=== PATIENT | female | born 1935 | race Caucasian/White ===

== ENCOUNTER 2016-11-08 07:17 | Day surgery (SDC) | payer OTHER ==
[2016-11-06 17:00] VITALS: BMI 29.2
[2016-11-08 07:38] VITALS: TEMP 97.5
[2016-11-08] MEDS ORDERED: BUPIVACAINE HCL/PF 0.25% (2.5MG/ML) 10 ML VIAL ONE (09:21)
[2016-11-08] MEDS ORDERED: methylPREDNISolone ACET (DEPO) 80 MG/1 ML VIAL ONE (09:21)
[2016-11-08] MEDS ORDERED: PROPOFOL 20 ML ONE (09:47)
--- NOTE | 2016-11-08 11:14 | OP ---
DATE OF OPERATION: 11/08/2016 PREOPERATIVE DIAGNOSES: 1. L1 osteoporotic compression fracture. 2. Lower back pain with lumbar radiculopathy. POSTOPERATIVE DIAGNOSES: 1. L1 osteoporotic compression fracture. 2. Lower back pain with lumbar radiculopathy. PROCEDURE: 1. Right L1-L2 epidural steroid injection. 2. Intraoperative fluoroscopy. ANESTHESIA: Local with IV sedation. ANESTHESIOLOGIST: Mikael Martins MD INDICATIONS: The patient is an 81-year-old female with recurrent lower back pain and lumbar radiculopathy. She had a known history of L1 osteoporotic compression fracture. Because of recurrent symptoms and failure on conservative treatment, she is consented for her 1st epidural steroid injection of the year. The risks of the procedure include, but are not limited to, bleeding, infection, spinal headache, and neurological injury. The patient understands the indication for the procedure, procedure in detail, risks, benefits, and alternatives for treatment of her lumbar condition and wish to proceed. No guarantee is given for a favorable outcome. PROCEDURE IN DETAIL: After the patient was taken to the operating room, she was placed in prone position with a pillow under her hips. Lumbar area was cleaned with alcohol and painted with Betadine. Skin wheal was raised with 5 mL 1% Xylocaine. A 22-gauge spinal needle was inserted under AP fluoroscopic guidance towards the epidural space and right-sided L1-L2. [id number] technique was utilized, and there was no CSF or blood backflow. The L1 vertebral body was completely collapsed on lateral fluoroscopic imaging secondary to prior fracture. Loss of resistance technique was utilized, and there was no CSF or blood backflow. Then 80 mg of Depo-Medrol and 1 mL of 0.25% Marcaine was injected. The needle was withdrawn. Sterile bandage was applied. The patient tolerated the procedure well and was turned back to the supine position. Moving bilateral lower extremities well. She did not complain of headache. ARABELLA WOODY M.D. [id number]
[2016-11-08 11:21] VITALS: BP 141/82; PULSE 96
== END 2016-11-08 11:26 | disposition home or self-care (01) ==
LOC: JASU-SURG 07:17
PROVIDERS: ATTEND Neurological Surgery
PROC: 3E0S33Z Introduction of Anti-inflammatory into Epidural Space, Percutaneous Approach (ICD-10-PCS; 2016-11-08)
PROC: B01BYZZ Fluoroscopy of Spinal Cord using Other Contrast (ICD-10-PCS; 2016-11-08)
PROC: 3E0S3BZ Introduction of Anesthetic Agent into Epidural Space, Percutaneous Approach (ICD-10-PCS; principal; 2016-11-08 09:00)
DX: M80.88XA Other osteoporosis with current pathological fracture, vertebra(e), initial encounter for fracture (principal); M54.16 Radiculopathy, lumbar region
CPT/HCPCS: 76000-TC

== ENCOUNTER 2017-02-03 12:19 | Emergency (ER) | payer OTHER ==
[2017-02-03 12:26] VITALS: BMI 29.9
--- NOTE | 2017-02-03 12:44 | PDOC ---
History of Present Illness - General Chief Complaint: Edema Stated Complaint: PAIN Time Seen by Provider: 02/03/17 12:39 History Source: Patient - History of Present Illness Initial Comments: 02/03/17 13:50 Patient is a 81 yo female Past History - Past Medical History Allergies/Adverse Reactions: Allergies Allergy/AdvReac Type Severity Reaction Status Date / Time No Known Drug Allergies Allergy Verified 02/03/17 12:23 Home Medications: Ambulatory Orders Levothyroxine [Synthroid -] 100 mcg PO DAILY 05/07/14 Simvastatin [Zocor -] 40 mg PO HS 05/07/14 Esomeprazole Mag Trihydrate [Nexium] 20 mg PO DAILY 08/01/15 Valsartan [Diovan] 80 mg PO DAILY 11/06/16 Oxycodone HCl/Acetaminophen [Percocet 5-325 mg Tablet] 1 tab PO PRN PRN Sulfamethoxazole/Trimethoprim [Bactrim Ds -] 1 tab PO BID #20 tablet 02/03/17 Anemia: No Asthma: No Cancer: No Cardiac Disorders: No CVA: No COPD: No CHF: No Dementia: No Diabetes: No GI Disorders: Yes (GERD) Disorders: No HTN: Yes Hypercholesterolemia: Yes Liver Disease: No Suicide Attempt (Hx): No Seizures: No Thyroid Disease: Yes - Surgical History Orthopedic Surgery: Yes (ankle sx, right knee replacement, shoulder sx) - Psycho/Social/Smoking Cessation Hx Anxiety: No Suicidal Ideation: No Smoking Status: No Smoking History: Never smoked Have you smoked in the past 12 months: No Number of Cigarettes Smoked Daily: 0 Information on smoking cessation initiated: No Hx Alcohol Use: No Drug/Substance Use Hx: No Substance Use Type: None Hx Substance Use Treatment: No *Physical Exam - Vital Signs Last Vital Signs Temp Pulse Resp BP Pulse Ox 98.3 F 105 H 18 161/83 95 02/03/17 12:24 02/03/17 12:24 02/03/17 12:24 02/03/17 12:24 02/03/17 12:24 ED Treatment Course - LABORATORY CBC & Chemistry Diagram: 02/03/17 14:07 02/03/17 14:07 - RADIOLOGY Chest X-Ray Result: No Infiltrates (No acute pathology. No change from prior study.), Other (Cardiomegaly but no acute change from prior study.) Medical Decision Making - Medical Decision Making 02/03/17 14:18 Complain of dysurea: ordered UA 02/03/17 14:41 CBC significant for mild leukocytosis (10.9) with no bands and no left shift 02/03/17 14:58 ECG: normal sinus rhythm, normal axis, normal intervals, no significant change compared to 05/07/2014 02/03/17 15:10 02/03/17 15:11 02/03/17 16:13 Doppler interpreted as normal. Wells Criteria = 0 very low for PE Patient endorses most of her reason for coming to the ED is her back pain and the breathing problem was associated with this pain. Patient has appropriate pain management and followup for this. Patient will be given an Rx for the cellulitis in the right leg will follow up with her doctor *DC/Admit/Observation/Transfer Diagnosis at time of Disposition: Back pain, lumbosacral Cellulitis Qualifiers: Site of cellulitis: extremity Site of cellulitis of extremity: lower extremity Laterality: left Qualified Code(s): L03.116 - Cellulitis of left lower limb - Discharge Dispostion Disposition: HOME Condition at time of disposition: Good Admit: No - Prescriptions Prescriptions: Sulfamethoxazole/Trimethoprim [Bactrim Ds -] 1 tab PO BID #20 tablet - Patient Instructions Printed Discharge Instructions: DI for Cellulitis -- Adult Additional Instructions: Thank you for trusting us with your health care today. I hope you were satisfied with our care. As we discussed, you were diagnosed with cellulitis of the right leg and have been prescribed an antibiotic. It is important that you take this medicine as directed and follow up with your doctor next week as planned. If you have any significant worsening of symptoms, please return to the emergency department immediately. - Attestations Physician Attestion: 02/03/17 19:02 I, Dr. Denton Saavedra, attest that this document has been prepared under my direction and personally reviewed by me in its entirety. I further attest, that it accurately reflects all work, treatment, procedures and medical decision -making performed by me.
[2017-02-03] MEDS ORDERED: ceFAZolin 2 GRAM PREMIX BAG IVPB ONE (14:15)
[2017-02-03 14:27] LABS: MCH 30.3 pg (25.7-33.7); MEAN CELL VOLUME 91.7 fl (80-96); MEAN PLT VOLUME 8.1 fl (7.5-11.1); PLATELET COUNT 317 K/MM3 (134-434); RDW 14.6 % (11.6-15.6); WHITE BLOOD COUNT 10.9 K/mm3 (4.0-10.0)
[2017-02-03] MEDS ORDERED: CEFAZOLIN (PRE-DOCKED) 100 ML IVPB ONE (14:29)
[2017-02-03] MEDS ORDERED: CEFAZOLIN 2 GM/D5W 50 ML IVPB ONE (14:30)
[2017-02-03 14:45] LABS: PLATELET ESTIMATE ADEQUATE (NORMAL)
[2017-02-03 14:47] LABS: URINE APPEARANCE CLEAR; URINE BILIRUBIN NEGATIVE (NEGATIVE); URINE BLOOD NEGATIVE (NEGATIVE); URINE COLOR COLORLESS; URINE GLUCOSE (UA) NEGATIVE (NEGATIVE); URINE KETONE NEGATIVE (NEGATIVE); URINE LEUK ESTERASE NEGATIVE (NEGATIVE); URINE NITRITE NEGATIVE (NEGATIVE); URINE PROTEIN NEGATIVE (NEGATIVE); URINE UROBILINOGEN NEGATIVE E.U./dl (0.2-1.0)
[2017-02-03 14:51] LABS: ALBUMIN 3.6 g/dl (3.4-5.0); ALK PHOS 65 U/L (45-117); ANION GAP 9 (8-16); BILIRUBIN,TOTAL 0.5 mg/dL (0.2-1.0); CALCIUM 9.2 mg/dL (8.5-10.1); CO2 28 mmol/L (21-32); CREATININE 0.5 mg/dL (0.55-1.02); GLUCOSE,RANDOM 100 mg/dL (74-106); SGPT/ALT 22 U/L (12-78); TOT PROT 7.1 g/dl (6.4-8.2)
[2017-02-03 14:54] LABS: SGOT/AST 40 U/L (15-37)
--- NOTE | 2017-02-03 15:20 | PDOC ---
Attending Attestation - ED Attending Attestation I have performed the following: I have examined & evaluated the patient, The case was reviewed & discussed with the resident, I agree w/resident's findings & plan, Exceptions are as noted <Martin Orta - Last Filed: 02/03/17 15:20> - HPI HPI: The patient is an 81 yo F with a past medical history significant for HTN, HLD, hypothyroidism who presents with worsening bilateral LE edema and associated SOB for the past 3 days. As per daughter, patient has had chronic LE edema for 1 year that worsened 3 days ago. Patient is s/p Knee revision in June 2016 and since that time her edema has been fluctuating. The patient denies fevers, chills, nausea, vomiting and diarrhea. Patient endorses abdominal discomfort. Patient denies LE pain. Allergies: NKDA - Physicial Exam PE: GENERAL: Awake, alert, and fully oriented, in no acute distress HEAD: No signs of trauma EYES: PERRLA, EOMI, sclera anicteric, conjunctiva clear ENT: Auricles normal inspection, hearing grossly normal, nares patent, oropharynx clear without exudates. Moist mucosa NECK: Normal ROM, supple, no lymphadenopathy, JVD, or masses LUNGS: Breath sounds equal, clear to auscultation bilaterally. No wheezes, and no crackles HEART: Tachycardia. Regular rhythm, normal S1 and S2, Systolic murmur, rubs or gallops ABDOMEN: Soft, Tenderness on palpation on R and L LQs, normoactive bowel sounds. No guarding, no rebound. No masses EXTREMITIES: Normal range of motion, +1 pitting LE edema from ankle to hip bilaterally. R leg has scar from revision surgery. R leg is erythematous and warm to touch on anterior side. No clubbing or cyanosis. No cords. NEUROLOGICAL: Cranial nerves II through XII grossly intact. Normal speech, gait not assessed. SKIN: Warm, Dry, normal turgor, no rashes or lesions noted. - Medical Decision Making Will obtain: -CXR -past records from PCP -r/o DVT vs cellulitis -infectious work up -blood cultures -ECG -Blood gas -If other exams negative, consider CTA Will reassess. <Keiry Benavides - Last Filed: 02/03/17 15:23>
[2017-02-03 17:00] VITALS: TEMP 98
[2017-02-03 19:17] VITALS: BP 148/89; PULSE 92
--- NOTE | 2017-02-04 10:33 | EKG ---
Test Reason : Blood Pressure : / mmHG Vent. Rate : 098 BPM Atrial Rate : 098 BPM P-R Int : 176 ms QRS Dur : 064 ms QT Int : 336 ms P-R-T Axes : 017 -11 012 degrees QTc Int : 428 ms NORMAL SINUS RHYTHM SEPTAL INFARCT (CITED ON OR BEFORE 27-FEB-2007) INFERIOR INFARCT (CITED ON OR BEFORE 07-MAY-2014) ABNORMAL ECG WHEN COMPARED WITH ECG OF 07-MAY-2014 17:10, [place] INTERVAL HAS DECREASED QUESTIONABLE CHANGE IN INITIAL FORCES OF INFERIOR LEADS Confirmed by VIRIDIANA GUTIERREZ MD ([id number]) on 02/04/2017 10:33:02 AM Referred By: Confirmed By:VIRIDIANA GUTIERREZ MD
== END 2017-02-03 19:18 | disposition home or self-care (01) ==
LOC: JER 12:19
DX: M54.5 Low back pain (principal); L03.116 Cellulitis of left lower limb; I10 Essential (primary) hypertension; E78.00 Pure hypercholesterolemia, unspecified; E03.9 Hypothyroidism, unspecified
CPT/HCPCS: 36415; 71010-TC; 80053; 81003; 85027; 87040; 93005; 93010; 93971-TC; 96365; 99285-25

== ENCOUNTER 2020-03-24 09:30 | Inpatient (IN) | payer OTHER ==
[2020-03-24] MEDS ORDERED: SODIUM CHLORIDE 1,000 ML IV SCH (09:45)
--- NOTE | 2020-03-24 10:23 | PDOC ---
History of Present Illness - General Stated Complaint: POSSIBLE STROKE Time Seen by Provider: 03/24/20 09:33 - History of Present Illness Initial Comments: Pt is an 84yo F BIBA with PMH HLD, HTN, lung disease, who presents with L arm/leg weakness, facial droop, and fall. Pt was found on the ground by her aide this morning. Daughter spoke with pt on phone last night at 10pm, denies any slurred speech at the time. Daughter states that pt was in usual state of health last night. Pt c/o back pain, daughter states that she has a hx of DJD of lower back. Denies any f/c, chest pain, abdominal pain, n/v. Pt lives at home by herself, has aides from 8a-4p. PCP: Shaun PMH: see above Meds: see chart Allergies: NKDA Review of Systems CONSTITUTIONAL:denies fever, chills HEENT:denies rhinorrhea, nasal congestion, sore throat CARDIOVASCULAR:denies chest pain RESPIRATORY:reports chronic cough, shortness of breath GASTROINTESTINAL: denies abdominal pain, nausea, vomiting, diarrhea, constipation GENITOURINARY:denies dysuria, frequency, urgency, hesitancy, hematuria MUSCULOSKELETAL:reports neck pain, back pain HEMATOLOGIC/IMMUNOLOGIC:denies easy bleeding, easy bruising ENDOCRINE: denies unexplained weight gain, unexplained weight loss NEUROLOGIC:denies headache, mental status changes SKIN:denies rash, itching, pallor Physical Exam General: awake, alert, fully oriented, in moderate distress, well developed, well nourished Head: normocephalic, atraumatic Eyes: PERRL, EOMI, anicteric sclera, conjunctiva clear ENT: Auricles normal inspection, hearing grossly normal, oropharynx clear without exudates. No nasal congestion Moist mucous membranes Neck: supple, normal ROM Lung: equal breath sounds b/l, CTA b/l, wheezing b/l Heart: RRR, systolic murmur, normal S1, S2 Abdomen: soft, non tender, normoactive bowel sounds, no guarding, rebound, masses Extremities: no edema, no erythema or tenderness, DP/PT pulses 2+ and symmetric Neuro: visual osei intact, EOMI (patient frequently closes eyes), lower face paralysis, no mouth movement on L side, unable to move L arm, unable to lift left leg, weakened dorsiflexion and plantarflexion on L as compared to right. normal speech (per daughter), sensation intact b/l Skin: warm, dry, no rashes or lesions noted MDM Pt is an 84yo F BIBA with PMH HLD, HTN, lung disease, who presents with L arm/leg weakness, facial droop, and fall. Vitals: tachycardia, normotensive, afebrile DDx including but not limited to: ischemic vs hemorrhagic stroke Workup: head CT, C spine, head and neck CTA, labs, cxr, ekg EKG: normal sinus rhythm, HR 98bpm, DC 166ms, QRS 70ms, QTc 464ms, no ST changes as compard to EKG from 2017 CXR - calcified breast prosthesis, large heart, tracheal deviation to right from a prominent knob, interstitial lung changes compatible with known chronic lung disease and possible superimposed early infiltrates on the right. 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 Dia - who recommended permissive HTN (200-220/110) until 10pm, trendelenburg position, simvastatin 80mg Spoke with Dr. Dunn who was called by the patient's daughter; I provided an update on the patient's findings, and he advised that patient should be at [facility]. Disposition: Admit tPA Exclusion checklist 3-4.5h - Time Elapsed Date last known well: 03/23/20 Time last known well: 22:00 Elaspsed time: 3 Day(s) and 0 Hour(s) and 27 Minutes - Thrombolytic Therapy Candidate Is patient eligible for thrombolytic therapy: No - Ineligibility reason(s) Reasons No tPA given: Outside of window - delayed arrival NIH Stroke Scale - Last Known Well Date/Time & Onset Date Last Known Well: 03/23/20 Time Last Known Well: 22:00 - Initial Evaluation Level of consciousness: Alert Ask patient the month and their age: Answers both correctly Ask patient to open & close eyes; make fist and let go: Obeys both correctly Best gaze (horizontal eye movement): Partial gaze palsy Visual field testing: No visual field loss Facial paresis (Show teeth/raise eyebrows/close eyes tight): Partial paralysis (total or near paralysis of lower face) Motor Function: Left Arm: No movement Motor Function: Right Arm: Normal (extends arm 90 (or 45) degrees for 10 seconds without drift Motor Function: Left Leg: Drift Motor Function: Right Leg: Normal (extends leg 30 degrees for 5 seconds without drift) Limb Ataxia: No ataxia Sensory(Use pinprick test arms,legs,trunk,face/side to side): Normal Best language (Describe picture, name items, read sentences): No Aphasia Dysarthria (read several words): Mild to moderate slurring of words Extinction and Inattention: No abnormality - Total Score NIH Stroke Scale Score: 9 Past History - Medical History Allergies/Adverse Reactions: Allergies Allergy/AdvReac Type Severity Reaction Status Date / Time No Known Drug Allergies Allergy Verified 03/24/20 10:41 Home Medications: Ambulatory Orders Levothyroxine [Synthroid -] 100 mcg PO DAILY 05/07/14 Simvastatin [Zocor -] 40 mg PO HS 05/07/14 Esomeprazole Mag Trihydrate [Nexium] 40 mg PO DAILY 08/01/15 Albuterol 2.5/Ipratropium 0.5 [Duoneb -] 1 neb IH TID PRN 03/25/20 Ibandronate Sodium 150 mg PO MONTHLY 03/25/20 Mirabegron [Myrbetriq] 50 mg PO DAILY 03/25/20 Olmesartan/Hydrochlorothiazide [Olmesartan-Hctz 40-12.5 mg Tab] 1 tablet PO DAILY 03/25/20 Umeclidinium Brm/Vilanterol Tr [Anoro Ellipta 62.5-25 Mcg INH] 1 puff IH DAILY 03/25/20 Anemia: No Asthma: No Cancer: No Cardiac Disorders: No CVA: No COPD: No CHF: No Dementia: No Diabetes: No GI Disorders: Yes (GERD) Disorders: No HTN: Yes Hypercholesterolemia: Yes Liver Disease: No Seizures: No Thyroid Disease: Yes - Surgical History Orthopedic Surgery: Yes (ankle sx, right knee replacement, shoulder sx) - Psycho-Social/Smoking History Smoking Status: No Smoking History: Never smoked Have you smoked in the past 12 months: No Number of Cigarettes Smoked Daily: 0 ED Treatment Course - LABORATORY CBC & Chemistry Diagram: 03/25/20 23:45 03/26/20 06:40 - ADDITIONAL ORDERS Additional order review: Laboratory Results 03/24/20 09:40 POC Glucometer 153 03/24/20 09:40 POC Glucometer 153 - RADIOLOGY Radiology Studies Ordered: Category Date Time Status NECK CTA [CT] Stat CT Scan 03/24/20 09:43 Taken Discharge - Discharge Information Problems reviewed: Yes Clinical Impression/Diagnosis: Cerebrovascular accident (CVA) Qualifiers: CVA mechanism: unspecified Qualified Code(s): I63.9 - Cerebral infarction, unspecified Condition: Stable - Follow up/Referral - Patient Discharge Instructions - Post Discharge Activity
[2020-03-24 10:33] LABS: INR 1.04 (0.83-1.09); PROTHROMBIN TIME (PATIENT) 12.3 SEC (9.7-13.0)
[2020-03-24 10:36] LABS: ACTIVATED PTT 29.1 SECONDS (25.2-36.5)
[2020-03-24 10:50] VITALS: BMI 19.5
[2020-03-24 10:55] LABS: CHOLESTEROL 137 mg/dL (50-200)
[2020-03-24 11:03] LABS: HDL CHOLESTEROL 57 mg/dL (40-60); LDL CHOLESTEROL (ONLY SJRH) 70 mg/dL (5-100); TRIGLYCERIDES 79 mg/dL (0-150)
[2020-03-24] MEDS ORDERED: ASPIRIN 325 MG TABLET PO ONE (11:18)
[2020-03-24 11:39] LABS: URINE APPEARANCE CLEAR; URINE BILIRUBIN NEGATIVE (NEGATIVE); URINE COLOR YELLOW; URINE GLUCOSE (UA) NEGATIVE (NEGATIVE); URINE KETONE NEGATIVE (NEGATIVE); URINE LEUK ESTERASE NEGATIVE (NEGATIVE); URINE NITRITE NEGATIVE (NEGATIVE); URINE PROTEIN TRACE (NEGATIVE); URINE UROBILINOGEN 0.2 mg/dL (0.2-1.0)
[2020-03-24] MEDS ORDERED: ASPIRIN 81 MG CHEWABLE TABLETS ONE (11:44)
--- NOTE | 2020-03-24 12:34 | EKG ---
Test Reason : Blood Pressure : / mmHG Vent. Rate : 098 BPM Atrial Rate : 098 BPM P-R Int : 166 ms QRS Dur : 070 ms QT Int : 364 ms P-R-T Axes : 045 001 019 degrees QTc Int : 464 ms POOR DATA QUALITY, INTERPRETATION MAY BE ADVERSELY AFFECTED NORMAL SINUS RHYTHM CANNOT RULE OUT ANTERIOR INFARCT (CITED ON OR BEFORE 27-FEB-2007) ABNORMAL ECG WHEN COMPARED WITH ECG OF 03-FEB-2017 14:18, NO SIGNIFICANT CHANGE WAS FOUND Confirmed by TIERRA LORA MD ([id number]) on 03/24/2020 12:34:33 PM Referred By: Confirmed By:TIERRA LORA MD
[2020-03-24 12:56] LABS: BASO % 0.8 % (0-2.0); HEMATOCRIT 34.6 % (32.4-45.2); HEMOGLOBIN 10.6 GM/dL (10.7-15.3); LYMPH % 3.3 % (8-40); MCH 25.5 pg (25.7-33.7); MCHC 30.6 g/dl (32.0-36.0); MEAN CELL VOLUME 83.5 fl (80-96); MEAN PLT VOLUME 8.2 fl (7.5-11.1); MONO % 10.6 % (3.8-10.2); NEUT % 84.3 % (42.8-82.8); PLATELET COUNT 528 K/MM3 (134-434); RBC 4.14 M/mm3 (3.60-5.2); WHITE BLOOD COUNT 13.7 K/mm3 (4.0-10.0)
[2020-03-24 13:06] LABS: ALK PHOS 80 U/L (45-117); ANION GAP 6 MMOL/L (8-16); BILIRUBIN,TOTAL 0.5 mg/dL (0.2-1); BLOOD UREA NITROGEN 20.8 mg/dL (7-18); CALCIUM 8.9 mg/dL (8.5-10.1); CHLORIDE 106 mmol/L (98-107); CO2 25 mmol/L (21-32); GLUCOSE,RANDOM 112 mg/dL (74-106); POTASSIUM 4.7 mmol/L (3.5-5.1); SGOT/AST 22 U/L (15-37); SGPT/ALT 13 U/L (13-61); SODIUM 138 mmol/L (136-145)
--- NOTE | 2020-03-24 13:21 | PDOC ---
Documentation entered by Libby Barclay SCRIBE, acting as scribe for Jose Roche MD. Jose Roche MD: This documentation has been prepared by the nylaibe, Libby Barclay SCRIBE, under my direction and personally reviewed by me in its entirety. I confirm that the documentation accurately reflects all work, treatment, procedures, and medical decision making performed by me. Attending Attestation - Resident Resident Name: Gemini Pérez - ED Attending Attestation I have performed the following: I have examined & evaluated the patient, The case was reviewed & discussed with the resident, I agree w/resident's findings & plan, Exceptions are as noted - HPI HPI: 03/24/20 10:22 The patient is an 84-year-old female with a past medical history significant for HTN, HLD, and lung disease who presents to the emergency department via EMS s/p an unwitnessed fall with slurred speech, left-sided facial droop, left arm and leg weakness. Per EMS, the patient had an unwitnessed fall last night and was found on the nm oor by her home health aide this morning. EMS reports the patient was noted to have left arm and leg weakness, left-sided facial droop, and slurred speech, with additional complaint of back pain. The patients daughter reports she spoke to her last night around 10:00 pm and she recalls the patient was her usual self then. The pt denies headache, cp, sob, abd pain, nvd, visual sxs, urinary sxs. Allergies: NKDA Social history: Second-hand smoke exposure. PCP: Dr. Dunn - Physicial Exam PE: 03/24/20 12:55 Agree with resident exam. - Critical Care Time Total Critical Care Time: 35 Critical Care Statement: The care of this patient involved high complexity decision making to prevent further life threatening deterioration of the patient's condition and/or to evaluate & treat vital organ system(s) failure or risk of failure. - Medical Decision Making 03/24/20 13:05 84yo F hx HTN, HL presents to the ED with L sided weakness and slurred speech, LKN last night at 10pm [facility] with acute R basil ganglia stroke NIHSS 9, pt out of TPA window CTA obtained to r/o central large vessel occlusion - revealing of R 70% stenosis of L ICA. No indication for thrombectomy Case discussed with Dr. Dia, will dose aspirin 325mg, admit to a stroke bed Pt accepted for admission by hospitalist Case discussed in detail with admitting physician including history, physical exam and ancillary studies. Admitting physician has assumed care for the patient, will follow all pending diagnostics and will complete the evaluation and treatment. Discharge - Discharge Information Problems reviewed: Yes Clinical Impression/Diagnosis: Cerebrovascular accident (CVA) Condition: Stable - Follow up/Referral - Patient Discharge Instructions - Post Discharge Activity
[2020-03-24 13:24] LABS: ANISOCYTOSIS 0; MACROCYTOSIS 0; PLATELET ESTIMATE INCREASED
[2020-03-24] MEDS ORDERED: ACETAMINOPHEN 1000 MG/100 ML VIAL (NON FORMULARY) IVPB ONE (13:45)
[2020-03-24] MEDS ORDERED: ACETAMINOPHEN INJECTION 100 ML IVPB ONE (13:56)
[2020-03-24] MEDS ORDERED: DOCUSATE SODIUM 100 MG CAPSULE (FP) PO PRN (15:09)
--- NOTE | 2020-03-24 15:27 | PN ---
Teaching Attending Note Name of Resident: Jasmina Guerra ATTENDING PHYSICIAN STATEMENT I saw and evaluated the patient. I reviewed the resident's note and discussed the case with the resident. I agree with the resident's findings and plan as documented. SUBJECTIVE: OBJECTIVE: Last Vital Signs Temp Pulse Resp BP Pulse Ox 98.4 F 104 H 18 132/72 97 03/24/20 09:30 03/24/20 13:45 03/24/20 13:45 03/24/20 13:45 03/24/20 13:45 GENERAL: Awake, alert, and oriented, hoarse voice, frail HEAD: Normal with no signs of trauma. EYES: Pupils equal, round and reactive to light, sclera anicteric, conjunctiva clear. LUNGS: rales R>L HEART: Regular rate and rhythm, normal S1 and S2, pulmonary murmur3/6 ABDOMEN: Soft, nontender, not distended MUSCULOSKELETAL: Normal range of motion at all joints. No bony deformities or tenderness. No CVA tenderness. UPPER EXTREMITIES: 2+ pulses, warm, well-perfused. No cyanosis. No clubbing. No peripheral edema. LOWER EXTREMITIES: 2+ pulses, warm, well-perfused. No calf tenderness. No peripheral edema. NEUROLOGICAL: Cranial nerves II-XII intact. slow speech, hoarseness noted, RE 5/5, LE 1/5 (upper and lower), unable to elicit DTR. CBCD WBC 13.7 K/mm3 (4.0-10.0) H 03/24/20 10:20 RBC 4.14 M/mm3 (3.60-5.2) 03/24/20 10:20 Hgb 10.6 GM/dL (10.7-15.3) L 03/24/20 10:20 Hct 34.6 % (32.4-45.2) 03/24/20 10:20 MCV 83.5 fl (80-96) 03/24/20 10:20 MCHC 30.6 g/dl (32.0-36.0) L 03/24/20 10:20 RDW 18.0 % (11.6-15.6) H 03/24/20 10:20 Plt Count 528 K/MM3 (134-434) H D 03/24/20 10:20 MPV 8.2 fl (7.5-11.1) 03/24/20 10:20 CMP Sodium 138 mmol/L (136-145) 03/24/20 10:00 Potassium 4.7 mmol/L (3.5-5.1) 03/24/20 10:00 Chloride 106 mmol/L (98-107) 03/24/20 10:00 Carbon Dioxide 25 mmol/L (21-32) 03/24/20 10:00 Anion Gap 6 MMOL/L (8-16) L 03/24/20 10:00 BUN 20.8 mg/dL (7-18) H 03/24/20 10:00 Creatinine 1.0 mg/dL (0.55-1.3) 03/24/20 10:00 Calcium 8.9 mg/dL (8.5-10.1) 03/24/20 10:00 Total Bilirubin 0.5 mg/dL (0.2-1) 03/24/20 10:00 AST 22 U/L (15-37) 03/24/20 10:00 ALT 13 U/L (13-61) 03/24/20 10:00 Alkaline Phosphatase 80 U/L (45-117) 03/24/20 10:00 Total Protein 7.0 g/dl (6.4-8.2) 03/24/20 10:00 Albumin 3.0 g/dl (3.4-5.0) L 03/24/20 10:00 Home Medications Medication Instructions Recorded Levothyroxine [Synthroid -] 100 mcg PO DAILY 05/07/14 Simvastatin [Zocor -] 40 mg PO HS 05/07/14 Esomeprazole Mag Trihydrate 20 mg PO DAILY 08/01/15 [Nexium] Valsartan [Diovan] 80 mg PO DAILY 11/06/16 ASSESSMENT AND PLAN: 84yo F BIBA with Mhx HLD, HTN, lung disease, knee replacement, who presents with L arm/leg weakness, facial droop, and fall. Admitted for acute stroke, last seen normal was last night at 10pm. # acute stroke out of the window period for tPA, no indication for thrombectomy per ED discussion with neuro denies headaches, palpitation CT head:Rt. basal ganglia acute/subacute infarct that may be extending to the right periventricular white matter CTA: 70% stenosis of lt. common carotid, hypoplastic right vertebral artery relative to left without evidence of stenosis or dissection; no gross aneurysm, focal hemodynamically significant stenosis or major artery cutoff in central intracranial arterial circulation NIHSS 9 NPO for now ASA, high dose statin, stool softeners when permissible permissive HTN MRI in next 24h neurocheck q1-2h PT, speech and swallow eval, aspiration precautions, seizure precautinos EKG reviewed, may need ECHO cardiology consult neurology consult tele monitoring # Aspiration Pneumonia Cough, hoarseness, worsening symptoms for week Has undetermined lung disease (on bronchodilators at home, no home O2) cannot rule out aspiration afebrile but has elevated CXR noted worsening of Rt side infiltrates compared to previous imaging pulmonary consult requested Zosyn keep NPO, speech and swallow eval, keep head elevated Bronchodilators, aspiration precautions speech and swallow eval pulmonary consult HTN HLD DVT prophylaxis with SCD then chemical in 24-48h
--- NOTE | 2020-03-24 16:17 | PN.NIHSS ---
NIH Stroke Scale - Last Known Well Date/Time & Onset Date Last Known Well: 03/22/20 Time Last Known Well: 22:00 - Initial Evaluation Level of consciousness: Alert Ask patient the month and their age: Answers both correctly Ask patient to open & close eyes; make fist and let go: Obeys both correctly Best gaze (horizontal eye movement): Normal Visual field testing: No visual field loss Facial paresis (Show teeth/raise eyebrows/close eyes tight): Minor paralysis (flattened nasolabial fold, asymmetry on smiling) Motor Function: Left Arm: Some effort against gravity Motor Function: Right Arm: Normal (extends arm 90 (or 45) degrees for 10 seconds without drift Motor Function: Left Leg: No effort against gravity Motor Function: Right Leg: Some effort against gravity Limb Ataxia: Present in one limb Sensory(Use pinprick test arms,legs,trunk,face/side to side): Normal Best language (Describe picture, name items, read sentences): No Aphasia Dysarthria (read several words): Normal articulation Extinction and Inattention: No abnormality - Total Score NIH Stroke Scale Score: 9
--- NOTE | 2020-03-24 16:18 | HP ---
CHIEF COMPLAINT: PCP: Shaun HISTORY OF PRESENT ILLNESS: 84 year old female with PMH degenerative joint disease, HLD, HTN, hypothyroidism, lung disease(?), who presented with L side weakness and facial droop. Pt stated that she remembered falling off her bed at night and lying on the floor, unable to get up. Pt endorsed to landing on her back as she fell. Denied head trauma or loss of consciousness. Pt stated that she was on the floor for an unknown period of time. As per daughter, she stated that the last time she saw the pt in her usual state of health was 10PM yesterday. NIHSS 9. Pt denies sensory disturbance, visual field defect, difficulty speaking, dizziness, fevers, chills, shortness of breath, chest pain, or abdominal pain. Pt admits to some dysphagia. ER course was notable for: (1) Tylenol (2) IV normal saline (3) Aspirin Recent Travel: Denies PAST MEDICAL HISTORY: As stated above PAST SURGICAL HISTORY: R knee surgery Social History: Smoking: Denies Alcohol: Social drinker Drugs: Denies Allergies No Known Drug Allergies Allergy (Verified 03/24/20 10:41) REVIEW OF SYSTEMS As per HPI. PHYSICAL EXAMINATION GENERAL: Awake and alert, not in acute distress HEENT: NCAT, EOMI, dry mucus membranes. LUNGS: Equal breath sounds heard. Scattered rales present. No wheezes. HEART: Regular rate and rhythm, S1, S2 present. Murmur present on L upper sternal border. ABDOMEN: Soft, non-distended, non-tender to palpation. Bowel sounds present in all 4 quadrants. EXTREMITIES: warm, well-perfused. No edema. NEUROLOGICAL: sensation intact. Strength 5/5 on R upper extremities, 1/5 on L upper extremity. 5/5 on R lower extremity, 1/5 on L lower extremity. SKIN: Warm, dry Laboratory Last Values WBC 13.7 K/mm3 (4.0-10.0) H 03/24/20 10:20 RBC 4.14 M/mm3 (3.60-5.2) 03/24/20 10:20 Hgb 10.6 GM/dL (10.7-15.3) L 03/24/20 10:20 Hct 34.6 % (32.4-45.2) 03/24/20 10:20 MCV 83.5 fl (80-96) 03/24/20 10:20 MCH 25.5 pg (25.7-33.7) L D 03/24/20 10:20 MCHC 30.6 g/dl (32.0-36.0) L 03/24/20 10:20 RDW 18.0 % (11.6-15.6) H 03/24/20 10:20 Plt Count 528 K/MM3 (134-434) H D 03/24/20 10:20 MPV 8.2 fl (7.5-11.1) 03/24/20 10:20 Absolute Neuts (auto) 11.5 K/mm3 (1.5-8.0) H 03/24/20 10:20 Neutrophils % 84.3 % (42.8-82.8) H D 03/24/20 10:20 Neutrophils % (Manual) 71.7 % (42.8-82.8) 03/24/20 10:20 Band Neutrophils % 0.0 % 03/24/20 10:20 Lymphocytes % 3.3 % (8-40) L D 03/24/20 10:20 Lymphocytes % (Manual) 17.2 % (8-40) 03/24/20 10:20 Monocytes % 10.6 % (3.8-10.2) H 03/24/20 10:20 Monocytes % (Manual) 8 % (3.8-10.2) 03/24/20 10:20 Eosinophils % 1.0 % (0-4.5) 03/24/20 10:20 Eosinophils % (Manual) 0.0 % (0-4.5) 03/24/20 10:20 Basophils % 0.8 % (0-2.0) D 03/24/20 10:20 Basophils % (Manual) 0.0 % (0-2.0) 03/24/20 10:20 Myelocytes % (Man) 0 % (0-2) 03/24/20 10:20 Promyelocytes % (Man) 0 % (0-2) 03/24/20 10:20 Blast Cells % (Manual) 0 % (0-0) 03/24/20 10:20 Nucleated RBC % 0 % (0-0) 03/24/20 10:20 Metamyelocytes 0 % (0-2) 03/24/20 10:20 Hypochromia 0 03/24/20 10:20 Platelet Estimate Increased 03/24/20 10:20 Polychromasia 0 03/24/20 10:20 Poikilocytosis 0 03/24/20 10:20 Anisocytosis 0 03/24/20 10:20 Microcytosis 0 03/24/20 10:20 Macrocytosis 0 03/24/20 10:20 PT with INR 12.30 SEC (9.7-13.0) 03/24/20 10:00 INR 1.04 (0.83-1.09) 03/24/20 10:00 PTT (Actin FS) 29.1 SECONDS (25.2-36.5) 03/24/20 10:00 Sodium 138 mmol/L (136-145) 03/24/20 10:00 Potassium 4.7 mmol/L (3.5-5.1) 03/24/20 10:00 Chloride 106 mmol/L (98-107) 03/24/20 10:00 Carbon Dioxide 25 mmol/L (21-32) 03/24/20 10:00 Anion Gap 6 MMOL/L (8-16) L 03/24/20 10:00 BUN 20.8 mg/dL (7-18) H 03/24/20 10:00 Creatinine 1.0 mg/dL (0.55-1.3) 03/24/20 10:00 Est GFR (CKD-EPI)AfAm 59.91 03/24/20 10:00 Est GFR (CKD-EPI)NonAf 51.69 03/24/20 10:00 POC Glucometer 153 UNITS (80-120) 03/24/20 09:40 Random Glucose 112 mg/dL (74-106) H 03/24/20 10:00 Calcium 8.9 mg/dL (8.5-10.1) 03/24/20 10:00 Total Bilirubin 0.5 mg/dL (0.2-1) 03/24/20 10:00 AST 22 U/L (15-37) 03/24/20 10:00 ALT 13 U/L (13-61) 03/24/20 10:00 Alkaline Phosphatase 80 U/L (45-117) 03/24/20 10:00 Creatine Kinase 127 U/L (26-192) 03/24/20 10:00 Troponin I < 0.02 ng/ml (0.00-0.05) 03/24/20 10:00 Total Protein 7.0 g/dl (6.4-8.2) 03/24/20 10:00 Albumin 3.0 g/dl (3.4-5.0) L 03/24/20 10:00 Triglycerides 79 mg/dL (0-150) 03/24/20 10:00 Cholesterol 137 mg/dL (50-200) 03/24/20 10:00 Total LDL Cholesterol 70 mg/dL (5-100) 03/24/20 10:00 HDL Cholesterol 57 mg/dL (40-60) 03/24/20 10:00 Urine Color Yellow 03/24/20 11:30 Urine Appearance Clear 03/24/20 11:30 Urine pH 5.0 (5.0-8.0) 03/24/20 11:30 Ur Specific [place] 1.043 (1.010-1.035) H 03/24/20 11:30 Urine Protein Trace (NEGATIVE) 03/24/20 11:30 Urine Glucose (UA) Negative (NEGATIVE) 03/24/20 11:30 Urine Ketones Negative (NEGATIVE) 03/24/20 11:30 Urine Blood Negative (NEGATIVE) 03/24/20 11:30 Urine Nitrite Negative (NEGATIVE) 03/24/20 11:30 Urine Bilirubin Negative (NEGATIVE) 03/24/20 11:30 Urine Urobilinogen 0.2 mg/dL (0.2-1.0) 03/24/20 11:30 Ur Leukocyte Esterase Negative (NEGATIVE) 03/24/20 11:30 Blood Type A POSITIVE 03/24/20 10:00 Antibody Screen Negative 03/24/20 10:00 Active Medications Albuterol Sulfate (Ventolin Hfa Inhaler -) 2 puff IH RTID SHRUTHI Albuterol Sulfate (Ventolin Hfa Inhaler -) 1 puff IH Q4H PRN PRN Reason: SHORTNESS OF BREATH Albuterol/Ipratropium (Duoneb -) 1 amp NEB Q4H PRN PRN Reason: SHORTNESS OF BREATH Albuterol/Ipratropium (Duoneb -) 1 amp NEB RTID [facility] Aspirin (Asa -) 81 mg PO DAILY [facility] Atorvastatin Calcium (Lipitor -) 80 mg PO HS [facility]HI Docusate Sodium (Colace -) 100 mg PO DAILY PRN PRN Reason: CONSTIPATION Enoxaparin Sodium (Lovenox -) 40 mg SQ DAILY [facility] Guaifenesin (Mucinex -) 600 mg PO Q12H PRN PRN Reason: COUGH Piperacillin Sod/Tazobactam (Sod 4.5 gm/ Dextrose) 100 mls @ 200 mls/hr IVPB Q6H-IV SHRUTHI; Protocol CTA head/neck Prominent calcified plaques at the left common carotid bifurcation with hemodynamically significant stenosis of approximately 70%, NASCET criteria. Tiny plaques at the right common carotid bifurcation without evidence of hemodynamically significant stenosis. Hypoplastic right vertebral artery relative to the left without evidence of stenosis or dissection. Intracranially, there is faint enhancement of the right A1 segment likely a hypoplastic segment with normal enhancement of the right A2 segment. Otherwise, no gross aneurysm, focal hemodynamically significant stenosis or major artery cutoff is seen within the central intracranial arterial circulation. CT head w/o contrast Moderate atrophy and moderate to marked periventricular chronic microvascular ischemic disease changes Right basal ganglia acute/subacute infarct that may be extending to the right periventricular white matter. No gross intracranial hemorrhage is identified. CT neck The alignment is satisfactory. No gross fracture or subluxation is seen. Multilevel degenerative disc disease with anterior spondylosis as well as mild disc osteophyte complex and bilateral uncovertebral hypertrophy, as described above. Large dense calcified plaques at the left common carotid bifurcation. Correlation with carotid Doppler ultrasound would be helpful for further evaluation. Moderately severe COPD changes interstitial thickening, likely chronic seen in the included upper chest CXR Calcified breast prostheses. Large heart. Tracheal deviation to the right from a prominent knob. Interstitial lung changes compatible with known chronic lung disease and possible superimposed early infiltrates on the right. ASSESSMENT/PLAN: This is a 84 year old F with PMH degenerative joint disease, HLD, HTN, hypothyroidism, lung disease(?), who presented with L side weakness and facial droop. Given her history, physical exam, images and significant lab findings, pt likely has CVA. Pt will be admitted to telemetry for further management and evaluation. Acute ischemic stroke - NIHSS 9 - c/w ASA 81 qD, atorvastatin 80 qD - Neuro consulted. Recommended permissive HTN (200-220/110) until 10pm, trendelenburg position, ASA and statin. Pt is outside window for tPA and thrombectomy is not indicated at this time. - f/u echo - f/u EKG - speech and swallow eval - neuro checks - hold home antihypertension medications - CT head and CTA head/neck as above. - Aspiration and fall precautions - c/w colace for regular bowel movement to prevent increased ICP - MRI brain at some point Carotid stenosis - CTA findings as above - Cardio consulted. Pending recommendations. - troponin neg 1x. - f/u repeat EKG - f/u echo Pulmonary infiltrates, likely secondary to Aspiration PNA - CXR as above - Pulmonary consulted. Pending recommendations. - c/w duonebs, albuterol, guaifenesin - c/w supplemental O2 Leukocytosis - RLL infiltrates r/o CAP - start empiric Zosyn - Afebrile. - f/u AM labs FEN -No standing fluids - monitor and replete electrolytes - NPO Ppx -DVT: SCD, then Lovenox in 24-48 hours Dispo: Admit to telemetry. Family Medical History Family History: Unable to Obtain Visit type - Medication Review Med list reviewed for High Risk Meds patients 65 and older: Yes - Emergency Visit Emergency Visit: Yes ED Registration Date: 03/24/20 Care time: The patient presented to the Emergency Department on the above date and was hospitalized for further evaluation of their emergent condition. - New Patient This patient is new to me today: Yes Date on this admission: 03/24/20 - Critical Care Critical Care patient: No ATTENDING PHYSICIAN STATEMENT I saw and evaluated the patient. I reviewed the resident's note and discussed the case with the resident. I agree with the resident's findings and plan as documented. SUBJECTIVE: OBJECTIVE: ASSESSMENT AND PLAN:
[2020-03-24] MEDS ORDERED: ALBUTEROL SO4 2.5/IPRATROPIUM 0.5 INH SOL 3 ML VIAL.NEB. NEB STA (16:30)
[2020-03-24] MEDS ORDERED: guaiFENesin 600 MG TABLET.ER (FP) PO PRN (16:31)
[2020-03-24] MEDS ORDERED: PIPERACILLIN/TAZOB 4.5 GM 4.5 GM/100 ML BAG IVPB ONE (16:43)
[2020-03-24] MEDS ORDERED: PIPERACILLIN/TAZOB 4.5 GM 4.5 GM in DEXTROSE 5%-WATER 100 ML IVPB SCH ×2 (16:45→17:30)
[2020-03-24] MEDS: PIPERACILLIN/TAZOB 4.5 GM 4.5 GM in DEXTROSE 5%-WATER 100 ML IVPB SCH (18:02)
[2020-03-24] MEDS ORDERED: ALBUTEROL SO4 HFA INHALER IH ONE (20:20)
[2020-03-24] MEDS: ALBUTEROL SO4 HFA INHALER IH SCH (20:23)
[2020-03-24] MEDS ORDERED: ATORVASTATIN CA 80 MG TABLET (FP) PO SCH (22:00)
[2020-03-25] MEDS: PIPERACILLIN/TAZOB 4.5 GM 4.5 GM in DEXTROSE 5%-WATER 100 ML IVPB SCH ×2 (03:00→09:27)
[2020-03-25] MEDS ORDERED: DEXTROSE 5%-WATER 100 ML IVPB ONE ×2 (03:14→09:21)
[2020-03-25] MEDS ORDERED: PIPERACILLIN/TAZOBACTAM 4.5 GM VIAL IVPB ONE ×2 (03:14→09:21)
--- NOTE | 2020-03-25 06:16 | CON.CARD ---
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 Cardio/Vascular: Yes: HTN Gastrointestinal: No: Ascites, Cancer, Constipation, Crohn's Disease, Diverticulitis, Diverticulosis, Esophageal Varices, Gastritis, GERD, GI Bleed, Hemorrhoids, Hiatal Hernia, Inflamatory Bowel Disease, Irritable Bowel Disease, Pancreatitis, Peptic Ulcer Disease, Ulcerative Colitis, Other Hepatobiliary: No: Cirrhosis, Cholelithiasis, Cholecystitis, Choledocholithiasis, Hepatitis A, Hepatitis B, Hepatitis C, Other Renal/: No: Renal Failure, Renal Inusuff, BPH, Cancer, Hematuria, Hemodialysis, Neurogenic Bladder, Renal Calculi, UTI, Other Reproductive: No: Ectopic , Endometriosis, Fibroids, PID, Polycystic Ovary Syndrome, Postmenopausal, Other Endocrine: Yes: Hypothyroidism - Alcohol/Substance Use Hx Alcohol Use: No - Smoking History Smoking history: Never smoked Have you smoked in the past 12 months: No Aproximately how many cigarettes per day: 0 - Social History History of Recent Travel: No Home Medications - Allergies Allergies/Adverse Reactions: Allergies Allergy/AdvReac Type Severity Reaction Status Date / Time No Known Drug Allergies Allergy Verified 03/24/20 10:41 - Home Medications Home Medications: Ambulatory Orders Levothyroxine [Synthroid -] 100 mcg PO DAILY 05/07/14 Simvastatin [Zocor -] 40 mg PO HS 05/07/14 Esomeprazole Mag Trihydrate [Nexium] 40 mg PO DAILY 08/01/15 Albuterol 2.5/Ipratropium 0.5 [Duoneb -] 1 neb IH TID PRN 03/25/20 Ibandronate Sodium 150 mg PO MONTHLY 03/25/20 Mirabegron [Myrbetriq] 50 mg PO DAILY 03/25/20 Olmesartan/Hydrochlorothiazide [Olmesartan-Hctz 40-12.5 mg Tab] 1 tablet PO DAILY 03/25/20 Umeclidinium Brm/Vilanterol Tr [Anoro Ellipta 62.5-25 Mcg INH] 1 puff IH DAILY 03/25/20 Family Medical History Family History: Unremarkable (not pertinent to this presentation) Review of Systems - Review of Systems Constitutional: reports: No Symptoms Eyes: reports: No Symptoms HENT: reports: No Symptoms Neck: reports: No Symptoms Cardiovascular: reports: No Symptoms Respiratory: reports: Cough Gastrointestinal: reports: No Symptoms Genitourinary: reports: No Symptoms Musculoskeletal: reports: No Symptoms Endocrine: reports: Other (left sided weakness) - Risk Factors Known Risk Factors: Yes: Hypercholesterolemia, Hypertension Vital Signs: Vital Signs Temperature 98.3 F 03/25/20 05:43 Pulse Rate 97 H 03/25/20 05:43 Respiratory Rate 24 H 03/25/20 05:43 Blood Pressure 111/64 03/25/20 05:43 O2 Sat by Pulse Oximetry (%) 97 03/25/20 05:43 Constitutional: Yes: No Distress Eyes: Yes: Conjunctiva Clear Respiratory: Yes: Rhonchi Gastrointestinal: Yes: Soft (nt) Cardiovascular: Yes: Regular Rate and Rhythm Murmur: Yes: Systolic Murmur Edema: No Neurological: Yes: Alert - Other Data Labs, Other Data: CBC, BMP 03/24/20 10:20 03/24/20 10:00 INR, PTT INR 1.04 (0.83-1.09) 03/24/20 10:00 Troponin, BNP 03/24/20 10:00 Troponin I < 0.02 Troponin, BNP 03/24/20 10:00 Troponin I < 0.02 Echo: Pending Imaging - Results Cat Scan: Image Reviewed EKG: Image Reviewed Assessment/Plan IMP: R sided CVA 70% L carotid stenosis ASP PNA HTN HLD REC: 1. CVA: -Cont ASA/statin -Tele to r/o occult AF -Agree with carotid US and echocardiogram 2. 70% LCC stenosis: -Rec Carotid US -On opposite side of CVA; suggest Vascular consult -Cont ASA and statin. Caution with high intensity statin in this age group- m onitor LFTS and CPK. Consider reduction dose 40 (also considered high intensity) 3. Asp PNA: -supp O2 -Abx as per Critical Care -DVT prophylaxis 4. HTN: -Well controlled at this time. Avoid hypotension 5. HLD: -goal LDL 70mg d/l. Would use lowest dose statin to achieve this -see above.
[2020-03-25 06:49] LABS: BASO % 0.7 % (0-2.0); EOS % 6.4 % (0-4.5); HEMATOCRIT 30.4 % (32.4-45.2); HEMOGLOBIN 9.7 GM/dL (10.7-15.3); LYMPH % 31.4 % (8-40); MCH 26.3 pg (25.7-33.7); MEAN CELL VOLUME 82.2 fl (80-96); MONO % 5.6 % (3.8-10.2); NEUT % 55.9 % (42.8-82.8); PLATELET COUNT 502 K/MM3 (134-434); RDW 17.7 % (11.6-15.6); WHITE BLOOD COUNT 12.9 K/mm3 (4.0-10.0)
[2020-03-25 07:18] LABS: ALBUMIN 2.7 g/dl (3.4-5.0); BLOOD UREA NITROGEN 16.3 mg/dL (7-18); CALCIUM 8.8 mg/dL (8.5-10.1); CREATININE 0.9 mg/dL (0.55-1.3); MAGNESIUM 1.9 mg/dL (1.8-2.4); PHOSPHOROUS 4.2 mg/dL (2.5-4.9); POTASSIUM 4.4 mmol/L (3.5-5.1); TOT PROT 6.4 g/dl (6.4-8.2)
--- NOTE | 2020-03-25 08:58 | CONSULT ---
Consult - text type - Consultation Consultation Note: Neurology CHIEF COMPLAINT: STROKE PCP: Shaun HISTORY OF PRESENT ILLNESS: 84 year old female with PMH degenerative joint disease, HLD, HTN, hypothyroidism, lung disease(?), who presented with L side weakness and facial droop. Pt stated that she remembered falling off her bed at night and lying on the floor, unable to get up. Pt endorsed to landing on her back as she fell. Denied head trauma or loss of consciousness. Pt stated that she was on the floor for an unknown period of time. As per daughter, she stated that the last time she saw the pt in her usual state of health was 10PM on day before admission. NIHSS 9. Pt denied sensory disturbance, visual field defect, difficulty speaking, dizziness, fevers, chills, shortness of breath, chest pain, or abdominal pain. Pt admits to some dysphagia. CT head done and demonstrated moderate atrophy and moderate to marked periventricular chronic microvascular ischemic disease changes Right basal ganglia acute/subacute infarct that may be extending to the right periventricular white matter. CTA of head and neck completed and showed Prominent calcified plaques at the left common carotid bifurcation with hemodynamically significant stenosis of approximately 70%, NASCET criteria. Tiny plaques at the right common carotid bifurcation without evidence of hemodynamically significant stenosis. Hypoplastic right vertebral artery relative to the left without evidence of stenosis or dissection. Intracranially, there is faint enhancement of the right A1 segment likely a hypoplastic segment with normal enhancement of the right A2 segment. CT of C- spine completed and no gross fracture or subluxation is seen. Multilevel degenerative disc disease with anterior spondylosis Recent Travel: Denies PAST MEDICAL HISTORY: As stated above PAST SURGICAL HISTORY: R knee surgery Family History: HTN Social History: Smoking: Denies Alcohol: Social drinker Drugs: Denies REVIEW OF SYSTEMS As per HPI. Allergies No Known Drug Allergies Allergy (Verified 03/24/20 10:41) REVIEW OF SYSTEMS CONSTITUTIONAL: Absent: fever, chills, diaphoresis, + generalized weakness, malaise HEENT: Absent: rhinorrhea, nasal congestion, throat pain, throat swelling, difficulty swallowing, mouth swelling, ear pain, eye pain, visual changes CARDIOVASCULAR: Absent: chest pain, syncope, palpitations, irregular heart rate, lightheadedness, peripheral edema RESPIRATORY: Absent: cough, shortness of breath, dyspnea with exertion, orthopnea, wheezing, stridor, hemoptysis GASTROINTESTINAL: Absent: abdominal pain, abdominal distension, nausea GENITOURINARY: Absent: dysuria, frequency, urgency, MUSCULOSKELETAL: Absent: myalgia, SKIN: Absent: rash, itching, pallor HEMATOLOGIC/IMMUNOLOGIC: Absent: easy bleeding, easy bruising, lymphadenopathy, frequent infections ENDOCRINE: Absent: unexplained weight gain, unexplained weight loss, heat intolerance, cold intolerance NEUROLOGIC: Absent: headache, focal weakness or paresthesias, dizziness, seizure, PSYCHIATRIC: Absent: anxiety, depression, suicidal or homicidal ideation, hallucinations. Ambulatory Orders Levothyroxine [Synthroid -] 100 mcg PO DAILY 05/07/14 Simvastatin [Zocor -] 40 mg PO HS 05/07/14 Esomeprazole Mag Trihydrate [Nexium] 40 mg PO DAILY 08/01/15 Albuterol 2.5/Ipratropium 0.5 [Duoneb -] 1 neb IH TID PRN 03/25/20 Ibandronate Sodium 150 mg PO MONTHLY 03/25/20 Mirabegron [Myrbetriq] 50 mg PO DAILY 03/25/20 Olmesartan/Hydrochlorothiazide [Olmesartan-Hctz 40-12.5 mg Tab] 1 tablet PO DAILY 03/25/20 Umeclidinium Brm/Vilanterol Tr [Anoro Ellipta 62.5-25 Mcg INH] 1 puff IH DAILY 03/25/20 Active Medications Albuterol Sulfate (Ventolin Hfa Inhaler -) 2 puff IH RTID [facility] Last Admin: 03/24/20 20:23 Dose: 2 puff Documented by: Albuterol Sulfate (Ventolin Hfa Inhaler -) 1 puff IH Q4H PRN PRN Reason: SHORTNESS OF BREATH Albuterol/Ipratropium (Duoneb -) 1 amp NEB Q4H PRN PRN Reason: SHORTNESS OF BREATH Albuterol/Ipratropium (Duoneb -) 1 amp NEB RTID [facility] Aspirin (Asa -) 81 mg PO DAILY [facility] Atorvastatin Calcium (Lipitor -) 80 mg PO [facility] Last Admin: 03/24/20 23:05 Dose: 80 mg Documented by: Docusate Sodium (Colace -) 100 mg PO DAILY PRN PRN Reason: CONSTIPATION Enoxaparin Sodium (Lovenox -) 40 mg SQ DAILY [facility] Guaifenesin (Mucinex -) 600 mg PO Q12H PRN PRN Reason: COUGH Piperacillin Sod/Tazobactam (Sod 4.5 gm/ Dextrose) 100 mls @ 200 mls/hr IVPB Q8H-IV SHRUTHI; Protocol Piperacillin Sod/Tazobactam (Sod 4.5 gm/ Dextrose) 100 mls @ 200 mls/hr IVPB Q8H-IV SHRUTHI; Protocol Stop: 03/25/20 10:29 Last Admin: 03/25/20 03:00 Dose: 200 mls/hr Documented by: PHYSICAL EXAMINATION Vital Signs Period Temp Pulse Resp BP Sys/Solorio Pulse Ox Last 24 Hr 98.3 F-98.7 F 83-104 18-24 102-139/58-92 94-100 GENERAL: Awake and alert, not in acute distress HEENT: NCAT, EOMI, dry mucus membranes. LUNGS: Equal breath sounds heard. Scattered rales present. No wheezes. HEART: Regular rate and rhythm, S1, S2 present. Murmur present on L upper sternal border. ABDOMEN: Soft, non-distended, non-tender to palpation. Bowel sounds present in all 4 quadrants. EXTREMITIES: warm, well-perfused. No edema. NEUROLOGICAL: sensation intact. Strength 5/5 on R upper extremities, 1/5 on L upper extremity. 5/5 on R lower extremity, 1/5 on L lower extremity, sensory intact SKIN: Warm, dry CBCD WBC 12.9 K/mm3 (4.0-10.0) H 03/25/20 06:00 RBC 3.70 M/mm3 (3.60-5.2) 03/25/20 06:00 Hgb 9.7 GM/dL (10.7-15.3) L 03/25/20 06:00 Hct 30.4 % (32.4-45.2) L 03/25/20 06:00 MCV 82.2 fl (80-96) 03/25/20 06:00 MCHC 32.0 g/dl (32.0-36.0) 03/25/20 06:00 RDW 17.7 % (11.6-15.6) H 03/25/20 06:00 Plt Count 502 K/MM3 (134-434) H 03/25/20 06:00 MPV 8.0 fl (7.5-11.1) 03/25/20 06:00 CMP Sodium 140 mmol/L (136-145) 03/25/20 06:00 Potassium 4.4 mmol/L (3.5-5.1) 03/25/20 06:00 Chloride 109 mmol/L (98-107) H 03/25/20 06:00 Carbon Dioxide 24 mmol/L (21-32) 03/25/20 06:00 Anion Gap 7 MMOL/L (8-16) L 03/25/20 06:00 BUN 16.3 mg/dL (7-18) 03/25/20 06:00 Creatinine 0.9 mg/dL (0.55-1.3) 03/25/20 06:00 Random Glucose 82 mg/dL (74-106) 03/25/20 06:00 Calcium 8.8 mg/dL (8.5-10.1) 03/25/20 06:00 Total Bilirubin 1.0 mg/dL (0.2-1) 03/25/20 06:00 AST 25 U/L (15-37) 03/25/20 06:00 ALT 14 U/L (13-61) 03/25/20 06:00 Alkaline Phosphatase 69 U/L (45-117) 03/25/20 06:00 Total Protein 6.4 g/dl (6.4-8.2) 03/25/20 06:00 Albumin 2.7 g/dl (3.4-5.0) L 03/25/20 06:00 CARDIAC ENZYMES Creatine Kinase 127 U/L (26-192) 03/24/20 10:00 Troponin I < 0.02 ng/ml (0.00-0.05) 03/24/20 10:00 ASSESSMENT/PLAN: 84 year old female with PMH degenerative joint disease, HLD, HTN, hypothyroidism, lung disease(?), who presented with L side weakness and facial droop. Pt stated that she remembered falling off her bed at night and lying on the floor, unable to get up. Pt endorsed to landing on her back as she fell. Denied head trauma or loss of consciousness. Pt stated that she was on the floor for an unknown period of time. As per daughter, she stated that the last time she saw the pt in her usual state of health was 10PM on day before admission. NIHSS 9. Pt denied sensory disturbance, visual field defect, difficulty speaking, dizziness, fevers, chills, shortness of breath, chest pain, or abdominal pain. Pt admits to some dysphagia. CT head done and demonstrated moderate atrophy and moderate to marked periventricular chronic microvascular ischemic disease changes Right basal ganglia acute/subacute infarct that may be extending to the right periventricular white matter. CTA of head and neck completed and showed Prominent calcified plaques at the left common carotid bifurcation with hemodynamically significant stenosis of approximately 70%, NASCET criteria. Tiny plaques at the right common carotid bifurcation without evidence of hemodynamically significant stenosis. Hypoplastic right vertebral artery relative to the left without evidence of stenosis or dissection. Intracranially, there is faint enhancement of the right A1 segment likely a hypoplastic segment with normal enhancement of the right A2 segment. CT of C- spine completed and no gross fracture or subluxation is seen. Multilevel degenerative disc disease with anterior spondylosis. Consider vascular evaluation for L sided carotid stenosis, although this is contralateral to her stroke hich is in the right middle cerebral artery distribution. Monitor blood pressure, maintain less than 160/90. LDL 70, can reduce statin back down to 40mg. Unclear if patient takes ASA at home, if so then would increase to aggrenox, but if ASA naive then can continue ASA 81mg. pphysical therapy as tolerated, likely need for rehabilitation.
--- NOTE | 2020-03-25 09:09 | PN ---
Teaching Attending Note Name of Resident: Cecile Pérez ATTENDING PHYSICIAN STATEMENT I saw and evaluated the patient. I reviewed the resident's note and discussed the case with the resident. I agree with the resident's findings and plan as documented. SUBJECTIVE: Patient is in NAD, OBJECTIVE: Vital Signs Temperature 98.3 F 03/25/20 05:43 Pulse Rate 97 H 03/25/20 05:43 Respiratory Rate 24 H 03/25/20 05:43 Blood Pressure 111/64 03/25/20 05:43 O2 Sat by Pulse Oximetry (%) 97 03/25/20 05:43 PE: per resident's note Neuro: left sided weakness 1/5 ,right side 5/5, with dysarthria CBCD WBC 12.9 K/mm3 (4.0-10.0) H 03/25/20 06:00 RBC 3.70 M/mm3 (3.60-5.2) 03/25/20 06:00 Hgb 9.7 GM/dL (10.7-15.3) L 03/25/20 06:00 Hct 30.4 % (32.4-45.2) L 03/25/20 06:00 MCV 82.2 fl (80-96) 03/25/20 06:00 MCHC 32.0 g/dl (32.0-36.0) 03/25/20 06:00 RDW 17.7 % (11.6-15.6) H 03/25/20 06:00 Plt Count 502 K/MM3 (134-434) H 03/25/20 06:00 MPV 8.0 fl (7.5-11.1) 03/25/20 06:00 CMP Sodium 140 mmol/L (136-145) 03/25/20 06:00 Potassium 4.4 mmol/L (3.5-5.1) 03/25/20 06:00 Chloride 109 mmol/L (98-107) H 03/25/20 06:00 Carbon Dioxide 24 mmol/L (21-32) 03/25/20 06:00 Anion Gap 7 MMOL/L (8-16) L 03/25/20 06:00 BUN 16.3 mg/dL (7-18) 03/25/20 06:00 Creatinine 0.9 mg/dL (0.55-1.3) 03/25/20 06:00 Random Glucose 82 mg/dL (74-106) 03/25/20 06:00 Calcium 8.8 mg/dL (8.5-10.1) 03/25/20 06:00 Total Bilirubin 1.0 mg/dL (0.2-1) 03/25/20 06:00 AST 25 U/L (15-37) 03/25/20 06:00 ALT 14 U/L (13-61) 03/25/20 06:00 Alkaline Phosphatase 69 U/L (45-117) 03/25/20 06:00 Total Protein 6.4 g/dl (6.4-8.2) 03/25/20 06:00 Albumin 2.7 g/dl (3.4-5.0) L 03/25/20 06:00 CARDIAC ENZYMES Creatine Kinase 127 U/L (26-192) 03/24/20 10:00 Troponin I < 0.02 ng/ml (0.00-0.05) 03/24/20 10:00 Current Medications Generic Name Dose Route Start Last Admin Trade Name Freq PRN Reason Stop Dose Admin Albuterol Sulfate 2 puff 03/24/20 20:00 03/24/20 20:23 Ventolin Hfa Inhaler - IH 2 puff RTID [facility] Administration Albuterol Sulfate 1 puff 03/24/20 16:56 Ventolin Hfa Inhaler - IH Q4H PRN SHORTNESS OF BREATH Albuterol/Ipratropium 1 amp 03/24/20 16:30 Duoneb - NEB Q4H PRN SHORTNESS OF BREATH Albuterol/Ipratropium 1 amp 03/24/20 20:00 Duoneb - NEB RTID SHRUTHI Aspirin 81 mg 03/25/20 10:00 Asa - PO DAILY [facility] Atorvastatin Calcium 40 mg 03/24/20 22:00 03/24/20 23:05 Lipitor - PO 80 mg HS SHRUTHI Administration Docusate Sodium 100 mg 03/24/20 15:09 Colace - PO DAILY PRN CONSTIPATION Enoxaparin Sodium 40 mg 03/25/20 10:00 Lovenox - SQ DAILY [facility] Guaifenesin 600 mg 03/24/20 16:31 Mucinex - PO Q12H PRN COUGH Piperacillin Sod/Tazobactam 100 mls @ 200 mls/hr 03/24/20 17:30 Sod 4.5 gm/ Dextrose IVPB Q8H-IV SHRUTHI Protocol Piperacillin Sod/Tazobactam 100 mls @ 200 mls/hr 03/24/20 18:00 03/25/20 03:00 Sod 4.5 gm/ Dextrose IVPB 03/25/20 10:29 200 mls/hr Q8H-IV SHRUTHI Administration Protocol Home Medications Medication Instructions Recorded Levothyroxine [Synthroid -] 100 mcg PO DAILY 05/07/14 Simvastatin [Zocor -] 40 mg PO HS 05/07/14 Esomeprazole Mag Trihydrate 40 mg PO DAILY 08/01/15 [Nexium] Albuterol 2.5/Ipratropium 0.5 1 neb IH TID PRN 03/25/20 [Duoneb -] Ibandronate Sodium 150 mg PO MONTHLY 03/25/20 Mirabegron [Myrbetriq] 50 mg PO DAILY 03/25/20 Olmesartan/Hydrochlorothiazide 1 tablet PO DAILY 03/25/20 [Olmesartan-Hctz 40-12.5 mg Tab] Umeclidinium Brm/Vilanterol Tr 1 puff IH DAILY 03/25/20 [Anoro Ellipta 62.5-25 Mcg INH] CT head:Rt. basal ganglia acute/subacute infarct that may be extending to the right periventricular white matter CTA: 70% stenosis of left common carotid, hypoplastic right vertebral artery relative to left without evidence of stenosis or dissection; no gross aneurysm, focal hemodynamically significant stenosis or major artery cutoff in central intracranial arterial circulation. ASSESSMENT AND PLAN: This patient is an 84yo F with PMhx of HLD, HTN, lung disease, knee replacement, who presents with L arm/leg weakness, facial droop, and fall. Admitted for acute stroke, last seen normal was last night at 10pm. # acute stroke : acute right basal ganglia CVA: on aspirin and lipitor , neuro consulted , neuro checks evry 4 hrs, on 2liter oxygen, Ct of the head as above, patient was out of the window period for tPA, no indication for thrombectomy per neuro; Dr Gonzalez NIHSS 9, NPO till gets assessed by speech and swallow therapist. continue ASA, statin, stool softeners, MRI , neuro checks, seizure precautions, fall precaution , cardio/neuro on the case # Left common carotid stenosis 70% : will get Vascular to see the patient, on aspirin and lipitor continue # Early infiltrate on Cxr RLL ,cannot be rulled out aspiration Pneumonia on zosyn IV now; CXR noted worsening of Rt side infiltrates compared to previous imaging, pulmonary and ID consult . #Chronic lung disease on nebs #HTN : continue home bP #HLD: continue Lipitor DVT prophylaxis with SCD then chemical in 24-48h
[2020-03-25] MEDS ORDERED: ENOXAPARIN NA (PORCINE) 40 MG/0.4 ML DISP.SYRIN SQ SCH (10:00)
[2020-03-25] MEDS ORDERED: ASPIRIN 81 MG CHEWABLE TABLETS PO SCH (10:00)
--- NOTE | 2020-03-25 10:32 | CONSULT ---
Admitting History and Physical - Admission History of Present Illness: 84F admitted with acute right basal ganglia CVA, aspiration PNA and 70% LCC stenosis Selected Entries 03/25/20 03/25/20 03/25/20 02:00 05:43 08:00 Lunch Temperature 98.3 F Pulse Rate 83 97 H 85 Blood Pressure 135/92 111/64 121/59 L 03/25/20 03/25/20 09:03 10:00 Lunch NPO Temperature 99.3 F Pulse Rate 88 Blood Pressure 117/54 L Laboratory Tests 03/24/20 03/24/20 03/25/20 10:15 10:20 06:00 WBC 13.7 H 12.9 H COVID-19 ([facility]) Pending Failed Dysphagia screen, Orders for NPO except for medication. This is my first consult with this pt. History Source: Medical Record Limitations to Obtaining History: Clinical Condition - Past Medical History FRUIT OR NUT PICKER: Yes: CVA Cardiovascular: Yes: HTN Gastrointestinal: No: Ascites, Cancer, Constipation, Crohn's Disease, Diverticulitis, Diverticulosis, Esophageal Varices, Gastritis, GERD, GI Bleed, Hemorrhoids, Hiatal Hernia, Inflamatory Bowel Disease, Irritable Bowel Disease, Pancreatitis, Peptic Ulcer Disease, Ulcerative Colitis, Other Hepatobiliary: No: Cirrhosis, Cholelithiasis, Cholecystitis, Choledocholithiasis, Hepatitis A, Hepatitis B, Hepatitis C, Other Renal/: No: Renal Failure, Renal Inusuff, BPH, Cancer, Hematuria, Hemodialysis, Neurogenic Bladder, Renal Calculi, UTI, Other Endocrine: Yes: Hypothyroidism - Smoking History Smoking history: Never smoked Have you smoked in the past 12 months: No Aproximately how many cigarettes per day: 0 - Alcohol/Substance Use Hx Alcohol Use: No - Social History History of Recent Travel: No History - Admission Reason For Visit: CVA - Diagnostics X-ray: Report Reviewed CT Scan: Report Reviewed - General Mental Status: Alert and Oriented (weak), Awake and Alert, Able to Follow Commands Attention: Intact Ability to Follow Directions: Good Head/Neck Control: Fair - Hearing Hearing: Normal Hearing Aide: No Speech Evaluation - Communication Primary Language: BHUTANESE Communication: Yes: Dysarthria Oral Expression Ability: Yes: Moderate Impairment - Speech Production Able to Make Needs Known: Yes: Moderately Impaired Intelligibility: Yes: Moderately Impaired - Speech Characteristics Voice Loudness: Mildly Soft/Quiet, Moderately Soft/Quiet Voice Pitch: Yes: Mildly High Voice Phonatory-based Quality: Yes: Hoarse, Breathy, Dysphonia, Vocal Wetness Speech Pattern: Impaired Speech Clarity: < 50% Nasal Resonance: Normal Articulation: Yes: Imprecise Voice, Other Observations: Yes: Progressively Weak Voice, Inadequate Breath Support - Language/Auditory Comprehension Follows: Yes: 1 Stage Simple Commands Observation: Able to respond to yes/no queries: Yes, Yes/No Confusion: No, Comprehends Conversational Speech: Yes - Language/Verbal Expression Functional Communication Status: Yes: Mildly Impaired - Swallow Evaluation/Bedside Assessment Current Nutritional Intake: NPO, Other (po meds ordered.) Facial Symmetry at Rest: Facial Droop Left Facial Symmetry on Retraction: Facial Droop Left Jaw Position: Open at Rest Against Resistance Opening: Weak Against Resistance Closing: Weak Pucker Lips: Droops Left, Weak Smile: Droops Left, Weak Lingual Movement: Reduced Protrusion Lingual Speed of Movement: Reduced Lingual Movement Strgth Against Opposition: Reduced Lingual Movement Characteristics: Normal Laryngeal Elevation: Impaired Laryngeal Movement: Reduced Excursion, Labored,delay initiation, Reduced Velocity Oral Prep Time: Increased A-P Transit: Impaired Pocketing: Present Bilaterally Timing of Swallow: Delayed Coughing/Throat Clear: Yes (following 2 1/3 tsp applesauce) Recommendations - Speech Evaluation, Impression/Plan Impression: Dysarthria,Dysphagia, aspiration on puree suspected with weak, delayed, effortful swallow with impaired laryngeal elevation rate and excursion. Suspect significant stasis. - Disposition Discharge to: Rehabilitation Center, To be Determined - Dysphagia Impressions/Plan Swallowing Skills: Impaired Dysphagia Impressions: Severe Impairment, Ongoing Evaluation, Suspect Aspiration *Silent aspiration: cannot be R/O at bedside Dysphagia Treatment Plan: Other (mouth care, HOB elevated, suction PRN) Recommendations: Modified Barium Swallow (when stronger, hopefully Saturday), Other (Hold PO medication/alternate means/ Consider Clinimix if not medically contraindicated) - Recommendations Diet Consistency: NPO Liquids: NPO
--- NOTE | 2020-03-25 11:35 | PN ---
Physical Exam: SUBJECTIVE: Patient seen and examined. No acute events overnight. OBJECTIVE: Vital Signs Period Temp Pulse Resp BP Sys/Solorio Pulse Ox Last 24 Hr 98.3 F-99.3 F 83-104 18-24 102-139/54-92 96-100 GENERAL: Awake and alert, not in acute distress HEENT: NCAT, EOMI, dry mucus membranes. LUNGS: Equal breath sounds heard. Scattered rales present. No wheezes. HEART: Regular rate and rhythm, S1, S2 present. Murmur present on L upper sternal border. ABDOMEN: Soft, non-distended, non-tender to palpation. Bowel sounds present in all 4 quadrants. EXTREMITIES: warm, well-perfused. No edema. NEUROLOGICAL: sensation intact. Strength 5/5 on R upper extremities, 1/5 on L upper extremity. 5/5 on R lower extremity, 1/5 on L lower extremity. SKIN: Warm, dry Laboratory Last Values WBC 12.9 K/mm3 (4.0-10.0) H 03/25/20 06:00 RBC 3.70 M/mm3 (3.60-5.2) 03/25/20 06:00 Hgb 9.7 GM/dL (10.7-15.3) L 03/25/20 06:00 Hct 30.4 % (32.4-45.2) L 03/25/20 06:00 MCV 82.2 fl (80-96) 03/25/20 06:00 MCH 26.3 pg (25.7-33.7) 03/25/20 06:00 MCHC 32.0 g/dl (32.0-36.0) 03/25/20 06:00 RDW 17.7 % (11.6-15.6) H 03/25/20 06:00 Plt Count 502 K/MM3 (134-434) H 03/25/20 06:00 MPV 8.0 fl (7.5-11.1) 03/25/20 06:00 Absolute Neuts (auto) 7.2 K/mm3 (1.5-8.0) 03/25/20 06:00 Neutrophils % 55.9 % (42.8-82.8) D 03/25/20 06:00 Neutrophils % (Manual) 71.7 % (42.8-82.8) 03/24/20 10:20 Band Neutrophils % 0.0 % 03/24/20 10:20 Lymphocytes % 31.4 % (8-40) D 03/25/20 06:00 Lymphocytes % (Manual) 17.2 % (8-40) 03/24/20 10:20 Monocytes % 5.6 % (3.8-10.2) 03/25/20 06:00 Monocytes % (Manual) 8 % (3.8-10.2) 03/24/20 10:20 Eosinophils % 6.4 % (0-4.5) H D 03/25/20 06:00 Eosinophils % (Manual) 0.0 % (0-4.5) 03/24/20 10:20 Basophils % 0.7 % (0-2.0) 03/25/20 06:00 Basophils % (Manual) 0.0 % (0-2.0) 03/24/20 10:20 Myelocytes % (Man) 0 % (0-2) 03/24/20 10:20 Promyelocytes % (Man) 0 % (0-2) 03/24/20 10:20 Blast Cells % (Manual) 0 % (0-0) 03/24/20 10:20 Nucleated RBC % 0 % (0-0) 03/25/20 06:00 Metamyelocytes 0 % (0-2) 03/24/20 10:20 Hypochromia 0 03/24/20 10:20 Platelet Estimate Increased 03/24/20 10:20 Polychromasia 0 03/24/20 10:20 Poikilocytosis 0 03/24/20 10:20 Anisocytosis 0 03/24/20 10:20 Microcytosis 0 03/24/20 10:20 Macrocytosis 0 03/24/20 10:20 PT with INR 12.30 SEC (9.7-13.0) 03/24/20 10:00 INR 1.04 (0.83-1.09) 03/24/20 10:00 PTT (Actin FS) 29.1 SECONDS (25.2-36.5) 03/24/20 10:00 Sodium 140 mmol/L (136-145) 03/25/20 06:00 Potassium 4.4 mmol/L (3.5-5.1) 03/25/20 06:00 Chloride 109 mmol/L (98-107) H 03/25/20 06:00 Carbon Dioxide 24 mmol/L (21-32) 03/25/20 06:00 Anion Gap 7 MMOL/L (8-16) L 03/25/20 06:00 BUN 16.3 mg/dL (7-18) 03/25/20 06:00 Creatinine 0.9 mg/dL (0.55-1.3) 03/25/20 06:00 Est GFR (CKD-EPI)AfAm 68.05 03/25/20 06:00 Est GFR (CKD-EPI)NonAf 58.71 03/25/20 06:00 POC Glucometer 153 UNITS (80-120) 03/24/20 09:40 Random Glucose 82 mg/dL (74-106) 03/25/20 06:00 Calcium 8.8 mg/dL (8.5-10.1) 03/25/20 06:00 Phosphorus 4.2 mg/dL (2.5-4.9) 03/25/20 06:00 Magnesium 1.9 mg/dL (1.8-2.4) 03/25/20 06:00 Total Bilirubin 1.0 mg/dL (0.2-1) 03/25/20 06:00 AST 25 U/L (15-37) 03/25/20 06:00 ALT 14 U/L (13-61) 03/25/20 06:00 Alkaline Phosphatase 69 U/L (45-117) 03/25/20 06:00 Creatine Kinase 127 U/L (26-192) 03/24/20 10:00 Troponin I < 0.02 ng/ml (0.00-0.05) 03/24/20 10:00 Total Protein 6.4 g/dl (6.4-8.2) 03/25/20 06:00 Albumin 2.7 g/dl (3.4-5.0) L 03/25/20 06:00 Triglycerides 79 mg/dL (0-150) 03/24/20 10:00 Cholesterol 137 mg/dL (50-200) 03/24/20 10:00 Total LDL Cholesterol 70 mg/dL (5-100) 03/24/20 10:00 HDL Cholesterol 57 mg/dL (40-60) 03/24/20 10:00 Urine Color Yellow 03/24/20 11:30 Urine Appearance Clear 03/24/20 11:30 Urine pH 5.0 (5.0-8.0) 03/24/20 11:30 Ur Specific Harris 1.043 (1.010-1.035) H 03/24/20 11:30 Urine Protein Trace (NEGATIVE) 03/24/20 11:30 Urine Glucose (UA) Negative (NEGATIVE) 03/24/20 11:30 Urine Ketones Negative (NEGATIVE) 03/24/20 11:30 Urine Blood Negative (NEGATIVE) 03/24/20 11:30 Urine Nitrite Negative (NEGATIVE) 03/24/20 11:30 Urine Bilirubin Negative (NEGATIVE) 03/24/20 11:30 Urine Urobilinogen 0.2 mg/dL (0.2-1.0) 03/24/20 11:30 Ur Leukocyte Esterase Negative (NEGATIVE) 03/24/20 11:30 Blood Type A POSITIVE 03/24/20 10:00 Antibody Screen Negative 03/24/20 10:00 Active Medications Albuterol Sulfate (Ventolin Hfa Inhaler -) 2 puff IH RTID [facility] Last Admin: 03/24/20 20:23 Dose: 2 puff Documented by: Albuterol Sulfate (Ventolin Hfa Inhaler -) 1 puff IH Q4H PRN PRN Reason: SHORTNESS OF BREATH Albuterol/Ipratropium (Duoneb -) 1 amp NEB Q4H PRN PRN Reason: SHORTNESS OF BREATH Albuterol/Ipratropium (Duoneb -) 1 amp NEB RTID [facility] Aspirin (Asa -) 81 mg PO DAILY [facility] Last Admin: 03/25/20 09:27 Dose: 81 mg Documented by: Atorvastatin Calcium (Lipitor -) 80 mg PO HS [facility] Last Admin: 03/24/20 23:05 Dose: 80 mg Documented by: Docusate Sodium (Colace -) 100 mg PO DAILY PRN PRN Reason: CONSTIPATION Enoxaparin Sodium (Lovenox -) 40 mg SQ DAILY [facility] Last Admin: 03/25/20 09:27 Dose: 40 mg Documented by: Guaifenesin (Mucinex -) 600 mg PO Q12H PRN PRN Reason: COUGH Amino Acids (Clinimix -) 1,000 mls @ 42 mls/hr IV Q24H [facility] Last Admin: 03/25/20 14:57 Dose: 42 mls/hr Documented by: Ceftriaxone Sodium 1 gm/ (Dextrose) 50 mls @ 100 mls/hr IVPB DAILY SHRUTHI; Protocol Last Admin: 03/25/20 13:15 Dose: 100 mls/hr Documented by: CTA head/neck Prominent calcified plaques at the left common carotid bifurcation with hemodynamically significant stenosis of approximately 70%, NASCET criteria. Tiny plaques at the right common carotid bifurcation without evidence of hemodynamically significant stenosis. Hypoplastic right vertebral artery relative to the left without evidence of stenosis or dissection. Intracranially, there is faint enhancement of the right A1 segment likely a hypoplastic segment with normal enhancement of the right A2 segment. Otherwise, no gross aneurysm, focal hemodynamically significant stenosis or major artery cutoff is seen within the central intracranial arterial circulation. CT head w/o contrast Moderate atrophy and moderate to marked periventricular chronic microvascular ischemic disease changes Right basal ganglia acute/subacute infarct that may be extending to the right periventricular white matter. No gross intracranial hemorrhage is identified. CT neck The alignment is satisfactory. No gross fracture or subluxation is seen. Multilevel degenerative disc disease with anterior spondylosis as well as mild disc osteophyte complex and bilateral uncovertebral hypertrophy, as described above. Large dense calcified plaques at the left common carotid bifurcation. Correlation with carotid Doppler ultrasound would be helpful for further evaluation. Moderately severe COPD changes interstitial thickening, likely chronic seen in the included upper chest CXR Calcified breast prostheses. Large heart. Tracheal deviation to the right from a prominent knob. Interstitial lung changes compatible with known chronic lung disease and possible superimposed early infiltrates on the right. ASSESSMENT/PLAN: This is a 84 year old F with PMH degenerative joint disease, HLD, HTN, hypothyroidism, lung disease(?), who presented with L side weakness and facial droop. Given her history, physical exam, images and significant lab findings, pt likely has CVA. Pt will be admitted to telemetry for further management and evaluation. Acute ischemic stroke - NIHSS 9 - c/w ASA 81 qD, decrease atorvastatin 80 qD to 40 qD - Neuro consulted. Recommended monitor blood pressure, maintain less than 160 /90. Reduce statin back down to 40mg. Continue ASA 81mg. Physical therapy as tolerated, likely need for rehabilitation. - f/u echo - f/u EKG - neuro checks - hold home antihypertension medications, avoid hypotension - CT head and CTA head/neck as above. - Aspiration and fall precautions - c/w colace for regular bowel movement to prevent increased ICP - MRI brain at some point Carotid stenosis - CTA findings as above - Cardio consulted. Recommended Carotid US. On opposite side of CVA; suggest Vascular consult. Cont ASA and statin. Caution with high intensity statin in this age group and monitor LFTS and CPK. Consider reduction dose 40. C/w tele monitoring r/o occult AF, f/u echo - troponin neg 1x. - f/u repeat EKG - f/u echo Pulmonary infiltrates, likely secondary to Aspiration PNA - CXR as above - Pulmonary consulted. Recommended c/w inhaled bronchodilators, abx as per ID, f/u CXR - c/w duonebs, albuterol, guaifenesin - c/w supplemental O2 Leukocytosis - RLL infiltrates r/o CAP - d/c zosyn - Afebrile. - f/u AM labs - ID consulted. Recommended to send legionella urinary antigen, collect sputum culture, switch to rocephin for CAP FEN - No standing fluids - monitor and replete electrolytes - Speech and swallow evaluated. Keep NPO. Ppx -DVT: Lovenox Dispo: continue to monitor in telemetry. Visit type - Emergency Visit Emergency Visit: Yes ED Registration Date: 03/24/20 Care time: The patient presented to the Emergency Department on the above date and was hospitalized for further evaluation of their emergent condition. - New Patient This patient is new to me today: No - Critical Care Critical Care patient: No - Medication Review Med list reviewed for High Risk Meds patients 65 and older: Yes ATTENDING PHYSICIAN STATEMENT I saw and evaluated the patient. I reviewed the resident's note and discussed the case with the resident. I agree with the resident's findings and plan as documented. SUBJECTIVE: OBJECTIVE: ASSESSMENT AND PLAN:
--- NOTE | 2020-03-25 11:47 | PN ---
Progress Note (short form) - Note Progress Note: PULMONARY CONSULTATION DICTATED 03/25/20 IMP HYPOXEMIA DYSPNEA/COUGH ILD RLL INFILTRATE LIKELY ASPIRATION ACUTE R SIDED CVA HTN HLD PLAN SUPPLEMENTAL O2 INHALED BRONCHODILATORS ABX PER ID MEDROL F/U CHEST X-RAYS MONITOR LYTES ASPIRATION PRECAUTIONS DR SULLIVAN Problem List - Problems (1) Pneumonia Code(s): J18.9 - PNEUMONIA, UNSPECIFIED ORGANISM (2) Cerebrovascular accident (CVA) Code(s): I63.9 - CEREBRAL INFARCTION, UNSPECIFIED (3) Interstitial lung disease Code(s): J84.9 - INTERSTITIAL PULMONARY DISEASE, UNSPECIFIED (4) HTN (hypertension) Code(s): I10 - ESSENTIAL (PRIMARY) HYPERTENSION (5) HLD (hyperlipidemia) Code(s): E78.5 - HYPERLIPIDEMIA, UNSPECIFIED
--- NOTE | 2020-03-25 12:18 | PN ---
Progress Note (short form) - Note Progress Note: ID consult dictated imp/reccd edentulous 84 yo female admitted from the community with new CVA history of ILD abnormal cxray with hypoxia and question of RLL infiltrate has received zosyn for 24 hours now no cultures sent would send legionella urinary antigen sputum culture switch to rocephin for CAP management of CVA per neurology check covid pcr Problem List - Problems (1) Cerebrovascular accident (CVA) Code(s): I63.9 - CEREBRAL INFARCTION, UNSPECIFIED (2) Pneumonia Code(s): J18.9 - PNEUMONIA, UNSPECIFIED ORGANISM (3) Interstitial lung disease Code(s): J84.9 - INTERSTITIAL PULMONARY DISEASE, UNSPECIFIED
[2020-03-25] MEDS ORDERED: cefTRIAXone SODIUM 1 GM VIAL ONE (13:09)
[2020-03-25] MEDS ORDERED: DEXTROSE 5%-WATER - 50 ML IVPB ONE (13:09)
[2020-03-25] MEDS: CEFTRIAXONE 1 GM in DEXTROSE 5%-WATER - 50 ML IVPB SCH (13:15)
[2020-03-25] MEDS ORDERED: PT OWN MED DRAWER 7, Y5N ONE (14:54)
[2020-03-25] MEDS: AMINO ACIDS 4.25%/D5W 1,000 ML IV SCH (14:57)
--- NOTE | 2020-03-25 16:02 | CONS ---
DATE OF CONSULTATION: 03/25/2020 REFERRING PHYSICIAN: Matthew Rushing MD HISTORY OF PRESENT ILLNESS: The patient is an 84-year-old female with past medical history of interstitial lung disease, hypertension, hyperlipidemia, nonsmoker but has significant history of secondhand smoke exposure. smoked almost a carton a day for many years. Admitted to [facility] on March 24 secondary to unwitnessed fall, slurred speech, and left facial droop and left arm and leg weakness. On admission, the patient is noted to have acute right-sided CVA. She was admitted to the ICU for further management. Of note is the patient has had an increasing cough and increasing shortness of breath since hospitalization. Repeat chest x-ray performed showed possible right lower lobe infiltrate for which she was started on broad-spectrum antibiotics. As stated before, the patient has a longstanding history of interstitial lung disease. She apparently was supposed to go on home oxygen therapy prior to COVID, but was not evaluated in the hospital secondary to COVID pandemic. She normally gets very short of breath with exertion, has a chronic cough productive of white sputum, although she states the past couple of days the cough has increased in severity. She denies any history of occupational exposure to chemicals or fumes. PAST MEDICAL HISTORY: Again includes hypertension; hyperlipidemia; chronic lung disease, likely interstitial lung disease; pulmonary fibrosis. REVIEW OF SYSTEMS: Positive shortness of breath, positive cough. No chest pain, no palpitations. No fever, no chills, no hemoptysis. CURRENT MEDICATIONS: Include ceftriaxone, Lovenox, albuterol, DuoNeb, Colace, Mucinex, Lipitor, and aspirin. PHYSICAL EXAMINATION: General: The patient is an elderly female, awake, alert, mildly dyspneic on nasal O2. Vital Signs: She is afebrile. Blood pressure is 112/74. Heart rate is 89. O2 saturation is 93% on 3 L nasal cannula. HEENT: Exam is normocephalic, atraumatic. Neck: Supple. Heart: Regular, S1, S2. Chest: Bilateral wheezes and crackles throughout. Abdomen: Soft. Bowel sounds are positive. Extremities: No cyanosis or edema. LABORATORY: WBC is 12.9, hemoglobin 9.7, hematocrit 30.4, with a platelet count of 502,000. BUN 16, creatinine 0.9. COVID is pending. Chest x-ray with extensive chronic lung disease, questionable increased infiltrate in the right base. IMPRESSION: 1. Chronic hypoxemia. 2. Dyspnea and cough secondary to interstitial lung disease. 3. Advanced interstitial lung disease. 4. Right lower lobe infiltrate, pneumonia, possible aspiration. 5. Acute right-sided cerebrovascular accident. 6. Hypertension. 7. Hyperlipidemia. PLAN: Supplemental O2, inhaled bronchodilators, antibiotics as per Infectious Disease. Short course of Solu-Medrol. Follow up chest x-ray, monitor electrolytes. Aspiration precautions. ARIELLE SULLIVAN M.D. [id number] MTDD
--- NOTE | 2020-03-25 16:03 | ECHO ---
Version: 1 Name: TRACEY VALENCIA Exam: Adult Echocardiogram Study Date: 03/25/2020, 2:17 PM Age: 84 Years MMode/2D Measurements & Calculations IVSd: 1.19 cm LVIDs: 2.06 cm LVIDd: 3.8 cm LVPWd: 1.10 cm LAV (MOD-bp): 73.0 ml ACS: 1.28 cm Ao root diam: 2.46 cm LVOT diam: 1.99 cm LA dimension: 2.9 cm Doppler Measurements & Calculations MV E max bravo: 96.3 cm/sec Med E/e': 15.4 MV A max bravo: 108.6 cm/sec Med Peak E' Bravo: 6.2 cm/sec MV E/A: 0.89 Lat E/e': 14.5 Lat Peak E' Bravo: 6.6 cm/sec MR max P.2 mmHg Ao max P.2 mmHg YUDELKA(I,D): 1.61 cm Ao mean P.2 mmHg LV V1 mean: 70.8 cm/sec Ao V2 max: 202.0 cm/sec LV V1 mean P.30 mmHg TR max bravo: 283.2 cm/sec TR max P.2 mmHg Left Ventricle There is borderline concentric left ventricular hypertrophy. Left ventricular systolic function is n ormal. Ejection Fraction = 55-60%. The transmitral spectral Doppler flow pattern is suggestive of impaired LV relaxation. Right Ventricle The right ventricle is grossly normal size. The right ventricular systolic function is grossly efra l. Atria Borderline left atrial enlargement. Mitral Valve The mitral valve is grossly normal. There is no mitral valve stenosis. There is mild mitral regurgit ation. Tricuspid Valve The tricuspid valve is not well visualized, but is grossly normal. There is mild tricuspid regurgita tion. Right ventricular systolic pressure is elevated at 30-40mmHg. Aortic Valve Mild valvular aortic stenosis. No aortic regurgitation is present. Pulmonic Valve The pulmonic valve is not well seen, but is grossly normal. There is no pulmonic valvular stenosis. Trace to mild pulmonic valvular regurgitation. Great Vessels The aortic root is normal size. Pericardium/Pleura Moderate pericardial effusion (1-2 cm). There are no echocardiographic indications of cardiac tampon lionel. Tech Comments Patient scanned supine. Summary Statements There is borderline concentric left ventricular hypertrophy. Left ventricular systolic function is normal. Ejection Fraction = 55-60%. The transmitral spectral Doppler flow pattern is suggestive of impaired LV relaxation. There is mild mitral regurgitation. There is mild tricuspid regurgitation. Right ventricular systolic pressure is elevated at 30-40mmHg. Mild valvular aortic stenosis. Moderate pericardial effusion (1-2 cm) There are no echocardiographic indications of cardiac tamponade. MD Dash *Francescone 03/25/2020, 4:02 PM Ordering Physician: Herminia Pérez Referring Physician: HERMINIA PÉREZ Performed By: Skylar Sevilla
[2020-03-25] MEDS: methylPREDNISolone NA SUCC 40 MG/1 ML VIAL IVPUSH SCH (16:30)
[2020-03-25] MEDS: ACETAMINOPHEN 1000 MG/100 ML VIAL (NON FORMULARY) IVPB PRN (16:34)
--- NOTE | 2020-03-25 16:57 | CONS ---
DATE OF CONSULTATION: DATE OF DICTATION: 03/25/2020 INFECTIOUS DISEASE CONSULTATION HISTORY OF PRESENT ILLNESS: This is an 84-year-old woman who is admitted from the community with a new CVA. She fell out of bed last night, was unable to get up. Her daughter came this morning, brought her to the hospital, and she was found to have a CVA. She has also been noted to have a white count of 13,000 and an abnormal chest x-ray, and was started on Zosyn for pneumonia, which she has been on for 24 hours. I am asked to evaluate her. She is resting comfortably. She denies using oxygen at home. She denies any fevers or chills, and she lives alone. PAST MEDICAL HISTORY: Notable for DJD, hypertension, hyperlipidemia, hypothyroidism, ILD as noted on prior CAT scans. She used to see Dr. Tapia, but does not follow up with pulmonary any more. Her PMD is . She has not had any recent visits. She has not had any recent hospitalizations. SURGICAL HISTORY: Notable for right knee surgery. SOCIAL HISTORY: No alcohol or substance use history. No cigarette smoking. She lives alone. She has an aid every day from 8:30 to 4:30. She had no known drug allergies. MEDICATION: Include olmesartan, hydrochlorothiazide, ibandronate, Ellipta inhaler, Myrbetriq, DuoNeb, Nexium, simvastatin, and Synthroid. REVIEW OF SYSTEMS: She denies nausea, vomiting, diarrhea. She has no teeth. She wears dentures. She does not use oxygen at home. She has no chest or abdominal pain. PHYSICAL EXAMINATION: General: She is an alert, frail woman in no acute distress. Vital Signs: Temperature of 99.3, pulse 88, blood pressure 117/54, respiratory rate 21, she is saturating 99% on room air. HEENT: Normocephalic. Eyes are anicteric. Neck: Supple. Lungs: She has bilateral rhonchi. Heart: Regular rate and rhythm. Abdomen: Soft, nontender. Extremities: Without edema. LABORATORY: Notable for a white count of 13.7 on admission, today 12.9, hemoglobin 9.7, platelets are 502. BUN and creatinine are 16 and 0.9. Normal LFTs, and urinalysis is negative. No cultures have been sent. Chest x-ray is notable for increased interstitial markings. She has bilateral calcified breast prostheses which were also noted on exam as firm bilateral breast masses. There may be an early right basilar infiltrate. She had a CT of her head that showed evidence of right basal ganglia acute/subacute infarct. IMPRESSION: In summary, this is an elderly woman admitted from home with cerebrovascular accident, possible pneumonia right base, interstitial lung disease. I would suggest we treat her with ceftriaxone at this time as she comes from the community. Would obtain legionella and pneumococcal urinary antigens and a sputum culture. Do not see any value to blood cultures as she has been on Zosyn for 24 hours. Management of cerebrovascular accident per primary service. Follow up with pulmonary for her interstitial lung disease. TRI CASTRO M.D. [id number]
[2020-03-25 23:59] LABS: BASO % 1.1 % (0-2.0); EOS % 0.1 % (0-4.5); HEMATOCRIT 31.6 % (32.4-45.2); LYMPH % 18.4 % (8-40); MCH 26.4 pg (25.7-33.7); MCHC 31.6 g/dl (32.0-36.0); MEAN CELL VOLUME 83.5 fl (80-96); MEAN PLT VOLUME 7.9 fl (7.5-11.1); MONO % 0.6 % (3.8-10.2); NEUT % 79.8 % (42.8-82.8); PLATELET COUNT 469 K/MM3 (134-434); RBC 3.78 M/mm3 (3.60-5.2); WHITE BLOOD COUNT 7.7 K/mm3 (4.0-10.0)
[2020-03-26] MEDS: ACETAMINOPHEN 1000 MG/100 ML VIAL (NON FORMULARY) IVPB PRN (00:34)
[2020-03-26] MEDS: ATORVASTATIN CA 80 MG TABLET (FP) PO SCH ×2 (00:36→21:35)
[2020-03-26] MEDS: ALBUTEROL SO4 HFA INHALER IH SCH ×3 (00:40→21:36)
[2020-03-26] MEDS: guaiFENesin 200 MG/10 ML 10 ML UNIT-DOSE CUPS PO PRN ×2 (03:09→23:59)
[2020-03-26] MEDS: methylPREDNISolone NA SUCC 40 MG/1 ML VIAL IVPUSH SCH ×2 (03:10→18:10)
--- NOTE | 2020-03-26 06:24 | PN ---
Progress Note, Physician Chief Complaint: More alert Tele: PAF noted Echo with mild pericardial effusion She denies CP/sob/palps or dizziness History of Present Illness: 84F admitted with acute right basal ganglia CVA, aspiration PNA and 70% LCC stenosis She denies CP/SOB/palps No hx of AF - Current Medication List Current Medications: Active Medications Acetaminophen (Ofirmev Injection -) 1,000 mg IVPB Q6H PRN PRN Reason: FEVER Stop: 03/26/20 16:21 Last Admin: 03/26/20 00:34 Dose: 1,000 mg Documented by: Albuterol Sulfate (Ventolin Hfa Inhaler -) 2 puff IH RTID SHRUTHI Last Admin: 03/26/20 00:41 Dose: Not Given Documented by: Albuterol Sulfate (Ventolin Hfa Inhaler -) 1 puff IH Q4H PRN PRN Reason: SHORTNESS OF BREATH Albuterol/Ipratropium (Duoneb -) 1 amp NEB Q4H PRN PRN Reason: SHORTNESS OF BREATH Albuterol/Ipratropium (Duoneb -) 1 amp NEB RTID SHRUTHI Aspirin (Asa -) 81 mg PO DAILY SHRUTHI Last Admin: 03/25/20 09:27 Dose: 81 mg Documented by: Atorvastatin Calcium (Lipitor -) 40 mg PO HS [facility] Last Admin: 03/26/20 00:36 Dose: 40 mg Documented by: Docusate Sodium (Colace -) 100 mg PO DAILY PRN PRN Reason: CONSTIPATION Enoxaparin Sodium (Lovenox -) 40 mg SQ DAILY [facility] Last Admin: 03/25/20 09:27 Dose: 40 mg Documented by: Guaifenesin (Mucinex -) 600 mg PO Q12H PRN PRN Reason: COUGH Last Admin: 03/26/20 00:36 Dose: 600 mg Documented by: Guaifenesin (Robitussin -) 10 ml PO Q4H PRN PRN Reason: COUGH Last Admin: 03/26/20 03:09 Dose: 10 ml Documented by: Amino Acids (Clinimix -) 1,000 mls @ 42 mls/hr IV Q24H SHRUTHI Last Admin: 03/25/20 14:57 Dose: 42 mls/hr Documented by: Ceftriaxone Sodium 1 gm/ (Dextrose) 50 mls @ 100 mls/hr IVPB DAILY SHRUTHI; Protocol Last Admin: 03/25/20 13:15 Dose: 100 mls/hr Documented by: Methylprednisolone Sodium Succinate (Solu-Medrol -) 40 mg IVPUSH Q12H [facility] Last Admin: 03/26/20 03:10 Dose: 40 mg Documented by: - Objective Vital Signs: Vital Signs Temperature 98.9 F 03/25/20 19:42 Pulse Rate 88 03/25/20 22:00 Respiratory Rate 20 03/25/20 22:00 Blood Pressure 127/59 L 03/25/20 22:00 O2 Sat by Pulse Oximetry (%) 99 03/25/20 23:30 Constitutional: Yes: No Distress Eyes: Yes: Conjunctiva Clear Cardiovascular: Yes: Regular Rate and Rhythm Respiratory: Yes: CTA Bilaterally Gastrointestinal: Yes: Soft (nt) Edema: No ...Motor Strength: LUE (0/5), LLE (0/5) Labs: CBC, BMP 03/25/20 23:45 03/25/20 06:00 INR, PTT INR 1.04 (0.83-1.09) 03/24/20 10:00 Laboratory Tests 03/24/20 03/24/20 03/24/20 10:00 10:00 10:15 WBC Hgb Plt Count PT with INR 12.30 INR 1.04 Sodium Potassium Creatinine Calcium Troponin I < 0.02 COVID-19 ([facility]) Pending 03/25/20 03/25/20 03/25/20 06:00 06:00 23:45 WBC 12.9 H 7.7 Hgb 9.7 L 10.0 L Plt Count 502 H 469 H PT with INR INR Sodium Potassium Creatinine 0.9 Calcium Troponin I COVID-19 ([facility]) 03/26/20 06:40 WBC Hgb Plt Count PT with INR INR Sodium 137 Potassium 4.8 Creatinine 0.8 Calcium 9.0 Troponin I COVID-19 ([facility]) - ....Imaging EKG: Image Reviewed Assessment/Plan IMP: R sided CVA 70% L carotid stenosis ASP PNA HTN HLD REC: 1. CVA with PAF noted on tele: -[id number] score elevated, AC is indicated. -Discussed with nicholas Alba to AC from Neuro perspective; however, the pericardial effusion and risk of potential hemorrhagic conversion needs to be considered. -If there is active pericardial inflammation, risk of hemorrhagic conversion would be higher -Can start UFH gtts without bolus and cautiously anticoagulate to PTT 50-70. D/C prophylactic dose Lovenox and ASA. -Check ESR and if sig elevated, should have repeat echo within 48 hours to reassess effusion -Normal EF on echo 2. 70% LCC stenosis: -Rec Carotid US -On opposite side of CVA; suggest Vascular consult -Cont statin. Monitor LFTs and CPK 3. Asp PNA: -supp O2 -Abx as per Critical Care 4. HTN: -Well controlled at this time. Avoid hypotension 5. HLD: -goal LDL 70mg d/l. Would use lowest dose statin to achieve this -see above. 6. Pericardial effusion: mild to moderate, no evidence of tamponade on echo nor clinically -Check TSH, ESR, JOEY -As AC being started for PAF/CVA, will need f/u echo as outlined above
[2020-03-26 08:14] LABS: BLOOD UREA NITROGEN 20.7 mg/dL (7-18); CREATININE 0.8 mg/dL (0.55-1.3); POTASSIUM 4.8 mmol/L (3.5-5.1)
[2020-03-26] MEDS ORDERED: HEPARIN NA (PORCINE) 5,000 UNITS/ML 1ML VIAL IVPUSH PRN ×2 (08:50)
[2020-03-26] MEDS ORDERED: DEXTROSE 5%-WATER - 50 ML IVPB ONE (09:02)
[2020-03-26] MEDS ORDERED: cefTRIAXone SODIUM 1 GM VIAL ONE (09:02)
[2020-03-26] MEDS: CEFTRIAXONE 1 GM in DEXTROSE 5%-WATER - 50 ML IVPB SCH (09:03)
[2020-03-26] MEDS ORDERED: PT OWN MED DRAWER 7, Y5N ONE (09:40)
[2020-03-26] MEDS: HEPARIN - 25,000 UNIT in SODIUM CHLORIDE 495 ML IV SCH (10:41)
--- NOTE | 2020-03-26 10:50 | CONSULT ---
Consult Consult Specialty:: Vascular Surgery - History of Present Illness History of Present Illness: 84 yo woman admitted with left hemiparesis. No prior history of stroke or TIA. CTA showed plaque in left ICA with stenosis. No right carotid stenosis appreciated. She is right handed. - History Source History Provided By: Medical Record - Past Medical History NOTE TELLER: Yes: CVA Cardio/Vascular: Yes: HTN Endocrine: Yes: Hypothyroidism - Alcohol/Substance Use Hx Alcohol Use: No - Smoking History Smoking history: Never smoked Have you smoked in the past 12 months: No Aproximately how many cigarettes per day: 0 - Social History History of Recent Travel: No Home Medications - Allergies Allergies/Adverse Reactions: Allergies Allergy/AdvReac Type Severity Reaction Status Date / Time No Known Drug Allergies Allergy Verified 03/24/20 10:41 - Home Medications Home Medications: Ambulatory Orders Levothyroxine [Synthroid -] 100 mcg PO DAILY 05/07/14 Simvastatin [Zocor -] 40 mg PO HS 05/07/14 Esomeprazole Mag Trihydrate [Nexium] 40 mg PO DAILY 08/01/15 Albuterol 2.5/Ipratropium 0.5 [Duoneb -] 1 neb IH TID PRN 03/25/20 Ibandronate Sodium 150 mg PO MONTHLY 03/25/20 Mirabegron [Myrbetriq] 50 mg PO DAILY 03/25/20 Olmesartan/Hydrochlorothiazide [Olmesartan-Hctz 40-12.5 mg Tab] 1 tablet PO DAILY 03/25/20 Umeclidinium Brm/Vilanterol Tr [Anoro Ellipta 62.5-25 Mcg INH] 1 puff IH DAILY 03/25/20 Family Medical History Family History: Unremarkable (not pertinent to this presentation) Physical Exam Vital Signs: Vital Signs Temperature 98.1 F 03/26/20 06:00 Pulse Rate 84 03/26/20 07:38 Respiratory Rate 22 H 03/26/20 07:38 Blood Pressure 154/76 03/26/20 07:38 O2 Sat by Pulse Oximetry (%) 100 03/26/20 06:00 Constitutional: Yes: No Distress Eyes: Yes: WNL, EOM Intact HENT: Yes: WNL Neck: Yes: Supple Gastrointestinal: Yes: Soft Extremities: Yes: WNL, Other (Arthritic hands and feet) Edema: No Peripheral Pulses WNL: Yes ...Motor Strength: LUE (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 CTA shows calcified plaque with stenosis of right ICA; left side does not appear to have significant stenosis. This is not a cause of the current left CVA and would be considered an asymptomatic left ICA stenosis. There is no indication for surgical intervention at this time. Carotid Duplex is preferred in assessing the degree of stenosis and should be obtained prior to discharge. In general, asymptomatic carotid stenosis does not require intervention unless it is progressive and over 80% in good risk patient. Follow-up imaging with Carotid Duplex every year is recommended to determine of lesion is worsening. Problems reviewed: Yes Code(s): I65.22 - OCCLUSION AND STENOSIS OF LEFT CAROTID ARTERY
--- NOTE | 2020-03-26 11:02 | PN ---
Progress Note (short form) - Note Progress Note: PULMONARY States breathing slightly better. +nonproductive cough. Vital Signs Period Temp Pulse Resp BP Sys/Solorio Pulse Ox Last 24 Hr 98.1 F-100 F 76-93 - 105-154/58-113 93-100 Intake & Output 03/23/20 03/24/20 03/25/20 03/26/20 23:59 23:59 23:59 23:59 Intake Total 536 394 Balance 536 394 Weight 49.895 kg Gen: NAD at rest, weak Heart: RRR Lung: scattered rhonchi Abd: soft, nontender Ext: no edema CBC, BMP 03/25/20 23:45 03/26/20 06:40 Active Medications Acetaminophen (Ofirmev Injection -) 1,000 mg IVPB Q6H PRN PRN Reason: FEVER Stop: 03/26/20 16:21 Last Admin: 03/26/20 00:34 Dose: 1,000 mg Documented by: Albuterol Sulfate (Ventolin Hfa Inhaler -) 2 puff IH RTID SHRUTHI Last Admin: 03/26/20 00:41 Dose: Not Given Documented by: Albuterol Sulfate (Ventolin Hfa Inhaler -) 1 puff IH Q4H PRN PRN Reason: SHORTNESS OF BREATH Albuterol/Ipratropium (Duoneb -) 1 amp NEB Q4H PRN PRN Reason: SHORTNESS OF BREATH Albuterol/Ipratropium (Duoneb -) 1 amp NEB RTID SHRUTHI Atorvastatin Calcium (Lipitor -) 40 mg PO [facility] Last Admin: 03/26/20 00:36 Dose: 40 mg Documented by: Docusate Sodium (Colace -) 100 mg PO DAILY PRN PRN Reason: CONSTIPATION Guaifenesin (Mucinex -) 600 mg PO Q12H PRN PRN Reason: COUGH Last Admin: 03/26/20 00:36 Dose: 600 mg Documented by: Guaifenesin (Robitussin -) 10 ml PO Q4H PRN PRN Reason: COUGH Last Admin: 03/26/20 03:09 Dose: 10 ml Documented by: Heparin Sodium (Porcine) (Heparin -) 1,000 unit IVPUSH PRN PRN PRN Reason: Heparin Heparin Sodium (Porcine) (Heparin -) 5,000 unit IVPUSH PRN PRN PRN Reason: Heparin Amino Acids (Clinimix -) 1,000 mls @ 42 mls/hr IV Q24H SHRUTHI Last Admin: 03/25/20 14:57 Dose: 42 mls/hr Documented by: Ceftriaxone Sodium 1 gm/ (Dextrose) 50 mls @ 100 mls/hr IVPB DAILY SHRUTHI; Protocol Last Admin: 03/26/20 09:03 Dose: 100 mls/hr Documented by: Heparin Sodium (Porcine) 25, (000 unit/ Sodium Chloride) 500 mls @ 18 mls/hr IV TITR SHRUTHI; Protocol Last Admin: 03/26/20 10:41 Dose: 900 unit/hr, 18 mls/hr Documented by: Methylprednisolone Sodium Succinate (Solu-Medrol -) 40 mg IVPUSH Q12H SHRUTHI Last Admin: 03/26/20 03:10 Dose: 40 mg Documented by: A/P Pneumonia likely Aspiration Acute CVA Interstitial Lung Disease HTN Hyperlipidemia - continue antibiotics - f/u cultures - continue medrol - inhaled bronchodilators - O2 to keep SpO2 >90% - aspiration precautions - DVT prophylaxis
[2020-03-26] MEDS: AMINO ACIDS 4.25%/D5W 1,000 ML IV SCH (14:51)
--- NOTE | 2020-03-26 17:10 | PN ---
Progress Note (short form) - Note Progress Note: Patient's speech is better today , granddaughter at bed side. Vital Signs Temperature 98.6 F 03/26/20 14:00 Pulse Rate 88 03/26/20 14:00 Respiratory Rate 21 H 03/26/20 14:00 Blood Pressure 115/62 03/26/20 14:00 O2 Sat by Pulse Oximetry (%) 100 03/26/20 09:00 GENERAL: The patient is awake, alert, and fully oriented, in no acute distress. HEAD: Normal with no signs of trauma. EYES: PERRL, extraocular movements intact, sclera anicteric, conjunctiva clear. ENT: Ears normal, oropharynx clear without exudates, moist mucous membranes. + upper teeth, not lower NECK: Trachea midline, full range of motion, supple. LUNGS: Breath sounds equal, clear to auscultation bilaterally, no wheezes, no crackles, no accessory muscle use. HEART: RRR, S1, S2 +, HUSAM 2/6 no rub or gallop. ABDOMEN: Soft, nontender, nondistended, normoactive bowel sounds, no guarding, no rebound, no hepatosplenomegaly, no masses. EXTREMITIES: 2+ pulses, warm, well-perfused, no edema. NEUROLOGICAL: Cranial nerves II through XII grossly intact. mild dysarthria, gait not observed. power of LUE: 1/5, LLE 2/5 , right side 5/5 PSYCH: Normal mood, normal affect. SKIN: Warm, dry, normal turgor, no rashes or lesions noted CBCD WBC 7.7 K/mm3 (4.0-10.0) 03/25/20 23:45 RBC 3.78 M/mm3 (3.60-5.2) 03/25/20 23:45 Hgb 10.0 GM/dL (10.7-15.3) L 03/25/20 23:45 Hct 31.6 % (32.4-45.2) L 03/25/20 23:45 MCV 83.5 fl (80-96) 03/25/20 23:45 MCHC 31.6 g/dl (32.0-36.0) L 03/25/20 23:45 RDW 18.0 % (11.6-15.6) H 03/25/20 23:45 Plt Count 469 K/MM3 (134-434) H 03/25/20 23:45 MPV 7.9 fl (7.5-11.1) 03/25/20 23:45 CMP Sodium 137 mmol/L (136-145) 03/26/20 06:40 Potassium 4.8 mmol/L (3.5-5.1) 03/26/20 06:40 Chloride 106 mmol/L (98-107) 03/26/20 06:40 Carbon Dioxide 24 mmol/L (21-32) 03/26/20 06:40 Anion Gap 7 MMOL/L (8-16) L 03/26/20 06:40 BUN 20.7 mg/dL (7-18) H 03/26/20 06:40 Creatinine 0.8 mg/dL (0.55-1.3) 03/26/20 06:40 Random Glucose 159 mg/dL (74-106) H 03/26/20 06:40 Calcium 9.0 mg/dL (8.5-10.1) 03/26/20 06:40 Total Bilirubin 1.0 mg/dL (0.2-1) 03/25/20 06:00 AST 25 U/L (15-37) 03/25/20 06:00 ALT 14 U/L (13-61) 03/25/20 06:00 Alkaline Phosphatase 69 U/L (45-117) 03/25/20 06:00 Total Protein 6.4 g/dl (6.4-8.2) 03/25/20 06:00 Albumin 2.7 g/dl (3.4-5.0) L 03/25/20 06:00 CARDIAC ENZYMES Creatine Kinase 127 U/L (26-192) 03/24/20 10:00 Troponin I < 0.02 ng/ml (0.00-0.05) 03/24/20 10:00 Current Medications Generic Name Dose Route Start Last Admin Trade Name Freq PRN Reason Stop Dose Admin Albuterol Sulfate 2 puff 03/24/20 20:00 03/26/20 00:41 Ventolin Hfa Inhaler - IH Not Given RTID SHRUTHI Albuterol Sulfate 1 puff 03/24/20 16:56 Ventolin Hfa Inhaler - IH Q4H PRN SHORTNESS OF BREATH Albuterol/Ipratropium 1 amp 03/24/20 16:30 Duoneb - NEB Q4H PRN SHORTNESS OF BREATH Albuterol/Ipratropium 1 amp 03/24/20 20:00 Duoneb - NEB RTID SHRUTHI Atorvastatin Calcium 40 mg 03/25/20 17:35 03/26/20 00:36 Lipitor - PO 40 mg HS SHRUTHI Administration Docusate Sodium 100 mg 03/24/20 15:09 Colace - PO DAILY PRN CONSTIPATION Guaifenesin 600 mg 03/24/20 16:31 03/26/20 00:36 Mucinex - PO 600 mg Q12H PRN Administration COUGH Guaifenesin 10 ml 03/26/20 01:43 03/26/20 03:09 Robitussin - PO 10 ml Q4H PRN Administration COUGH Amino Acids 1,000 mls @ 42 mls/hr 03/25/20 12:00 03/26/20 14:51 Clinimix - IV 42 mls/hr Q24H SHRUTHI Administration Ceftriaxone Sodium 1 gm/ 50 mls @ 100 mls/hr 03/25/20 12:15 03/26/20 09:03 Dextrose IVPB 100 mls/hr DAILY SHRUTHI Administration Protocol Heparin Sodium (Porcine) 25, 500 mls @ 18 mls/hr 03/26/20 09:30 03/26/20 10:41 000 unit/ Sodium Chloride IV 900 unit/hr TITR SRHUTHI 18 mls/hr Administration Protocol 900 UNIT/HR Methylprednisolone Sodium Succinate 40 mg 03/25/20 16:00 03/26/20 03:10 Solu-Medrol - IVPUSH 40 mg Q12H SHRUTHI Administration Home Medications Medication Instructions Recorded Levothyroxine [Synthroid -] 100 mcg PO DAILY 05/07/14 Simvastatin [Zocor -] 40 mg PO HS 05/07/14 Esomeprazole Mag Trihydrate 40 mg PO DAILY 08/01/15 [Nexium] Albuterol 2.5/Ipratropium 0.5 1 neb IH TID PRN 03/25/20 [Duoneb -] Ibandronate Sodium 150 mg PO MONTHLY 03/25/20 Mirabegron [Myrbetriq] 50 mg PO DAILY 03/25/20 Olmesartan/Hydrochlorothiazide 1 tablet PO DAILY 03/25/20 [Olmesartan-Hctz 40-12.5 mg Tab] Umeclidinium Brm/Vilanterol Tr 1 puff IH DAILY 03/25/20 [Anoro Ellipta 62.5-25 Mcg INH] CT head:Rt. basal ganglia acute/subacute infarct that may be extending to the right periventricular white matter CTA: 70% stenosis of left common carotid, hypoplastic right vertebral artery relative to left without evidence of stenosis or dissection; no gross aneurysm, focal hemodynamically significant stenosis or major artery cutoff in central intracranial arterial circulation. ASSESSMENT AND PLAN: This patient is an 84yo F with PMhx of HLD, HTN, lung disease, knee replacement, who presents with L arm/leg weakness, facial droop, and fall. Admitted for acute stroke, last seen normal was last night at 10pm. # acute stroke : acute right basal ganglia CVA: on aspirin and lipitor , neuro consulted , neuro checks evry 4 hrs, on 2liter oxygen, Ct of the head as above, patient was out of the window period for tPA, no indication for thrombectomy per neuro; Dr Gonzalez NIHSS 9, continue npo on clinimax drip , NPO till gets re-assessed by speech and swallow therapist. continue ASA, statin, stool softeners, MRI , neuro checks, seizure precautions, fall precaution , cardio/neuro on the case appreciated #CVA with PAF noted on tele as per cardio note : [id number] score elevated, AC is indicated. patient was started on heparin drip without boluses. # Left common carotid stenosis 70% : Vascular; Dr Cruz seen the patient, no intervention at this time , ordered duplex of the carotid to r/o stenosis , continue on aspirin and lipitor # Early infiltrate on Cxr RLL ,cannot be rulled out aspiration Pneumonia on Rocephin IV now; CXR noted worsening of Rt side infiltrates compared to previous imaging, pulmonary and ID consult . #Chronic lung disease on nebs #HTN : continue home bP #HLD: continue Lipitor DVT : on heparin IV Visit type - Emergency Visit Emergency Visit: Yes ED Registration Date: 03/24/20 Care time: The patient presented to the Emergency Department on the above date and was hospitalized for further evaluation of their emergent condition. - New Patient This patient is new to me today: Yes Date on this admission: 03/26/20 - Critical Care Critical Care patient: No - Discharge Referral Referred to [facility] Med P.C[facility] No - Medication Review Med list reviewed for High Risk Meds patients 65 and older: Yes
--- NOTE | 2020-03-26 22:46 | PN ---
Progress Note, Physician History of Present Illness: AWAKE, DYSARTHRIC NO ACUTE DISTRESS AFEBRILE WBC IMRPOVED - Current Medication List Current Medications: Active Medications Albuterol Sulfate (Ventolin Hfa Inhaler -) 2 puff IH RTID SHRUTHI Last Admin: 03/26/20 21:36 Dose: 2 puff Documented by: Albuterol Sulfate (Ventolin Hfa Inhaler -) 1 puff IH Q4H PRN PRN Reason: SHORTNESS OF BREATH Albuterol/Ipratropium (Duoneb -) 1 amp NEB Q4H PRN PRN Reason: SHORTNESS OF BREATH Albuterol/Ipratropium (Duoneb -) 1 amp NEB RTID SHRUTHI Atorvastatin Calcium (Lipitor -) 40 mg PO HS [facility] Last Admin: 03/26/20 21:35 Dose: 40 mg Documented by: Docusate Sodium (Colace -) 100 mg PO DAILY PRN PRN Reason: CONSTIPATION Guaifenesin (Mucinex -) 600 mg PO Q12H PRN PRN Reason: COUGH Last Admin: 03/26/20 00:36 Dose: 600 mg Documented by: Guaifenesin (Robitussin -) 10 ml PO Q4H PRN PRN Reason: COUGH Last Admin: 03/26/20 03:09 Dose: 10 ml Documented by: Amino Acids (Clinimix -) 1,000 mls @ 42 mls/hr IV Q24H [facility] Last Admin: 03/26/20 14:51 Dose: 42 mls/hr Documented by: Ceftriaxone Sodium 1 gm/ (Dextrose) 50 mls @ 100 mls/hr IVPB DAILY SHRUTHI; Protocol Last Admin: 03/26/20 09:03 Dose: 100 mls/hr Documented by: Heparin Sodium (Porcine) 25, (000 unit/ Sodium Chloride) 500 mls @ 18 mls/hr IV TITR SHRUTHI; Protocol Last Admin: 03/26/20 10:41 Dose: 900 unit/hr, 18 mls/hr Documented by: Methylprednisolone Sodium Succinate (Solu-Medrol -) 40 mg IVPUSH Q12H [facility] Last Admin: 03/26/20 18:10 Dose: 40 mg Documented by: - Objective Vital Signs: Vital Signs Temperature 98.8 F 03/26/20 20:03 Pulse Rate 90 03/26/20 20:03 Respiratory Rate 25 H 03/26/20 20:03 Blood Pressure 131/66 03/26/20 20:03 O2 Sat by Pulse Oximetry (%) 95 03/26/20 21:00 Constitutional: Yes: No Distress Cardiovascular: Yes: Regular Rate and Rhythm, S1, S2 Respiratory: Yes: Diminished Gastrointestinal: Yes: Normal Bowel Sounds, Soft Labs: CBC, BMP 03/25/20 23:45 03/26/20 06:40 INR, PTT INR 1.04 (0.83-1.09) 03/24/20 10:00 Assessment/Plan CVA R/O RLL PNEUMONIA INTERSTITIAL LUNG DISEASE CONTINUE CEFTRIAXONE
[2020-03-27] MEDS: methylPREDNISolone NA SUCC 40 MG/1 ML VIAL IVPUSH SCH ×2 (04:34→17:37)
[2020-03-27] MEDS: ALBUTEROL SO4 HFA INHALER IH PRN (04:35)
--- NOTE | 2020-03-27 06:08 | PN ---
Progress Note, Physician Chief Complaint: ESR only milldy elevated- could be from asp PNA. TSH very low, ordered free T4 Vascular consult noted Anticoagulating carefully with UFH gtts. Titrated gradually yest awaiting AM PTT TELE: NSR, short paroxyms AF self limited Denies CP/SOB/palps History of Present Illness: Acute CVA with left sided weakness Left carotid stenosis Pericardial effusion PAF Thyroid disorder. Aspiration PNA Social: non smoker - Current Medication List Current Medications: Active Medications Albuterol Sulfate (Ventolin Hfa Inhaler -) 2 puff IH RTID SHRUTHI Last Admin: 03/26/20 21:36 Dose: 2 puff Documented by: Albuterol Sulfate (Ventolin Hfa Inhaler -) 1 puff IH Q4H PRN PRN Reason: SHORTNESS OF BREATH Last Admin: 03/27/20 04:35 Dose: 1 puff Documented by: Albuterol/Ipratropium (Duoneb -) 1 amp NEB Q4H PRN PRN Reason: SHORTNESS OF BREATH Albuterol/Ipratropium (Duoneb -) 1 amp NEB RTID SHRUTHI Atorvastatin Calcium (Lipitor -) 40 mg PO HS SHRUTHI Last Admin: 03/26/20 21:35 Dose: 40 mg Documented by: Docusate Sodium (Colace -) 100 mg PO DAILY PRN PRN Reason: CONSTIPATION Guaifenesin (Mucinex -) 600 mg PO Q12H PRN PRN Reason: COUGH Last Admin: 03/26/20 00:36 Dose: 600 mg Documented by: Guaifenesin (Robitussin -) 10 ml PO Q4H PRN PRN Reason: COUGH Last Admin: 03/26/20 23:59 Dose: 10 ml Documented by: Amino Acids (Clinimix -) 1,000 mls @ 42 mls/hr IV Q24H SHRUTHI Last Admin: 03/26/20 14:51 Dose: 42 mls/hr Documented by: Ceftriaxone Sodium 1 gm/ (Dextrose) 50 mls @ 100 mls/hr IVPB DAILY SHRUTHI; Protocol Last Admin: 03/26/20 09:03 Dose: 100 mls/hr Documented by: Heparin Sodium (Porcine) 25, (000 unit/ Sodium Chloride) 500 mls @ 18 mls/hr IV TITR SHRUTHI; Protocol Last Titration: 03/27/20 01:36 Dose: 1,100 unit/hr, 22 mls/hr Documented by: Methylprednisolone Sodium Succinate (Solu-Medrol -) 40 mg IVPUSH Q12H SHRUTHI Last Admin: 03/27/20 04:34 Dose: 40 mg Documented by: - Objective Vital Signs: Vital Signs Temperature 98.8 F 03/26/20 20:03 Pulse Rate 82 03/27/20 04:00 Respiratory Rate 22 H 03/27/20 04:00 Blood Pressure 128/66 03/27/20 04:00 O2 Sat by Pulse Oximetry (%) 99 03/27/20 04:00 Constitutional: Yes: No Distress, Calm Cardiovascular: Yes: Regular Rate and Rhythm Respiratory: Yes: CTA Bilaterally Gastrointestinal: Yes: Soft (nt) Edema: No Neurological: Yes: Alert ...Motor Strength: LUE, LLE (0/5) Labs: CBC, BMP 03/25/20 23:45 03/26/20 06:40 INR, PTT INR 1.04 (0.83-1.09) 03/24/20 10:00 - ....Imaging EKG: Image Reviewed Assessment/Plan IMP: R sided CVA PAF 70% L carotid stenosis ASP PNA Pericardial effusion HTN HLD Thyroid disorder REC: 1. CVA with PAF noted on tele: -[id number] score elevated, AC is indicated. -Discussed with nicholas Alba to AC from Neuro perspective; however, the pericardial effusion and risk of potential hemorrhagic conversion needs to be considered. -Given minimally elevated ESR, which may be from the PNA, likelihood of significant active pericardial inflammation and risk of hemorrhagic effusion probably low -Continue UFH gtts without bolusing for PTT goal 50-70 - repeat echo tomorrow to reassess effusion. If stable, would convert to Eliquis on 03/29 -Normal EF on echo 2. 70% LCC stenosis: - Carotid US ordered -On opposite side of CVA; appreciate Vascular input -Cont statin. Monitor LFTs and CPK 3. Asp PNA: -supp O2 -Abx as per Critical Care 4. Pericardial effusion: mild to moderate, no evidence of tamponade on echo nor clinically -Plan as outlined above 5. HTN: -Well controlled at this time. Avoid hypotension 6. HLD: -goal LDL 70mg d/l. Would use lowest dose statin to achieve this -see above. 7. Hyperthyroid: -TSH low -Holding Synthroid, as per primary team
[2020-03-27 07:35] LABS: BASO % 0.2 % (0-2.0); HEMATOCRIT 31.6 % (32.4-45.2); HEMOGLOBIN 9.8 GM/dL (10.7-15.3); LYMPH % 19.4 % (8-40); MCH 26.1 pg (25.7-33.7); MCHC 31.2 g/dl (32.0-36.0); MEAN CELL VOLUME 83.8 fl (80-96); MEAN PLT VOLUME 8.1 fl (7.5-11.1); MONO % 1.8 % (3.8-10.2); NEUT % 78.6 % (42.8-82.8); PLATELET COUNT 491 K/MM3 (134-434); RBC 3.77 M/mm3 (3.60-5.2); RDW 18.1 % (11.6-15.6)
[2020-03-27 07:46] LABS: INR 1.03 (0.83-1.09); PROTHROMBIN TIME (PATIENT) 12.1 SEC (9.7-13.0)
[2020-03-27 08:29] LABS: ALBUMIN 2.7 g/dl (3.4-5.0); BLOOD UREA NITROGEN 24.5 mg/dL (7-18); CALCIUM 8.8 mg/dL (8.5-10.1); CREATININE 0.7 mg/dL (0.55-1.3); MAGNESIUM 2.2 mg/dL (1.8-2.4); PHOSPHOROUS 2.8 mg/dL (2.5-4.9); POTASSIUM 4.4 mmol/L (3.5-5.1); TOT PROT 6.6 g/dl (6.4-8.2)
[2020-03-27 08:30] LABS: BILIRUBIN,TOTAL 0.4 mg/dL (0.2-1)
[2020-03-27] MEDS ORDERED: ALBUTEROL SO4 2.5/IPRATROPIUM 0.5 INH SOL 3 ML VIAL.NEB. NEB PRN (08:59)
[2020-03-27] MEDS ORDERED: DEXTROSE 5%-WATER - 50 ML IVPB ONE (09:13)
[2020-03-27] MEDS ORDERED: cefTRIAXone SODIUM 1 GM VIAL ONE (09:13)
--- NOTE | 2020-03-27 09:41 | PN ---
Teaching Attending Note Name of Resident: Starr Miller ATTENDING PHYSICIAN STATEMENT I saw and evaluated the patient. I reviewed the resident's note and discussed the case with the resident. I agree with the resident's findings and plan as documented. SUBJECTIVE: Patient is feeling better , is trying to move her fingers of the left side and able to move her left side side foot better today OBJECTIVE: Vital Signs Temperature 98.4 F 03/27/20 04:00 Pulse Rate 82 03/27/20 04:00 Respiratory Rate 22 H 03/27/20 04:00 Blood Pressure 128/66 03/27/20 04:00 O2 Sat by Pulse Oximetry (%) 99 03/27/20 04:00 PE: per resident's note Left UE: able to move her fingers 1/5 Left lower extremity: able to move slightly 2/5 CBCD WBC 11.0 K/mm3 (4.0-10.0) H 03/27/20 07:08 RBC 3.77 M/mm3 (3.60-5.2) 03/27/20 07:08 Hgb 9.8 GM/dL (10.7-15.3) L 03/27/20 07:08 Hct 31.6 % (32.4-45.2) L 03/27/20 07:08 MCV 83.8 fl (80-96) 03/27/20 07:08 MCHC 31.2 g/dl (32.0-36.0) L 03/27/20 07:08 RDW 18.1 % (11.6-15.6) H 03/27/20 07:08 Plt Count 491 K/MM3 (134-434) H 03/27/20 07:08 MPV 8.1 fl (7.5-11.1) 03/27/20 07:08 CMP Sodium 136 mmol/L (136-145) 03/27/20 07:08 Potassium 4.4 mmol/L (3.5-5.1) 03/27/20 07:08 Chloride 105 mmol/L (98-107) 03/27/20 07:08 Carbon Dioxide 23 mmol/L (21-32) 03/27/20 07:08 Anion Gap 7 MMOL/L (8-16) L 03/27/20 07:08 BUN 24.5 mg/dL (7-18) H 03/27/20 07:08 Creatinine 0.7 mg/dL (0.55-1.3) 03/27/20 07:08 Random Glucose 142 mg/dL (74-106) H 03/27/20 07:08 Calcium 8.8 mg/dL (8.5-10.1) 03/27/20 07:08 Total Bilirubin 0.4 mg/dL (0.2-1) 03/27/20 07:08 AST 20 U/L (15-37) 03/27/20 07:08 ALT 15 U/L (13-61) 03/27/20 07:08 Alkaline Phosphatase 55 U/L (45-117) 03/27/20 07:08 Total Protein 6.6 g/dl (6.4-8.2) 03/27/20 07:08 Albumin 2.7 g/dl (3.4-5.0) L 03/27/20 07:08 CARDIAC ENZYMES Creatine Kinase 127 U/L (26-192) 03/24/20 10:00 Troponin I < 0.02 ng/ml (0.00-0.05) 03/24/20 10:00 Current Medications Generic Name Dose Route Start Last Admin Trade Name Freq PRN Reason Stop Dose Admin Albuterol Sulfate 1 puff 03/24/20 16:56 03/27/20 04:35 Ventolin Hfa Inhaler - IH 1 puff Q4H PRN Administration SHORTNESS OF BREATH Albuterol/Ipratropium 1 amp 03/27/20 08:59 Duoneb - NEB Q4H PRN SHORTNESS OF BREATH Albuterol/Ipratropium 1 amp 03/27/20 14:00 Duoneb - NEB RTID SHRUTHI Atorvastatin Calcium 40 mg 03/25/20 17:35 03/26/20 21:35 Lipitor - PO 40 mg HS SHRUTHI Administration Docusate Sodium 100 mg 03/24/20 15:09 Colace - PO DAILY PRN CONSTIPATION Guaifenesin 600 mg 03/24/20 16:31 03/26/20 00:36 Mucinex - PO 600 mg Q12H PRN Administration COUGH Guaifenesin 10 ml 03/26/20 01:43 03/26/20 23:59 Robitussin - PO 10 ml Q4H PRN Administration COUGH Amino Acids 1,000 mls @ 42 mls/hr 03/25/20 12:00 03/26/20 14:51 Clinimix - IV 42 mls/hr Q24H SHRUTHI Administration Ceftriaxone Sodium 1 gm/ 50 mls @ 100 mls/hr 03/25/20 12:15 03/26/20 09:03 Dextrose IVPB 100 mls/hr DAILY SHRUTHI Administration Protocol Heparin Sodium (Porcine) 25, 500 mls @ 18 mls/hr 03/26/20 09:30 03/27/20 01:36 000 unit/ Sodium Chloride IV 1,100 unit/hr TITR SHRUTHI 22 mls/hr Titration Protocol 900 UNIT/HR Methylprednisolone Sodium Succinate 40 mg 03/25/20 16:00 03/27/20 04:34 Solu-Medrol - IVPUSH 40 mg Q12H SHRUTHI Administration Home Medications Medication Instructions Recorded Levothyroxine [Synthroid -] 100 mcg PO DAILY 05/07/14 Simvastatin [Zocor -] 40 mg PO HS 05/07/14 Esomeprazole Mag Trihydrate 40 mg PO DAILY 08/01/15 [Nexium] Albuterol 2.5/Ipratropium 0.5 1 neb IH TID PRN 03/25/20 [Duoneb -] Ibandronate Sodium 150 mg PO MONTHLY 03/25/20 Mirabegron [Myrbetriq] 50 mg PO DAILY 03/25/20 Olmesartan/Hydrochlorothiazide 1 tablet PO DAILY 03/25/20 [Olmesartan-Hctz 40-12.5 mg Tab] Umeclidinium Brm/Vilanterol Tr 1 puff IH DAILY 03/25/20 [Anoro Ellipta 62.5-25 Mcg INH] Us of Carotid:Significant calcified plaque in the left carotid arterial system is noted, MRA recommended. No definite evidence of high grade stenosis sonographically. CT head:Rt. basal ganglia acute/subacute infarct that may be extending to the right periventricular white matter CTA: 70% stenosis of left common carotid, hypoplastic right vertebral artery relative to left without evidence of stenosis or dissection; no gross aneurysm, focal hemodynamically significant stenosis or major artery cutoff in central intracranial arterial circulation. ASSESSMENT AND PLAN: This patient is an 84yo F with PMhx of HLD, HTN, lung disease, knee replacement, who presents with L arm/leg weakness, facial droop, and fall. Admitted for acute stroke, last seen normal was last night at 10pm. # acute stroke : acute right basal ganglia CVA: on aspirin and lipitor , neuro consult appreciated , continue heparin drip without boluses #CVA with PAF noted on tele as per cardio note : [id number] score elevated, AC is indicated. patient was started on heparin drip without boluses. # Left common carotid stenosis 70% : Vascular; Dr Craig seen the patient, no intervention at this time , ordered duplex of the carotid to r/o stenosis ,continue on aspirin and lipitor. # Early infiltrate on Cxr RLL ,cannot be rulled out aspiration Pneumonia on Rocephin IV now: CXR noted worsening of Rt side infiltrates compared to previous imaging, pulmonary and ID consult . #Chronic lung disease on nebs #HTN : continue home bP #HLD: continue Lipitor IV Heparin with no boluses as per cardio and neuro will check with neuro and cardio , rehab. to [facility] if possible
[2020-03-27] MEDS: HEPARIN - 25,000 UNIT in SODIUM CHLORIDE 495 ML IV SCH (10:26)
--- NOTE | 2020-03-27 10:26 | PN ---
Progress Note, Physician History of Present Illness: AWAKE, ALERT C/O BACK PAIN NO ACUTE DISTRESS AFEBRILE WBC SL INCREASED - Current Medication List Current Medications: Active Medications Albuterol Sulfate (Ventolin Hfa Inhaler -) 1 puff IH Q4H PRN PRN Reason: SHORTNESS OF BREATH Last Admin: 03/27/20 04:35 Dose: 1 puff Documented by: Albuterol/Ipratropium (Duoneb -) 1 amp NEB Q4H PRN PRN Reason: SHORTNESS OF BREATH Albuterol/Ipratropium (Duoneb -) 1 amp NEB RTID SHRUTHI Atorvastatin Calcium (Lipitor -) 40 mg PO HS SHRUTHI Last Admin: 03/26/20 21:35 Dose: 40 mg Documented by: Docusate Sodium (Colace -) 100 mg PO DAILY PRN PRN Reason: CONSTIPATION Guaifenesin (Mucinex -) 600 mg PO Q12H PRN PRN Reason: COUGH Last Admin: 03/26/20 00:36 Dose: 600 mg Documented by: Guaifenesin (Robitussin -) 10 ml PO Q4H PRN PRN Reason: COUGH Last Admin: 03/26/20 23:59 Dose: 10 ml Documented by: Amino Acids (Clinimix -) 1,000 mls @ 42 mls/hr IV Q24H SHRUTHI Last Admin: 03/26/20 14:51 Dose: 42 mls/hr Documented by: Ceftriaxone Sodium 1 gm/ (Dextrose) 50 mls @ 100 mls/hr IVPB DAILY SHRUTHI; P rotocol Last Admin: 03/26/20 09:03 Dose: 100 mls/hr Documented by: Heparin Sodium (Porcine) 25, (000 unit/ Sodium Chloride) 500 mls @ 18 mls/hr IV TITR SHRUTHI; Protocol Last Titration: 03/27/20 01:36 Dose: 1,100 unit/hr, 22 mls/hr Documented by: Methylprednisolone Sodium Succinate (Solu-Medrol -) 40 mg IVPUSH Q12H SHRUTHI Last Admin: 03/27/20 04:34 Dose: 40 mg Documented by: - Objective Vital Signs: Vital Signs Temperature 98.4 F 03/27/20 04:00 Pulse Rate 82 03/27/20 04:00 Respiratory Rate 22 H 03/27/20 04:00 Blood Pressure 128/66 03/27/20 04:00 O2 Sat by Pulse Oximetry (%) 99 03/27/20 04:00 Constitutional: Yes: No Distress Eyes: Yes: Conjunctiva Clear Cardiovascular: Yes: Regular Rate and Rhythm, S1, S2 Respiratory: Yes: Diminished Gastrointestinal: Yes: Normal Bowel Sounds, Soft. No: Tenderness Edema: No Labs: CBC, BMP 03/27/20 07:08 03/27/20 07:08 INR, PTT INR 1.03 (0.83-1.09) 03/27/20 07:08 Assessment/Plan CVA R/O RLL PNEUMONIA INTERSTITIAL LUNG DISEASE CONTINUE CEFTRIAXONE
[2020-03-27] MEDS: CEFTRIAXONE 1 GM in DEXTROSE 5%-WATER - 50 ML IVPB SCH (10:27)
--- NOTE | 2020-03-27 10:38 | PN ---
Progress Note (short form) - Note Progress Note: PULMONARY Denies shortness of breath. +nonproductive cough. No fevers recorded. Vital Signs Period Temp Pulse Resp BP Sys/Solorio Pulse Ox Last 24 Hr 98.4 F-98.8 F 82-90 21-26 105-131/58-66 95-99 Gen: NAD at rest, weak Heart: RRR Lung: scattered rhonchi Abd: soft, nontender Ext: no edema CBC, BMP 03/27/20 07:08 03/27/20 07:08 Active Medications Albuterol Sulfate (Ventolin Hfa Inhaler -) 1 puff IH Q4H PRN PRN Reason: SHORTNESS OF BREATH Last Admin: 03/27/20 04:35 Dose: 1 puff Documented by: Albuterol/Ipratropium (Duoneb -) 1 amp NEB Q4H PRN PRN Reason: SHORTNESS OF BREATH Albuterol/Ipratropium (Duoneb -) 1 amp NEB RTID SHRUTHI Atorvastatin Calcium (Lipitor -) 40 mg PO HS [facility] Last Admin: 03/26/20 21:35 Dose: 40 mg Documented by: Docusate Sodium (Colace -) 100 mg PO DAILY PRN PRN Reason: CONSTIPATION Guaifenesin (Mucinex -) 600 mg PO Q12H PRN PRN Reason: COUGH Last Admin: 03/26/20 00:36 Dose: 600 mg Documented by: Guaifenesin (Robitussin -) 10 ml PO Q4H PRN PRN Reason: COUGH Last Admin: 03/26/20 23:59 Dose: 10 ml Documented by: Amino Acids (Clinimix -) 1,000 mls @ 42 mls/hr IV Q24H SHRUTHI Last Admin: 03/26/20 14:51 Dose: 42 mls/hr Documented by: Ceftriaxone Sodium 1 gm/ (Dextrose) 50 mls @ 100 mls/hr IVPB DAILY SHRUTHI; Protocol Last Admin: 03/27/20 10:27 Dose: 100 mls/hr Documented by: Heparin Sodium (Porcine) 25, (000 unit/ Sodium Chloride) 500 mls @ 18 mls/hr IV TITR SHRUTHI; Protocol Last Admin: 03/27/20 10:26 Dose: 1,100 unit/hr, 22 mls/hr Documented by: Methylprednisolone Sodium Succinate (Solu-Medrol -) 40 mg IVPUSH Q12H SHRUTHI Last Admin: 03/27/20 04:34 Dose: 40 mg Documented by: A/P Pneumonia likely Aspiration Acute CVA Interstitial Lung Disease HTN Hyperlipidemia - continue antibiotics - continue medrol - inhaled bronchodilators - O2 to keep SpO2 >90% - aspiration precautions - DVT prophylaxis
--- NOTE | 2020-03-27 10:45 | PN ---
Physical Exam: SUBJECTIVE: Patient seen and examined. She reports low back pain and shortness of breath, both of which are not new and have not worsened in the last day. She denies any other problems. OBJECTIVE: Vital Signs Period Temp Pulse Resp BP Sys/Solorio Pulse Ox Last 24 Hr 98.4 F-98.8 F 82-90 21-26 105-131/58-66 95-99 GENERAL: A&Ox3, in no acute distress. On NC. HEAD: Normal with no signs of trauma. EYES: PERRL, EOMI. ENT: Ears normal, nares patent, moist mucous membranes. NECK: Trachea midline, full range of motion. LUNGS: CTAB, no wheezes or crackles. HEART: RRR, no murmur. ABDOMEN: Soft, nontender, nondistended, normoactive bowel sounds. EXTREMITIES: Warm, well-perfused, no edema. Left take away worker strength 3/5, shoulder abduction 1/5, b/l lower extremity hip flexors 2/5, all other 5/5; sensation is intact. NEUROLOGICAL: Cranial nerves II through XII grossly intact. Normal speech. PSYCH: Normal mood, normal turgor. Laboratory Results - last 24 hr 03/24/20 03/26/20 03/26/20 10:15 06:40 17:20 WBC RBC Hgb Hct MCV MCH MCHC RDW Plt Count MPV Absolute Neuts (auto) Neutrophils % Lymphocytes % Monocytes % Eosinophils % Basophils % Nucleated RBC % PT with INR INR PTT (Actin FS) 43.9 H Sodium Potassium Chloride Carbon Dioxide Anion Gap BUN Creatinine Est GFR (CKD-EPI)AfAm Est GFR (CKD-EPI)NonAf Random Glucose Calcium Phosphorus Magnesium Total Bilirubin AST ALT Alkaline Phosphatase Total Protein Albumin TSH 0.05 L Free T4 COVID-19 (ILENE) Not detected 03/27/20 03/27/20 03/27/20 00:01 07:08 07:08 WBC 11.0 H RBC 3.77 Hgb 9.8 L Hct 31.6 L MCV 83.8 MCH 26.1 MCHC 31.2 L RDW 18.1 H Plt Count 491 H MPV 8.1 Absolute Neuts (auto) 8.6 H Neutrophils % 78.6 Lymphocytes % 19.4 Monocytes % 1.8 L D Eosinophils % 0.0 D Basophils % 0.2 Nucleated RBC % 0 PT with INR 12.10 INR 1.03 PTT (Actin FS) 48.2 H Sodium Potassium Chloride Carbon Dioxide Anion Gap BUN Creatinine Est GFR (CKD-EPI)AfAm Est GFR (CKD-EPI)NonAf Random Glucose Calcium Phosphorus Magnesium Total Bilirubin AST ALT Alkaline Phosphatase Total Protein Albumin TSH Free T4 COVID-19 (ILENE) 03/27/20 03/27/20 07:08 07:08 WBC RBC Hgb Hct MCV MCH MCHC RDW Plt Count MPV Absolute Neuts (auto) Neutrophils % Lymphocytes % Monocytes % Eosinophils % Basophils % Nucleated RBC % PT with INR INR PTT (Actin FS) 65.4 H Sodium 136 Potassium 4.4 Chloride 105 Carbon Dioxide 23 Anion Gap 7 L BUN 24.5 H Creatinine 0.7 Est GFR (CKD-EPI)AfAm 92.21 Est GFR (CKD-EPI)NonAf 79.56 Random Glucose 142 H Calcium 8.8 Phosphorus 2.8 Magnesium 2.2 Total Bilirubin 0.4 AST 20 ALT 15 Alkaline Phosphatase 55 Total Protein 6.6 Albumin 2.7 L TSH Free T4 1.19 COVID-19 (ILENE) Active Medications Generic Name Dose Route Start Last Admin Trade Name Freq PRN Reason Stop Dose Admin Albuterol Sulfate 1 puff 03/24/20 16:56 03/27/20 04:35 Ventolin Hfa Inhaler - IH 1 puff Q4H PRN Administration SHORTNESS OF BREATH Albuterol/Ipratropium 1 amp 03/27/20 08:59 Duoneb - NEB Q4H PRN SHORTNESS OF BREATH Albuterol/Ipratropium 1 amp 03/27/20 14:00 Duoneb - NEB RTID SHRUTHI Atorvastatin Calcium 40 mg 03/25/20 17:35 03/26/20 21:35 Lipitor - PO 40 mg HS SHRUTHI Administration Docusate Sodium 100 mg 03/24/20 15:09 Colace - PO DAILY PRN CONSTIPATION Guaifenesin 600 mg 03/24/20 16:31 03/26/20 00:36 Mucinex - PO 600 mg Q12H PRN Administration COUGH Guaifenesin 10 ml 03/26/20 01:43 03/26/20 23:59 Robitussin - PO 10 ml Q4H PRN Administration COUGH Amino Acids 1,000 mls @ 42 mls/hr 03/25/20 12:00 03/26/20 14:51 Clinimix - IV 42 mls/hr Q24H SHRUTHI Administration Ceftriaxone Sodium 1 gm/ 50 mls @ 100 mls/hr 03/25/20 12:15 03/27/20 10:27 Dextrose IVPB 100 mls/hr DAILY SHRUTHI Administration Protocol Heparin Sodium (Porcine) 25, 500 mls @ 18 mls/hr 03/26/20 09:30 03/27/20 10:26 000 unit/ Sodium Chloride IV 1,100 unit/hr TITR SHRUTHI 22 mls/hr Administration Protocol 900 UNIT/HR Methylprednisolone Sodium Succinate 40 mg 03/25/20 16:00 03/27/20 04:34 Solu-Medrol - IVPUSH 40 mg Q12H SHRUTHI Administration ASSESSMENT/PLAN: Pt is an 84 y/o female with degenerative joint disease, HLD, HTN, hypothyroidism, lung disease(?), who presented with L side weakness and facial droop. She is admitted for ischemic stroke. #acute ischemic stroke of right basal ganglia -acute infarct of right basal ganglia -significant left carotid calcification, recommend MRA -hold anti-hypertensives -atorvastatin 40mg, decreased from 80mg -ASA 81mg -PT -speech and swallow eval bedside cannot r/o aspiration, consider MBS, NPO except meds -Clinimix since NPO -aspiration/fall precautions -neuro following #paroxysmal a-fib -heparin gtt -echo -cardiology following, in agreement with neuro on drip #increased interstitial lung markings, COPD vs aspiration PNA -right side infiltrate noted on radiology report -guaifenesin -inhalers -O2 as needed -solu-medrol 40mg BID -ceftriaxone empiric tx -Legionella, sputum cx ordered -ID following -pulm following DVT Ppx heparin gtt FEN no standing fluids monitor labs NPO/on Clinimix Dispo: tele Visit type - Emergency Visit Emergency Visit: Yes ED Registration Date: 03/24/20 Care time: The patient presented to the Emergency Department on the above date and was hospitalized for further evaluation of their emergent condition. - New Patient This patient is new to me today: Yes Date on this admission: 03/27/20 - Critical Care Critical Care patient: No - Medication Review Med list reviewed for High Risk Meds patients 65 and older: Yes ATTENDING PHYSICIAN STATEMENT I saw and evaluated the patient. I reviewed the resident's note and discussed the case with the resident. I agree with the resident's findings and plan as documented. SUBJECTIVE: OBJECTIVE: ASSESSMENT AND PLAN:
[2020-03-27] MEDS: AMINO ACIDS 4.25%/D5W 1,000 ML IV SCH (11:07)
--- NOTE | 2020-03-27 11:10 | PN ---
Progress Note (short form) - Note Progress Note: Neurology CHIEF COMPLAINT: STROKE PCP: Shaun HISTORY OF PRESENT ILLNESS: 84 year old female with PMH degenerative joint disease, HLD, HTN, hypothyroidism, lung disease(?), who presented with L side weakness and facial droop. Pt stated that she remembered falling off her bed at night and lying on the floor, unable to get up. Pt endorsed to landing on her back as she fell. Denied head trauma or loss of consciousness. Pt stated that she was on the floor for an unknown period of time. As per daughter, she stated that the last time she saw the pt in her usual state of health was 10PM on day before admission. NIHSS 9. Pt denied sensory disturbance, visual field defect, difficulty speaking, dizziness, fevers, chills, shortness of breath, chest pain, or abdominal pain. Pt admits to some dysphagia. CT head done and demonstrated moderate atrophy and moderate to marked periventricular chronic microvascular ischemic disease changes Right basal ganglia acute/subacute infarct that may be extending to the right periventricular white matter. CTA of head and neck completed and showed Prominent calcified plaques at the left common carotid bifurcation with hemodynamically significant stenosis of approximately 70%, NASCET criteria. Tiny plaques at the right common carotid bifurcation without ev idence of hemodynamically significant stenosis. Hypoplastic right vertebral artery relative to the left without evidence of stenosis or dissection. Intracranially, there is faint enhancement of the right A1 segment likely a hypoplastic segment with normal enhancement of the right A2 segment. CT of C- spine completed and no gross fracture or subluxation is seen. Multilevel degenerative disc disease with anterior spondylosis. Carotid doppler completed, indicates significant calcified plaque in the left carotid arterial system; patient seen by Dr. Schmidt with recommendations for yearly carotid doppler and no surgery at this time. I spoke with Dr. Rivas on 03/26 and in agreement to start heparin due to afib; heparin drip started as ESR was not highly elevated (he discussed concern for pericardial effusion leading to hemoraghic conversion). Patient previously not taking ASA, started on 81mg, monitor for any bleeding. Active Medications Albuterol Sulfate (Ventolin Hfa Inhaler -) 1 puff IH Q4H PRN PRN Reason: SHORTNESS OF BREATH Last Admin: 03/27/20 04:35 Dose: 1 puff Documented by: Albuterol/Ipratropium (Duoneb -) 1 amp NEB Q4H PRN PRN Reason: SHORTNESS OF BREATH Albuterol/Ipratropium (Duoneb -) 1 amp NEB RTID SHRUTHI Atorvastatin Calcium (Lipitor -) 40 mg PO HS SHRUTHI Last Admin: 03/26/20 21:35 Dose: 40 mg Documented by: Docusate Sodium (Colace -) 100 mg PO DAILY PRN PRN Reason: CONSTIPATION Guaifenesin (Mucinex -) 600 mg PO Q12H PRN PRN Reason: COUGH Last Admin: 03/26/20 00:36 Dose: 600 mg Documented by: Guaifenesin (Robitussin -) 10 ml PO Q4H PRN PRN Reason: COUGH Last Admin: 03/26/20 23:59 Dose: 10 ml Documented by: Amino Acids (Clinimix -) 1,000 mls @ 42 mls/hr IV Q24H SHRUTHI Last Admin: 03/26/20 14:51 Dose: 42 mls/hr Documented by: Ceftriaxone Sodium 1 gm/ (Dextrose) 50 mls @ 100 mls/hr IVPB DAILY SHRUTHI; Protocol Last Admin: 03/27/20 10:27 Dose: 100 mls/hr Documented by: Heparin Sodium (Porcine) 25, (000 unit/ Sodium Chloride) 500 mls @ 18 mls/hr IV TITR SHRUTHI; Protocol Last Admin: 03/27/20 10:26 Dose: 1,100 unit/hr, 22 mls/hr Documented by: Methylprednisolone Sodium Succinate (Solu-Medrol -) 40 mg IVPUSH Q12H [facility] Last Admin: 03/27/20 04:34 Dose: 40 mg Documented by: PHYSICAL EXAMINATION Vital Signs Period Temp Pulse Resp BP Sys/Solorio Pulse Ox Last 24 Hr 98.4 F-98.8 F 82-90 21-25 115-131/58-66 95-99 GENERAL: Awake and alert, not in acute distress HEENT: NCAT, EOMI, dry mucus membranes. LUNGS: Equal breath sounds heard. Scattered rales present. No wheezes. HEART: Regular rate and rhythm, S1, S2 present. Murmur present on L upper sternal border. ABDOMEN: Soft, non-distended, non-tender to palpation. Bowel sounds present in all 4 quadrants. EXTREMITIES: warm, well-perfused. No edema. NEUROLOGICAL: sensation intact. Strength 5/5 on R upper extremities, 1/5 on L upper extremity. 5/5 on R lower extremity, 1/5 on L lower extremity, sensory intact SKIN: Warm, dry CBCD WBC 11.0 K/mm3 (4.0-10.0) H 03/27/20 07:08 RBC 3.77 M/mm3 (3.60-5.2) 03/27/20 07:08 Hgb 9.8 GM/dL (10.7-15.3) L 03/27/20 07:08 Hct 31.6 % (32.4-45.2) L 03/27/20 07:08 MCV 83.8 fl (80-96) 03/27/20 07:08 MCHC 31.2 g/dl (32.0-36.0) L 03/27/20 07:08 RDW 18.1 % (11.6-15.6) H 03/27/20 07:08 Plt Count 491 K/MM3 (134-434) H 03/27/20 07:08 MPV 8.1 fl (7.5-11.1) 03/27/20 07:08 CMP Sodium 136 mmol/L (136-145) 03/27/20 07:08 Potassium 4.4 mmol/L (3.5-5.1) 03/27/20 07:08 Chloride 105 mmol/L (98-107) 03/27/20 07:08 Carbon Dioxide 23 mmol/L (21-32) 03/27/20 07:08 Anion Gap 7 MMOL/L (8-16) L 03/27/20 07:08 BUN 24.5 mg/dL (7-18) H 03/27/20 07:08 Creatinine 0.7 mg/dL (0.55-1.3) 03/27/20 07:08 Random Glucose 142 mg/dL (74-106) H 03/27/20 07:08 Calcium 8.8 mg/dL (8.5-10.1) 03/27/20 07:08 Total Bilirubin 0.4 mg/dL (0.2-1) 03/27/20 07:08 AST 20 U/L (15-37) 03/27/20 07:08 ALT 15 U/L (13-61) 03/27/20 07:08 Alkaline Phosphatase 55 U/L (45-117) 03/27/20 07:08 Total Protein 6.6 g/dl (6.4-8.2) 03/27/20 07:08 Albumin 2.7 g/dl (3.4-5.0) L 03/27/20 07:08 CARDIAC ENZYMES Creatine Kinase 127 U/L (26-192) 03/24/20 10:00 Troponin I < 0.02 ng/ml (0.00-0.05) 03/24/20 10:00 ASSESSMENT/PLAN: 84 year old female with PMH degenerative joint disease, HLD, HTN, hypothyroidism, lung disease(?), who presented with L side weakness and facial droop. Pt stated that she remembered falling off her bed at night and lying on the floor, unable to get up. Pt endorsed to landing on her back as she fell. Denied head trauma or loss of consciousness. Pt stated that she was on the floor for an unknown period of time. As per daughter, she stated that the last time she saw the pt in her usual state of health was 10PM on day before admission. NIHSS 9. Pt denied sensory disturbance, visual field defect, difficulty speaking, dizziness, fevers, chills, shortness of breath, chest pain, or abdominal pain. Pt admits to some dysphagia. CT head done and demonstrated moderate atrophy and moderate to marked periventricular chronic microvascular ischemic disease changes Right basal ganglia acute/subacute infarct that may be extending to the right periventricular white matter. CTA of head and neck completed and showed Prominent calcified plaques at the left common carotid bifurcation with hemodynamically significant stenosis of approximately 70%, NASCET criteria. Tiny plaques at the right common carotid bifurcation without evidence of hemodynamically significant stenosis. Hypoplastic right vertebral artery relative to the left without evidence of stenosis or dissection. Intracranially, there is faint enhancement of the right A1 segment likely a hypoplastic segment with normal enhancement of the right A2 segment. CT of C- spine completed and no gross fracture or subluxation is seen. Multilevel degenerative disc disease with anterior spondylosis. Carotid doppler completed, indicates significant calcified plaque in the left carotid arterial system; patient seen by Dr. Schmidt, with recommendations for yearly carotid doppler and no surgery at this time. I spoke with Dr. Rivas yesterday and in agreement to start heparin drip due to afib; heparin drip started at this time. Monitor blood pressure, maintain less than 160/90. LDL 70, can reduce statin back down to 40mg. I spoke with Dr. Rivas on 03/26 and in agreement to start heparin due to afib; heparin drip started as ESR was not highly elevated (he discussed concern for pericardial effusion leading to hemoraghic conversion). Patient previously not taking ASA, started on 81mg, monitor for any bleeding. Physical therapy as tolerated, likely need for rehabilitation.
[2020-03-27] MEDS: ALBUTEROL SO4 2.5/IPRATROPIUM 0.5 INH SOL 3 ML VIAL.NEB. NEB SCH ×2 (13:45→20:13)
[2020-03-27] MEDS: ATORVASTATIN CA 80 MG TABLET (FP) PO SCH (20:59)
[2020-03-28 06:54] LABS: BASO % 0.2 % (0-2.0); HEMATOCRIT 29.4 % (32.4-45.2); HEMOGLOBIN 9.2 GM/dL (10.7-15.3); LYMPH % 17.1 % (8-40); MCH 25.9 pg (25.7-33.7); MCHC 31.3 g/dl (32.0-36.0); MEAN CELL VOLUME 82.8 fl (80-96); MEAN PLT VOLUME 8.4 fl (7.5-11.1); MONO % 1.8 % (3.8-10.2); NEUT % 80.9 % (42.8-82.8); PLATELET COUNT 441 K/MM3 (134-434); RBC 3.55 M/mm3 (3.60-5.2); RDW 17.9 % (11.6-15.6); WHITE BLOOD COUNT 8.7 K/mm3 (4.0-10.0)
[2020-03-28 07:23] LABS: ALBUMIN 2.5 g/dl (3.4-5.0); BILIRUBIN,TOTAL 0.3 mg/dL (0.2-1); BLOOD UREA NITROGEN 29.2 mg/dL (7-18); CALCIUM 8.5 mg/dL (8.5-10.1); CREATININE 0.7 mg/dL (0.55-1.3); MAGNESIUM 2.1 mg/dL (1.8-2.4); PHOSPHOROUS 2.6 mg/dL (2.5-4.9); POTASSIUM 4.3 mmol/L (3.5-5.1); TOT PROT 6.1 g/dl (6.4-8.2)
--- NOTE | 2020-03-28 08:47 | PN ---
Progress Note (short form) - Note Progress Note: Neurology CHIEF COMPLAINT: STROKE PCP: Shaun HISTORY OF PRESENT ILLNESS: 84 year old female with PMH degenerative joint disease, HLD, HTN, hypothyroidism, lung disease(?), who presented with L side weakness and facial droop. Pt stated that she remembered falling off her bed at night and lying on the floor, unable to get up. Pt endorsed to landing on her back as she fell. Denied head trauma or loss of consciousness. Pt stated that she was on the floor for an unknown period of time. As per daughter, she stated that the last time she saw the pt in her usual state of health was 10PM on day before admission. NIHSS 9. Pt denied sensory disturbance, visual field defect, difficulty speaking, dizziness, fevers, chills, shortness of breath, chest pain, or abdominal pain. Pt admits to some dysphagia. CT head done and demonstrated moderate atrophy and moderate to marked periventricular chronic microvascular ischemic disease changes Right basal ganglia acute/subacute infarct that may be extending to the right periventricular white matter. CTA of head and neck completed and showed Prominent calcified plaques at the left common carotid bifurcation with hemodynamically significant stenosis of approximately 70%, NASCET criteria. Tiny plaques at the right common carotid bifurcation without ev idence of hemodynamically significant stenosis. Hypoplastic right vertebral artery relative to the left without evidence of stenosis or dissection. Intracranially, there is faint enhancement of the right A1 segment likely a hypoplastic segment with normal enhancement of the right A2 segment. CT of C- spine completed and no gross fracture or subluxation is seen. Multilevel degenerative disc disease with anterior spondylosis. Carotid doppler completed, indicates significant calcified plaque in the left carotid arterial system; patient seen by Dr. Schmidt with recommendations for yearly carotid doppler and no surgery at this time. I spoke with Dr. Rivas on 03/26 and in agreement to start heparin due to afib; heparin drip started as ESR was not highly elevated (he discussed concern for pericardial effusion leading to hemoraghic conversion). Patient previously not taking ASA, started on 81mg, monitor for any bleeding. Seen with resident at bedside, no new neurologic events overnight. Active Medications Albuterol Sulfate (Ventolin Hfa Inhaler -) 1 puff IH Q4H PRN PRN Reason: SHORTNESS OF BREATH Last Admin: 03/27/20 04:35 Dose: 1 puff Documented by: Albuterol/Ipratropium (Duoneb -) 1 amp NEB Q4H PRN PRN Reason: SHORTNESS OF BREATH Albuterol/Ipratropium (Duoneb -) 1 amp NEB RTID [facility] Last Admin: 03/27/20 20:13 Dose: 1 amp Documented by: Atorvastatin Calcium (Lipitor -) 40 mg PO HS [facility] Last Admin: 03/27/20 20:59 Dose: 40 mg Documented by: Docusate Sodium (Colace -) 100 mg PO DAILY PRN PRN Reason: CONSTIPATION Guaifenesin (Mucinex -) 600 mg PO Q12H PRN PRN Reason: COUGH Last Admin: 03/26/20 00:36 Dose: 600 mg Documented by: Guaifenesin (Robitussin -) 10 ml PO Q4H PRN PRN Reason: COUGH Last Admin: 03/26/20 23:59 Dose: 10 ml Documented by: Amino Acids (Clinimix -) 1,000 mls @ 42 mls/hr IV Q24H SHRUTHI Last Admin: 03/27/20 11:07 Dose: 42 mls/hr Documented by: Ceftriaxone Sodium 1 gm/ (Dextrose) 50 mls @ 100 mls/hr IVPB DAILY SHRUTHI; Protocol Last Admin: 03/27/20 10:27 Dose: 100 mls/hr Documented by: Heparin Sodium (Porcine) 25, (000 unit/ Sodium Chloride) 500 mls @ 18 mls/hr IV TITR SHRUTHI; Protocol Last Titration: 03/28/20 07:45 Dose: 1,000 unit/hr, 20 mls/hr Documented by: Methylprednisolone Sodium Succinate (Solu-Medrol -) 40 mg IVPUSH Q12H [facility] Last Admin: 03/27/20 17:37 Dose: 40 mg Documented by: PHYSICAL EXAMINATION Vital Signs Period Temp Pulse Resp BP Sys/Solorio Pulse Ox Last 24 Hr 98.2 F-98.6 F 54-67 15-20 126-151/66-99 99-100 GENERAL: Awake and alert, not in acute distress HEENT: NCAT, EOMI, dry mucus membranes. LUNGS: Equal breath sounds heard. Scattered rales present. No wheezes. HEART: Regular rate and rhythm, S1, S2 present. Murmur present on L upper sternal border. ABDOMEN: Soft, non-distended, non-tender to palpation. Bowel sounds present in all 4 quadrants. EXTREMITIES: warm, well-perfused. No edema. NEUROLOGICAL: sensation intact. Strength 5/5 on R upper extremities, 1/5 on L upper extremity. 5/5 on R lower extremity, 1/5 on L lower extremity, sensory intact SKIN: Warm, dry CBCD WBC 8.7 K/mm3 (4.0-10.0) 03/28/20 05:40 RBC 3.55 M/mm3 (3.60-5.2) L 03/28/20 05:40 Hgb 9.2 GM/dL (10.7-15.3) L 03/28/20 05:40 Hct 29.4 % (32.4-45.2) L 03/28/20 05:40 MCV 82.8 fl (80-96) 03/28/20 05:40 MCHC 31.3 g/dl (32.0-36.0) L 03/28/20 05:40 RDW 17.9 % (11.6-15.6) H 03/28/20 05:40 Plt Count 441 K/MM3 (134-434) H 03/28/20 05:40 MPV 8.4 fl (7.5-11.1) 03/28/20 05:40 CMP Sodium 138 mmol/L (136-145) 03/28/20 05:40 Potassium 4.3 mmol/L (3.5-5.1) 03/28/20 05:40 Chloride 108 mmol/L (98-107) H 03/28/20 05:40 Carbon Dioxide 24 mmol/L (21-32) 03/28/20 05:40 Anion Gap 6 MMOL/L (8-16) L 03/28/20 05:40 BUN 29.2 mg/dL (7-18) H 03/28/20 05:40 Creatinine 0.7 mg/dL (0.55-1.3) 03/28/20 05:40 Random Glucose 152 mg/dL (74-106) H 03/28/20 05:40 Calcium 8.5 mg/dL (8.5-10.1) 03/28/20 05:40 Total Bilirubin 0.3 mg/dL (0.2-1) 03/28/20 05:40 AST 17 U/L (15-37) 03/28/20 05:40 ALT 14 U/L (13-61) 03/28/20 05:40 Alkaline Phosphatase 46 U/L (45-117) 03/28/20 05:40 Total Protein 6.1 g/dl (6.4-8.2) L 03/28/20 05:40 Albumin 2.5 g/dl (3.4-5.0) L 03/28/20 05:40 CARDIAC ENZYMES Creatine Kinase 127 U/L (26-192) 03/24/20 10:00 Troponin I < 0.02 ng/ml (0.00-0.05) 03/24/20 10:00 ASSESSMENT/PLAN: 84 year old female with PMH degenerative joint disease, HLD, HTN, hypothyroidism, lung disease(?), who presented with L side weakness and facial droop. Pt stated that she remembered falling off her bed at night and lying on the floor, unable to get up. Pt endorsed to landing on her back as she fell. Denied head trauma or loss of consciousness. Pt stated that she was on the floor for an unknown period of time. As per daughter, she stated that the last time she saw the pt in her usual state of health was 10PM on day before admission. NIHSS 9. Pt denied sensory disturbance, visual field defect, difficulty speaking, dizziness, fevers, chills, shortness of breath, chest pain, or abd ominal pain. Pt admits to some dysphagia. CT head done and demonstrated moderate atrophy and moderate to marked periventricular chronic microvascular ischemic disease changes Right basal ganglia acute/subacute infarct that may be extending to the right periventricular white matter. CTA of head and neck completed and showed Prominent calcified plaques at the left common carotid bifurcation with hemodynamically significant stenosis of approximately 70%, NASCET criteria. Tiny plaques at the right common carotid bifurcation without evidence of hemodynamically significant stenosis. Hypoplastic right vertebral artery relative to the left without evidence of stenosis or dissection. Intracranially, there is faint enhancement of the right A1 segment likely a hypoplastic segment with normal enhancement of the right A2 segment. CT of C-spine completed and no gross fracture or subluxation is seen. Multilevel degenerative disc disease with anterior spondylosis. Carotid doppler completed, indicates significant calcified plaque in the left carotid arterial system; patient seen by Dr. Schmidt, with recommendations for yearly carotid doppler and no surgery at this time. I spoke with Dr. Rivas yesterday and in agreement to start heparin drip due to afib; heparin drip started at this time. Monitor blood pressure, maintain less than 160/90. LDL 70, can reduce statin back down to 40mg. I spoke with Dr. Rivas on 03/26 and in agreement to start heparin due to afib; heparin drip started as ESR was not highly elevated (he discussed concern for pericardial effusion leading to hemoraghic conversion). Patient previously not taking ASA, started on 81mg, monitor for any bleeding. Physical therapy as tolerated, likely need for rehabilitation. Continue medical mgmt and optimization.
[2020-03-28] MEDS: ALBUTEROL SO4 2.5/IPRATROPIUM 0.5 INH SOL 3 ML VIAL.NEB. NEB SCH ×3 (09:00→20:40)
[2020-03-28] MEDS ORDERED: cefTRIAXone SODIUM 1 GM VIAL ONE (09:52)
[2020-03-28] MEDS ORDERED: DEXTROSE 5%-WATER - 50 ML IVPB ONE (09:52)
[2020-03-28] MEDS: HEPARIN - 25,000 UNIT in SODIUM CHLORIDE 495 ML IV SCH (10:04)
[2020-03-28] MEDS: CEFTRIAXONE 1 GM in DEXTROSE 5%-WATER - 50 ML IVPB SCH (10:06)
--- NOTE | 2020-03-28 11:13 | PN ---
Progress Note, CHEMISTRY SPECIALIST - Note Progress Note: Selected Entries 03/27/20 03/28/20 03/28/20 08:59 00:00 02:00 Lunch NPO Temperature 98.2 F Pulse Rate 65 61 Blood Pressure 133/99 127/75 03/28/20 03/28/20 03/28/20 06:00 10:00 10:11 Lunch Temperature 98.6 F 97.9 F Pulse Rate 54 L 60 Blood Pressure 126/66 118/50 L Laboratory Tests 03/24/20 03/25/20 03/27/20 10:15 06:00 07:08 WBC 12.9 H 11.0 H COVID-19 (ILENE) Not detected 03/28/20 05:40 WBC 8.7 COVID-19 (ILENE) npo much more alert, verbal,Oriented,appropriate still dysphonic Left side weak, suspect left vocal cord weakness/paresis Overtly, swallow is stronger and more timely MBS to r/o silent aspiratiion, especially on liquids STR vs acute rehab
[2020-03-28] MEDS: AMINO ACIDS 4.25%/D5W 1,000 ML IV SCH (11:29)
--- NOTE | 2020-03-28 13:01 | PN ---
Progress Note (short form) - Note Progress Note: Chief Complaint: Denies CP/SOB/palps/dizzy History of Present Illness: Acute CVA with left sided weakness Left carotid stenosis Pericardial effusion PAF Thyroid disorder. Aspiration PNA Social: non smoker Current Medications Generic Name Dose Route Start Last Admin Trade Name Freq PRN Reason Stop Dose Admin Albuterol Sulfate 1 puff 03/24/20 16:56 03/27/20 04:35 Ventolin Hfa Inhaler - IH 1 puff Q4H PRN Administration SHORTNESS OF BREATH Albuterol/Ipratropium 1 amp 03/27/20 08:59 Duoneb - NEB Q4H PRN SHORTNESS OF BREATH Albuterol/Ipratropium 1 amp 03/27/20 14:00 03/28/20 09:00 Duoneb - NEB 1 amp RTID SHRUTHI Administration Atorvastatin Calcium 40 mg 03/25/20 17:35 03/27/20 20:59 Lipitor - PO 40 mg HS SHRUTHI Administration Docusate Sodium 100 mg 03/24/20 15:09 Colace - PO DAILY PRN CONSTIPATION Guaifenesin 600 mg 03/24/20 16:31 03/26/20 00:36 Mucinex - PO 600 mg Q12H PRN Administration COUGH Guaifenesin 10 ml 03/26/20 01:43 03/26/20 23:59 Robitussin - PO 10 ml Q4H PRN Administration COUGH Amino Acids 1,000 mls @ 42 mls/hr 03/25/20 12:00 03/28/20 11:29 Clinimix - IV 42 mls/hr Q24H SHRUTHI Administration Ceftriaxone Sodium 1 gm/ 50 mls @ 100 mls/hr 03/25/20 12:15 03/28/20 10:06 Dextrose IVPB 100 mls/hr DAILY SHRUTHI Administration Protocol Heparin Sodium (Porcine) 25, 500 mls @ 18 mls/hr 03/26/20 09:30 03/28/20 10:04 000 unit/ Sodium Chloride IV 1,000 unit/hr TITR SHRUTHI 20 mls/hr Administration Protocol 900 UNIT/HR Methylprednisolone Sodium Succinate 40 mg 03/25/20 16:00 03/27/20 17:37 Solu-Medrol - IVPUSH 40 mg Q12H SHRUTHI Administration Vital Signs Period Temp Pulse Resp BP Sys/Solorio Pulse Ox Last 24 Hr 97.9 F-98.6 F 54-67 15-20 118-151/50-99 99-100 Constitutional: Yes: No Distress, Calm Cardiovascular: Yes: Regular Rate and Rhythm Respiratory: Yes: CTA Bilaterally Gastrointestinal: Yes: Soft (nt) Edema: No Neurological: Yes: Alert no jaundice diaphoresis Labs: CBC, BMP 03/28/20 05:40 03/28/20 05:40 - ....Imaging EKG: Image Reviewed tele: sr Assessment/Plan IMP: R sided CVA PAF 70% L carotid stenosis ASP PNA Pericardial effusion HTN HLD Thyroid disorder REC: 1. CVA with PAF noted on tele: -[id number] score elevated, AC is indicated. -Discussed with nicholas Alba to AC from Neuro perspective; however, the pericardial effusion and risk of potential hemorrhagic conversion needs to be considered. -Given minimally elevated ESR, which may be from the PNA, likelihood of significant active pericardial inflammation and risk of hemorrhagic effusion probably low -Continue UFH gtt - repeat echo today to reassess effusion. If stable, would convert to Eliquis on 03/29 -Normal EF on echo 2. 70% LCC stenosis: - Carotid US ordered -On opposite side of CVA; appreciate Vascular input -Cont statin. Monitor LFTs and CPK 3. Asp PNA: -supp O2 -Abx as per Critical Care 4. Pericardial effusion: mild to moderate, no evidence of tamponade on echo nor clinically -Plan as outlined above 5. HTN: -Well controlled at this time. Avoid hypotension 6. HLD: -goal LDL 70mg d/l. Would use lowest dose statin to achieve this -see above. 7. Hyperthyroid: -TSH low -Holding Synthroid, as per primary team
--- NOTE | 2020-03-28 13:33 | PN ---
Progress Note (short form) - Note Progress Note: PULMONARY Feeling better. Denies shortness of breath. +nonproductive cough. No fevers recorded. Vital Signs Period Temp Pulse Resp BP Sys/Solorio Pulse Ox Last 24 Hr 97.9 F-98.6 F 54-67 15-20 118-151/50-99 99-100 Gen: NAD at rest, weak Heart: RRR Lung: scattered rhonchi Abd: soft, nontender Ext: no edema CBC, BMP 03/28/20 05:40 03/28/20 05:40 Active Medications Albuterol Sulfate (Ventolin Hfa Inhaler -) 1 puff IH Q4H PRN PRN Reason: SHORTNESS OF BREATH Last Admin: 03/27/20 04:35 Dose: 1 puff Documented by: Albuterol/Ipratropium (Duoneb -) 1 amp NEB Q4H PRN PRN Reason: SHORTNESS OF BREATH Albuterol/Ipratropium (Duoneb -) 1 amp NEB RTID SHRUTHI Last Admin: 03/28/20 09:00 Dose: 1 amp Documented by: Atorvastatin Calcium (Lipitor -) 40 mg PO HS SHRUTHI Last Admin: 03/27/20 20:59 Dose: 40 mg Documented by: Docusate Sodium (Colace -) 100 mg PO DAILY PRN PRN Reason: CONSTIPATION Guaifenesin (Mucinex -) 600 mg PO Q12H PRN PRN Reason: COUGH Last Admin: 03/26/20 00:36 Dose: 600 mg Documented by: Guaifenesin (Robitussin -) 10 ml PO Q4H PRN PRN Reason: COUGH Last Admin: 03/26/20 23:59 Dose: 10 ml Documented by: Amino Acids (Clinimix -) 1,000 mls @ 42 mls/hr IV Q24H SHRUTHI Last Admin: 03/28/20 11:29 Dose: 42 mls/hr Documented by: Ceftriaxone Sodium 1 gm/ (Dextrose) 50 mls @ 100 mls/hr IVPB DAILY SHRUTHI; Protocol Last Admin: 03/28/20 10:06 Dose: 100 mls/hr Documented by: Heparin Sodium (Porcine) 25, (000 unit/ Sodium Chloride) 500 mls @ 18 mls/hr IV TITR SHRUTHI; Protocol Last Titration: 03/28/20 13:13 Dose: 950 unit/hr, 19 mls/hr Documented by: Methylprednisolone Sodium Succinate (Solu-Medrol -) 40 mg IVPUSH Q12H SHRUTHI Last Admin: 03/27/20 17:37 Dose: 40 mg Documented by: A/P Pneumonia likely Aspiration Acute CVA Interstitial Lung Disease HTN Hyperlipidemia - continue antibiotics - continue medrol - inhaled bronchodilators - O2 to keep SpO2 >90% - aspiration precautions - DVT prophylaxis
[2020-03-28] MEDS ORDERED: ACETAMINOPHEN 1000 MG/100 ML VIAL (NON FORMULARY) IVPB PRN ×2 (14:40→14:48)
--- NOTE | 2020-03-28 14:41 | PN ---
Physical Exam: SUBJECTIVE: Patient seen and examined. No acute events overnight. Pt denies chest pain, shortness of breath, abdominal pain. Pt endorses to some back pain that has worsened since her fall off the bed. OBJECTIVE: Vital Signs Period Temp Pulse Resp BP Sys/Solorio Pulse Ox Last 24 Hr 97.9 F-98.6 F 54-67 15-20 118-151/50-99 99-100 GENERAL: Awake and alert, not in acute distress. HEENT: NCAT, EOMI, moist mucus membranes LUNGS: Scattered rhonchi. No wheezes. HEART: Regular rate and rhythm, S1, S2 present. Systolic murmur present on L upper sternal border. ABDOMEN: Soft, non-distended, non-tender to palpation. Bowel sounds present in all 4 quadrants. EXTREMITIES: warm, well-perfused. No edema. NEUROLOGICAL: Sensation intact. Strength 5/5 on R upper extremities, 1/5 on L upper extremity. 5/5 on R lower extremity, 1/5 on L lower extremity. SKIN: Warm, dry Laboratory Last Values WBC 8.7 K/mm3 (4.0-10.0) 03/28/20 05:40 RBC 3.55 M/mm3 (3.60-5.2) L 03/28/20 05:40 Hgb 9.2 GM/dL (10.7-15.3) L 03/28/20 05:40 Hct 29.4 % (32.4-45.2) L 03/28/20 05:40 MCV 82.8 fl (80-96) 03/28/20 05:40 MCH 25.9 pg (25.7-33.7) 03/28/20 05:40 MCHC 31.3 g/dl (32.0-36.0) L 03/28/20 05:40 RDW 17.9 % (11.6-15.6) H 03/28/20 05:40 Plt Count 441 K/MM3 (134-434) H 03/28/20 05:40 MPV 8.4 fl (7.5-11.1) 03/28/20 05:40 Absolute Neuts (auto) 7.1 K/mm3 (1.5-8.0) 03/28/20 05:40 Neutrophils % 80.9 % (42.8-82.8) 03/28/20 05:40 Neutrophils % (Manual) 71.7 % (42.8-82.8) 03/24/20 10:20 Band Neutrophils % 0.0 % 03/24/20 10:20 Lymphocytes % 17.1 % (8-40) 03/28/20 05:40 Lymphocytes % (Manual) 17.2 % (8-40) 03/24/20 10:20 Monocytes % 1.8 % (3.8-10.2) L 03/28/20 05:40 Monocytes % (Manual) 8 % (3.8-10.2) 03/24/20 10:20 Eosinophils % 0.0 % (0-4.5) 03/28/20 05:40 Eosinophils % (Manual) 0.0 % (0-4.5) 03/24/20 10:20 Basophils % 0.2 % (0-2.0) 03/28/20 05:40 Basophils % (Manual) 0.0 % (0-2.0) 03/24/20 10:20 Myelocytes % (Man) 0 % (0-2) 03/24/20 10:20 Promyelocytes % (Man) 0 % (0-2) 03/24/20 10:20 Blast Cells % (Manual) 0 % (0-0) 03/24/20 10:20 Nucleated RBC % 0 % (0-0) 03/28/20 05:40 Metamyelocytes 0 % (0-2) 03/24/20 10:20 Hypochromia 0 03/24/20 10:20 Platelet Estimate Increased 03/24/20 10:20 Polychromasia 0 03/24/20 10:20 Poikilocytosis 0 03/24/20 10:20 Anisocytosis 0 03/24/20 10:20 Microcytosis 0 03/24/20 10:20 Macrocytosis 0 03/24/20 10:20 ESR 37 mm/hr (0-30) H 03/26/20 06:40 PT with INR 12.10 SEC (9.7-13.0) 03/27/20 07:08 INR 1.03 (0.83-1.09) 03/27/20 07:08 PTT (Actin FS) 80.9 SECONDS (25.2-36.5) H 03/28/20 12:25 Sodium 138 mmol/L (136-145) 03/28/20 05:40 Potassium 4.3 mmol/L (3.5-5.1) 03/28/20 05:40 Chloride 108 mmol/L (98-107) H 03/28/20 05:40 Carbon Dioxide 24 mmol/L (21-32) 03/28/20 05:40 Anion Gap 6 MMOL/L (8-16) L 03/28/20 05:40 BUN 29.2 mg/dL (7-18) H 03/28/20 05:40 Creatinine 0.7 mg/dL (0.55-1.3) 03/28/20 05:40 Est GFR (CKD-EPI)AfAm 92.21 03/28/20 05:40 Est GFR (CKD-EPI)NonAf 79.56 03/28/20 05:40 POC Glucometer 153 UNITS (80-120) 03/24/20 09:40 Random Glucose 152 mg/dL (74-106) H 03/28/20 05:40 Calcium 8.5 mg/dL (8.5-10.1) 03/28/20 05:40 Phosphorus 2.6 mg/dL (2.5-4.9) 03/28/20 05:40 Magnesium 2.1 mg/dL (1.8-2.4) 03/28/20 05:40 Total Bilirubin 0.3 mg/dL (0.2-1) 03/28/20 05:40 AST 17 U/L (15-37) 03/28/20 05:40 ALT 14 U/L (13-61) 03/28/20 05:40 Alkaline Phosphatase 46 U/L (45-117) 03/28/20 05:40 Creatine Kinase 127 U/L (26-192) 03/24/20 10:00 Troponin I < 0.02 ng/ml (0.00-0.05) 03/24/20 10:00 Total Protein 6.1 g/dl (6.4-8.2) L 03/28/20 05:40 Albumin 2.5 g/dl (3.4-5.0) L 03/28/20 05:40 Triglycerides 79 mg/dL (0-150) 03/24/20 10:00 Cholesterol 137 mg/dL (50-200) 03/24/20 10:00 Total LDL Cholesterol 70 mg/dL (5-100) 03/24/20 10:00 HDL Cholesterol 57 mg/dL (40-60) 03/24/20 10:00 TSH 0.05 uIU/ml (0.358-3.74) L 03/26/20 06:40 Free T4 1.19 ng/dl (0.76-1.46) 03/27/20 07:08 Urine Color Yellow 03/24/20 11:30 Urine Appearance Clear 03/24/20 11:30 Urine pH 5.0 (5.0-8.0) 03/24/20 11:30 Ur Specific [place] 1.043 (1.010-1.035) H 03/24/20 11:30 Urine Protein Trace (NEGATIVE) 03/24/20 11:30 Urine Glucose (UA) Negative (NEGATIVE) 03/24/20 11:30 Urine Ketones Negative (NEGATIVE) 03/24/20 11:30 Urine Blood Negative (NEGATIVE) 03/24/20 11:30 Urine Nitrite Negative (NEGATIVE) 03/24/20 11:30 Urine Bilirubin Negative (NEGATIVE) 03/24/20 11:30 Urine Urobilinogen 0.2 mg/dL (0.2-1.0) 03/24/20 11:30 Ur Leukocyte Esterase Negative (NEGATIVE) 03/24/20 11:30 COVID-19 (ILENE) Not detected (Not Detected) 03/24/20 10:15 Blood Type A POSITIVE 03/25/20 23:45 Antibody Screen Negative 03/25/20 23:45 Active Medications Acetaminophen (Ofirmev Injection -) 750 mg IVPB Q6H PRN PRN Reason: PAIN LEVEL 1-5 Albuterol Sulfate (Ventolin Hfa Inhaler -) 1 puff IH Q4H PRN PRN Reason: SHORTNESS OF BREATH Last Admin: 03/27/20 04:35 Dose: 1 puff Documented by: Albuterol/Ipratropium (Duoneb -) 1 amp NEB Q4H PRN PRN Reason: SHORTNESS OF BREATH Albuterol/Ipratropium (Duoneb -) 1 amp NEB RTID SHRUTHI Last Admin: 03/28/20 09:00 Dose: 1 amp Documented by: Atorvastatin Calcium (Lipitor -) 40 mg PO HS SHRUTHI Last Admin: 03/27/20 20:59 Dose: 40 mg Documented by: Docusate Sodium (Colace -) 100 mg PO DAILY PRN PRN Reason: CONSTIPATION Guaifenesin (Mucinex -) 600 mg PO Q12H PRN PRN Reason: COUGH Last Admin: 03/26/20 00:36 Dose: 600 mg Documented by: Guaifenesin (Robitussin -) 10 ml PO Q4H PRN PRN Reason: COUGH Last Admin: 03/26/20 23:59 Dose: 10 ml Documented by: Amino Acids (Clinimix -) 1,000 mls @ 42 mls/hr IV Q24H SHRUTHI Last Admin: 03/28/20 11:29 Dose: 42 mls/hr Documented by: Ceftriaxone Sodium 1 gm/ (Dextrose) 50 mls @ 100 mls/hr IVPB DAILY SHRUTHI; Protocol Last Admin: 03/28/20 10:06 Dose: 100 mls/hr Documented by: Heparin Sodium (Porcine) 25, (000 unit/ Sodium Chloride) 500 mls @ 18 mls/hr IV TITR SHRUTHI; Protocol Last Titration: 03/28/20 13:13 Dose: 950 unit/hr, 19 mls/hr Documented by: Methylprednisolone Sodium Succinate (Solu-Medrol -) 40 mg IVPUSH Q12H SHRUTHI Last Admin: 03/27/20 17:37 Dose: 40 mg Documented by: CTA head/neck; 03/24/2020 Prominent calcified plaques at the left common carotid bifurcation with hemodynamically significant stenosis of approximately 70%, NASCET criteria. Tiny plaques at the right common carotid bifurcation without evidence of hemodynamically significant stenosis. Hypoplastic right vertebral artery relative to the left without evidence of stenosis or dissection. Intracranially, there is faint enhancement of the right A1 segment likely a hypoplastic segment with normal enhancement of the right A2 segment. Otherwise, no gross aneurysm, focal hemodynamically significant stenosis or major artery cutoff is seen within the central intracranial arterial circulation. CT head w/o contrast; 03/24/2020 Moderate atrophy and moderate to marked periventricular chronic microvascular ischemic disease changes. Right basal ganglia acute/subacute infarct that may be extending to the right periventricular white matter. No gross intracranial hemorrhage is identified. CT neck; 03/24/2020 The alignment is satisfactory. No gross fracture or subluxation is seen. Multilevel degenerative disc disease with anterior spondylosis as well as mild disc osteophyte complex and bilateral uncovertebral hypertrophy, as described above. Large dense calcified plaques at the left common carotid bifurcation. Correlation with carotid Doppler ultrasound would be helpful for further evaluation. Moderately severe COPD changes interstitial thickening, likely chronic seen in the included upper chest CXR; 03/25/2020 Calcified breast prostheses. Large heart. Tracheal deviation to the right from a prominent knob. Interstitial lung changes compatible with known chronic lung disease and possible superimposed early infiltrates on the right. Echocardiogram; 03/25/2020 LV EF 55-60%; Mild MR, Mild TR. Moderate pericardial effusion (1-2 cm). No indication of cardiac tamponade. Carotid doppler; 03/26/2020 Significant calcified plaque in the left carotid arterial system is noted. Recommend MRA. Sonographically no definitive evidence of high-grade stenosis but MRA should be performed for confirmation. Modified Barium swallow; 03/28/2020 Reduced mastication efficiency. Risk of aspiration on thin liquids, with penetration but no aspiration. RECOMMENDATIONS: Trial of dysphagia ground diet and nectar thick liquid. 2 Ken HN, Magic cup, Ensure pudding. Monitor po tolerance. Aspiration precautions. Obtain dentures from home Echocardiogram; 03/28/2020 Pericardial effusion appears less. ASSESSMENT/PLAN: This is a 84 year old F with PMH degenerative joint disease, HLD, HTN, hyp othyroidism, lung disease(?), who presented with L side weakness and facial droop. Given her history, physical exam, images and significant lab findings, pt likely has CVA. Pt will be admitted to telemetry for further management and evaluation. Acute ischemic stroke - NIHSS 9 on admission. - c/w ASA 81 qD, atorvastatin 40 qD - Neuro consulted. Recommended monitor blood pressure, maintain less than 160/90. Continue ASA 81mg. Physical therapy as tolerated, likely need for rehabilitation. C/w Heparin for Afib. Monitor for bleeding - neuro checks - hold home antihypertension medications, avoid hypotension - CT head and CTA head/neck as above. - Aspiration and fall precautions - c/w colace for regular bowel movement to prevent increased ICP - MRI brain at some point - Cardio consulted. Given minimal elevated ESR (may be due to PNA), likelihood of significant active pericardial inflammation & risk of hemorrhagic effusion is probably low. F/u repeat echo, if stable, can convert to Eliquis on 03/29/2020 Pericardial effusion -mild to moderate, no evidence of tamponade on echo nor clinically - f/u repeat echo HTN - Normotensive. - Monitor hemodynamics HLD -C/w atorvastatin 40 qD. Goal LDL 70mg d/l. 70% L Common Carotid stenosis - CTA findings as above - Cardio consulted. Cont ASA and statin. Monitor LFTS and CPK. C/w tele monitoring r/o occult AF, f/u echo. - Vascular surgery consulted. No indication for surgical intervention at this time as pt is asymptomatic and unless stenosis is progressive and >80% in a good-risk pt. Recommended f/u carotid duplex yearly to determine if lesion is worsening. Pulmonary infiltrates, likely secondary to Aspiration PNA - CXR as above - Pulmonary consulted. Recommended continue antibiotics, medrol, inhaled bronchodilators - supplemental O2 to keep SpO2 >90% - aspiration precautions - c/w duonebs, albuterol, guaifenesin Leukocytosis - RLL infiltrates r/o CAP - Afebrile. - f/u AM labs - ID consulted. C/w rocephin (started 03/25) for CAP. Today is day 4. Back pain - s/p fall on back - start IV tylenol 750 q6 PRN FEN - No standing fluids - monitor and replete electrolytes - Speech and swallow evaluated. Recommended modified barium swallow. Findings as above. Short term rehab vs acute rehab. - Currently on Clinimix Ppx -DVT: Heparin gtt Family discussion: Spoke to daughter at bedside. Updated her on pt's condition. Dispo: continue to monitor in telemetry. Visit type - Emergency Visit Emergency Visit: Yes ED Registration Date: 03/24/20 Care time: The patient presented to the Emergency Department on the above date and was hospitalized for further evaluation of their emergent condition. - New Patient This patient is new to me today: No - Critical Care Critical Care patient: No - Medication Review Med list reviewed for High Risk Meds patients 65 and older: Yes ATTENDING PHYSICIAN STATEMENT I saw and evaluated the patient. I reviewed the resident's note and discussed the case with the resident. I agree with the resident's findings and plan as documented. SUBJECTIVE: OBJECTIVE: ASSESSMENT AND PLAN:
--- NOTE | 2020-03-28 15:29 | ECHO ---
Name: TRACEY VALENCIA Exam:Adult Echocardiogram Study Date: 03/28/2020 09:53 AM Age: 84 yrs Reason For Study: F/U PE ONLY Height: 63 in Weight: 110 lb BSA: 1.5 m2 Pericardium/Pleura Small pericardial effusion (<1cm). Interpretation Summary Small percardial effusion Compared to study dated 03/25/20, amount of pericardial effusion appears less. Clinical correlation is recommended Ramos Parker MD 03/28/2020 03:28 PM
--- NOTE | 2020-03-28 15:37 | PN ---
Teaching Attending Note Name of Resident: Cecile Pérez ATTENDING PHYSICIAN STATEMENT I saw and evaluated the patient. I reviewed the resident's note and discussed the case with the resident. I agree with the resident's findings and plan as documented. SUBJECTIVE: OBJECTIVE: Vital Signs Temperature 97.9 F 03/28/20 10:11 Pulse Rate 60 03/28/20 10:00 Respiratory Rate 17 03/28/20 10:00 Blood Pressure 118/50 L 03/28/20 10:00 O2 Sat by Pulse Oximetry (%) 99 03/28/20 10:00 PE: per resident's note CBCD WBC 8.7 K/mm3 (4.0-10.0) 03/28/20 05:40 RBC 3.55 M/mm3 (3.60-5.2) L 03/28/20 05:40 Hgb 9.2 GM/dL (10.7-15.3) L 03/28/20 05:40 Hct 29.4 % (32.4-45.2) L 03/28/20 05:40 MCV 82.8 fl (80-96) 03/28/20 05:40 MCHC 31.3 g/dl (32.0-36.0) L 03/28/20 05:40 RDW 17.9 % (11.6-15.6) H 03/28/20 05:40 Plt Count 441 K/MM3 (134-434) H 03/28/20 05:40 MPV 8.4 fl (7.5-11.1) 03/28/20 05:40 CMP Sodium 138 mmol/L (136-145) 03/28/20 05:40 Potassium 4.3 mmol/L (3.5-5.1) 03/28/20 05:40 Chloride 108 mmol/L (98-107) H 03/28/20 05:40 Carbon Dioxide 24 mmol/L (21-32) 03/28/20 05:40 Anion Gap 6 MMOL/L (8-16) L 03/28/20 05:40 BUN 29.2 mg/dL (7-18) H 03/28/20 05:40 Creatinine 0.7 mg/dL (0.55-1.3) 03/28/20 05:40 Random Glucose 152 mg/dL (74-106) H 03/28/20 05:40 Calcium 8.5 mg/dL (8.5-10.1) 03/28/20 05:40 Total Bilirubin 0.3 mg/dL (0.2-1) 03/28/20 05:40 AST 17 U/L (15-37) 03/28/20 05:40 ALT 14 U/L (13-61) 03/28/20 05:40 Alkaline Phosphatase 46 U/L (45-117) 03/28/20 05:40 Total Protein 6.1 g/dl (6.4-8.2) L 03/28/20 05:40 Albumin 2.5 g/dl (3.4-5.0) L 03/28/20 05:40 CARDIAC ENZYMES Creatine Kinase 127 U/L (26-192) 03/24/20 10:00 Troponin I < 0.02 ng/ml (0.00-0.05) 03/24/20 10:00 Current Medications Generic Name Dose Route Start Last Admin Trade Name Freq PRN Reason Stop Dose Admin Acetaminophen 750 mg 03/28/20 15:00 Ofirmev Injection - IVPB Q6H PRN PAIN LEVEL 1-5 Albuterol Sulfate 1 puff 03/24/20 16:56 03/27/20 04:35 Ventolin Hfa Inhaler - IH 1 puff Q4H PRN Administration SHORTNESS OF BREATH Albuterol/Ipratropium 1 amp 03/27/20 08:59 Duoneb - NEB Q4H PRN SHORTNESS OF BREATH Albuterol/Ipratropium 1 amp 03/27/20 14:00 03/28/20 09:00 Duoneb - NEB 1 amp RTID SHRUTHI Administration Atorvastatin Calcium 40 mg 03/25/20 17:35 03/27/20 20:59 Lipitor - PO 40 mg HS SHRUTHI Administration Docusate Sodium 100 mg 03/24/20 15:09 Colace - PO DAILY PRN CONSTIPATION Guaifenesin 600 mg 03/24/20 16:31 03/26/20 00:36 Mucinex - PO 600 mg Q12H PRN Administration COUGH Guaifenesin 10 ml 03/26/20 01:43 03/26/20 23:59 Robitussin - PO 10 ml Q4H PRN Administration COUGH Amino Acids 1,000 mls @ 42 mls/hr 03/25/20 12:00 03/28/20 11:29 Clinimix - IV 42 mls/hr Q24H SHRUTHI Administration Ceftriaxone Sodium 1 gm/ 50 mls @ 100 mls/hr 03/25/20 12:15 03/28/20 10:06 Dextrose IVPB 100 mls/hr DAILY SHRUTHI Administration Protocol Heparin Sodium (Porcine) 25, 500 mls @ 18 mls/hr 03/26/20 09:30 03/28/20 13:13 000 unit/ Sodium Chloride IV 950 unit/hr TITR SHRUTHI 19 mls/hr Titration Protocol 900 UNIT/HR Methylprednisolone Sodium Succinate 40 mg 03/25/20 16:00 03/27/20 17:37 Solu-Medrol - IVPUSH 40 mg Q12H SHRUTHI Administration Home Medications Medication Instructions Recorded Levothyroxine [Synthroid -] 100 mcg PO DAILY 05/07/14 Simvastatin [Zocor -] 40 mg PO HS 05/07/14 Esomeprazole Mag Trihydrate 40 mg PO DAILY 08/01/15 [Nexium] Albuterol 2.5/Ipratropium 0.5 1 neb IH TID PRN 03/25/20 [Duoneb -] Ibandronate Sodium 150 mg PO MONTHLY 03/25/20 Mirabegron [Myrbetriq] 50 mg PO DAILY 03/25/20 Olmesartan/Hydrochlorothiazide 1 tablet PO DAILY 03/25/20 [Olmesartan-Hctz 40-12.5 mg Tab] Umeclidinium Brm/Vilanterol Tr 1 puff IH DAILY 03/25/20 [Anoro Ellipta 62.5-25 Mcg INH] Repeat ECHO: small pericardial effusion (less now than before). Us of Carotid:Significant calcified plaque in the left carotid arterial system is noted, MRA recommended. No definite evidence of high grade stenosis sonographically. CT head:Rt. basal ganglia acute/subacute infarct that may be extending to the right periventricular white matter CTA: 70% stenosis of left common carotid, hypoplastic right vertebral artery relative to left without evidence of stenosis or dissection; no gross aneurysm, focal hemodynamically significant stenosis or major artery cutoff in central intracranial arterial circulation. ASSESSMENT AND PLAN: This patient is an 84yo F with PMhx of HLD, HTN, lung disease, knee replacement, who presents with L arm/leg weakness, facial droop, and fall. Admitted for acute stroke, last seen normal was last night at 10pm. # acute stroke : acute right basal ganglia CVA: on aspirin and lipitor , neuro consult appreciated , ON heparin drip without boluses in am cardio wants patient on eliquis 5mg po bid, since Echo result has small pericardial effusion. ESr is low. s/p MBS: recommendations: trial of dysphagia ground diet and nectar thick liquid, 2 shukri HN, magic cup, ensure pudding. #CVA with PAF noted on tele as per cardio note : CBA3PP2-EOSD score elevated, AC is indicated. patient was started on heparin drip without boluses. Eliquis in am if patient is able to tolerate oral medications # Left common carotid stenosis 70% : Vascular; Dr Craig seen the patient, no intervention at this time , ordered duplex of the carotid to r/o stenosis ,continue on aspirin and lipitor. # Early infiltrate on Cxr RLL ,cannot be rulled out aspiration Pneumonia on Rocephin IV now: CXR noted worsening of Rt side infiltrates compared to previous imaging, pulmonary and ID consult . #Chronic lung disease on nebs #HTN : continue home bP #HLD: continue Lipitor IV Heparin with no boluses as per cardio and neuro, eliquis in am if patient is able to tolerate dysphagia diet will check with neuro and cardio , rehab. to [facility] if possible
[2020-03-28] MEDS: ACETAMINOPHEN 1000 MG/100 ML VIAL (NON FORMULARY) IVPB PRN (16:26)
[2020-03-28] MEDS: methylPREDNISolone NA SUCC 40 MG/1 ML VIAL IVPUSH SCH (17:00)
--- NOTE | 2020-03-28 17:52 | PN ---
Progress Note (short form) - Note Progress Note: daughter at bedside- 2 episodes of "pneumonia" in the spring responded to antibiotics and nebs- mom was told she may need oxygen at home currently alert no complaints Vital Signs Period Temp Pulse Resp BP Sys/Solorio Pulse Ox Last 24 Hr 97.9 F-98.6 F 54-67 15-20 118-151/50-99 99-100 cor-rrr lungs decreased bs at base abd soft,nt ext no edema CBC, BMP 03/28/20 05:40 03/28/20 05:40 imp/reccd new CVA history of ILD RLL infiltrate continue rocephin day #4 antibiotics management of CVA per neurology Problem List - Problems (1) Cerebrovascular accident (CVA) Code(s): I63.9 - CEREBRAL INFARCTION, UNSPECIFIED Qualifiers: CVA mechanism: unspecified Qualified Code(s): I63.9 - Cerebral infarction, unspecified (2) Pneumonia Code(s): J18.9 - PNEUMONIA, UNSPECIFIED ORGANISM (3) Interstitial lung disease Code(s): J84.9 - INTERSTITIAL PULMONARY DISEASE, UNSPECIFIED
[2020-03-28] MEDS: ALBUTEROL SO4 HFA INHALER IH PRN (22:16)
[2020-03-28] MEDS: ATORVASTATIN CA 80 MG TABLET (FP) PO SCH (22:16)
[2020-03-29 06:53] LABS: HEMATOCRIT 29.7 % (32.4-45.2); HEMOGLOBIN 9.4 GM/dL (10.7-15.3); MCH 26.2 pg (25.7-33.7); MCHC 31.8 g/dl (32.0-36.0); MEAN CELL VOLUME 82.6 fl (80-96); MEAN PLT VOLUME 8.2 fl (7.5-11.1); PLATELET COUNT 445 K/MM3 (134-434); RBC 3.59 M/mm3 (3.60-5.2); RDW 17.9 % (11.6-15.6); WHITE BLOOD COUNT 9.8 K/mm3 (4.0-10.0)
[2020-03-29 07:25] LABS: ALBUMIN 2.6 g/dl (3.4-5.0); BILIRUBIN,TOTAL 0.3 mg/dL (0.2-1); BLOOD UREA NITROGEN 35.3 mg/dL (7-18); CALCIUM 8.7 mg/dL (8.5-10.1); CREATININE 0.8 mg/dL (0.55-1.3); POTASSIUM 4.2 mmol/L (3.5-5.1); TOT PROT 6.1 g/dl (6.4-8.2)
--- NOTE | 2020-03-29 07:44 | PN ---
Progress Note, Physician History of Present Illness: pulmonary alert,comfortable,-sob,less cough - Current Medication List Current Medications: Active Medications Acetaminophen (Ofirmev Injection -) 750 mg IVPB Q6H PRN PRN Reason: PAIN LEVEL 1-5 Last Admin: 03/28/20 16:26 Dose: 750 mg Documented by: Albuterol Sulfate (Ventolin Hfa Inhaler -) 1 puff IH Q4H PRN PRN Reason: SHORTNESS OF BREATH Last Admin: 03/28/20 22:16 Dose: 1 puff Documented by: Albuterol/Ipratropium (Duoneb -) 1 amp NEB Q4H PRN PRN Reason: SHORTNESS OF BREATH Albuterol/Ipratropium (Duoneb -) 1 amp NEB RTID SHRUTHI Last Admin: 03/28/20 20:40 Dose: 1 amp Documented by: Atorvastatin Calcium (Lipitor -) 40 mg PO HS [facility] Last Admin: 03/28/20 22:16 Dose: 40 mg Documented by: Docusate Sodium (Colace -) 100 mg PO DAILY PRN PRN Reason: CONSTIPATION Guaifenesin (Mucinex -) 600 mg PO Q12H PRN PRN Reason: COUGH Last Admin: 03/26/20 00:36 Dose: 600 mg Documented by: Guaifenesin (Robitussin -) 10 ml PO Q4H PRN PRN Reason: COUGH Last Admin: 03/26/20 23:59 Dose: 10 ml Documented by: Amino Acids (Clinimix -) 1,000 mls @ 42 mls/hr IV Q24H SHRUTHI Last Admin: 03/28/20 11:29 Dose: 42 mls/hr Documented by: Ceftriaxone Sodium 1 gm/ (Dextrose) 50 mls @ 100 mls/hr IVPB DAILY SHRUTHI; Protocol Last Admin: 03/28/20 10:06 Dose: 100 mls/hr Documented by: Heparin Sodium (Porcine) 25, (000 unit/ Sodium Chloride) 500 mls @ 18 mls/hr IV TITR SHRUTHI; Protocol Last Titration: 03/28/20 13:13 Dose: 950 unit/hr, 19 mls/hr Documented by: Methylprednisolone Sodium Succinate (Solu-Medrol -) 40 mg IVPUSH Q12H SHRUTHI Last Admin: 03/28/20 17:00 Dose: 40 mg Documented by: - Objective Vital Signs: Vital Signs Temperature 98 F 03/29/20 02:00 Pulse Rate 87 03/29/20 06:00 Respiratory Rate 16 03/29/20 06:00 Blood Pressure 155/79 03/29/20 06:00 O2 Sat by Pulse Oximetry (%) 97 03/29/20 06:00 Constitutional: Yes: Calm, Thin Eyes: Yes: WNL HENT: Yes: WNL Neck: Yes: WNL Cardiovascular: Yes: Regular Rate and Rhythm, S1, S2 Respiratory: Yes: Rhonchi (few rhonchi) Gastrointestinal: Yes: Normal Bowel Sounds, Soft Extremities: Yes: WNL Edema: No Labs: CBC, BMP 03/29/20 06:10 03/29/20 06:10 INR, PTT INR 1.03 (0.83-1.09) 03/27/20 07:08 Problem List - Problems (1) Pneumonia Code(s): J18.9 - PNEUMONIA, UNSPECIFIED ORGANISM (2) Cerebrovascular accident (CVA) Code(s): I63.9 - CEREBRAL INFARCTION, UNSPECIFIED Qualifiers: CVA mechanism: unspecified Qualified Code(s): I63.9 - Cerebral infarction, unspecified (3) Interstitial lung disease Code(s): J84.9 - INTERSTITIAL PULMONARY DISEASE, UNSPECIFIED (4) HTN (hypertension) Code(s): I10 - ESSENTIAL (PRIMARY) HYPERTENSION (5) HLD (hyperlipidemia) Code(s): E78.5 - HYPERLIPIDEMIA, UNSPECIFIED Assessment/Plan A/P Pneumonia likely Aspiration improving Acute CVA Interstitial Lung Disease HTN Hyperlipidemia - continue antibiotics - taper medrol - inhaled bronchodilators - O2 to keep SpO2 >90% - aspiration precautions - DVT prophylaxis - chest x-ray today DR SULLIVAN
[2020-03-29] MEDS: ALBUTEROL SO4 2.5/IPRATROPIUM 0.5 INH SOL 3 ML VIAL.NEB. NEB SCH ×3 (08:44→20:47)
[2020-03-29] MEDS ORDERED: cefTRIAXone SODIUM 1 GM VIAL ONE (10:32)
[2020-03-29] MEDS ORDERED: DEXTROSE 5%-WATER - 50 ML IVPB ONE (10:32)
[2020-03-29] MEDS: CEFTRIAXONE 1 GM in DEXTROSE 5%-WATER - 50 ML IVPB SCH (10:35)
--- NOTE | 2020-03-29 11:10 | PN ---
Progress Note, [employer] - Note Progress Note: MBS completed Dysphagia puree/nectar ordered. Selected Entries 03/29/20 03/29/20 03/29/20 02:00 06:00 09:00 Temperature 98 F Respiratory 20 16 18 Rate Respiratory Non-Labored Effort Blood Pressure 133/67 155/79 03/29/20 10:00 Temperature 97.8 F Respiratory 18 Rate Respiratory Effort Blood Pressure 123/71 Laboratory Tests 03/29/20 06:10 WBC 9.8 Medically accepted potentially for acute rehab Did well with breakfast. Consider upgrade to Dysphagia chopped/nectar.
[2020-03-29] MEDS: AMINO ACIDS 4.25%/D5W 1,000 ML IV SCH (12:02)
[2020-03-29] MEDS: methylPREDNISolone NA SUCC 40 MG/1 ML VIAL IVPUSH SCH ×2 (12:02→22:38)
--- NOTE | 2020-03-29 13:05 | PN ---
Progress Note (short form) - Note Progress Note: cc: stroke s: no chest pain, palps, dizziness, dyspnea Current Medications Generic Name Dose Route Start Last Admin Trade Name Freq PRN Reason Stop Dose Admin Acetaminophen 750 mg 03/28/20 15:00 03/28/20 16:26 Ofirmev Injection - IVPB 750 mg Q6H PRN Administration PAIN LEVEL 1-5 Albuterol Sulfate 1 puff 03/24/20 16:56 03/28/20 22:16 Ventolin Hfa Inhaler - IH 1 puff Q4H PRN Administration SHORTNESS OF BREATH Albuterol/Ipratropium 1 amp 03/27/20 08:59 Duoneb - NEB Q4H PRN SHORTNESS OF BREATH Albuterol/Ipratropium 1 amp 03/27/20 14:00 03/29/20 08:44 Duoneb - NEB 1 amp RTID SHRUTHI Administration Atorvastatin Calcium 40 mg 03/25/20 17:35 03/28/20 22:16 Lipitor - PO 40 mg HS SHRUTHI Administration Docusate Sodium 100 mg 03/24/20 15:09 Colace - PO DAILY PRN CONSTIPATION Guaifenesin 600 mg 03/24/20 16:31 03/26/20 00:36 Mucinex - PO 600 mg Q12H PRN Administration COUGH Guaifenesin 10 ml 03/26/20 01:43 03/26/20 23:59 Robitussin - PO 10 ml Q4H PRN Administration COUGH Amino Acids 1,000 mls @ 42 mls/hr 03/25/20 12:00 03/29/20 12:02 Clinimix - IV 42 mls/hr Q24H SHRUTHI Administration Ceftriaxone Sodium 1 gm/ 50 mls @ 100 mls/hr 03/25/20 12:15 03/29/20 10:35 Dextrose IVPB 100 mls/hr DAILY SHRUTHI Administration Protocol Heparin Sodium (Porcine) 25, 500 mls @ 18 mls/hr 03/26/20 09:30 03/28/20 13:13 000 unit/ Sodium Chloride IV 950 unit/hr TITR SHRUTHI 19 mls/hr Titration Protocol 900 UNIT/HR Methylprednisolone Sodium Succinate 20 mg 03/29/20 12:00 03/29/20 12:02 Solu-Medrol - IVPUSH 20 mg BID SHRUTHI Administration Vital Signs Period Temp Pulse Resp BP Sys/Solorio Pulse Ox Last 24 Hr 97.8 F-98 F 76-93 16-20 123-155/61-79 94-99 Constitutional: Yes: No Distress, Calm Cardiovascular: Yes: Regular Rate and Rhythm Respiratory: Yes: CTA Bilaterally Gastrointestinal: Yes: Soft (nt) Edema: No Neurological: Yes: Alert no jaundice diaphoresis tele: sr, episodes of afib with RVR Assessment/Plan IMP: R sided CVA PAF 70% L carotid stenosis ASP PNA Pericardial effusion HTN HLD Thyroid disorder REC: 1. CVA with PAF noted on tele: -[id number] score elevated, AC is indicated - on heparin gtt - nl LV function on echo here - ok to start AC from Neuro perspective - repeat echo shows pericardial effusion smaller in size, can start eliquis 2.5 mg BID (low dose for age>80, weight <60 kg) 2. 70% LCC stenosis: -evaluated by vascular - surgical intervention not recommended -Cont statin. Monitor LFTs and CPK 3. Asp PNA: -supp O2 -Abx as per Critical Care 4. Pericardial effusion: mild to moderate, no evidence of tamponade on echo nor clinically -reduced in size on repeat echo 5. HTN: -stable, not on meds 6. HLD: -goal LDL 70mg d/l. cont statin 7. Hyperthyroid: -TSH low -Holding Synthroid, as per primary team
--- NOTE | 2020-03-29 14:48 | PN ---
Teaching Attending Note Name of Resident: Jasmina Guerra ATTENDING PHYSICIAN STATEMENT I saw and evaluated the patient. I reviewed the resident's note and discussed the case with the resident. I agree with the resident's findings and plan as documented. SUBJECTIVE: Pt resting comfortably, needs to be sternal rubbed to be woken up OBJECTIVE: Vital Signs Period Temp Pulse Resp BP Sys/Solorio Pulse Ox Last 24 Hr 97.8 F-98 F 76-93 16-20 123-155/63-79 94-99 As per resident note, Patient refused physical exam ASSESSMENT AND PLAN: 4yo F with PMhx of HLD, HTN, lung disease, knee replacement, who presents with L arm/leg weakness, facial droop, and fall. Admitted for acute CVA CVA: Zay in setting of A. Fib Cont AC--transition to eliquis today, Pericardial effusion improved Cont Statin goal LDL <70 Plan to discharge to rehab BP goal at discharge <140/90 Aspiration PNA in setting of interstitial lung disease Continue Abx at this time patient cleared for puree diet, will need to assess calorie count to see if patient is meeting her nutritional requirements Consider PEG tube if patient continues to aspirate/not meeting nutritional needs Taper Steroids
--- NOTE | 2020-03-29 18:00 | PN ---
Physical Exam: SUBJECTIVE: Patient seen and examined. No acute events overnight. OBJECTIVE: Vital Signs Period Temp Pulse Resp BP Sys/Solorio Pulse Ox Last 24 Hr 97.8 F-98 F 74-93 16-20 119-155/54-79 94-99 GENERAL: lethargic, but arousable. Not in acute distress. HEENT: NCAT, EOMI, moist mucus membranes LUNGS: Scattered rhonchi. HEART: Regular rate and rhythm, S1, S2 present. Systolic murmur present on L upper sternal border. ABDOMEN: Soft, non-distended, non-tender to palpation. Bowel sounds present in all 4 quadrants. EXTREMITIES: warm, well-perfused. No edema. NEUROLOGICAL: Sensation intact. Strength 5/5 on R upper extremities, 1/5 on L upper extremity. 5/5 on R lower extremity, 1/5 on L lower extremity. SKIN: Warm, dry Laboratory Last Values WBC 9.8 K/mm3 (4.0-10.0) 03/29/20 06:10 RBC 3.59 M/mm3 (3.60-5.2) L 03/29/20 06:10 Hgb 9.4 GM/dL (10.7-15.3) L 03/29/20 06:10 Hct 29.7 % (32.4-45.2) L 03/29/20 06:10 MCV 82.6 fl (80-96) 03/29/20 06:10 MCH 26.2 pg (25.7-33.7) 03/29/20 06:10 MCHC 31.8 g/dl (32.0-36.0) L 03/29/20 06:10 RDW 17.9 % (11.6-15.6) H 03/29/20 06:10 Plt Count 445 K/MM3 (134-434) H 03/29/20 06:10 MPV 8.2 fl (7.5-11.1) 03/29/20 06:10 Absolute Neuts (auto) 7.1 K/mm3 (1.5-8.0) 03/28/20 05:40 Neutrophils % 80.9 % (42.8-82.8) 03/28/20 05:40 Neutrophils % (Manual) 71.7 % (42.8-82.8) 03/24/20 10:20 Band Neutrophils % 0.0 % 03/24/20 10:20 Lymphocytes % 17.1 % (8-40) 03/28/20 05:40 Lymphocytes % (Manual) 17.2 % (8-40) 03/24/20 10:20 Monocytes % 1.8 % (3.8-10.2) L 03/28/20 05:40 Monocytes % (Manual) 8 % (3.8-10.2) 03/24/20 10:20 Eosinophils % 0.0 % (0-4.5) 03/28/20 05:40 Eosinophils % (Manual) 0.0 % (0-4.5) 03/24/20 10:20 Basophils % 0.2 % (0-2.0) 03/28/20 05:40 Basophils % (Manual) 0.0 % (0-2.0) 03/24/20 10:20 Myelocytes % (Man) 0 % (0-2) 03/24/20 10:20 Promyelocytes % (Man) 0 % (0-2) 03/24/20 10:20 Blast Cells % (Manual) 0 % (0-0) 03/24/20 10:20 Nucleated RBC % 0 % (0-0) 03/28/20 05:40 Metamyelocytes 0 % (0-2) 03/24/20 10:20 Hypochromia 0 03/24/20 10:20 Platelet Estimate Increased 03/24/20 10:20 Polychromasia 0 03/24/20 10:20 Poikilocytosis 0 03/24/20 10:20 Anisocytosis 0 03/24/20 10:20 Microcytosis 0 03/24/20 10:20 Macrocytosis 0 03/24/20 10:20 ESR 37 mm/hr (0-30) H 03/26/20 06:40 PT with INR 12.10 SEC (9.7-13.0) 03/27/20 07:08 INR 1.03 (0.83-1.09) 03/27/20 07:08 PTT (Actin FS) 74.7 SECONDS (25.2-36.5) H 03/29/20 06:10 Sodium 139 mmol/L (136-145) 03/29/20 06:10 Potassium 4.2 mmol/L (3.5-5.1) 03/29/20 06:10 Chloride 109 mmol/L (98-107) H 03/29/20 06:10 Carbon Dioxide 25 mmol/L (21-32) 03/29/20 06:10 Anion Gap 5 MMOL/L (8-16) L 03/29/20 06:10 BUN 35.3 mg/dL (7-18) H 03/29/20 06:10 Creatinine 0.8 mg/dL (0.55-1.3) 03/29/20 06:10 Est GFR (CKD-EPI)AfAm 78.47 03/29/20 06:10 Est GFR (CKD-EPI)NonAf 67.70 03/29/20 06:10 POC Glucometer 153 UNITS (80-120) 03/24/20 09:40 Random Glucose 139 mg/dL (74-106) H 03/29/20 06:10 Calcium 8.7 mg/dL (8.5-10.1) 03/29/20 06:10 Phosphorus 2.6 mg/dL (2.5-4.9) 03/28/20 05:40 Magnesium 2.1 mg/dL (1.8-2.4) 03/28/20 05:40 Total Bilirubin 0.3 mg/dL (0.2-1) 03/29/20 06:10 AST 19 U/L (15-37) 03/29/20 06:10 ALT 16 U/L (13-61) 03/29/20 06:10 Alkaline Phosphatase 41 U/L (45-117) L 03/29/20 06:10 Creatine Kinase 127 U/L (26-192) 03/24/20 10:00 Troponin I < 0.02 ng/ml (0.00-0.05) 03/24/20 10:00 Total Protein 6.1 g/dl (6.4-8.2) L 03/29/20 06:10 Albumin 2.6 g/dl (3.4-5.0) L 03/29/20 06:10 Triglycerides 79 mg/dL (0-150) 03/24/20 10:00 Cholesterol 137 mg/dL (50-200) 03/24/20 10:00 Total LDL Cholesterol 70 mg/dL (5-100) 03/24/20 10:00 HDL Cholesterol 57 mg/dL (40-60) 03/24/20 10:00 TSH 0.05 uIU/ml (0.358-3.74) L 03/26/20 06:40 Free T4 1.19 ng/dl (0.76-1.46) 03/27/20 07:08 Urine Color Yellow 03/24/20 11:30 Urine Appearance Clear 03/24/20 11:30 Urine pH 5.0 (5.0-8.0) 03/24/20 11:30 Ur Specific [place] 1.043 (1.010-1.035) H 03/24/20 11:30 Urine Protein Trace (NEGATIVE) 03/24/20 11:30 Urine Glucose (UA) Negative (NEGATIVE) 03/24/20 11:30 Urine Ketones Negative (NEGATIVE) 03/24/20 11:30 Urine Blood Negative (NEGATIVE) 03/24/20 11:30 Urine Nitrite Negative (NEGATIVE) 03/24/20 11:30 Urine Bilirubin Negative (NEGATIVE) 03/24/20 11:30 Urine Urobilinogen 0.2 mg/dL (0.2-1.0) 03/24/20 11:30 Ur Leukocyte Esterase Negative (NEGATIVE) 03/24/20 11:30 JOEY Screen Positive (.) H 03/27/20 07:08 JOEY Homogeneous Pattern 1:1280 (.) H 03/27/20 07:08 JOEY Nucleolar Pattern TNP 03/27/20 07:08 JOEY Spindle Yoana Pattern TNP 03/27/20 07:08 JOEY Midbody Pattern TNP 03/27/20 07:08 JOEY Centriole Pattern TNP 03/27/20 07:08 JOEY Nuclear Dot Pattern TNP 03/27/20 07:08 JOEY PCNA Pattern TNP 03/27/20 07:08 JOEY Nuclear Membr Pat TNP 03/27/20 07:08 JOEY Speckled Pattern TNP 03/27/20 07:08 JOEY Centromere Pattern TNP 03/27/20 07:08 COVID-19 (ILENE) Not detected (Not Detected) 03/24/20 10:15 Ref Lab Notation (.) 03/27/20 07:08 Blood Type A POSITIVE 03/25/20 23:45 Antibody Screen Negative 03/25/20 23:45 Active Medications Acetaminophen (Ofirmev Injection -) 750 mg IVPB Q6H PRN PRN Reason: PAIN LEVEL 1-5 Last Admin: 03/28/20 16:26 Dose: 750 mg Documented by: Albuterol Sulfate (Ventolin Hfa Inhaler -) 1 puff IH Q4H PRN PRN Reason: SHORTNESS OF BREATH Last Admin: 03/28/20 22:16 Dose: 1 puff Documented by: Albuterol/Ipratropium (Duoneb -) 1 amp NEB Q4H PRN PRN Reason: SHORTNESS OF BREATH Albuterol/Ipratropium (Duoneb -) 1 amp NEB RTID [facility] Last Admin: 03/29/20 16:34 Dose: 1 amp Documented by: Apixaban (Eliquis -) 2.5 mg PO BID [facility] Atorvastatin Calcium (Lipitor -) 40 mg PO HS [facility] Last Admin: 03/28/20 22:16 Dose: 40 mg Documented by: Docusate Sodium (Colace -) 100 mg PO DAILY PRN PRN Reason: CONSTIPATION Guaifenesin (Mucinex -) 600 mg PO Q12H PRN PRN Reason: COUGH Last Admin: 03/26/20 00:36 Dose: 600 mg Documented by: Guaifenesin (Robitussin -) 10 ml PO Q4H PRN PRN Reason: COUGH Last Admin: 03/26/20 23:59 Dose: 10 ml Documented by: Ceftriaxone Sodium 1 gm/ (Dextrose) 50 mls @ 100 mls/hr IVPB DAILY [facility]; Vidal col Last Admin: 03/29/20 10:35 Dose: 100 mls/hr Documented by: Methylprednisolone Sodium Succinate (Solu-Medrol -) 20 mg IVPUSH BID [facility] Last Admin: 03/29/20 12:02 Dose: 20 mg Documented by: CTA head/neck; 03/24/2020 Prominent calcified plaques at the left common carotid bifurcation with hemodynamically significant stenosis of approximately 70%, NASCET criteria. Tiny plaques at the right common carotid bifurcation without evidence of hemodynamically significant stenosis. Hypoplastic right vertebral artery relative to the left without evidence of stenosis or dissection. Intracranially, there is faint enhancement of the right A1 segment likely a hypoplastic segment with normal enhancement of the right A2 segment. Otherwise, no gross aneurysm, focal hemodynamically significant stenosis or major artery cutoff is seen within the central intracranial arterial circulation. CT head w/o contrast; 03/24/2020 Moderate atrophy and moderate to marked periventricular chronic microvascular ischemic disease changes. Right basal ganglia acute/subacute infarct that may be extending to the right periventricular white matter. No gross intracranial hemorrhage is identified. CT neck; 03/24/2020 The alignment is satisfactory. No gross fracture or subluxation is seen. M ultilevel degenerative disc disease with anterior spondylosis as well as mild disc osteophyte complex and bilateral uncovertebral hypertrophy, as described above. Large dense calcified plaques at the left common carotid bifurcation. Correlation with carotid Doppler ultrasound would be helpful for further evaluation. Moderately severe COPD changes interstitial thickening, likely chronic seen in the included upper chest CXR; 03/25/2020 Calcified breast prostheses. Large heart. Tracheal deviation to the right from a prominent knob. Interstitial lung changes compatible with known chronic lung disease and possible superimposed early infiltrates on the right. Echocardiogram; 03/25/2020 LV EF 55-60%; Mild MR, Mild TR. Moderate pericardial effusion (1-2 cm). No indication of cardiac tamponade. Carotid doppler; 03/26/2020 Significant calcified plaque in the left carotid arterial system is noted. Recommend MRA. Sonographically no definitive evidence of high-grade stenosis but MRA should be performed for confirmation. Modified Barium swallow; 03/28/2020 Reduced mastication efficiency. Risk of aspiration on thin liquids, with penetration but no aspiration. RECOMMENDATIONS: Trial of dysphagia ground diet and nectar thick liquid. 2 Ken HN, Magic cup, Ensure pudding. Monitor po t olerance. Aspiration precautions. Obtain dentures from home Echocardiogram; 03/28/2020 Pericardial effusion appears less. ASSESSMENT/PLAN: This is a 84 year old F with PMH degenerative joint disease, HLD, HTN, hypothyroidism, lung disease(?), who presented with L side weakness and facial droop. Given her history, physical exam, images and significant lab findings, pt likely has CVA. Pt will be admitted to telemetry for further management and evaluation. Acute ischemic stroke likely due to Afib - NIHSS 9 on admission. - c/w ASA 81 qD, atorvastatin 40 qD - Neuro consulted. Recommended monitor blood pressure, maintain less than 160/90. Continue ASA 81mg. Physical therapy as tolerated, likely need for rehabilitation. - neuro checks - hold home antihypertension medications, avoid hypotension - CT head and CTA head/neck as above. - Aspiration and fall precautions - c/w colace for regular bowel movement to prevent increased ICP - MRI brain at some point - Cardio consulted. D/c Heparin gtt. Start Eliquis 2.5 BID. C/w ASA and statins, monitor LFT and CPK. Urinary retention - bladder scan showed 800 cc urine retained. - straight catheter placed. - F/u repeat bladder scan -Consider john placement if pt continues to retain. Pericardial effusion -mild to moderate, no evidence of tamponade on echo nor clinically -echo as above HTN - Normotensive - Monitor hemodynamics HLD -C/w atorvastatin 40 qD. Goal LDL 70mg d/l. 70% L Common Carotid stenosis - CTA findings as above - Cardio consulted. Cont ASA and statin. Monitor LFTS and CPK. C/w tele monitoring r/o occult AF, f/u echo. - Vascular surgery consulted. No indication for surgical intervention at this time as pt is asymptomatic and unless stenosis is progressive and >80% in a good-risk pt. Recommended f/u carotid duplex yearly to determine if lesion is worsening. Pulmonary infiltrates, likely secondary to Aspiration PNA - CXR as above - Pulmonary consulted. Recommended continue antibiotics,inhaled bronchodilators,taper medrol - supplemental O2 to keep SpO2 >90% - aspiration precautions - c/w duonebs, albuterol, guaifenesin - f/u CXR Leukocytosis - RLL infiltrates r/o CAP - Afebrile. - f/u AM labs - ID consulted. C/w rocephin (started 03/25) for CAP. Today is day 5. Back pain - s/p fall on back - start IV tylenol 750 q6 PRN FEN - No standing fluids - monitor and replete electrolytes - Speech and swallow evaluated. Barium swallow as above. Upgraded to dysphagia chopped/nectar. Ppx -DVT: Eliquis Dispo: Pending acute rehab placement. Visit type - Emergency Visit Emergency Visit: Yes ED Registration Date: 03/24/20 Care time: The patient presented to the Emergency Department on the above date and was hospitalized for further evaluation of their emergent condition. - New Patient This patient is new to me today: No - Critical Care Critical Care patient: No - Medication Review Med list reviewed for High Risk Meds patients 65 and older: Yes ATTENDING PHYSICIAN STATEMENT I saw and evaluated the patient. I reviewed the resident's note and discussed the case with the resident. I agree with the resident's findings and plan as documented. SUBJECTIVE: OBJECTIVE: ASSESSMENT AND PLAN:
[2020-03-29] MEDS: ATORVASTATIN CA 80 MG TABLET (FP) PO SCH (22:38)
[2020-03-29] MEDS: APIXABAN 2.5 MG TABLET PO SCH (22:39)
[2020-03-30 06:59] LABS: HEMATOCRIT 28.9 % (32.4-45.2); HEMOGLOBIN 9.3 GM/dL (10.7-15.3); MCH 26.5 pg (25.7-33.7); MEAN CELL VOLUME 82.8 fl (80-96); MEAN PLT VOLUME 8.4 fl (7.5-11.1); PLATELET COUNT 451 K/MM3 (134-434); RDW 18.1 % (11.6-15.6)
--- NOTE | 2020-03-30 07:11 | PN ---
Progress Note, Physician History of Present Illness: PULMONARY ALERT,COMFORTABLE,-RESP DISTRESS - Current Medication List Current Medications: Active Medications Acetaminophen (Ofirmev Injection -) 750 mg IVPB Q6H PRN PRN Reason: PAIN LEVEL 1-5 Last Admin: 03/28/20 16:26 Dose: 750 mg Documented by: Albuterol Sulfate (Ventolin Hfa Inhaler -) 1 puff IH Q4H PRN PRN Reason: SHORTNESS OF BREATH Last Admin: 03/28/20 22:16 Dose: 1 puff Documented by: Albuterol/Ipratropium (Duoneb -) 1 amp NEB Q4H PRN PRN Reason: SHORTNESS OF BREATH Albuterol/Ipratropium (Duoneb -) 1 amp NEB RTID [facility] Last Admin: 03/29/20 20:47 Dose: 1 amp Documented by: Apixaban (Eliquis -) 2.5 mg PO BID [facility] Last Admin: 03/29/20 22:39 Dose: 2.5 mg Documented by: Atorvastatin Calcium (Lipitor -) 40 mg PO HS [facility] Last Admin: 03/29/20 22:38 Dose: 40 mg Documented by: Docusate Sodium (Colace -) 100 mg PO DAILY PRN PRN Reason: CONSTIPATION Guaifenesin (Mucinex -) 600 mg PO Q12H PRN PRN Reason: COUGH Last Admin: 03/26/20 00:36 Dose: 600 mg Documented by: Guaifenesin (Robitussin -) 10 ml PO Q4H PRN PRN Reason: COUGH Last Admin: 03/26/20 23:59 Dose: 10 ml Documented by: Ceftriaxone Sodium 1 gm/ (Dextrose) 50 mls @ 100 mls/hr IVPB DAILY [facility]; Protocol Last Admin: 03/29/20 10:35 Dose: 100 mls/hr Documented by: Methylprednisolone Sodium Succinate (Solu-Medrol -) 20 mg IVPUSH BID [facility] Last Admin: 03/29/20 22:38 Dose: 20 mg Documented by: - Objective Vital Signs: Vital Signs Temperature 98.3 F 03/29/20 22:00 Pulse Rate 101 H 03/30/20 02:00 Respiratory Rate 18 03/30/20 02:00 Blood Pressure 135/66 03/30/20 02:00 O2 Sat by Pulse Oximetry (%) 94 L 03/30/20 02:00 Constitutional: Yes: Calm, Thin Eyes: Yes: WNL HENT: Yes: WNL Neck: Yes: WNL Cardiovascular: Yes: Regular Rate and Rhythm, S1, S2 Respiratory: Yes: Rhonchi (FEW SCATTERED RHONCHI) Gastrointestinal: Yes: Normal Bowel Sounds, Soft Extremities: Yes: WNL Edema: No Labs: CBC, BMP 03/30/20 06:25 INR, PTT INR 1.03 (0.83-1.09) 03/27/20 07:08 - ....Imaging Chest X-ray: Report Reviewed, Image Reviewed (INCREASED RLL INFITRATE) Problem List - Problems (1) Pneumonia Code(s): J18.9 - PNEUMONIA, UNSPECIFIED ORGANISM (2) Cerebrovascular accident (CVA) Code(s): I63.9 - CEREBRAL INFARCTION, UNSPECIFIED Qualifiers: CVA mechanism: unspecified Qualified Code(s): I63.9 - Cerebral infarction, unspecified (3) Interstitial lung disease Code(s): J84.9 - INTERSTITIAL PULMONARY DISEASE, UNSPECIFIED (4) HTN (hypertension) Code(s): I10 - ESSENTIAL (PRIMARY) HYPERTENSION (5) HLD (hyperlipidemia) Code(s): E78.5 - HYPERLIPIDEMIA, UNSPECIFIED Assessment/Plan A/P Pneumonia likely Aspiration improving Acute CVA Interstitial Lung Disease HTN Hyperlipidemia - continue antibiotics - taper medrol - inhaled bronchodilators - O2 to keep SpO2 >90% - aspiration precautions - DVT prophylaxis DR SULLIVAN
[2020-03-30 07:17] LABS: ALBUMIN 2.6 g/dl (3.4-5.0); BILIRUBIN,TOTAL 0.4 mg/dL (0.2-1); BLOOD UREA NITROGEN 46.2 mg/dL (7-18); CALCIUM 8.8 mg/dL (8.5-10.1); CREATININE 0.8 mg/dL (0.55-1.3); POTASSIUM 4.8 mmol/L (3.5-5.1)
[2020-03-30] MEDS: ALBUTEROL SO4 2.5/IPRATROPIUM 0.5 INH SOL 3 ML VIAL.NEB. NEB SCH ×3 (08:08→20:14)
--- NOTE | 2020-03-30 08:30 | PN ---
Progress Note (short form) - Note Progress Note: Neurology CHIEF COMPLAINT: STROKE PCP: Shaun HISTORY OF PRESENT ILLNESS: 84 year old female with PMH degenerative joint disease, HLD, HTN, hypothyroidism, lung disease(?), who presented with L side weakness and facial droop. Pt stated that she remembered falling off her bed at night and lying on the floor, unable to get up. Pt endorsed to landing on her back as she fell. Denied head trauma or loss of consciousness. Pt stated that she was on the floor for an unknown period of time. As per daughter, she stated that the last time she saw the pt in her usual state of health was 10PM on day before admission. NIHSS 9. Pt denied sensory disturbance, visual field defect, difficulty speaking, dizziness, fevers, chills, shortness of breath, chest pain, or abdominal pain. Pt admits to some dysphagia. CT head done and demonstrated moderate atrophy and moderate to marked periventricular chronic microvascular ischemic disease changes Right basal ganglia acute/subacute infarct that may be extending to the right periventricular white matter. CTA of head and neck completed and showed Prominent calcified plaques at the left common carotid bifurcation with hemodynamically significant stenosis of approximately 70%, NASCET criteria. Tiny plaques at the right common carotid bifurcation without ev idence of hemodynamically significant stenosis. Hypoplastic right vertebral artery relative to the left without evidence of stenosis or dissection. Intracranially, there is faint enhancement of the right A1 segment likely a hypoplastic segment with normal enhancement of the right A2 segment. CT of C- spine completed and no gross fracture or subluxation is seen. Multilevel degenerative disc disease with anterior spondylosis. Carotid doppler completed, indicates significant calcified plaque in the left carotid arterial system; patient seen by Dr. Schmidt with recommendations for yearly carotid doppler and no surgery at this time. I spoke with Dr. Rivas on 03/26 and in agreement to start heparin due to afib; heparin drip started as ESR was not highly elevated (he discussed concern for pericardial effusion leading to hemoraghic conversion). Patient previously not taking ASA, started on 81mg, neurologically stable, being planned for dispo. Active Medications Acetaminophen (Ofirmev Injection -) 750 mg IVPB Q6H PRN PRN Reason: PAIN LEVEL 1-5 Last Admin: 03/28/20 16:26 Dose: 750 mg Documented by: Albuterol Sulfate (Ventolin Hfa Inhaler -) 1 puff IH Q4H PRN PRN Reason: SHORTNESS OF BREATH Last Admin: 03/28/20 22:16 Dose: 1 puff Documented by: Albuterol/Ipratropium (Duoneb -) 1 amp NEB Q4H PRN PRN Reason: SHORTNESS OF BREATH Albuterol/Ipratropium (Duoneb -) 1 amp NEB RTID [facility] Last Admin: 03/30/20 08:08 Dose: 1 amp Documented by: Apixaban (Eliquis -) 2.5 mg PO BID [facility] Last Admin: 03/29/20 22:39 Dose: 2.5 mg Documented by: Atorvastatin Calcium (Lipitor -) 40 mg PO HS [facility] Last Admin: 03/29/20 22:38 Dose: 40 mg Documented by: Docusate Sodium (Colace -) 100 mg PO DAILY PRN PRN Reason: CONSTIPATION Guaifenesin (Mucinex -) 600 mg PO Q12H PRN PRN Reason: COUGH Last Admin: 03/26/20 00:36 Dose: 600 mg Documented by: Guaifenesin (Robitussin -) 10 ml PO Q4H PRN PRN Reason: COUGH Last Admin: 03/26/20 23:59 Dose: 10 ml Documented by: Ceftriaxone Sodium 1 gm/ (Dextrose) 50 mls @ 100 mls/hr IVPB DAILY [facility]; Protocol Last Admin: 03/29/20 10:35 Dose: 100 mls/hr Documented by: Methylprednisolone Sodium Succinate (Solu-Medrol -) 20 mg IVPUSH BID [facility] Last Admin: 03/29/20 22:38 Dose: 20 mg Documented by: PHYSICAL EXAMINATION Vital Signs Period Temp Pulse Resp BP Sys/Solorio Pulse Ox Last 24 Hr 97.8 F-98.3 F 74-101 18-18 119-141/54-78 94-98 GENERAL: Awake and alert, not in acute distress HEENT: NCAT, EOMI, dry mucus membranes. LUNGS: Equal breath sounds heard. Scattered rales present. No wheezes. HEART: Regular rate and rhythm, S1, S2 present. Murmur present on L upper sternal border. ABDOMEN: Soft, non-distended, non-tender to palpation. Bowel sounds present in all 4 quadrants. EXTREMITIES: warm, well-perfused. No edema. NEUROLOGICAL: sensation intact. Strength 5/5 on R upper extremities, 1/5 on L upper extremity. 5/5 on R lower extremity, 1/5 on L lower extremity, sensory intact SKIN: Warm, dry CBCD WBC 12.0 K/mm3 (4.0-10.0) H 03/30/20 06:25 RBC 3.50 M/mm3 (3.60-5.2) L 03/30/20 06:25 Hgb 9.3 GM/dL (10.7-15.3) L 03/30/20 06:25 Hct 28.9 % (32.4-45.2) L 03/30/20 06:25 MCV 82.8 fl (80-96) 03/30/20 06:25 MCHC 32.0 g/dl (32.0-36.0) 03/30/20 06:25 RDW 18.1 % (11.6-15.6) H 03/30/20 06:25 Plt Count 451 K/MM3 (134-434) H 03/30/20 06:25 MPV 8.4 fl (7.5-11.1) 03/30/20 06:25 CMP Sodium 140 mmol/L (136-145) 03/30/20 06:25 Potassium 4.8 mmol/L (3.5-5.1) 03/30/20 06:25 Chloride 109 mmol/L (98-107) H 03/30/20 06:25 Carbon Dioxide 26 mmol/L (21-32) 03/30/20 06:25 Anion Gap 5 MMOL/L (8-16) L 03/30/20 06:25 BUN 46.2 mg/dL (7-18) H 03/30/20 06:25 Creatinine 0.8 mg/dL (0.55-1.3) 03/30/20 06:25 Random Glucose 130 mg/dL (74-106) H 03/30/20 06:25 Calcium 8.8 mg/dL (8.5-10.1) 03/30/20 06:25 Total Bilirubin 0.4 mg/dL (0.2-1) 03/30/20 06:25 AST 22 U/L (15-37) 03/30/20 06:25 ALT 25 U/L (13-61) 03/30/20 06:25 Alkaline Phosphatase 42 U/L (45-117) L 03/30/20 06:25 Total Protein 6.0 g/dl (6.4-8.2) L 03/30/20 06:25 Albumin 2.6 g/dl (3.4-5.0) L 03/30/20 06:25 CARDIAC ENZYMES Creatine Kinase 30 U/L (26-192) 03/30/20 06:25 Troponin I < 0.02 ng/ml (0.00-0.05) 03/24/20 10:00 ASSESSMENT/PLAN: 84 year old female with PMH degenerative joint disease, HLD, HTN, hypothyroidism, lung disease(?), who presented with L side weakness and facial droop. Pt stated that she remembered falling off her bed at night and lying on the floor, unable to get up. Pt endorsed to landing on her back as she fell. Denied head trauma or loss of consciousness. Pt stated that she was on the floor for an unknown period of time. As per daughter, she stated that the last time she saw the pt in her usual state of health was 10PM on day before admission. NIHSS 9. Pt denied sensory disturbance, visual field defect, difficulty speaking, dizziness, fevers, chills, shortness of breath, chest pain, or abdominal pain. Pt admits to some dysphagia. CT head done and demonstrated moderate atrophy and moderate to marked periventricular chronic microvascular ischemic disease changes Right basal ganglia acute/subacute infarct that may be extending to the right periventricular white matter. CTA of head and neck completed and showed Prominent calcified plaques at the left common carotid bifurcation with hemodynamically significant stenosis of approximately 70%, NASCET criteria. Tiny plaques at the right common carotid bifurcation without evidence of hemodynamically significant stenosis. Hypoplastic right vertebral artery relative to the left without evidence of stenosis or dissection. Intracranially, there is faint enhancement of the right A1 segment likely a hypoplastic segment with normal enhancement of the right A2 segment. CT of C- spine completed and no gross fracture or subluxation is seen. Multilevel degenerative disc disease with anterior spondylosis. Carotid doppler completed, indicates significant calcified plaque in the left carotid arterial system; patient seen by Dr. Schmidt, with recommendations for yearly carotid doppler and no surgery at this time. I spoke with Dr. Rivas yesterday and in agreement to start heparin drip due to afib; heparin drip started at this time. Monitor blood pressure, maintain less than 160/90. LDL 70, can reduce statin back down to 40mg. I spoke with Dr. Rivas on 03/26 and in agreement to start heparin due to afib; heparin drip started as ESR was not highly elevated (he discussed concern for pericardial effusion leading to hemoraghic conversion). Patient previously not taking ASA, started on 81mg, neurologically stable at this time. Physical therapy as tolerated, likely need for rehabilitation. Continue medical mgmt and optimization.
[2020-03-30] MEDS ORDERED: cefTRIAXone SODIUM 1 GM VIAL ONE (09:39)
[2020-03-30] MEDS: methylPREDNISolone NA SUCC 40 MG/1 ML VIAL IVPUSH SCH ×2 (09:54→23:13)
[2020-03-30] MEDS: APIXABAN 2.5 MG TABLET PO SCH ×2 (09:54→22:15)
[2020-03-30] MEDS: CEFTRIAXONE 1 GM in DEXTROSE 5%-WATER - 50 ML IVPB SCH (09:54)
[2020-03-30] MEDS: guaiFENesin 200 MG/10 ML 10 ML UNIT-DOSE CUPS PO PRN (09:54)
--- NOTE | 2020-03-30 10:57 | PN ---
Progress Note, CHIEF ARCHITECT - Note Progress Note: Selected Entries 03/29/20 03/29/20 03/29/20 02:00 04:27 06:00 Breakfast Lunch Supper Temperature Pulse Rate Blood Pressure O2 Sat by Pulse 94 L 99 97 Oximetry (%) Oxygen Delivery Method 03/29/20 03/29/20 03/29/20 09:00 11:07 15:47 Breakfast 100% Lunch 75% Supper Temperature Pulse Rate Blood Pressure O2 Sat by Pulse 98 Oximetry (%) Oxygen Delivery Method 03/29/20 03/29/20 03/29/20 21:00 22:00 23:53 Breakfast Lunch Supper 50% Temperature Pulse Rate Blood Pressure O2 Sat by Pulse 98 98 Oximetry (%) Oxygen Delivery Nasal Cannula Method 03/30/20 03/30/20 02:00 06:00 Breakfast Lunch Supper Temperature 98.1 F Pulse Rate 101 H 88 Blood Pressure 135/66 141/78 O2 Sat by Pulse Oximetry (%) Oxygen Delivery Method Laboratory Tests 03/29/20 03/30/20 06:10 06:25 WBC 9.8 12.0 H Urinary retention-Witt catheter placed and 500 ml of urine drained CXR-slight increase right infiltrate Tolerated Puree/nectar. Was to be upgraded to Dys ground/nectar, but accidentally received soft diet/thin liquids-noted to be coughing on eggs and thin liquid this am.by nursing who removed tray. Diet modified/corrected. Seen before lunch, lethargic, briefly arousable, oriented but sleepy. Selected Entries 03/30/20 03/30/20 03/30/20 02:00 06:00 10:00 Temperature 98.1 F 98.2 F Pulse Rate 101 H 88 110 H 03/30/20 11:00 Temperature 101 F H Pulse Rate Laboratory Tests 03/29/20 03/30/20 06:10 06:25 WBC 9.8 12.0 H Fever spike,WBC elevated Reviewed with medical team- Suspected aspiration Suggest-NPO due to lethargy at this time When strongewr and medically stable, trial puree/honey thick liquid to start.
--- NOTE | 2020-03-30 12:37 | PN ---
Progress Note (short form) - Note Progress Note: cc: stroke s: no chest pain, palps, dizziness, dyspnea Current Medications Generic Name Dose Route Start Last Admin Trade Name Freq PRN Reason Stop Dose Admin Acetaminophen 750 mg 03/28/20 15:00 03/28/20 16:26 Ofirmev Injection - IVPB 750 mg Q6H PRN Administration PAIN LEVEL 1-5 Albuterol Sulfate 1 puff 03/24/20 16:56 03/28/20 22:16 Ventolin Hfa Inhaler - IH 1 puff Q4H PRN Administration SHORTNESS OF BREATH Albuterol/Ipratropium 1 amp 03/27/20 08:59 Duoneb - NEB Q4H PRN SHORTNESS OF BREATH Albuterol/Ipratropium 1 amp 03/27/20 14:00 03/30/20 08:08 Duoneb - NEB 1 amp RTID [facility] Administration Apixaban 2.5 mg 03/29/20 22:00 03/30/20 09:54 Eliquis - PO 2.5 mg BID [facility] Administration Atorvastatin Calcium 40 mg 03/25/20 17:35 03/29/20 22:38 Lipitor - PO 40 mg HS [facility] Administration Docusate Sodium 100 mg 03/24/20 15:09 Colace - PO DAILY PRN CONSTIPATION Guaifenesin 600 mg 03/24/20 16:31 03/26/20 00:36 Mucinex - PO 600 mg Q12H PRN Administration COUGH Guaifenesin 10 ml 03/26/20 01:43 03/30/20 09:54 Robitussin - PO 10 ml Q4H PRN Administration COUGH Ampicillin Sodium/Sulbactam 100 mls @ 200 mls/hr 03/30/20 12:40 Sodium 1.5 gm/ Sodium Chloride IVPB 03/30/20 13:09 ONCE ONE Methylprednisolone Sodium Succinate 20 mg 03/29/20 12:00 03/30/20 09:54 Solu-Medrol - IVPUSH 20 mg BID [facility] Administration Vital Signs Period Temp Pulse Resp BP Sys/Solorio Pulse Ox Last 24 Hr 98 F-101 F 74-110 18-18 119-141/54-79 94-98 Constitutional: Yes: No Distress, Calm Cardiovascular: Yes: Regular Rate and Rhythm Respiratory: Yes: CTA Bilaterally Gastrointestinal: Yes: Soft (nt) Edema: No Neurological: Yes: Alert no jaundice diaphoresis tele: sr, episodes of afib with RVR Assessment/Plan IMP: R sided CVA PAF 70% L carotid stenosis ASP PNA Pericardial effusion HTN HLD Thyroid disorder REC: 1. CVA with PAF noted on tele: -[id number] score elevated, AC is indicated - on eliquis - nl LV function on echo here - cont eliquis 2.5 mg BID (low dose for age>80, weight <60 kg) 2. 70% LCC stenosis: -evaluated by vascular - surgical intervention not recommended -Cont statin. Monitor LFTs and CPK 3. Asp PNA: -supp O2 -Abx as per Critical Care 4. Pericardial effusion: mild to moderate, no evidence of tamponade on echo nor clinically -reduced in size on repeat echo 5. HTN: -stable, not on meds 6. HLD: -goal LDL 70mg d/l. cont statin 7. Hyperthyroid: -TSH low -Holding Synthroid, as per primary team
[2020-03-30] MEDS ORDERED: AMPICILLIN NA/SULBACTAM NA 1.5 GM in SODIUM CHLORIDE 100 ML IVPB ONE (12:40)
[2020-03-30] MEDS ORDERED: SODIUM CHLORIDE 100 ML IVPB ONE (13:50)
[2020-03-30] MEDS ORDERED: AMPICILLIN NA/SULBACTAM NA 1.5 GM VIAL ONE (13:50)
--- NOTE | 2020-03-30 13:50 | PN ---
Physical Exam: SUBJECTIVE: Patient seen and examined. Overnight, repeat bladder scan showed >500 cc. Decision made to put john. OBJECTIVE: Vital Signs Period Temp Pulse Resp BP Sys/Solorio Pulse Ox Last 24 Hr 98 F-101 F 74-110 18-18 119-141/54-79 94-98 GENERAL: lethargic, but arousable. Not in acute distress. HEENT: NCAT, EOMI, moist mucus membranes LUNGS: Scattered rhonchi. HEART: Regular rate and rhythm, S1, S2 present. Systolic murmur present on L upper sternal border. ABDOMEN: Soft, non-distended, non-tender to palpation. Bowel sounds present in all 4 quadrants. EXTREMITIES: warm, well-perfused. No edema. NEUROLOGICAL: Sensation intact. Strength 5/5 on R upper extremities, 1/5 on L upper extremity. 5/5 on R lower extremity, 1/5 on L lower extremity. SKIN: Warm, dry Laboratory Last Values WBC 12.0 K/mm3 (4.0-10.0) H 03/30/20 06:25 RBC 3.50 M/mm3 (3.60-5.2) L 03/30/20 06:25 Hgb 9.3 GM/dL (10.7-15.3) L 03/30/20 06:25 Hct 28.9 % (32.4-45.2) L 03/30/20 06:25 MCV 82.8 fl (80-96) 03/30/20 06:25 MCH 26.5 pg (25.7-33.7) 03/30/20 06:25 MCHC 32.0 g/dl (32.0-36.0) 03/30/20 06:25 RDW 18.1 % (11.6-15.6) H 03/30/20 06:25 Plt Count 451 K/MM3 (134-434) H 03/30/20 06:25 MPV 8.4 fl (7.5-11.1) 03/30/20 06:25 Absolute Neuts (auto) 7.1 K/mm3 (1.5-8.0) 03/28/20 05:40 Neutrophils % 80.9 % (42.8-82.8) 03/28/20 05:40 Neutrophils % (Manual) 71.7 % (42.8-82.8) 03/24/20 10:20 Band Neutrophils % 0.0 % 03/24/20 10:20 Lymphocytes % 17.1 % (8-40) 03/28/20 05:40 Lymphocytes % (Manual) 17.2 % (8-40) 03/24/20 10:20 Monocytes % 1.8 % (3.8-10.2) L 03/28/20 05:40 Monocytes % (Manual) 8 % (3.8-10.2) 03/24/20 10:20 Eosinophils % 0.0 % (0-4.5) 03/28/20 05:40 Eosinophils % (Manual) 0.0 % (0-4.5) 03/24/20 10:20 Basophils % 0.2 % (0-2.0) 03/28/20 05:40 Basophils % (Manual) 0.0 % (0-2.0) 03/24/20 10:20 Myelocytes % (Man) 0 % (0-2) 03/24/20 10:20 Promyelocytes % (Man) 0 % (0-2) 03/24/20 10:20 Blast Cells % (Manual) 0 % (0-0) 03/24/20 10:20 Nucleated RBC % 0 % (0-0) 03/28/20 05:40 Metamyelocytes 0 % (0-2) 03/24/20 10:20 Hypochromia 0 03/24/20 10:20 Platelet Estimate Increased 03/24/20 10:20 Polychromasia 0 03/24/20 10:20 Poikilocytosis 0 03/24/20 10:20 Anisocytosis 0 03/24/20 10:20 Microcytosis 0 03/24/20 10:20 Macrocytosis 0 03/24/20 10:20 ESR 37 mm/hr (0-30) H 03/26/20 06:40 PT with INR 12.10 SEC (9.7-13.0) 03/27/20 07:08 INR 1.03 (0.83-1.09) 03/27/20 07:08 PTT (Actin FS) 26.6 SECONDS (25.2-36.5) 03/30/20 06:25 Sodium 140 mmol/L (136-145) 03/30/20 06:25 Potassium 4.8 mmol/L (3.5-5.1) 03/30/20 06:25 Chloride 109 mmol/L (98-107) H 03/30/20 06:25 Carbon Dioxide 26 mmol/L (21-32) 03/30/20 06:25 Anion Gap 5 MMOL/L (8-16) L 03/30/20 06:25 BUN 46.2 mg/dL (7-18) H 03/30/20 06:25 Creatinine 0.8 mg/dL (0.55-1.3) 03/30/20 06:25 Est GFR (CKD-EPI)AfAm 78.47 03/30/20 06:25 Est GFR (CKD-EPI)NonAf 67.70 03/30/20 06:25 POC Glucometer 153 UNITS (80-120) 03/24/20 09:40 Random Glucose 130 mg/dL (74-106) H 03/30/20 06:25 Calcium 8.8 mg/dL (8.5-10.1) 03/30/20 06:25 Phosphorus 2.6 mg/dL (2.5-4.9) 03/28/20 05:40 Magnesium 2.1 mg/dL (1.8-2.4) 03/28/20 05:40 Total Bilirubin 0.4 mg/dL (0.2-1) 03/30/20 06:25 AST 22 U/L (15-37) 03/30/20 06:25 ALT 25 U/L (13-61) 03/30/20 06:25 Alkaline Phosphatase 42 U/L (45-117) L 03/30/20 06:25 Creatine Kinase 30 U/L (26-192) 03/30/20 06:25 Troponin I < 0.02 ng/ml (0.00-0.05) 03/24/20 10:00 Total Protein 6.0 g/dl (6.4-8.2) L 03/30/20 06:25 Albumin 2.6 g/dl (3.4-5.0) L 03/30/20 06:25 Triglycerides 79 mg/dL (0-150) 03/24/20 10:00 Cholesterol 137 mg/dL (50-200) 03/24/20 10:00 Total LDL Cholesterol 70 mg/dL (5-100) 03/24/20 10:00 HDL Cholesterol 57 mg/dL (40-60) 03/24/20 10:00 TSH 0.05 uIU/ml (0.358-3.74) L 03/26/20 06:40 Free T4 1.19 ng/dl (0.76-1.46) 03/27/20 07:08 Urine Color Yellow 03/24/20 11:30 Urine Appearance Clear 03/24/20 11:30 Urine pH 5.0 (5.0-8.0) 03/24/20 11:30 Ur Specific [place] 1.043 (1.010-1.035) H 03/24/20 11:30 Urine Protein Trace (NEGATIVE) 03/24/20 11:30 Urine Glucose (UA) Negative (NEGATIVE) 03/24/20 11:30 Urine Ketones Negative (NEGATIVE) 03/24/20 11:30 Urine Blood Negative (NEGATIVE) 03/24/20 11:30 Urine Nitrite Negative (NEGATIVE) 03/24/20 11:30 Urine Bilirubin Negative (NEGATIVE) 03/24/20 11:30 Urine Urobilinogen 0.2 mg/dL (0.2-1.0) 03/24/20 11:30 Ur Leukocyte Esterase Negative (NEGATIVE) 03/24/20 11:30 JOEY Screen Positive (.) H 03/27/20 07:08 JOEY Homogeneous Pattern 1:1280 (.) H 03/27/20 07:08 JOEY Nucleolar Pattern TNP 03/27/20 07:08 JOEY Spindle Yoana Pattern TNP 03/27/20 07:08 JOEY Midbody Pattern TNP 03/27/20 07:08 JOEY Centriole Pattern TNP 03/27/20 07:08 JOEY Nuclear Dot Pattern TNP 03/27/20 07:08 JOEY PCNA Pattern TNP 03/27/20 07:08 JOEY Nuclear Membr Pat TNP 03/27/20 07:08 JOEY Speckled Pattern TNP 03/27/20 07:08 JOEY Centromere Pattern TNP 03/27/20 07:08 COVID-19 (ILENE) Not detected (Not Detected) 03/24/20 10:15 Ref Lab Notation (.) 03/27/20 07:08 Blood Type A POSITIVE 03/25/20 23:45 Antibody Screen Negative 03/25/20 23:45 Active Medications Acetaminophen (Ofirmev Injection -) 750 mg IVPB Q6H PRN PRN Reason: PAIN LEVEL 1-5 Last Admin: 03/28/20 16:26 Dose: 750 mg Documented by: Albuterol Sulfate (Ventolin Hfa Inhaler -) 1 puff IH Q4H PRN PRN Reason: SHORTNESS OF BREATH Last Admin: 03/28/20 22:16 Dose: 1 puff Documented by: Albuterol/Ipratropium (Duoneb -) 1 amp NEB Q4H PRN PRN Reason: SHORTNESS OF BREATH Albuterol/Ipratropium (Duoneb -) 1 amp NEB RTID [facility] Last Admin: 03/30/20 08:08 Dose: 1 amp Documented by: Apixaban (Eliquis -) 2.5 mg PO BID [facility] Last Admin: 03/30/20 09:54 Dose: 2.5 mg Documented by: Atorvastatin Calcium (Lipitor -) 40 mg PO HS [facility] Last Admin: 03/29/20 22:38 Dose: 40 mg Documented by: Docusate Sodium (Colace -) 100 mg PO DAILY PRN PRN Reason: CONSTIPATION Guaifenesin (Mucinex -) 600 mg PO Q12H PRN PRN Reason: COUGH Last Admin: 03/26/20 00:36 Dose: 600 mg Documented by: Guaifenesin (Robitussin -) 10 ml PO Q4H PRN PRN Reason: COUGH Last Admin: 03/30/20 09:54 Dose: 10 ml Documented by: Piperacillin Sod/Tazobactam (Sod 3.375 gm/ Dextrose) 50 mls @ 100 mls/hr IVPB Q8H-IV [facility]; Protocol Methylprednisolone Sodium Succinate (Solu-Medrol -) 20 mg IVPUSH BID [facility] Last Admin: 03/30/20 09:54 Dose: 20 mg Documented by: ASSESSMENT/PLAN: This is a 84 year old F with PMH degenerative joint disease, HLD, HTN, hypothyroidism, lung disease(?), who presented with L side weakness and facial droop. Given her history, physical exam, images and significant lab findings, pt likely has CVA. Pt will be admitted to telemetry for further management and e valuation. Acute ischemic stroke likely due to Afib - NIHSS 9 on admission. - c/w ASA 81 qD, atorvastatin 40 qD - Neuro consulted. Recommended monitor blood pressure, maintain less than 160/90. Continue ASA 81mg. Physical therapy as tolerated, likely need for rehabilitation. - neuro checks - hold home antihypertension medications, avoid hypotension - CT head and CTA head/neck as above. - Aspiration and fall precautions - c/w colace for regular bowel movement to prevent increased ICP - MRI brain at some point - Cardio consulted. C/w Eliquis 2.5 BID. C/w ASA and statins, monitor LFT and CPK. Leukocytosis - RLL infiltrates likely due to aspiration PNA vs. CAP - Febrile 101 rectal temp - ID consulted. Start Zosyn day 1. Total day 6 of abx. Received rocephin. - Consider PEG if continue to aspirate Urinary retention - bladder scan showed 800 cc urine retained. Repeat bladder scan >500 cc. John placed. - Maintain john. Pericardial effusion -mild to moderate, no evidence of tamponade on echo nor clinically -echo as above HTN - Normotensive - Monitor hemodynamics HLD -C/w atorvastatin 40 qD. Goal LDL 70mg d/l. 70% L Common Carotid stenosis - CTA findings as above - Cardio consulted. Cont ASA and statin. Monitor LFTS and CPK. C/w tele monitoring r/o occult AF, f/u echo. - Vascular surgery consulted. No indication for surgical intervention at this time as pt is asymptomatic and unless stenosis is progressive and >80% in a good-risk pt. Recommended f/u carotid duplex yearly to determine if lesion is worsening. Pulmonary infiltrates, likely secondary to Aspiration PNA - CXR as above - Pulmonary consulted. Recommended continue antibiotics, inhaled bronchodilators, continue to taper medrol - supplemental O2 to keep SpO2 >90% - aspiration precautions - c/w duonebs, albuterol, guaifenesin - f/u CXR Back pain - s/p fall on back - start IV tylenol 750 q6 PRN FEN - No standing fluids - monitor and replete electrolytes - Speech and swallow evaluated. Barium swallow as above. NPO at this time due to lethargy. Ppx -DVT: Eliquis Dispo: Pending acute rehab placement if medically improved. Visit type - Emergency Visit Emergency Visit: Yes ED Registration Date: 03/24/20 Care time: The patient presented to the Emergency Department on the above date and was hospitalized for further evaluation of their emergent condition. - New Patient This patient is new to me today: No - Critical Care Critical Care patient: No - Medication Review Med list reviewed for High Risk Meds patients 65 and older: Yes ATTENDING PHYSICIAN STATEMENT I saw and evaluated the patient. I reviewed the resident's note and discussed the case with the resident. I agree with the resident's findings and plan as documented. SUBJECTIVE: OBJECTIVE: ASSESSMENT AND PLAN:
--- NOTE | 2020-03-30 13:57 | PN ---
Progress Note (short form) - Note Progress Note: fever this am Vital Signs Period Temp Pulse Resp BP Sys/Solorio Pulse Ox Last 24 Hr 98 F-101 F 74-110 18-18 119-141/54-79 94-98 cor-rrr lungs decreased bs at bases abd soft,nt ext no edema CBC, BMP 03/30/20 06:25 03/30/20 06:25 cxray increase in RLL infiltrate imp/reccd fever- ?aspiration, now on diet- blood cultures, switch to zosyn new CVA history of ILD management of CVA per neurology d/w resident Problem List - Problems (1) Cerebrovascular accident (CVA) Code(s): I63.9 - CEREBRAL INFARCTION, UNSPECIFIED Qualifiers: CVA mechanism: unspecified Qualified Code(s): I63.9 - Cerebral infarction, unspecified (2) Pneumonia Code(s): J18.9 - PNEUMONIA, UNSPECIFIED ORGANISM (3) Interstitial lung disease Code(s): J84.9 - INTERSTITIAL PULMONARY DISEASE, UNSPECIFIED
--- NOTE | 2020-03-30 15:01 | PN ---
Teaching Attending Note Name of Resident: Cecile Pérez ATTENDING PHYSICIAN STATEMENT I saw and evaluated the patient. I reviewed the resident's note and discussed the case with the resident. I agree with the resident's findings and plan as documented. SUBJECTIVE: patient more altered this morning Noted to be febrile this morning OBJECTIVE: Vital Signs Period Temp Pulse Resp BP Sys/Solorio Pulse Ox Last 24 Hr 98.1 F-101 F 83-110 16-18 122-141/62-81 94-98 As per resident note ASSESSMENT AND PLAN: 84yo F with PMhx of HLD, HTN, lung disease, knee replacement, who presents with L arm/leg weakness, facial droop, and fall. Admitted for acute CVA CVA: Zay in setting of A. Fib Continue Eliquis Cont Statin goal LDL <70 Plan to discharge to rehab BP goal at discharge <160/90 Aspiration PNA in setting of interstitial lung disease Transition Abx to Unasyn Downgrade diet, keep NPO if patient continues to be altered Taper Steroids Dispo: Acute rehab when medically improved.
[2020-03-30] MEDS ORDERED: DEXTROSE 5%-WATER - 50 ML IVPB ONE ×2 (15:35→17:28)
[2020-03-30] MEDS ORDERED: PIPERACILLIN/TAZOBACTAM 3.375 GM VIAL IVPB ONE ×2 (15:35→17:27)
[2020-03-30] MEDS: PIPERACILLIN/TAZOB 3.375 GM 3.375 GM in DEXTROSE 5%-WATER - 50 ML IVPB SCH ×2 (15:36→17:30)
[2020-03-30] MEDS ORDERED: AMPICILLIN NA/SULBACTAM NA 1.5 GM in SODIUM CHLORIDE 100 ML IVPB SCH (19:00)
[2020-03-30] MEDS: ACETAMINOPHEN 1000 MG/100 ML VIAL (NON FORMULARY) IVPB PRN (21:58)
[2020-03-30] MEDS: ATORVASTATIN CA 80 MG TABLET (FP) PO SCH (22:15)
[2020-03-31] MEDS ORDERED: PIPERACILLIN/TAZOBACTAM 3.375 GM VIAL IVPB ONE ×3 (02:21→17:21)
[2020-03-31] MEDS ORDERED: DEXTROSE 5%-WATER - 50 ML IVPB ONE ×3 (02:21→17:21)
[2020-03-31] MEDS: PIPERACILLIN/TAZOB 3.375 GM 3.375 GM in DEXTROSE 5%-WATER - 50 ML IVPB SCH ×3 (02:24→18:15)
[2020-03-31 06:51] LABS: HEMATOCRIT 27.8 % (32.4-45.2); HEMOGLOBIN 8.6 GM/dL (10.7-15.3); MCH 25.8 pg (25.7-33.7); MEAN CELL VOLUME 83.2 fl (80-96); MEAN PLT VOLUME 8.3 fl (7.5-11.1); PLATELET COUNT 401 K/MM3 (134-434); RBC 3.34 M/mm3 (3.60-5.2); RDW 18.2 % (11.6-15.6); WHITE BLOOD COUNT 15.2 K/mm3 (4.0-10.0)
[2020-03-31] MEDS: ALBUTEROL SO4 2.5/IPRATROPIUM 0.5 INH SOL 3 ML VIAL.NEB. NEB SCH ×3 (07:21→20:32)
--- NOTE | 2020-03-31 07:48 | PN ---
Progress Note, Physician History of Present Illness: pulmonary alert,c/o sob ,+ cough - Current Medication List Current Medications: Active Medications Acetaminophen (Ofirmev Injection -) 750 mg IVPB Q6H PRN PRN Reason: PAIN LEVEL 1-5 Last Admin: 03/30/20 21:58 Dose: 750 mg Documented by: Albuterol Sulfate (Ventolin Hfa Inhaler -) 1 puff IH Q4H PRN PRN Reason: SHORTNESS OF BREATH Last Admin: 03/28/20 22:16 Dose: 1 puff Documented by: Albuterol/Ipratropium (Duoneb -) 1 amp NEB Q4H PRN PRN Reason: SHORTNESS OF BREATH Albuterol/Ipratropium (Duoneb -) 1 amp NEB RTID [facility] Last Admin: 03/30/20 20:14 Dose: 1 amp Documented by: Apixaban (Eliquis -) 2.5 mg PO BID [facility] Last Admin: 03/30/20 22:15 Dose: 2.5 mg Documented by: Atorvastatin Calcium (Lipitor -) 40 mg PO HS [facility] Last Admin: 03/30/20 22:15 Dose: 40 mg Documented by: Docusate Sodium (Colace -) 100 mg PO DAILY PRN PRN Reason: CONSTIPATION Guaifenesin (Mucinex -) 600 mg PO Q12H PRN PRN Reason: COUGH Last Admin: 03/26/20 00:36 Dose: 600 mg Documented by: Guaifenesin (Robitussin -) 10 ml PO Q4H PRN PRN Reason: COUGH Last Admin: 03/30/20 09:54 Dose: 10 ml Documented by: Piperacillin Sod/Tazobactam (Sod 3.375 gm/ Dextrose) 50 mls @ 100 mls/hr IVPB Q8H-IV SHRUTHI; Protocol Last Admin: 03/31/20 02:24 Dose: 100 mls/hr Documented by: Methylprednisolone Sodium Succinate (Solu-Medrol -) 20 mg IVPUSH BID [facility] Last Admin: 03/30/20 23:13 Dose: 20 mg Documented by: - Objective Vital Signs: Vital Signs Temperature 98.3 F 03/31/20 06:00 Pulse Rate 80 03/31/20 06:00 Respiratory Rate 20 03/31/20 06:00 Blood Pressure 103/56 L 03/31/20 06:00 O2 Sat by Pulse Oximetry (%) 92 L 03/31/20 06:00 Constitutional: Yes: Calm, Thin Eyes: Yes: WNL HENT: Yes: WNL Neck: Yes: WNL Cardiovascular: Yes: Regular Rate and Rhythm, S1, S2 Respiratory: Yes: Rales, Rhonchi (bilateral rales and rhonchi) Gastrointestinal: Yes: Normal Bowel Sounds, Soft Extremities: Yes: WNL Edema: No Labs: CBC, BMP 03/30/20 06:25 INR, PTT INR 1.03 (0.83-1.09) 03/27/20 07:08 Laboratory Tests 03/31/20 03/31/20 05:25 05:35 WBC 15.2 H Hgb 8.6 L Hct 27.8 L Plt Count 401 BUN 44.5 H Creatinine 0.8 Problem List - Problems (1) Pneumonia Code(s): J18.9 - PNEUMONIA, UNSPECIFIED ORGANISM (2) Cerebrovascular accident (CVA) Code(s): I63.9 - CEREBRAL INFARCTION, UNSPECIFIED Qualifiers: CVA mechanism: unspecified Qualified Code(s): I63.9 - Cerebral infarction, unspecified (3) Interstitial lung disease Code(s): J84.9 - INTERSTITIAL PULMONARY DISEASE, UNSPECIFIED (4) HTN (hypertension) Code(s): I10 - ESSENTIAL (PRIMARY) HYPERTENSION (5) HLD (hyperlipidemia) Code(s): E78.5 - HYPERLIPIDEMIA, UNSPECIFIED Assessment/Plan A/P Pneumonia likely Aspiration Acute CVA Interstitial Lung Disease HTN Hyperlipidemia - antibiotics - medrol - inhaled bronchodilators - O2 to keep SpO2 >90% - aspiration precautions - DVT prophylaxis DR SULLIVAN
[2020-03-31 08:58] LABS: ALBUMIN 2.4 g/dl (3.4-5.0); BILIRUBIN,TOTAL 0.4 mg/dL (0.2-1); BLOOD UREA NITROGEN 44.5 mg/dL (7-18); CALCIUM 8.7 mg/dL (8.5-10.1); CREATININE 0.8 mg/dL (0.55-1.3); POTASSIUM 4.2 mmol/L (3.5-5.1); TOT PROT 5.5 g/dl (6.4-8.2)
[2020-03-31] MEDS: methylPREDNISolone NA SUCC 40 MG/1 ML VIAL IVPUSH SCH ×2 (09:53→21:45)
[2020-03-31] MEDS: APIXABAN 2.5 MG TABLET PO SCH ×2 (09:54→21:43)
--- NOTE | 2020-03-31 10:02 | PN ---
Progress Note, [employer] - Note Progress Note: Selected Entries 03/30/20 03/31/20 03/31/20 18:00 02:00 06:00 Supper NPO Temperature 98.1 F 98.3 F Pulse Rate 83 80 Blood Pressure 105/64 103/56 L Laboratory Tests 03/29/20 03/30/20 03/31/20 06:10 06:25 05:35 WBC 9.8 12.0 H 15.2 H NPO Alert, verbal, looks much better Suggest trial of puree/nectar thick liquids. Reviewed with medical team
--- NOTE | 2020-03-31 12:08 | PN ---
Progress Note (short form) - Note Progress Note: Chief Complaint: Denies CP/SOB/palps/dizzy History of Present Illness: Acute CVA with left sided weakness Left carotid stenosis Pericardial effusion PAF Thyroid disorder. Aspiration PNA Social: non smoker Current Medications Generic Name Dose Route Start Last Admin Trade Name Freq PRN Reason Stop Dose Admin Acetaminophen 750 mg 03/28/20 15:00 03/30/20 21:58 Ofirmev Injection - IVPB 750 mg Q6H PRN Administration PAIN LEVEL 1-5 Albuterol Sulfate 1 puff 03/24/20 16:56 03/28/20 22:16 Ventolin Hfa Inhaler - IH 1 puff Q4H PRN Administration SHORTNESS OF BREATH Albuterol/Ipratropium 1 amp 03/27/20 08:59 Duoneb - NEB Q4H PRN SHORTNESS OF BREATH Albuterol/Ipratropium 1 amp 03/27/20 14:00 03/31/20 07:21 Duoneb - NEB 1 amp RTID SHRUTHI Administration Apixaban 2.5 mg 03/29/20 22:00 03/31/20 09:54 Eliquis - PO 2.5 mg BID SHRUTHI Administration Atorvastatin Calcium 40 mg 03/25/20 17:35 03/30/20 22:15 Lipitor - PO 40 mg HS SHRUTHI Administration Docusate Sodium 100 mg 03/24/20 15:09 Colace - PO DAILY PRN CONSTIPATION Guaifenesin 600 mg 03/24/20 16:31 03/26/20 00:36 Mucinex - PO 600 mg Q12H PRN Administration COUGH Guaifenesin 10 ml 03/26/20 01:43 03/30/20 09:54 Robitussin - PO 10 ml Q4H PRN Administration COUGH Piperacillin Sod/Tazobactam 50 mls @ 100 mls/hr 03/30/20 14:00 03/31/20 09:53 Sod 3.375 gm/ Dextrose IVPB 100 mls/hr Q8H-IV SHRUTHI Administration Protocol Methylprednisolone Sodium Succinate 20 mg 03/29/20 12:00 03/31/20 09:53 Solu-Medrol - IVPUSH 20 mg BID SHRUTHI Administration Metoprolol Tartrate 12.5 mg 03/31/20 11:30 Lopressor - PO DAILY SHRUTHI Vital Signs Period Temp Pulse Resp BP Sys/Solorio Pulse Ox Last 24 Hr 97.7 F-98.3 F 80-95 16-20 103-151/54-81 92-98 Constitutional: Yes: No Distress, Calm Cardiovascular: Yes: Regular Rate and Rhythm Respiratory: Yes: CTA Bilaterally Gastrointestinal: Yes: Soft (nt) Edema: No Neurological: Yes: Alert no jaundice diaphoresis Labs: CBC, BMP 03/31/20 05:35 03/31/20 05:25 - ....Imaging EKG: Image Reviewed tele: sr Assessment/Plan IMP: R sided CVA PAF 70% L carotid stenosis ASP PNA Pericardial effusion HTN HLD Thyroid disorder REC: 1. CVA with PAF noted on tele: -[id number] score elevated, AC is indicated - on eliquis - nl LV function on echo here - cont eliquis 2.5 mg BID (low dose for age>80, weight <60 kg) 2. 70% LCC stenosis: -evaluated by vascular - surgical intervention not recommended -Cont statin. Monitor LFTs and CPK 3. Asp PNA: -supp O2 -Abx as per Critical Care 4. Pericardial effusion: mild to moderate, no evidence of tamponade on echo nor clinically -reduced in size on repeat echo 5. HTN: -stable 6. HLD: -goal LDL 70mg d/l. cont statin 7. Hyperthyroid: -TSH low -Holding Synthroid, as per primary team
[2020-03-31] MEDS: METOPROLOL TARTRATE 25 MG TABLET (FP) PO SCH (12:09)
--- NOTE | 2020-03-31 13:07 | PN ---
Teaching Attending Note Name of Resident: Jasmina Guerra ATTENDING PHYSICIAN STATEMENT I saw and evaluated the patient. I reviewed the resident's note and discussed the case with the resident. I agree with the resident's findings and plan as documented. SUBJECTIVE: Patient feeling well, has no complaints OBJECTIVE: Vital Signs Period Temp Pulse Resp BP Sys/Solorio Pulse Ox Last 24 Hr 97.7 F-98.7 F 80-95 16-20 103-151/54-81 92-98 GENERAL: Awake, alert, in no acute distress. HEAD: Normal with no signs of trauma. EYES: Pupils equal, round and reactive to light, extraocular movements intact, sclera anicteric, conjunctiva clear. EARS, NOSE, THROAT: Ears normal, nares patent, Moist mucous membranes. NECK: Normal range of motion, No JVD, LUNGS: Breath sounds equal, clear to auscultation bilaterally. No wheezes, and no crackles. No accessory muscle use. HEART: irregular rate/rhythm, HSM at RUSB ABDOMEN: Soft, nontender, not distended, normoactive bowel sounds, no guarding, no rebound, MUSCULOSKELETAL: Normal range of motion at all joints. No bony deformities or tenderness. No CVA tenderness. EXTREMITIES: 2+ pulses, warm, well-perfused. No calf tenderness. No peripheral edema. NEUROLOGICAL: L Sided weakness ntoed, 0/5 Upper and Lower Extremity on L side. Patient able to wiggle her toes on her L side, not able to squeeze on the R side PSYCHIATRIC: Cooperative. Good eye contact. SKIN: Warm, dry, normal turgor, no rashes or lesions noted. ASSESSMENT AND PLAN: 84yo F with PMhx of HLD, HTN, lung disease, knee replacement, who presents with L arm/leg weakness, facial droop, and fall. Admitted for acute CVA CVA: Likely in setting of A. Fib Continue Eliquis Cont Statin goal LDL <70 Plan to discharge to rehab BP goal at discharge <160/90 Aspiration PNA in setting of interstitial lung disease Transition to PO steroids Continue BS abx at this time mental status improved today, restart Honey Thickened liquids/Puree diet A. Fib with RVR Initiate Metoprolol for rate control continue AC Dispo: Acute rehab when medically improved.
--- NOTE | 2020-03-31 16:49 | PN ---
Physical Exam: SUBJECTIVE: Patient seen and examined at bed side. No acute events reported overnight. OBJECTIVE: Vital Signs Period Temp Pulse Resp BP Sys/Solorio Pulse Ox Last 24 Hr 97.7 F-99 F 80-95 16-20 103-151/54-68 92-98 GENERAL: arousable. Not in acute distress. HEENT: NCAT, EOMI, moist mucus membranes LUNGS: Scattered rhonchi on lower lung osei HEART: Regular rate and rhythm, S1, S2 present. + Systolic murmur present on L upper sternal border. ABDOMEN: Soft, non-distended, non-tender to palpation. Bowel sounds present in all 4 quadrants. EXTREMITIES: warm, well-perfused. No edema. NEUROLOGICAL: Sensation intact. Strength 5/5 on R upper extremities, 1/5 on L upper extremity. 5/5 on R lower extremity, 1/5 on L lower extremity. SKIN: Warm, dry Laboratory Results - last 24 hr CBC, BMP 03/31/20 05:35 03/31/20 05:25 03/31/20 03/31/20 03/31/20 05:25 05:35 05:35 WBC 15.2 H RBC 3.34 L Hgb 8.6 L Hct 27.8 L MCV 83.2 MCH 25.8 MCHC 31.0 L RDW 18.2 H Plt Count 401 MPV 8.3 PTT (Actin FS) 27.1 Sodium 140 Potassium 4.2 Chloride 109 H Carbon Dioxide 25 Anion Gap 6 L BUN 44.5 H Creatinine 0.8 Est GFR (CKD-EPI)AfAm 78.47 Est GFR (CKD-EPI)NonAf 67.70 Random Glucose 100 Calcium 8.7 Total Bilirubin 0.4 AST 13 L ALT 19 Alkaline Phosphatase 27 L Total Protein 5.5 L Albumin 2.4 L Active Medications Generic Name Dose Route Start Last Admin Trade Name Freq PRN Reason Stop Dose Admin Acetaminophen 750 mg 03/28/20 15:00 03/30/20 21:58 Ofirmev Injection - IVPB 750 mg Q6H PRN Administration PAIN LEVEL 1-5 Albuterol Sulfate 1 puff 03/24/20 16:56 03/28/20 22:16 Ventolin Hfa Inhaler - IH 1 puff Q4H PRN Administration SHORTNESS OF BREATH Albuterol/Ipratropium 1 amp 08/30/20 08:59 Duoneb - NEB Q4H PRN SHORTNESS OF BREATH Albuterol/Ipratropium 1 amp 03/27/20 14:00 03/31/20 13:29 Duoneb - NEB 1 amp RTID SHRUTHI Administration Apixaban 2.5 mg 03/29/20 22:00 03/31/20 09:54 Eliquis - PO 2.5 mg BID SHRUTHI Administration Atorvastatin Calcium 40 mg 03/25/20 17:35 03/30/20 22:15 Lipitor - PO 40 mg HS SHRUTHI Administration Docusate Sodium 100 mg 03/24/20 15:09 Colace - PO DAILY PRN CONSTIPATION Guaifenesin 600 mg 03/24/20 16:31 03/26/20 00:36 Mucinex - PO 600 mg Q12H PRN Administration COUGH Guaifenesin 10 ml 03/26/20 01:43 03/30/20 09:54 Robitussin - PO 10 ml Q4H PRN Administration COUGH Piperacillin Sod/Tazobactam 50 mls @ 100 mls/hr 03/30/20 14:00 03/31/20 09:53 Sod 3.375 gm/ Dextrose IVPB 100 mls/hr Q8H-IV SHRUTHI Administration Protocol Methylprednisolone Sodium Succinate 20 mg 03/29/20 12:00 03/31/20 09:53 Solu-Medrol - IVPUSH 20 mg BID SHRUTHI Administration Metoprolol Tartrate 12.5 mg 03/31/20 11:30 03/31/20 12:09 Lopressor - PO 12.5 mg DAILY SHRUTHI Administration ASSESSMENT/PLAN: 84 year old F with PMH degenerative joint disease, HLD, HTN, hypothyroidism, lung disease(?), who presented with L side weakness and facial droop. Given her history, physical exam, images and significant lab findings, pt likely has CVA. Admitted to telemetry for further management and evaluation. #Acute ischemic stroke likely due to Afib - NIHSS 9 on admission. - c/w ASA 81 qD, atorvastatin 40 qD - Neuro consult: Recommended monitor blood pressure, maintain less than 160/90, continue ASA 81mg. PT as tolerated, likely needs rehabilitation. - perform neuro checks - hold home antihypertension medications, avoid hypotension - Aspiration and fall precautions in place -Trial of puree/nectar thick liquids as per DRYWALLER - c/w colace for regular bowel movement to prevent increased ICP - Cardio consult: C/w Eliquis 2.5 BID. C/w ASA and statins, monitor LFT and CPK. #Leukocytosis - RLL infiltrates likely due to aspiration PNA vs. CAP - Febrile 101 rectal temp - ID consult: Start Zosyn day 1. Total day 6 of abx. Received rocephin. - Consider PEG if continue to aspirate #Urinary retention - Maintain john. #Pericardial effusion -mild to moderate, no evidence of tamponade on echo nor clinically #HTN - Monitor hemodynamics -Metoprolol 12.5 mg PO started #HLD -C/w atorvastatin 40 qD. Goal LDL 70mg d/l. #70% L Common Carotid stenosis - Cardio consult: Cont ASA and statin. Monitor LFTS and CPK. C/w tele monitoring r/o occult AF, f/u echo. - Vascular surgery consult: No indication for surgical intervention at this time as pt is asymptomatic and unless stenosis is progressive and >80% in a good-risk pt. Recommended f/u carotid duplex yearly to determine if lesion is worsening. #Pulmonary infiltrates, likely secondary to Aspiration PNA - Pulm consult: Recommended continue antibiotics, inhaled bronchodilators, con tinue to taper medrol - supplemental O2 to keep SpO2 >90% - aspiration precautions - c/w duonebs, albuterol, guaifenesin - f/u CXR #Back pain - s/p fall on back - start IV tylenol 750 q6 PRN #FEN - No standing fluids - monitor and replete electrolytes - Trial of puree/nectar thick liquids as per DRYWALLER #Prophylaxis -DVT: Eliquis Dispo: Pending acute rehab placement if medically improved. Visit type - Emergency Visit Emergency Visit: No - New Patient This patient is new to me today: Yes Date on this admission: 03/31/20 - Critical Care Critical Care patient: No - Discharge Referral Referred to [facility] Med P.C.: No - Medication Review Med list reviewed for High Risk Meds patients 65 and older: Yes ATTENDING PHYSICIAN STATEMENT I saw and evaluated the patient. I reviewed the resident's note and discussed the case with the resident. I agree with the resident's findings and plan as documented. SUBJECTIVE: OBJECTIVE: ASSESSMENT AND PLAN:
[2020-03-31] MEDS: ATORVASTATIN CA 80 MG TABLET (FP) PO SCH (21:45)
[2020-04-01] MEDS ORDERED: PIPERACILLIN/TAZOBACTAM 3.375 GM VIAL IVPB ONE ×3 (01:10→17:14)
[2020-04-01] MEDS ORDERED: DEXTROSE 5%-WATER - 50 ML IVPB ONE ×3 (01:10→17:14)
[2020-04-01] MEDS: PIPERACILLIN/TAZOB 3.375 GM 3.375 GM in DEXTROSE 5%-WATER - 50 ML IVPB SCH ×3 (01:16→17:32)
--- NOTE | 2020-04-01 06:09 | PN ---
Progress Note, Physician Chief Complaint: alert denies cp, sob + Cough Guaiac + - Current Medication List Current Medications: Active Medications Acetaminophen (Ofirmev Injection -) 750 mg IVPB Q6H PRN PRN Reason: PAIN LEVEL 1-5 Last Admin: 03/30/20 21:58 Dose: 750 mg Documented by: Albuterol Sulfate (Ventolin Hfa Inhaler -) 1 puff IH Q4H PRN PRN Reason: SHORTNESS OF BREATH Last Admin: 03/28/20 22:16 Dose: 1 puff Documented by: Albuterol/Ipratropium (Duoneb -) 1 amp NEB Q4H PRN PRN Reason: SHORTNESS OF BREATH Albuterol/Ipratropium (Duoneb -) 1 amp NEB RTID [facility] Last Admin: 03/31/20 20:32 Dose: 1 amp Documented by: Apixaban (Eliquis -) 2.5 mg PO BID [facility] Last Admin: 03/31/20 21:43 Dose: 2.5 mg Documented by: Atorvastatin Calcium (Lipitor -) 40 mg PO HS [facility] Last Admin: 03/31/20 21:45 Dose: 40 mg Documented by: Docusate Sodium (Colace -) 100 mg PO DAILY PRN PRN Reason: CONSTIPATION Guaifenesin (Mucinex -) 600 mg PO Q12H PRN PRN Reason: COUGH Last Admin: 03/26/20 00:36 Dose: 600 mg Documented by: Guaifenesin (Robitussin -) 10 ml PO Q4H PRN PRN Reason: COUGH Last Admin: 03/30/20 09:54 Dose: 10 ml Documented by: Piperacillin Sod/Tazobactam (Sod 3.375 gm/ Dextrose) 50 mls @ 100 mls/hr IVPB Q8H-IV SHRUTHI; Protocol Last Admin: 04/01/20 01:16 Dose: 100 mls/hr Documented by: Methylprednisolone Sodium Succinate (Solu-Medrol -) 20 mg IVPUSH BID [facility] Last Admin: 03/31/20 21:45 Dose: 20 mg Documented by: Metoprolol Tartrate (Lopressor -) 12.5 mg PO DAILY [facility] Last Admin: 03/31/20 12:09 Dose: 12.5 mg Documented by: - Objective Vital Signs: Vital Signs Temperature 97.9 F 04/01/20 05:36 Pulse Rate 98 H 04/01/20 05:36 Respiratory Rate 04/01/20 05:36 Blood Pressure 132/70 04/01/20 05:36 O2 Sat by Pulse Oximetry (%) 94 L 03/31/20 21:01 Constitutional: Yes: No Distress Cardiovascular: Yes: Regular Rate and Rhythm Respiratory: Yes: Rhonchi (b/l rhonchi) Gastrointestinal: Yes: Soft (nt) Edema: No Neurological: Yes: Alert ...Motor Strength: LUE, LLE (0/5 strength left upper and lower ext, able to barely wiggle one toe) Labs: CBC, BMP 03/31/20 05:35 03/31/20 05:25 INR, PTT INR 1.03 (0.83-1.09) 03/27/20 07:08 - ....Imaging EKG: Image Reviewed (NSR, VPCs, couplet) Assessment/Plan IMP: R sided CVA PAF 70% L carotid stenosis ASP PNA Pericardial effusion HTN HLD Thyroid disorder anemia, guaiac + REC: 1. CVA with PAF noted on tele: -[id number] score elevated, AC is indicated - on eliquis - nl LV function on echo here - cont eliquis 2.5 mg BID (low dose for age>80, weight <60 kg) for now although drifting H/H and guaiac +, would consult GI 2. 70% LCC stenosis: -evaluated by vascular - surgical intervention not recommended -Cont statin. Monitor LFTs and CPK 3. Asp PNA: repeat CXR, she reports worsened cough -supp O2 -Abx as per Critical Care 4. Pericardial effusion: mild to moderate, no evidence of tamponade on echo nor clinically -reduced in size on repeat echo 5. HTN: -stable 6. HLD: -goal LDL 70mg d/l. cont statin 7. Hyperthyroid: -TSH low -Holding Synthroid, as per primary team
[2020-04-01] MEDS: ALBUTEROL SO4 2.5/IPRATROPIUM 0.5 INH SOL 3 ML VIAL.NEB. NEB SCH ×3 (07:20→20:39)
[2020-04-01 07:38] LABS: BASO % 0.1 % (0-2.0); HEMATOCRIT 27.3 % (32.4-45.2); HEMOGLOBIN 8.5 GM/dL (10.7-15.3); LYMPH % 22.4 % (8-40); MCH 25.6 pg (25.7-33.7); MCHC 31.2 g/dl (32.0-36.0); MEAN PLT VOLUME 8.3 fl (7.5-11.1); MONO % 3.4 % (3.8-10.2); NEUT % 74.1 % (42.8-82.8); PLATELET COUNT 456 K/MM3 (134-434); RBC 3.32 M/mm3 (3.60-5.2); WHITE BLOOD COUNT 15.4 K/mm3 (4.0-10.0)
[2020-04-01 07:47] LABS: BLOOD UREA NITROGEN 35.5 mg/dL (7-18); CALCIUM 8.2 mg/dL (8.5-10.1); CREATININE 0.9 mg/dL (0.55-1.3); POTASSIUM 4.3 mmol/L (3.5-5.1)
--- NOTE | 2020-04-01 07:59 | PN ---
Progress Note, Physician History of Present Illness: pulmonary alert,comfortable,-sob - Current Medication List Current Medications: Active Medications Acetaminophen (Ofirmev Injection -) 750 mg IVPB Q6H PRN PRN Reason: PAIN LEVEL 1-5 Last Admin: 03/30/20 21:58 Dose: 750 mg Documented by: Albuterol Sulfate (Ventolin Hfa Inhaler -) 1 puff IH Q4H PRN PRN Reason: SHORTNESS OF BREATH Last Admin: 03/28/20 22:16 Dose: 1 puff Documented by: Albuterol/Ipratropium (Duoneb -) 1 amp NEB Q4H PRN PRN Reason: SHORTNESS OF BREATH Albuterol/Ipratropium (Duoneb -) 1 amp NEB RTID [facility] Last Admin: 03/31/20 20:32 Dose: 1 amp Documented by: Apixaban (Eliquis -) 2.5 mg PO BID [facility] Last Admin: 03/31/20 21:43 Dose: 2.5 mg Documented by: Atorvastatin Calcium (Lipitor -) 40 mg PO HS [facility] Last Admin: 03/31/20 21:45 Dose: 40 mg Documented by: Docusate Sodium (Colace -) 100 mg PO DAILY PRN PRN Reason: CONSTIPATION Guaifenesin (Mucinex -) 600 mg PO Q12H PRN PRN Reason: COUGH Last Admin: 03/26/20 00:36 Dose: 600 mg Documented by: Guaifenesin (Robitussin -) 10 ml PO Q4H PRN PRN Reason: COUGH Last Admin: 03/30/20 09:54 Dose: 10 ml Documented by: Piperacillin Sod/Tazobactam (Sod 3.375 gm/ Dextrose) 50 mls @ 100 mls/hr IVPB Q8H-IV SHRUTHI; Protocol Last Admin: 04/01/20 01:16 Dose: 100 mls/hr Documented by: Methylprednisolone Sodium Succinate (Solu-Medrol -) 20 mg IVPUSH BID [facility] Last Admin: 03/31/20 21:45 Dose: 20 mg Documented by: Metoprolol Tartrate (Lopressor -) 12.5 mg PO DAILY [facility] Last Admin: 03/31/20 12:09 Dose: 12.5 mg Documented by: - Objective Vital Signs: Vital Signs Temperature 97.9 F 04/01/20 05:36 Pulse Rate 98 H 04/01/20 05:36 Respiratory Rate 20 04/01/20 05:36 Blood Pressure 132/70 04/01/20 05:36 O2 Sat by Pulse Oximetry (%) 94 L 03/31/20 21:01 Constitutional: Yes: Calm, Thin Eyes: Yes: WNL HENT: Yes: WNL Neck: Yes: WNL Cardiovascular: Yes: Regular Rate and Rhythm, S1, S2 Respiratory: Yes: Rales (bibasilar crackles) Gastrointestinal: Yes: Normal Bowel Sounds, Soft Extremities: Yes: WNL Edema: No Labs: CBC, BMP 04/01/20 06:56 INR, PTT INR 1.03 (0.83-1.09) 03/27/20 07:08 Problem List - Problems (1) Pneumonia Code(s): J18.9 - PNEUMONIA, UNSPECIFIED ORGANISM (2) Cerebrovascular accident (CVA) Code(s): I63.9 - CEREBRAL INFARCTION, UNSPECIFIED Qualifiers: CVA mechanism: unspecified Qualified Code(s): I63.9 - Cerebral infarction, unspecified (3) Interstitial lung disease Code(s): J84.9 - INTERSTITIAL PULMONARY DISEASE, UNSPECIFIED (4) HTN (hypertension) Code(s): I10 - ESSENTIAL (PRIMARY) HYPERTENSION (5) HLD (hyperlipidemia) Code(s): E78.5 - HYPERLIPIDEMIA, UNSPECIFIED Assessment/Plan A/P Pneumonia likely Aspiration clinically improving Acute CVA Interstitial Lung Disease HTN Hyperlipidemia - antibiotics - prednisone - inhaled bronchodilators - O2 to keep SpO2 >90% - aspiration precautions - DVT prophylaxis DR SULLIVAN
--- NOTE | 2020-04-01 08:29 | PN ---
Teaching Attending Note Name of Resident: Cecile Pérez ATTENDING PHYSICIAN STATEMENT I saw and evaluated the patient. I reviewed the resident's note and discussed the case with the resident. I agree with the resident's findings and plan as documented. SUBJECTIVE: Patient awake/alert this morning without any complaints Increased Cough with secretions noted OBJECTIVE: Vital Signs Period Temp Pulse Resp BP Sys/Solorio Pulse Ox Last 24 Hr 97.9 F-99 F 86-98 20-20 105-132/56-71 94-94 GENERAL: Awake, alert, in no acute distress. HEAD: Normal with no signs of trauma. EYES: Pupils equal, round and reactive to light, extraocular movements intact, sclera anicteric, conjunctiva clear. EARS, NOSE, THROAT: Ears normal, nares patent, Moist mucous membranes. NECK: Normal range of motion, No JVD, LUNGS: Breath sounds equal, clear to auscultation bilaterally. No wheezes, and no crackles. No accessory muscle use. HEART: irregular rate/rhythm, HSM at RUSB ABDOMEN: Soft, nontender, not distended, normoactive bowel sounds, no guarding, no rebound, MUSCULOSKELETAL: Normal range of motion at all joints. No bony deformities or tenderness. No CVA tenderness. EXTREMITIES: 2+ pulses, warm, well-perfused. No calf tenderness. No peripheral edema. NEUROLOGICAL: L Sided weakness noted, 0/5 Upper and Lower Extremity on L side. Patient able to wiggle her toes on her L side, not able to squeeze on the R side PSYCHIATRIC: Cooperative. Good eye contact. SKIN: Warm, dry, normal turgor, no rashes or lesions noted. ASSESSMENT AND PLAN: 84yo F with PMhx of HLD, HTN, lung disease, knee replacement, who presents with L arm/leg weakness, facial droop, and fall. Admitted for acute CVA CVA: Likely in setting of A. Fib Continue Eliquis Cont Statin goal LDL <70 Plan to discharge to rehab BP goal at discharge <160/90 Aspiration PNA in setting of interstitial lung disease: leukocytosis seems to have plateaued today Taper Steroids Plan to transition to Augmentin, complete a total of 7 days of Abx. Continue Honey Thickened liquids/Puree diet Incentive spectrometry A. Fib with RVR Initiate Metoprolol for rate control continue AC Dispo: Plan to discharge to Acute Rehab today pending SW
[2020-04-01] MEDS: methylPREDNISolone NA SUCC 40 MG/1 ML VIAL IVPUSH SCH (10:43)
[2020-04-01] MEDS: METOPROLOL TARTRATE 25 MG TABLET (FP) PO SCH (10:43)
[2020-04-01] MEDS: APIXABAN 2.5 MG TABLET PO SCH (10:44)
--- NOTE | 2020-04-01 10:52 | PN ---
Progress Note, C[employer] P[employer]CH[employer] - Note Progress Note: Selected Entries 03/31/20 03/31/20 04/01/20 15:41 23:59 01:23 Breakfast Lunch 50% Supper 25% Temperature 98.2 F Pulse Rate 91 H Blood Pressure 117/66 04/01/20 04/01/20 04/01/20 05:36 08:41 10:00 Breakfast 25% Lunch Supper Temperature 97.9 F 98.4 F Pulse Rate 98 H 92 H Blood Pressure 132/70 119/71 Laboratory Tests 03/29/20 03/30/20 03/31/20 06:10 06:25 05:35 WBC 9.8 12.0 H 15.2 H 04/01/20 06:56 WBC 15.4 H On puree/nectar/2 shukri/magic cup Forgetful, asking for eggs which she had difficulty on a couple of days ago, likely aspirated. CXR-slight improvement Aspiration precautions Mouth care TID
[2020-04-01] MEDS ORDERED: PANTOPRAZOLE 40 MG TABLET PO SCH (15:00)
--- NOTE | 2020-04-01 15:26 | PN ---
Physical Exam: SUBJECTIVE: Patient seen and examined. Pt complained of worsening cough. OBJECTIVE: Vital Signs Period Temp Pulse Resp BP Sys/Solorio Pulse Ox Last 24 Hr 97.9 F-98.4 F 90-98 20-20 105-132/59-71 94-94 GENERAL: Awake and alert. Not in acute distress. HEENT: NCAT, EOMI, moist mucus membranes LUNGS: Scattered rhonchi present. HEART: Regular rate and rhythm, S1, S2 present. + Systolic murmur present on L upper sternal border. ABDOMEN: Soft, non-distended, non-tender to palpation. Bowel sounds present in all 4 quadrants. EXTREMITIES: warm, well-perfused. No edema. NEUROLOGICAL: Sensation intact. Strength 5/5 on R upper extremities, 1/5 on L upper extremity. 5/5 on R lower extremity, 1/5 on L lower extremity. SKIN: Warm, dry Laboratory Last Values WBC 16.9 K/mm3 (4.0-10.0) H 04/01/20 17:10 RBC 3.39 M/mm3 (3.60-5.2) L 04/01/20 17:10 Hgb 8.8 GM/dL (10.7-15.3) L 04/01/20 17:10 Hct 28.3 % (32.4-45.2) L 04/01/20 17:10 MCV 83.4 fl (80-96) 04/01/20 17:10 MCH 26.0 pg (25.7-33.7) 04/01/20 17:10 MCHC 31.2 g/dl (32.0-36.0) L 04/01/20 17:10 RDW 18.6 % (11.6-15.6) H 04/01/20 17:10 Plt Count 461 K/MM3 (134-434) H 04/01/20 17:10 MPV 8.9 fl (7.5-11.1) 04/01/20 17:10 Absolute Neuts (auto) 11.4 K/mm3 (1.5-8.0) H 04/01/20 06:56 Neutrophils % 74.1 % (42.8-82.8) 04/01/20 06:56 Neutrophils % (Manual) 71.7 % (42.8-82.8) 03/24/20 10:20 Band Neutrophils % 0.0 % 03/24/20 10:20 Lymphocytes % 22.4 % (8-40) D 04/01/20 06:56 Lymphocytes % (Manual) 17.2 % (8-40) 03/24/20 10:20 Monocytes % 3.4 % (3.8-10.2) L D 04/01/20 06:56 Monocytes % (Manual) 8 % (3.8-10.2) 03/24/20 10:20 Eosinophils % 0.0 % (0-4.5) 04/01/20 06:56 Eosinophils % (Manual) 0.0 % (0-4.5) 03/24/20 10:20 Basophils % 0.1 % (0-2.0) 04/01/20 06:56 Basophils % (Manual) 0.0 % (0-2.0) 03/24/20 10:20 Myelocytes % (Man) 0 % (0-2) 03/24/20 10:20 Promyelocytes % (Man) 0 % (0-2) 03/24/20 10:20 Blast Cells % (Manual) 0 % (0-0) 03/24/20 10:20 Nucleated RBC % 0 % (0-0) 04/01/20 06: Metamyelocytes 0 % (0-2) 03/24/20 10:20 Hypochromia 0 03/24/20 10:20 Platelet Estimate Increased 03/24/20 10:20 Polychromasia 0 03/24/20 10:20 Poikilocytosis 0 03/24/20 10:20 Anisocytosis 0 03/24/20 10:20 Microcytosis 0 03/24/20 10:20 Macrocytosis 0 03/24/20 10:20 ESR 37 mm/hr (0-30) H 03/26/20 06:40 PT with INR 12.10 SEC (9.7-13.0) 03/27/20 07:08 INR 1.03 (0.83-1.09) 03/27/20 07:08 PTT (Actin FS) 26.4 SECONDS (25.2-36.5) 04/01/20 06:56 Sodium 140 mmol/L (136-145) 04/01/20 06:56 Potassium 4.3 mmol/L (3.5-5.1) 04/01/20 06:56 Chloride 108 mmol/L (98-107) H 04/01/20 06:56 Carbon Dioxide 27 mmol/L (21-32) 04/01/20 06:56 Anion Gap 5 MMOL/L (8-16) L 04/01/20 06:56 BUN 35.5 mg/dL (7-18) H 04/01/20 06:56 Creatinine 0.9 mg/dL (0.55-1.3) 04/01/20 06:56 Est GFR (CKD-EPI)AfAm 68.05 04/01/20 06:56 Est GFR (CKD-EPI)NonAf 58.71 04/01/20 06:56 POC Glucometer 153 UNITS (80-120) 03/24/20 09:40 Random Glucose 130 mg/dL (74-106) H 04/01/20 06:56 Calcium 8.2 mg/dL (8.5-10.1) L 04/01/20 06:56 Phosphorus 2.6 mg/dL (2.5-4.9) 03/28/20 05:40 Magnesium 2.1 mg/dL (1.8-2.4) 03/28/20 05:40 Total Bilirubin 0.4 mg/dL (0.2-1) 03/31/20 05:25 AST 13 U/L (15-37) L 03/31/20 05:25 ALT 19 U/L (13-61) 03/31/20 05:25 Alkaline Phosphatase 27 U/L (45-117) L 03/31/20 05:25 Creatine Kinase 30 U/L (26-192) 03/30/20 06:25 Troponin I < 0.02 ng/ml (0.00-0.05) 03/24/20 10:00 Total Protein 5.5 g/dl (6.4-8.2) L 03/31/20 05:25 Albumin 2.4 g/dl (3.4-5.0) L 03/31/20 05:25 Triglycerides 79 mg/dL (0-150) 03/24/20 10:00 Cholesterol 137 mg/dL (50-200) 03/24/20 10:00 Total LDL Cholesterol 70 mg/dL (5-100) 03/24/20 10:00 HDL Cholesterol 57 mg/dL (40-60) 03/24/20 10:00 TSH 0.05 uIU/ml (0.358-3.74) L 03/26/20 06:40 Free T4 1.19 ng/dl (0.76-1.46) 03/27/20 07:08 Urine Color Yellow 03/24/20 11:30 Urine Appearance Clear 03/24/20 11:30 Urine pH 5.0 (5.0-8.0) 03/24/20 11:30 Ur Specific Soldier 1.043 (1.010-1.035) H 03/24/20 11:30 Urine Protein Trace (NEGATIVE) 03/24/20 11:30 Urine Glucose (UA) Negative (NEGATIVE) 03/24/20 11:30 Urine Ketones Negative (NEGATIVE) 03/24/20 11:30 Urine Blood Negative (NEGATIVE) 03/24/20 11:30 Urine Nitrite Negative (NEGATIVE) 03/24/20 11:30 Urine Bilirubin Negative (NEGATIVE) 03/24/20 11:30 Urine Urobilinogen 0.2 mg/dL (0.2-1.0) 03/24/20 11:30 Ur Leukocyte Esterase Negative (NEGATIVE) 03/24/20 11:30 Stool Occult Blood Positive (NEGATIVE) 04/01/20 05:40 JOEY Screen Positive (.) H 03/27/20 07:08 JOEY Homogeneous Pattern 1:1280 (.) H 03/27/20 07:08 JOEY Nucleolar Pattern TNP 03/27/20 07:08 JOEY Spindle Yoana Pattern TNP 03/27/20 07:08 OJEY Midbody Pattern TNP 03/27/20 07:08 JOEY Centriole Pattern TNP 03/27/20 07:08 JOEY Nuclear Dot Pattern TNP 03/27/20 07:08 JOEY PCNA Pattern TNP 03/27/20 07:08 JOEY Nuclear Membr Pat TNP 03/27/20 07:08 JOEY Speckled Pattern TNP 03/27/20 07:08 JOEY Centromere Pattern TNP 03/27/20 07:08 COVID-19 (ILENE) Not detected (Not Detected) 03/24/20 10:15 Ref Lab Notation (.) 03/27/20 07:08 Blood Type A POSITIVE 03/25/20 23:45 Antibody Screen Negative 03/25/20 23:45 Active Medications Acetaminophen (Ofirmev Injection -) 750 mg IVPB Q6H PRN PRN Reason: PAIN LEVEL 1-5 Last Admin: 03/30/20 21:58 Dose: 750 mg Documented by: Albuterol Sulfate (Ventolin Hfa Inhaler -) 1 puff IH Q4H PRN PRN Reason: SHORTNESS OF BREATH Last Admin: 03/28/20 22:16 Dose: 1 puff Documented by: Albuterol/Ipratropium (Duoneb -) 1 amp NEB Q4H PRN PRN Reason: SHORTNESS OF BREATH Albuterol/Ipratropium (Duoneb -) 1 amp NEB RTID [facility] Last Admin: 04/01/20 14:45 Dose: 1 amp Documented by: Atorvastatin Calcium (Lipitor -) 40 mg PO HS [facility] Last Admin: 03/31/20 21:45 Dose: 40 mg Documented by: Docusate Sodium (Colace -) 100 mg PO DAILY PRN PRN Reason: CONSTIPATION Guaifenesin (Mucinex -) 600 mg PO Q12H PRN PRN Reason: COUGH Last Admin: 03/26/20 00:36 Dose: 600 mg Documented by: Guaifenesin (Robitussin -) 10 ml PO Q4H PRN PRN Reason: COUGH Last Admin: 03/30/20 09:54 Dose: 10 ml Documented by: Piperacillin Sod/Tazobactam (Sod 3.375 gm/ Dextrose) 50 mls @ 100 mls/hr IVPB Q8H-IV [facility]; Protocol Last Admin: 04/01/20 17:32 Dose: 100 mls/hr Documented by: Pantoprazole Sodium 80 mg/ (Sodium Chloride) 100 mls @ 10 mls/hr IVPB Q10H [facility] Stop: 04/04/20 16:59 Methylprednisolone Sodium Succinate (Solu-Medrol -) 20 mg IVPUSH BID [facility] Last Admin: 04/01/20 10:43 Dose: 20 mg Documented by: Metoprolol Tartrate (Lopressor -) 12.5 mg PO DAILY [facility] Last Admin: 04/01/20 10:43 Dose: 12.5 mg Documented by: ASSESSMENT/PLAN: 84 year old F with PMH degenerative joint disease, HLD, HTN, hypothyroidism, lung disease(?), who presented with L side weakness and facial droop. Given her history, physical exam, images and significant lab findings, pt likely has CVA. Admitted to telemetry for further management and evaluation. Acute ischemic stroke likely due to Afib - NIHSS 9 on admission. - c/w ASA 81 qD, atorvastatin 40 qD - Neuro consult: Recommended monitor blood pressure, maintain less than 160/90, continue ASA 81mg. PT as tolerated, likely needs rehabilitation. - perform neuro checks - hold home antihypertension medications, avoid hypotension - Aspiration and fall precautions in place -Trial of puree/nectar thick liquids as per [employer] - c/w colace for regular bowel movement to prevent increased ICP - Cardio consult. C/w Eliquis 2.5 BID. C/w ASA and statins. Monitor H/H. GI consulted regarding melena. Recommendations appreciated. Leukocytosis - RLL infiltrates likely due to aspiration PNA vs. CAP - Afebrile - ID consult: c/w Zosyn day 2. Total day 7 of abx. Received rocephin. - Consider PEG if continue to aspirate Melena - GI consulted. Recommended protonix 80mg bolus followed by 8mg/hr infusion. If continued melena, would make NPO except meds - Monitor H/H. Urinary retention - Maintain john Pericardial effusion -mild to moderate, no evidence of tamponade on echo nor clinically HTN - Monitor hemodynamics -Metoprolol 12.5 mg PO started HLD -C/w atorvastatin 40 qD. Goal LDL 70mg d/l. 70% L Common Carotid stenosis - Cardio consult: Cont ASA and statin. Monitor LFTS and CPK. C/w tele monitoring r/o occult AF, f/u echo. - Vascular surgery consult: No indication for surgical intervention at this time as pt is asymptomatic and unless stenosis is progressive and >80% in a good-risk pt. Recommended f/u carotid duplex yearly to determine if lesion is worsening. Pulmonary infiltrates, likely secondary to Aspiration PNA - Pulm consult: Recommended continue antibiotics, inhaled bronchodilators. Start prednisone (50mg equivalent to 40 mg solu-medrol) - supplemental O2 to keep SpO2 >90% - aspiration precautions - c/w duonebs, albuterol, guaifenesin - f/u CXR Back pain - s/p fall on back - start IV tylenol 750 q6 PRN Hypothyroidism - c/w home dose synthroid FEN - No standing fluids - monitor and replete electrolytes - c/w puree/nectar thick liquids Prophylaxis -DVT: Eliquis Dispo: Pending acute rehab placement if medically improved. Visit type - Emergency Visit Emergency Visit: Yes ED Registration Date: 03/24/20 Care time: The patient presented to the Emergency Department on the above date and was hospitalized for further evaluation of their emergent condition. - New Patient This patient is new to me today: No - Critical Care Critical Care patient: No - Medication Review Med list reviewed for High Risk Meds patients 65 and older: Yes ATTENDING PHYSICIAN STATEMENT I saw and evaluated the patient. I reviewed the resident's note and discussed the case with the resident. I agree with the resident's findings and plan as documented. SUBJECTIVE: OBJECTIVE: ASSESSMENT AND PLAN:
--- NOTE | 2020-04-01 16:13 | CON.GI ---
Consult Consult Specialty:: GI Referred by:: Hospitalist Service Reason for Consultation:: Anemia, guaiac positive stool - History of Present Illness Chief Complaint: Anemia History of Present Illness: 84F admitted initially 03/24 for evaluation of facial droop. She is being treated for CVA. Was started on eliquis. Also being treated for PNA. Has been on Abx and is on IV corticosteroids. Hgb on admission was 10.6. hgb has dwindled and is currently 9.2 from AM labs. No abdominal pain. Patient uncertain the color of her stool but explains that that she has periodic hemorrhoidal bleeding. She has never had EGD/Colonoscopy. A specimen for FOBT sent earlier this admission was noted positive today. 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 Cardio/Vascular: Yes: AFIB (PAF), HTN, Murmur (mitral regurgitation, tricuspid regurgitation), Other (Pericardial effusion) Pulmonary: Yes: Asthma Endocrine: Yes: Hypothyroidism - Past Surgical History Past Surgical History: Yes: Joint Replacement (Bilateral knee replacements) - Alcohol/Substance Use Hx Alcohol Use: No History of Substance Use: reports: None - Smoking History Smoking history: Never smoked Have you smoked in the past 12 months: No Aproximately how many cigarettes per day: 0 - Social History Usual Living Arrangement: Alone ADL: Independent 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 Place of : [facility] History of Recent Travel: No Home Medications - Allergies Allergies/Adverse Reactions: Allergies Allergy/AdvReac Type Severity Reaction Status Date / Time No Known Drug Allergies Allergy Verified 03/24/20 10:41 - Home Medications Home Medications: Ambulatory Orders Levothyroxine [Synthroid -] 100 mcg PO DAILY 05/07/14 Simvastatin [Zocor -] 40 mg PO HS 05/07/14 Esomeprazole Mag Trihydrate [Nexium] 40 mg PO DAILY 08/01/15 Albuterol 2.5/Ipratropium 0.5 [Duoneb -] 1 neb IH TID PRN 03/25/20 Ibandronate Sodium 150 mg PO MONTHLY 03/25/20 Mirabegron [Myrbetriq] 50 mg PO DAILY 03/25/20 Olmesartan/Hydrochlorothiazide [Olmesartan-Hctz 40-12.5 mg Tab] 1 tablet PO DAILY 03/25/20 Umeclidinium Brm/Vilanterol Tr [Anoro Ellipta 62.5-25 Mcg INH] 1 puff IH DAILY 03/25/20 Aspirin [Ecotrin] 81 mg PO DAILY #30 tablet. 03/30/20 Atorvastatin Ca [Lipitor] 40 mg PO HS #30 tablet 03/30/20 Amoxicillin/Potassium Clav [Augmentin 875-125 Tablet] 1 each PO BID #10 tablet 04/01/20 Prednisone See Taper PO DAILY #54 tablet 04/01/20 Family Medical History Family History: Unremarkable (not pertinent to this presentation) Family Hx Cancer: Mother (Leukemia), Brother (unclear cancer, not colon cancer) Family Hx Respiratory Disorders: Father (lung problems: was a mail distribution scheme examiner) Review of Systems - Review of Systems Constitutional: denies: Chills Cardiovascular: denies: Chest Pain Respiratory: reports: SOB, Wheezing Gastrointestinal: reports: Rectal Bleeding (intermittent). denies: Abdominal Pain, Vomiting Physical Exam-GI Vital Signs: Vital Signs Temperature 98.6 F 04/01/20 14:10 Pulse Rate 73 04/01/20 14:10 Respiratory Rate 22 H 04/01/20 14:10 Blood Pressure 108/58 L 04/01/20 14:10 O2 Sat by Pulse Oximetry (%) 94 L 04/01/20 10:00 Constitutional: Yes: Calm Eyes: No: Sclera Icterus Cardiovascular: Yes: Regular Rate and Rhythm, Murmur (2/6 holosystolic murmur at the RSB>LSB) Respiratory: Yes: Wheezes (exp. wheezes bilaterally) Gastrointestinal Inspection: No: Distention ...Auscultate: Yes: Normoactive Bowel Sounds ...Palpate: Yes: Soft. No: Hepatomegaly, Splenomegaly, Tenderness ...Percussion: No: Tympanitic ...Rectal Exam: Yes: Other (No external lesions, no masses, + melena (guaiac positive)) Edema: No (No LE edema) Neurological: Yes: Alert Labs: CBC, BMP 04/01/20 06:56 04/01/20 06:56 INR, PTT INR 1.03 (0.83-1.09) 03/27/20 07:08 Problem List - Problems (1) Anemia Assessment/Plan: With dwindling H/H, melena on exam in the setting of anticoagulation and corticosteroid therapy, Upper GI source of blood loss is suspected. Discussed with patient and her daughter in law. Patient remains hemodynamically stable When medically optimized and when cleared from cardiopulmonary standpoint and with anticoagulation held, discussed possible EGD to evaluate for bleeding sour ce +/- colonoscopy if unrevealing. Explained that it would be important to evaluate for source of continued blood loss given that she will need to be maintained on anticoagulation in setting of CVA / PAF. Discussed potential risks of the procedures like but not limited to bleeding, perforation requiring surgery to repair, infection, sedation medication effects all of which could be potentially life threatening. Her daughter in law explained that things will be discussed with Ms. Gonsales and the remainder of her family. D/W Dr. Rivas. Will hold eliquis at this time and start heparin infusion tomorrow without bolus in case A/C will need to be stopped altogether. For now: Monitor H/H. Ordered repeat for this evening Keep Hgb > 8 Protonix 80mg bolus followed by 8mg/hr infusion If continued melena, would make NPO except meds Problems reviewed: Yes Code(s): D64.9 - ANEMIA, UNSPECIFIED
--- NOTE | 2020-04-01 16:57 | PN ---
Progress Note (short form) - Note Progress Note: Spoke with Ms. Gonsales's daughter Gemini Kaba [phone]. She is concerned about invasive testing being performed on her mother stating her age and patients wishes to be home. She is concerned about a more prolonged hospitalization. Explained that there is always an option of not performing procedures (however, not identifying source of bleeding and potential rebleeding), attempted treatment with medical therapy (as she is getting now with PPI), stopping anticoagulation altogether (increased risk of recurrent CVA). I asked that she discuss things with her family and her mother's medical team regarding goals of care moving forward. Problem List - Problems (1) Anemia Code(s): D64.9 - ANEMIA, UNSPECIFIED
[2020-04-01] MEDS ORDERED: PANTOPRAZOLE SODIUM 40 MG VIAL IVPUSH ONE (17:00)
--- NOTE | 2020-04-01 17:00 | PN ---
Progress Note (short form) - Note Progress Note: afebrile, appears fatigues now on modified diet for aspiration Vital Signs Period Temp Pulse Resp BP Sys/Solorio Pulse Ox Last 24 Hr 97.9 F-98.6 F 73-98 20-22 105-132/58-71 94-94 cor-rrr lungs crackles right base abd soft,nt ext trace edema CBC, BMP 04/01/20 06:56 04/01/20 06:56 Microbiology 03/30/20 16:00 Blood - Peripheral Venous Blood Culture - Preliminary NO GROWTH OBTAINED AFTER 48 HOURS, INCUBATION TO CONTINUE FOR 3 DAYS. 03/30/20 16:00 Blood - Peripheral Venous Blood Culture - Preliminary NO GROWTH OBTAINED AFTER 48 HOURS, INCUBATION TO C ONTINUE FOR 3 DAYS. 03/30/20 10:00 Sputum - Expectorated Gram Stain - Final 03/30/20 10:00 Sputum - Expectorated Sputum Culture - Final Yeast Like Organism 03/30/20 12:20 Urine - Urine - Catheterized Urine Culture - Final NO GROWTH OBTAINED 03/30/20 12:20 Urine For Antigen Detection Legionella Antigen - Final 03/30/20 12:20 Urine For Antigen Detection Streptococcus pneumoniae Antigen (M - Final Active Medications Acetaminophen (Ofirmev Injection -) 750 mg IVPB Q6H PRN PRN Reason: PAIN LEVEL 1-5 Last Admin: 03/30/20 21:58 Dose: 750 mg Documented by: Albuterol Sulfate (Ventolin Hfa Inhaler -) 1 puff IH Q4H PRN PRN Reason: SHORTNESS OF BREATH Last Admin: 03/28/20 22:16 Dose: 1 puff Documented by: Albuterol/Ipratropium (Duoneb -) 1 amp NEB Q4H PRN PRN Reason: SHORTNESS OF BREATH Albuterol/Ipratropium (Duoneb -) 1 amp NEB RTID [facility] Last Admin: 04/01/20 14:45 Dose: 1 amp Documented by: Atorvastatin Calcium (Lipitor -) 40 mg PO HS [facility] Last Admin: 03/31/20 21:45 Dose: 40 mg Documented by: Docusate Sodium (Colace -) 100 mg PO DAILY PRN PRN Reason: CONSTIPATION Guaifenesin (Mucinex -) 600 mg PO Q12H PRN PRN Reason: COUGH Last Admin: 03/26/20 00:36 Dose: 600 mg Documented by: Guaifenesin (Robitussin -) 10 ml PO Q4H PRN PRN Reason: COUGH Last Admin: 03/30/20 09:54 Dose: 10 ml Documented by: Piperacillin Sod/Tazobactam (Sod 3.375 gm/ Dextrose) 50 mls @ 100 mls/hr IVPB Q8H-IV [facility]; Protocol Last Admin: 04/01/20 10:43 Dose: 100 mls/hr Documented by: Pantoprazole Sodium 80 mg/ (Sodium Chloride) 100 mls @ 10 mls/hr IVPB Q10H [facility] Stop: 04/04/20 16:59 Methylprednisolone Sodium Succinate (Solu-Medrol -) 20 mg IVPUSH BID [facility] Last Admin: 04/01/20 10:43 Dose: 20 mg Documented by: Metoprolol Tartrate (Lopressor -) 12.5 mg PO DAILY [facility] Last Admin: 04/01/20 10:43 Dose: 12.5 mg Documented by: Pantoprazole Sodium (Protonix Iv) 80 mg IVPUSH ONCE ONE Stop: 04/01/20 17:01 imp/reccd fever- ?sspected aspiration pneumonia, continue zosyn new CVA history of ILD anemia- gi to evaluate management of CVA per neurology Problem List - Problems (1) Cerebrovascular accident (CVA) Code(s): I63.9 - CEREBRAL INFARCTION, UNSPECIFIED Qualifiers: Qualified Code(s): I63.9 - Cerebral infarction, unspecified (2) Pneumonia Code(s): J18.9 - PNEUMONIA, UNSPECIFIED ORGANISM (3) Interstitial lung disease Code(s): J84.9 - INTERSTITIAL PULMONARY DISEASE, UNSPECIFIED
[2020-04-01] MEDS ORDERED: PT OWN MED DRAWER 7, Y5N ONE (17:51)
[2020-04-01 17:59] LABS: HEMATOCRIT 28.3 % (32.4-45.2); HEMOGLOBIN 8.8 GM/dL (10.7-15.3); MCHC 31.2 g/dl (32.0-36.0); MEAN CELL VOLUME 83.4 fl (80-96); MEAN PLT VOLUME 8.9 fl (7.5-11.1); PLATELET COUNT 461 K/MM3 (134-434); RBC 3.39 M/mm3 (3.60-5.2); RDW 18.6 % (11.6-15.6); WHITE BLOOD COUNT 16.9 K/mm3 (4.0-10.0)
[2020-04-01] MEDS ORDERED: LEVOTHYROXINE NA 100 MCG TABLET (FP) PO SCH (18:45)
[2020-04-01] MEDS: PANTOPRAZOLE SODIUM 80 MG in SODIUM CHLORIDE 100 ML IVPB SCH (19:45)
[2020-04-01] MEDS ORDERED: predniSONE 20 MG TABLET (UD) ONE (21:26)
[2020-04-01] MEDS: ATORVASTATIN CA 80 MG TABLET (FP) PO SCH (21:46)
[2020-04-01] MEDS: predniSONE 5 MG, predniSONE 20 MG PO SCH (21:46)
[2020-04-01] MEDS ORDERED: predniSONE 20 MG TABLET (UD) PO SCH (22:00)
[2020-04-01] MEDS ORDERED: APIXABAN 2.5 MG TABLET PO SCH (22:00)
[2020-04-02] MEDS ORDERED: PIPERACILLIN/TAZOBACTAM 3.375 GM VIAL IVPB ONE ×3 (01:15→18:19)
[2020-04-02] MEDS ORDERED: DEXTROSE 5%-WATER - 50 ML IVPB ONE ×3 (01:15→18:19)
[2020-04-02] MEDS: PIPERACILLIN/TAZOB 3.375 GM 3.375 GM in DEXTROSE 5%-WATER - 50 ML IVPB SCH ×3 (01:36→18:28)
[2020-04-02] MEDS: PANTOPRAZOLE SODIUM 80 MG in SODIUM CHLORIDE 100 ML IVPB SCH ×2 (05:09→17:00)
[2020-04-02] MEDS: LEVOTHYROXINE NA 100 MCG TABLET (FP) PO SCH ×2 (05:14→07:00)
--- NOTE | 2020-04-02 06:37 | PN ---
Progress Note, Physician History of Present Illness: PULMONARY DROWSY,-RESP DISTRESS,,+ GUAIAC STOOLS - Current Medication List Current Medications: Active Medications Acetaminophen (Ofirmev Injection -) 750 mg IVPB Q6H PRN PRN Reason: PAIN LEVEL 1-5 Last Admin: 03/30/20 21:58 Dose: 750 mg Documented by: Albuterol Sulfate (Ventolin Hfa Inhaler -) 1 puff IH Q4H PRN PRN Reason: SHORTNESS OF BREATH Last Admin: 03/28/20 22:16 Dose: 1 puff Documented by: Albuterol/Ipratropium (Duoneb -) 1 amp NEB Q4H PRN PRN Reason: SHORTNESS OF BREATH Albuterol/Ipratropium (Duoneb -) 1 amp NEB RTID [facility] Last Admin: 04/01/20 20:39 Dose: 1 amp Documented by: Apixaban (Eliquis -) 2.5 mg PO BID [facility] Last Admin: 04/01/20 21:46 Dose: 2.5 mg Documented by: Atorvastatin Calcium (Lipitor -) 40 mg PO HS [facility] Last Admin: 04/01/20 21:46 Dose: 40 mg Documented by: Docusate Sodium (Colace -) 100 mg PO DAILY PRN PRN Reason: CONSTIPATION Guaifenesin (Mucinex -) 600 mg PO Q12H PRN PRN Reason: COUGH Last Admin: 03/26/20 00:36 Dose: 600 mg Documented by: Guaifenesin (Robitussin -) 10 ml PO Q4H PRN PRN Reason: COUGH Last Admin: 03/30/20 09:54 Dose: 10 ml Documented by: Piperacillin Sod/Tazobactam (Sod 3.375 gm/ Dextrose) 50 mls @ 100 mls/hr IVPB Q8H-IV [facility]; Protocol Last Admin: 04/02/20 01:36 Dose: 100 mls/hr Documented by: Pantoprazole Sodium 80 mg/ (Sodium Chloride) 100 mls @ 10 mls/hr IVPB Q10H [facility] Stop: 04/04/20 16:59 Last Admin: 04/02/20 05:09 Dose: 10 mls/hr Documented by: Levothyroxine Sodium (Synthroid -) 100 mcg PO ACBK [facility] Last Admin: 04/02/20 05:14 Dose: 100 mcg Documented by: Metoprolol Tartrate (Lopressor -) 12.5 mg PO DAILY [facility] Last Admin: 04/01/20 10:43 Dose: 12.5 mg Documented by: Prednisone 5 mg/ Prednisone 20 (mg) 25 mg PO BID [facility] Last Admin: 04/01/20 21:46 Dose: 25 mg Documented by: - Objective Vital Signs: Vital Signs Temperature 98.1 F 04/02/20 05:00 Pulse Rate 74 04/02/20 05:00 Respiratory Rate 20 04/02/20 05:00 Blood Pressure 105/48 L 04/02/20 05:00 O2 Sat by Pulse Oximetry (%) 98 04/02/20 05:00 Constitutional: Yes: Thin, Other (DROWSY) Eyes: Yes: WNL HENT: Yes: WNL Neck: Yes: WNL Cardiovascular: Yes: Pulse Irregular, S1, S2 Respiratory: Yes: Rales (DIANA CRACKLES,FEW RHONCHI) Gastrointestinal: Yes: Normal Bowel Sounds, Soft Extremities: Yes: WNL Edema: No Labs: CBC, BMP Problem List - Problems (1) Pneumonia Code(s): J18.9 - PNEUMONIA, UNSPECIFIED ORGANISM (2) Cerebrovascular accident (CVA) Code(s): I63.9 - CEREBRAL INFARCTION, UNSPECIFIED Qualifiers: CVA mechanism: unspecified Qualified Code(s): I63.9 - Cerebral infarction, unspecified (3) Interstitial lung disease Code(s): J84.9 - INTERSTITIAL PULMONARY DISEASE, UNSPECIFIED (4) HTN (hypertension) Code(s): I10 - ESSENTIAL (PRIMARY) HYPERTENSION (5) HLD (hyperlipidemia) Code(s): E78.5 - HYPERLIPIDEMIA, UNSPECIFIED Assessment/Plan A/P Pneumonia likely Aspiration clinically improving Acute CVA Interstitial Lung Disease HTN Hyperlipidemia + Guaiac stools - antibiotics - prednisone - inhaled bronchodilators - O2 to keep SpO2 >90% - aspiration precautions - DVT prophylaxis - w/u as per gi DR SULLIVAN
[2020-04-02] MEDS: ALBUTEROL SO4 2.5/IPRATROPIUM 0.5 INH SOL 3 ML VIAL.NEB. NEB SCH ×3 (07:30→20:35)
[2020-04-02 07:52] LABS: BASO % 0.1 % (0-2.0); HEMATOCRIT 25.1 % (32.4-45.2); HEMOGLOBIN 7.9 GM/dL (10.7-15.3); LYMPH % 17.3 % (8-40); MCH 26.2 pg (25.7-33.7); MCHC 31.4 g/dl (32.0-36.0); MEAN CELL VOLUME 83.4 fl (80-96); MEAN PLT VOLUME 8.9 fl (7.5-11.1); MONO % 3.8 % (3.8-10.2); NEUT % 78.8 % (42.8-82.8); PLATELET COUNT 410 K/MM3 (134-434); RBC 3.01 M/mm3 (3.60-5.2); RDW 18.2 % (11.6-15.6); WHITE BLOOD COUNT 14.8 K/mm3 (4.0-10.0)
[2020-04-02 08:04] LABS: BLOOD UREA NITROGEN 34.8 mg/dL (7-18); CALCIUM 8.2 mg/dL (8.5-10.1); CREATININE 0.8 mg/dL (0.55-1.3); POTASSIUM 4.6 mmol/L (3.5-5.1)
[2020-04-02] MEDS ORDERED: predniSONE 20 MG TABLET (UD) ONE ×3 (09:14→22:31)
[2020-04-02] MEDS ORDERED: HEPARIN - 25,000 UNIT in SODIUM CHLORIDE 495 ML IV SCH (10:00)
[2020-04-02] MEDS: predniSONE 5 MG, predniSONE 20 MG PO SCH ×2 (10:32→22:29)
[2020-04-02] MEDS: METOPROLOL TARTRATE 25 MG TABLET (FP) PO SCH (10:32)
--- NOTE | 2020-04-02 10:56 | PN ---
Progress Note (short form) - Note Progress Note: No gross bleeding noted. Hgb down to 7.[address] Cobos and Dr Borja, both feel she does not need transfusion. Will hold off and repeat CBC at noon.
--- NOTE | 2020-04-02 11:04 | PN ---
Progress Note (short form) - Note Progress Note: Chief Complaint: Denies CP/SOB/palps/dizzy History of Present Illness: Acute CVA with left sided weakness Left carotid stenosis Pericardial effusion PAF Thyroid disorder. Aspiration PNA Social: non smoker Current Medications Generic Name Dose Route Start Last Admin Trade Name Freq PRN Reason Stop Dose Admin Acetaminophen 750 mg 03/28/20 15:00 03/30/20 21:58 Ofirmev Injection - IVPB 750 mg Q6H PRN Administration PAIN LEVEL 1-5 Albuterol Sulfate 1 puff 03/24/20 16:56 03/28/20 22:16 Ventolin Hfa Inhaler - IH 1 puff Q4H PRN Administration SHORTNESS OF BREATH Albuterol/Ipratropium 1 amp 03/27/20 08:59 Duoneb - NEB Q4H PRN SHORTNESS OF BREATH Albuterol/Ipratropium 1 amp 03/27/20 14:00 04/02/20 07:30 Duoneb - NEB 1 amp RTID SHRUTHI Administration Atorvastatin Calcium 40 mg 03/25/20 17:35 04/01/20 21:46 Lipitor - PO 40 mg HS SHRUTHI Administration Docusate Sodium 100 mg 03/24/20 15:09 Colace - PO DAILY PRN CONSTIPATION Guaifenesin 600 mg 03/24/20 16:31 03/26/20 00:36 Mucinex - PO 600 mg Q12H PRN Administration COUGH Guaifenesin 10 ml 03/26/20 01:43 03/30/20 09:54 Robitussin - PO 10 ml Q4H PRN Administration COUGH Piperacillin Sod/Tazobactam 50 mls @ 100 mls/hr 03/30/20 14:00 04/02/20 10:34 Sod 3.375 gm/ Dextrose IVPB 100 mls/hr Q8H-IV SHRUTHI Administration Protocol Pantoprazole Sodium 80 mg/ 100 mls @ 10 mls/hr 04/01/20 17:00 04/02/20 05:09 Sodium Chloride IVPB 04/04/20 16:59 10 mls/hr Q10H SHRUTHI Administration 8 MG/HR Levothyroxine Sodium 100 mcg 04/01/20 18:45 04/02/20 05:14 Synthroid - PO 100 mcg ACBK SHRUTHI Administration Metoprolol Tartrate 12.5 mg 03/31/20 11:30 09/05/20 10:32 Lopressor - PO 12.5 mg DAILY SHRUTHI Administration Prednisone 5 mg/ Prednisone 20 25 mg 04/01/20 22:00 04/02/20 10:32 mg PO 25 mg BID SHRUTHI Administration Vital Signs Period Temp Pulse Resp BP Sys/Solorio Pulse Ox Last 24 Hr 98.1 F-98.8 F 73-86 20-22 105-115/48-76 93-98 Constitutional: Yes: No Distress, Calm Cardiovascular: Yes: Regular Rate and Rhythm Respiratory: Yes: CTA Bilaterally Gastrointestinal: Yes: Soft (nt) Edema: No Neurological: Yes: Alert no jaundice diaphoresis Labs: CBC, BMP 04/02/20 06:32 04/02/20 06:32 - ....Imaging EKG: Image Reviewed tele: sr Assessment/Plan IMP: R sided CVA PAF 70% L carotid stenosis ASP PNA Pericardial effusion HTN HLD Thyroid disorder REC: 1. CVA with PAF noted on tele: -[id number] score elevated, AC is indicated - on eliquis - nl LV function on echo here -ac held due to GIB, hgb drifting down -GI following, family deciding on scopes. No cardiac contraindications to egd/foc. 2. 70% LCC stenosis: -evaluated by vascular - surgical intervention not recommended -Cont statin. Monitor LFTs and CPK 3. Asp PNA: -supp O2 -Abx as per Critical Care 4. Pericardial effusion: mild to moderate, no evidence of tamponade on echo nor clinically -reduced in size on repeat echo 5. HTN: -stable 6. HLD: -goal LDL 70mg d/l. cont statin 7. Hyperthyroid: -TSH low -Holding Synthroid, as per primary team
--- NOTE | 2020-04-02 13:28 | DS ---
Physical Exam: SUBJECTIVE: Patient seen and examined OBJECTIVE: Vital Signs Period Temp Pulse Resp BP Sys/Solorio Pulse Ox Last 24 Hr 98.1 F-98.8 F 73-86 20-22 105-115/48-76 93-98 PHYSICAL EXAM GENERAL: The patient is awake, alert, and fully oriented, in no acute distress. HEAD: Normal with no signs of trauma. EYES: PERRL, extraocular movements intact, sclera anicteric, conjunctiva clear. ENT: Ears normal, nares patent, oropharynx clear without exudates, moist mucous membranes. NECK: Trachea midline, full range of motion, supple. LUNGS: Breath sounds equal, clear to auscultation bilaterally, no wheezes, no crackles, no accessory muscle use. HEART: Regular rate and rhythm, S1, S2 without murmur, rub or gallop. ABDOMEN: Soft, nontender, nondistended, normoactive bowel sounds, no guarding, no rebound, no hepatosplenomegaly, no masses. EXTREMITIES: 2+ pulses, warm, well-perfused, no edema. NEUROLOGICAL: Cranial nerves II through XII grossly intact. Normal speech, gait not observed. PSYCH: Normal mood, normal affect. SKIN: Warm, dry, normal turgor, no rashes or lesions noted. LABS Laboratory Results - last 24 hr 04/01/20 04/02/20 04/02/20 17:10 06:32 06:32 WBC 16.9 H 14.8 H RBC 3.39 L 3.01 L Hgb 8.8 L 7.9 L Hct 28.3 L 25.1 L MCV 83.4 83.4 MCH 26.0 26.2 MCHC 31.2 L 31.4 L RDW 18.6 H 18.2 H Plt Count 461 H 410 MPV 8.9 8.9 Absolute Neuts (auto) 11.7 H Neutrophils % 78.8 Lymphocytes % 17.3 D Monocytes % 3.8 Eosinophils % 0.0 Basophils % 0.1 Nucleated RBC % 0 Sodium 142 Potassium 4.6 Chloride 109 H Carbon Dioxide 28 Anion Gap 5 L BUN 34.8 H Creatinine 0.8 Est GFR (CKD-EPI)AfAm 78.47 Est GFR (CKD-EPI)NonAf 67.70 Random Glucose 138 H Calcium 8.2 L HOSPITAL COURSE: Date of Admission:03/24/20 Date of Discharge: 04/02/20 Minutes to complete discharge: 36 <Ad Silva - Last Filed: 04/02/20 13:27> Physical Exam: SUBJECTIVE: Patient seen and examined OBJECTIVE: Vital Signs Period Temp Pulse Resp BP Sys/Solorio Pulse Ox Last 24 Hr 98.1 F-98.8 F 74-86 20-20 105-115/48-76 93-98 PHYSICAL EXAM GENERAL: The patient is awake, alert, and fully oriented, in no acute distress. HEAD: Normal with no signs of trauma. EYES: PERRL, extraocular movements intact, sclera anicteric, conjunctiva clear. ENT: Ears normal, nares patent, oropharynx clear without exudates, moist mucous membranes. NECK: Trachea midline, full range of motion, supple. LUNGS: Breath sounds equal, clear to auscultation bilaterally, no wheezes, no crackles, no accessory muscle use. HEART: Regular rate and rhythm, S1, S2 without murmur, rub or gallop. ABDOMEN: Soft, nontender, nondistended, normoactive bowel sounds, no guarding, no rebound, no hepatosplenomegaly, no masses. EXTREMITIES: 2+ pulses, warm, well-perfused, no edema. NEUROLOGICAL: Cranial nerves II through XII grossly intact. Normal speech, gait not observed. PSYCH: Normal mood, normal affect. SKIN: Warm, dry, normal turgor, no rashes or lesions noted. LABS Laboratory Results - last 24 hr 04/01/20 04/02/20 04/02/20 17:10 06:32 06:32 WBC 16.9 H 14.8 H RBC 3.39 L 3.01 L Hgb 8.8 L 7.9 L Hct 28.3 L 25.1 L MCV 83.4 83.4 MCH 26.0 26.2 MCHC 31.2 L 31.4 L RDW 18.6 H 18.2 H Plt Count 461 H 410 MPV 8.9 8.9 Absolute Neuts (auto) 11.7 H Neutrophils % 78.8 Lymphocytes % 17.3 D Monocytes % 3.8 Eosinophils % 0.0 Basophils % 0.1 Nucleated RBC % 0 Sodium 142 Potassium 4.6 Chloride 109 H Carbon Dioxide 28 Anion Gap 5 L BUN 34.8 H Creatinine 0.8 Est GFR (CKD-EPI)AfAm 78.47 Est GFR (CKD-EPI)NonAf 67.70 Random Glucose 138 H Calcium 8.2 L HOSPITAL COURSE: Date of Admission:03/24/20 Date of Discharge: 04/02/20 <Estefany Almazan - Last Filed: 04/02/20 14:55> Discharge Summary Problems reviewed: Yes Current Active Problems Anemia (Acute) Cerebrovascular accident (CVA) (Acute) HLD (hyperlipidemia) (Acute) HTN (hypertension) (Acute) Interstitial lung disease (Acute) Left carotid artery stenosis (Acute) Pneumonia (Acute) - Home Medications Comprehensive Discharge Medication List: Ambulatory Orders Levothyroxine [Synthroid -] 100 mcg PO DAILY 05/07/14 Simvastatin [Zocor -] 40 mg PO HS 05/07/14 Esomeprazole Mag Trihydrate [Nexium] 40 mg PO DAILY 08/01/15 Albuterol 2.5/Ipratropium 0.5 [Duoneb -] 1 neb IH TID PRN 03/25/20 Ibandronate Sodium 150 mg PO MONTHLY 03/25/20 Mirabegron [Myrbetriq] 50 mg PO DAILY 03/25/20 Olmesartan/Hydrochlorothiazide [Olmesartan-Hctz 40-12.5 mg Tab] 1 tablet PO DAILY 03/25/20 Umeclidinium Brm/Vilanterol Tr [Anoro Ellipta 62.5-25 Mcg INH] 1 puff IH DAILY 03/25/20 Aspirin [Ecotrin] 81 mg PO DAILY #30 tablet. 03/30/20 Atorvastatin Ca [Lipitor] 40 mg PO HS #30 tablet 03/30/20 Amoxicillin/Potassium Clav [Augmentin 875-125 Tablet] 1 each PO BID #10 tablet 04/01/20 Prednisone See Taper PO DAILY #54 tablet 04/01/20 <Ad Silva - Last Filed: 04/02/20 13:27> Current Active Problems Anemia (Acute) Cerebrovascular accident (CVA) (Acute) HLD (hyperlipidemia) (Acute) HTN (hypertension) (Acute) Interstitial lung disease (Acute) Left carotid artery stenosis (Acute) Pneumonia (Acute) - Home Medications Comprehensive Discharge Medication List: Ambulatory Orders Levothyroxine [Synthroid -] 100 mcg PO DAILY 05/07/14 Simvastatin [Zocor -] 40 mg PO HS 05/07/14 Esomeprazole Mag Trihydrate [Nexium] 40 mg PO DAILY 08/01/15 Albuterol 2.5/Ipratropium 0.5 [Duoneb -] 1 neb IH TID PRN 03/25/20 Ibandronate Sodium 150 mg PO MONTHLY 03/25/20 Mirabegron [Myrbetriq] 50 mg PO DAILY 03/25/20 Olmesartan/Hydrochlorothiazide [Olmesartan-Hctz 40-12.5 mg Tab] 1 tablet PO DAILY 03/25/20 Umeclidinium Brm/Vilanterol Tr [Anoro Ellipta 62.5-25 Mcg INH] 1 puff IH DAILY 03/25/20 Aspirin [Ecotrin] 81 mg PO DAILY #30 tablet. 03/30/20 Atorvastatin Ca [Lipitor] 40 mg PO HS #30 tablet 03/30/20 Amoxicillin/Potassium Clav [Augmentin 875-125 Tablet] 1 each PO BID #10 tablet 04/01/20 Prednisone See Taper PO DAILY #54 tablet 04/01/20 <Estefany Almazan - Last Filed: 04/02/20 14:55> Reason For Visit: CVA Condition: Stable - Instructions Diet, Activity, Other Instructions: Your visit: You were admitted to the hospital for a stroke. You had imaging done in your brain and neck, which confirmed your stroke. We also did imaging of your heart, and found some fluid surrounding it. It improved during your hospital course. We also evaluated your impaired swallowing, which had since improved. Due to your impaired swallowing, you developed a pneumonia, which we treated with antibiotics. We treated you with inhalers to improve your cough. You were also treated with medication to thin your blood and you were given physical therapy with improvement of your symptoms. You were also retaining urine in your bladder and we inserted a catheter to alleviate this. Your catheter will be monitored at the rehabilitation center. Medications changes: -You were started on steroids while you were her and need to continue taking these for 12 more days. The dosing is as follows: Day #1 04/02 you will take 8 pills of 5 mg tablets. Total dose is 40 mg. Day #2 04/03 you will take 7 pills of 5 mg tablets. Total dose is 35 mg. Day #3 04/04 you will take 6 pills of 5 mg tablets. Total dose is 30 mg. Day #4 04/05 you will take 6 pills of 5mg tablets. Total dose is 30 mg. Day #5 / you will take 5 pills of 5 mg tablets. Total dose is 25 mg. Day #6 / you will take 5 pills of 5 mg tablets. Total dose is 25 mg. Day #7 04/06 you will take 4 pills of 5 mg tablets. Total dose is 20 mg. Day #8 04/07 you will take 4 pills of 5 mg tablets. Total dose is 20 mg. Day #9 04/08 you will take 3 pills of 5 mg tablets. Total dose is 15 mg. Day #10 04/09 you will take 3 pills of 5 mg tablets. Total dose is 15 mg. Day #11 04/10 you will take 2 pills of 5 mg tablets. Total dose is 10 mg. Day #12 04/11 you will take 1 pills of 5 mg tablets. Total dose is 5 mg. -Continue to take the antibiotic Augmentin 875/125mg 2 times per day by mouth for the next 5 days. -Continue to take your eliquis 2.5mg two times per day. -Continue to take Lipitor (Atorvastatin) 40mg once daily at bedtime. -Continue to take daily aspirin 81mg. -Continue to take all other home medications as prescribed. Follow up: - Please follow-up with your neurologist, Dr. Dia, in 1 week. - Please follow up with your business controller Dr. Borja in 1 week. - Please follow up with your proj mgr Dr. Rivas in 2 weeks. He will continue to follow the fluid that was found surrounding your heart. - Visit with your Primary Care Provider Dr. Dunn, in 2 weeks. Follow up with your primary care doctor to evaluate the narrowing in your carotid artery due to plaques. You will need to get yearly ultrasounds to monitor it. Additional Instructions: -You are being discharged to [facility] to regain your strength. -While you are regaining your strength, please be cautious while eating as your swallowing has been impaired. You have done well with swallowing soft foods. Make sure to thoroughly chew your food well so as to avoid choking. -Please return to the Emergency Department if you experience worsening pain, fevers, chills, shortness of breath, or chest pain, or if you experience any worsening, new or concerning symptoms. Referrals: Chris Borja MD [Staff Physician] - 1 Week Teto Dunn MD [Primary Care Provider] - 2 Weeks Hardy Rivas MD [Staff Physician] - 2 Weeks Lavelle Dia MD [Staff Physician] - 1 Week Disposition: ALF FACILITY - Discharge Referral Referred to [facility] Med P.C.: No <Ad Silva - Last Filed: 04/02/20 13:27> This patient is new to me today: Yes Date on this admission: 04/02/20 Emergency Visit: Yes ED Registration Date: 03/24/20 Care time: The patient presented to the Emergency Department on the above date and was hospitalized for further evaluation of their emergent condition. Critical Care patient: No - Discharge Referral Referred to [facility] Med P.C.: No <Estefany Almazan - Last Filed: 04/02/20 14:55> ATTENDING PHYSICIAN STATEMENT I saw and evaluated the patient. I reviewed the resident's note and discussed the case with the resident. I agree with the resident's findings and plan as documented. SUBJECTIVE: OBJECTIVE: ASSESSMENT AND PLAN: <Ad Silva - Last Filed: 04/02/20 13:27> ATTENDING PHYSICIAN STATEMENT I saw and evaluated the patient. I reviewed the resident's note and discussed the case with the resident. I agree with the resident's findings and plan as documented. SUBJECTIVE: OBJECTIVE: ASSESSMENT AND PLAN: <Estefany Almazan - Last Filed: 04/02/20 14:55>
--- NOTE | 2020-04-02 15:37 | DS ---
Physical Exam: SUBJECTIVE: Patient seen and examined at bedside. No acute events overnight. OBJECTIVE: Vital Signs Period Temp Pulse Resp BP Sys/Solorio Pulse Ox Last 24 Hr 98.1 F-98.8 F 74-86 20-20 105-115/48-76 93-98 PHYSICAL EXAM GENERAL: arousable. Not in acute distress. HEENT: NCAT, EOMI, moist mucus membranes LUNGS: Scattered rhonchi on lower lung osei HEART: Regular rate and rhythm, S1, S2 present. + Systolic murmur present on L upper sternal border. ABDOMEN: Soft, non-distended, non-tender to palpation. Bowel sounds present in all 4 quadrants. EXTREMITIES: warm, well-perfused. No edema. NEUROLOGICAL: Sensation intact. Strength 5/5 on R upper extremities, 1/5 on L upper extremity. 5/5 on R lower extremity, 1/5 on L lower extremity. SKIN: Warm, dry LABS Laboratory Results - last 24 hr CBC, BMP 04/02/20 06:32 04/02/20 06:32 04/01/20 04/02/20 04/02/20 17:10 06:32 06:32 WBC 16.9 H 14.8 H RBC 3.39 L 3.01 L Hgb 8.8 L 7.9 L Hct 28.3 L 25.1 L MCV 83.4 83.4 MCH 26.0 26.2 MCHC 31.2 L 31.4 L RDW 18.6 H 18.2 H Plt Count 461 H 410 MPV 8.9 8.9 Absolute Neuts (auto) 11.7 H Neutrophils % 78.8 Lymphocytes % 17.3 D Monocytes % 3.8 Eosinophils % 0.0 Basophils % 0.1 Nucleated RBC % 0 Sodium 142 Potassium 4.6 Chloride 109 H Carbon Dioxide 28 Anion Gap 5 L BUN 34.8 H Creatinine 0.8 Est GFR (CKD-EPI)AfAm 78.47 Est GFR (CKD-EPI)NonAf 67.70 Random Glucose 138 H Calcium 8.2 L HOSPITAL COURSE: 84 year old F with PMH degenerative joint disease, HLD, HTN, hypothyroidism, lung disease(?), who presented with L side weakness and facial droop. Given her history, physical exam, images and significant lab findings, pt likely has CVA. Admitted to telemetry for further management and evaluation. Patient had an Acute ischemic stroke likely due to Afib with a NIHSS 9 on admission. Patient received ASA 81 qD, atorvastatin 40 qD during her stay. Neuro was consulted and they Recommended monitor blood pressure, maintain less than 160/90, continue ASA 81mg. PT as tolerated, likely needs rehabilitation. Aspiration and fall precautions were in place. Patient was initially NPO but then was started on a t rial of puree/nectar thick liquids as per [employer] Cardio was consulted. They recommended C/w Eliquis 2.5 BID. C/w ASA and statins. Patient had Leukocytosis during her stay most likely due to aspiration pneumonia. ID was consulted and they recommonded zosyn and rocephin. Pulm was consulted: Recommended continue antibiotics, inhaled bronchodilators. Start prednisone (50mg equivalent to 40 mg solu-medrol) and supplemental O2 to keep SpO2 >90% Patient also had melena during her stay GI was consulted. Recommended protonix 80mg bolus followed by 8mg/hr infusion. If continued melena, would make NPO except meds Patient had a small Pericardial effusion during her stay which was categorized as mild to mod erate, no evidence of tamponade on echo nor clinically. Patient was started on Metoprolol 12.5 mg PO during her stay for her HTN. Patient was also found to have 70% of her L common carotid stenosed and cardiology and vascular were both consulted. Cardio recommended: Cont ASA and statin. Monitor LFTS and CPK. Vascular surgery recommended No indication for surgical intervention at this time as pt is asymptomatic and unless stenosis is progressive and >80% in a good-risk pt. Recommended f/u carotid duplex yearly to determine if lesion is worsening. Date of Admission:03/24/20 03/24/2020- normal sinus rhythm, cannot rule out anterior infarct 03/24/2020- Head CT- Moderate atrophy and moderate to marked periventricular chronic microvascular ischemic disease changes. Right basal ganglia acute/sub acute infarct that may be extending to the right periventricular white matter. No gross intracranial hemorrhage is identified. 03/24/2020- Head CTA-. Prominent calcified plaques at the left common carotid bifurcation with hemodynamically significant stenosis of approximately 70%, NASCET criteria Tiny plaques at the right common carotid bifurcation without evidence of hemodynamically significant stenosis. Hypoplastic right vertebral artery relative to the left without evidence of stenosis or dissection. Intracranially, there is faint enhancement of the right A1 segment likely a hypoplastic segment with normal enhancement of the right A2 segment. Otherwise, no gross aneurysm, focal hemodynamically significant stenosis or major artery cutoff is seen within the central intracranial arterial circulation. 03/24/2020-Neck CTA-See discussion above. Prominent calcified plaques at the left common carotid bifurcation with hemodynamically significant stenosis of approximately 70%, NASCET criteria Tiny plaques at the right common carotid bifurcation without evidence of hemodynamically significant stenosis. Hypoplastic right vertebral artery relative to the left without evidence of stenosis or dissection. Intracranially, there is faint enhancement of the right A1 segment likely a hypoplastic segment with normal enhancement of the right A2 segment. Otherwise, no gross aneurysm, focal hemodynamically significant stenosis or major artery cutoff is seen within the central intracranial arterial circulation. 03/24/20200130-ICU-[id number]: Calcified breast prostheses. Large heart. Tracheal deviation to the right from a prominent knob. Interstitial lung changes compatible with known chronic lung disease and possible superimposed early infiltrates on the right. Correlation recommended 03/24/2020-C Spine CT-The alignment is satisfactory. No gross fracture or subluxation is seen. Multilevel degenerative disc disease with anterior spondylosis as well as mild disc osteophyte complex and bilateral uncovertebral hypertrophy, as described above. Large dense calcified plaques at the left common carotid bifurcation. Correlation with carotid Doppler ultrasound would be helpful for further evaluation. Moderately severe COPD changes interstitial thickening, likely chronic seen in the included upper chest 03/25/2020-CXR-A single view of the chest has been submitted. Since the prior study of 03/24/2020 at 1015 hours, again noted are the bilateral calcified breast prostheses, large heart, unfolded aorta and prominent superior mediastinum. Again are the increased interstitial markings compatible with the patient's known chronic lung disease. In addition there may be an early infiltrate or some atelectasis at the right base. Follow-up recommended. 03/26/2020-Carotid Doppler-Significant calcified plaque in the left carotid arterial system is noted. Recommend MRA. Sonographically no definitive evidence of high-grade stenosis but MRA should be performed for confirmation. 03/28/2020-echocardiogram- small pericardial effusion <1 cm 03/28/2020- CR Swallow Eval-IMPRESSION: Reduced mastication efficiency. Risk of aspiration on thin liquids, with with penetration but no aspiration. 03/28/2020- Barium Swallow-Fluoroscopy was provided by the radiology department , Dr Tomas for a modified barium swallow. Results of the examination would be dictated separately by the speech pathologist Fluoroscopy time is 1.4 minutes 03/30/2020-Impression: Slight increase in right base infiltrative findings with chronic lung changes as well. 04/01/2020- CXR-Impression : Slight improvement since prior study. Better aeration right base. See discussion above. Date of Discharge: 04/02/20 Minutes to complete discharge: 36 Discharge Summary Problems reviewed: Yes Reason For Visit: CVA Current Active Problems Anemia (Acute) Cerebrovascular accident (CVA) (Acute) HLD (hyperlipidemia) (Acute) HTN (hypertension) (Acute) Interstitial lung disease (Acute) Left carotid artery stenosis (Acute) Pneumonia (Acute) Condition: Stable - Instructions Diet, Activity, Other Instructions: Your visit: You were admitted to the hospital for a stroke. You had imaging done in your brain and neck, which confirmed your stroke. We also did imaging of your heart, and found some fluid surrounding it. It improved during your hospital course. We also evaluated your impaired swallowing, which had since improved. Due to your impaired swallowing, you developed a pneumonia, which we treated with antibiotics. We treated you with inhalers to improve your cough. You were also treated with medication to thin your blood and you were given physical therapy with improvement of your symptoms. You were also retaining urine in your bladder and we inserted a catheter to alleviate this. Your catheter will be monitored at the rehabilitation center. Medications changes: -You were started on steroids while you were her and need to continue taking these for 12 more days. The dosing is as follows: Day #1 04/02 you will take 8 pills of 5 mg tablets. Total dose is 40 mg. Day #2 04/03 you will take 7 pills of 5 mg tablets. Total dose is 35 mg. Day #3 04/04 you will take 6 pills of 5 mg tablets. Total dose is 30 mg. Day #4 04/05 you will take 6 pills of 5mg tablets. Total dose is 30 mg. Day #5 04/04 you will take 5 pills of 5 mg tablets. Total dose is 25 mg. Day #6 04/05 you will take 5 pills of 5 mg tablets. Total dose is 25 mg. Day #7 04/06 you will take 4 pills of 5 mg tablets. Total dose is 20 mg. Day #8 04/07 you will take 4 pills of 5 mg tablets. Total dose is 20 mg. Day #9 04/08 you will take 3 pills of 5 mg tablets. Total dose is 15 mg. Day #10 04/09 you will take 3 pills of 5 mg tablets. Total dose is 15 mg. Day #11 04/10 you will take 2 pills of 5 mg tablets. Total dose is 10 mg. Day #12 04/11 you will take 1 pills of 5 mg tablets. Total dose is 5 mg. -Continue to take the antibiotic Augmentin 875/125mg 2 times per day by mouth for the next 5 days. -Continue to take your eliquis 2.5mg two times per day. -Continue to take Lipitor (Atorvastatin) 40mg once daily at bedtime. -Continue to take daily aspirin 81mg. -Continue to take all other home medications as prescribed. Follow up: - Please follow-up with your neurologist, Dr. Dia, in 1 week. - Please follow up with your van owner operator Dr. Borja in 1 week. - Please follow up with your clam shucking machine tender Dr. Rivas in 2 weeks. He will continue to follow the fluid that was found surrounding your heart. - Visit with your Primary Care Provider Dr. Dunn, in 2 weeks. Follow up with your primary care doctor to evaluate the narrowing in your carotid artery due to plaques. You will need to get yearly ultrasounds to monitor it. Additional Instructions: -You are being discharged to [facility] to regain your strength. -While you are regaining your strength, please be cautious while eating as your swallowing has been impaired. You have done well with swallowing soft foods. Make sure to thoroughly chew your food well so as to avoid choking. -Please return to the Emergency Department if you experience worsening pain, fevers, chills, shortness of breath, or chest pain, or if you experience any worsening, new or concerning symptoms. Referrals: Chris Borja MD [Staff Physician] - 1 Week Teto Dunn MD [Primary Care Provider] - 2 Weeks Hardy Rivas MD [Staff Physician] - 2 Weeks Lavelle Dia MD [Staff Physician] - 1 Week Disposition: NURSING HOME FACILITY - Home Medications Comprehensive Discharge Medication List: Ambulatory Orders Levothyroxine [Synthroid -] 100 mcg PO DAILY 05/07/14 Simvastatin [Zocor -] 40 mg PO HS 05/07/14 Esomeprazole Mag Trihydrate [Nexium] 40 mg PO DAILY 08/01/15 Albuterol 2.5/Ipratropium 0.5 [Duoneb -] 1 neb IH TID PRN 03/25/20 Ibandronate Sodium 150 mg PO MONTHLY 03/25/20 Mirabegron [Myrbetriq] 50 mg PO DAILY 03/25/20 Olmesartan/Hydrochlorothiazide [Olmesartan-Hctz 40-12.5 mg Tab] 1 tablet PO DAILY 03/25/20 Umeclidinium Brm/Vilanterol Tr [Anoro Ellipta 62.5-25 Mcg INH] 1 puff IH DAILY 03/25/20 Aspirin [Ecotrin] 81 mg PO DAILY #30 tablet. 03/30/20 Atorvastatin Ca [Lipitor] 40 mg PO HS #30 tablet 03/30/20 Amoxicillin/Potassium Clav [Augmentin 875-125 Tablet] 1 each PO BID #10 tablet 04/01/20 Prednisone See Taper PO DAILY #54 tablet 04/01/20 This patient is new to me today: Yes Date on this admission: 04/02/20 Emergency Visit: No Critical Care patient: No - Discharge Referral Referred to [facility] Med [facility].C[facility] No ATTENDING PHYSICIAN STATEMENT I saw and evaluated the patient. I reviewed the resident's note and discussed the case with the resident. I agree with the resident's findings and plan as documented. SUBJECTIVE: OBJECTIVE: ASSESSMENT AND PLAN:
[2020-04-02 15:51] LABS: HEMOGLOBIN 8.7 GM/dL (10.7-15.3); MCH 25.8 pg (25.7-33.7); MCHC 31.1 g/dl (32.0-36.0); MEAN CELL VOLUME 82.8 fl (80-96); MEAN PLT VOLUME 8.6 fl (7.5-11.1); PLATELET COUNT 465 K/MM3 (134-434); RBC 3.38 M/mm3 (3.60-5.2); RDW 18.5 % (11.6-15.6)
[2020-04-02] MEDS ORDERED: ACETAMINOPHEN 500 MG TABLET (FP) PO PRN (20:56)
[2020-04-02] MEDS: ATORVASTATIN CA 80 MG TABLET (FP) PO SCH (22:30)
[2020-04-03] MEDS ORDERED: DEXTROSE 5%-WATER - 50 ML IVPB ONE ×3 (00:55→18:45)
[2020-04-03] MEDS ORDERED: PIPERACILLIN/TAZOBACTAM 3.375 GM VIAL IVPB ONE ×3 (00:55→18:44)
[2020-04-03] MEDS: PIPERACILLIN/TAZOB 3.375 GM 3.375 GM in DEXTROSE 5%-WATER - 50 ML IVPB SCH ×3 (02:55→18:52)
[2020-04-03] MEDS: PANTOPRAZOLE SODIUM 80 MG in SODIUM CHLORIDE 100 ML IVPB SCH ×3 (05:44→18:52)
[2020-04-03] MEDS: LEVOTHYROXINE NA 100 MCG TABLET (FP) PO SCH ×2 (05:44→06:58)
[2020-04-03] MEDS: ALBUTEROL SO4 2.5/IPRATROPIUM 0.5 INH SOL 3 ML VIAL.NEB. NEB SCH ×3 (07:30→20:00)
[2020-04-03] MEDS ORDERED: predniSONE 20 MG TABLET (UD) ONE ×2 (08:56→21:22)
[2020-04-03] MEDS: predniSONE 5 MG, predniSONE 20 MG PO SCH ×2 (09:39→21:51)
[2020-04-03] MEDS: METOPROLOL TARTRATE 25 MG TABLET (FP) PO SCH (09:39)
--- NOTE | 2020-04-03 10:46 | PN ---
Progress Note (short form) - Note Progress Note: Chief Complaint: Denies CP/SOB/palps/dizzy History of Present Illness: Acute CVA with left sided weakness Left carotid stenosis Pericardial effusion PAF Thyroid disorder. Aspiration PNA Social: non smoker Current Medications Generic Name Dose Route Start Last Admin Trade Name Freq PRN Reason Stop Dose Admin Acetaminophen 750 mg 04/02/20 20:56 04/02/20 22:33 Tylenol - PO 750 mg Q6H PRN Administration PAIN LEVEL 1-5 Albuterol Sulfate 1 puff 03/24/20 16:56 03/28/20 22:16 Ventolin Hfa Inhaler - IH 1 puff Q4H PRN Administration SHORTNESS OF BREATH Albuterol/Ipratropium 1 amp 03/27/20 08:59 Duoneb - NEB Q4H PRN SHORTNESS OF BREATH Albuterol/Ipratropium 1 amp 03/27/20 14:00 04/03/20 07:30 Duoneb - NEB 1 amp RTID SHRUTHI Administration Atorvastatin Calcium 40 mg 03/25/20 17:35 04/02/20 22:30 Lipitor - PO 40 mg HS SHRUTHI Administration Docusate Sodium 100 mg 03/24/20 15:09 Colace - PO DAILY PRN CONSTIPATION Guaifenesin 600 mg 03/24/20 16:31 03/26/20 00:36 Mucinex - PO 600 mg Q12H PRN Administration COUGH Guaifenesin 10 ml 03/26/20 01:43 03/30/20 09:54 Robitussin - PO 10 ml Q4H PRN Administration COUGH Piperacillin Sod/Tazobactam 50 mls @ 100 mls/hr 03/30/20 14:00 04/03/20 09:39 Sod 3.375 gm/ Dextrose IVPB 100 mls/hr Q8H-IV SHRUTHI Administration Protocol Pantoprazole Sodium 80 mg/ 100 mls @ 10 mls/hr 04/01/20 17:00 04/03/20 09:40 Sodium Chloride IVPB 04/04/20 16:59 10 mls/hr Q10H SHRUTHI Administration 8 MG/HR Levothyroxine Sodium 100 mcg 04/01/20 18:45 04/03/20 06:58 Synthroid - PO Not Given ACBK SHRUTHI Metoprolol Tartrate 12.5 mg 03/31/20 11:30 04/03/20 09:39 Lopressor - PO 12.5 mg DAILY SHRUTHI Administration Prednisone 5 mg/ Prednisone 20 25 mg 04/01/20 22:00 04/03/20 09:39 mg PO 25 mg BID SHRUTHI Administration Vital Signs Period Temp Pulse Resp BP Sys/Solorio Pulse Ox Last 24 Hr 97.8 F-98.3 F 61-93 20-20 112-128/51-69 94-98 Constitutional: Yes: No Distress, Calm Cardiovascular: Yes: Regular Rate and Rhythm Respiratory: Yes: CTA Bilaterally Gastrointestinal: Yes: Soft (nt) Edema: No Neurological: Yes: Alert no jaundice diaphoresis Labs: CBC, BMP 04/02/20 15:32 04/02/20 06:32 - ....Imaging EKG: Image Reviewed tele: sr Assessment/Plan IMP: R sided CVA PAF 70% L carotid stenosis ASP PNA Pericardial effusion HTN HLD Thyroid disorder REC: 1. CVA with PAF noted on tele: -[id number] score elevated, AC is indicated - on eliquis - nl LV function on echo here -ac held due to GIB, hgb drifting down -GI following, on ppi gtt, family deciding on scopes. No cardiac contraindications to egd/foc. 2. 70% LCC stenosis: -evaluated by vascular - surgical intervention not recommended -Cont statin. Monitor LFTs and CPK 3. Asp PNA: -supp O2 -Abx as per Critical Care 4. Pericardial effusion: mild to moderate, no evidence of tamponade on echo nor clinically -reduced in size on repeat echo 5. HTN: -stable 6. HLD: -goal LDL 70mg d/l. cont statin 7. Hyperthyroid: -TSH low -Holding Synthroid, as per primary team
--- NOTE | 2020-04-03 13:07 | PN ---
Physical Exam: SUBJECTIVE: Patient seen and examined No change from yesterday comfortable alert awake afebrile. OBJECTIVE: Vital Signs Period Temp Pulse Resp BP Sys/Solorio Pulse Ox Last 24 Hr 97.8 F-98.3 F 61-93 20-22 112-140/51-69 94-98 GENERAL: arousable. Not in acute distress. HEENT: NCAT, EOMI, moist mucus membranes LUNGS: Scattered rhonchi on lower lung osei HEART: Regular rate and rhythm, S1, S2 present. + Systolic murmur present on L upper sternal border. ABDOMEN: Soft, non-distended, non-tender to palpation. Bowel sounds present in all 4 quadrants. EXTREMITIES: warm, well-perfused. No edema. NEUROLOGICAL: Sensation intact. Strength 5/5 on R upper extremities, 1/5 on L upper extremity. 5/5 on R lower extremity, 1/5 on L lower extremity. SKIN: Warm, dry Laboratory Results - last 24 hr 04/02/20 15:32 WBC 18.0 H RBC 3.38 L Hgb 8.7 L Hct 28.0 L MCV 82.8 MCH 25.8 MCHC 31.1 L RDW 18.5 H Plt Count 465 H MPV 8.6 Active Medications Generic Name Dose Route Start Last Admin Trade Name Freq PRN Reason Stop Dose Admin Acetaminophen 750 mg 04/02/20 20:56 04/02/20 22:33 Tylenol - PO 750 mg Q6H PRN Administration PAIN LEVEL 1-5 Albuterol Sulfate 1 puff 03/24/20 16:56 03/28/20 22:16 Ventolin Hfa Inhaler - IH 1 puff Q4H PRN Administration SHORTNESS OF BREATH Albuterol/Ipratropium 1 amp 03/27/20 08:59 Duoneb - NEB Q4H PRN SHORTNESS OF BREATH Albuterol/Ipratropium 1 amp 03/27/20 14:00 04/03/20 07:30 Duoneb - NEB 1 amp RTID SHRUTHI Administration Atorvastatin Calcium 40 mg 03/25/20 17:35 04/02/20 22:30 Lipitor - PO 40 mg HS SHRUTHI Administration Docusate Sodium 100 mg 03/24/20 15:09 Colace - PO DAILY PRN CONSTIPATION Guaifenesin 600 mg 03/24/20 16:31 03/26/20 00:36 Mucinex - PO 600 mg Q12H PRN Administration COUGH Guaifenesin 10 ml 03/26/20 01:43 03/30/20 09:54 Robitussin - PO 10 ml Q4H PRN Administration COUGH Piperacillin Sod/Tazobactam 50 mls @ 100 mls/hr 03/30/20 14:00 04/03/20 09:39 Sod 3.375 gm/ Dextrose IVPB 100 mls/hr Q8H-IV SHRUTHI Administration Protocol Pantoprazole Sodium 80 mg/ 100 mls @ 10 mls/hr 04/01/20 17:00 04/03/20 09:40 Sodium Chloride IVPB 04/04/20 16:59 10 mls/hr Q10H SHRUTHI Administration 8 MG/HR Levothyroxine Sodium 100 mcg 04/01/20 18:45 04/03/20 06:58 Synthroid - PO Not Given ACBK SHRUTHI Metoprolol Tartrate 12.5 mg 03/31/20 11:30 04/03/20 09:39 Lopressor - PO 12.5 mg DAILY SHRUTHI Administration Prednisone 5 mg/ Prednisone 20 25 mg 04/01/20 22:00 04/03/20 09:39 mg PO 25 mg BID SHRUTHI Administration ASSESSMENT/PLAN: 84 year old F with PMH degenerative joint disease, HLD, HTN, hypothyroidism, lung disease(?), who presented with L side weakness and facial droop. She also had aspiration pneumonia. She is improved now she is need to go for rehabilitation which she living today discharge summary has been ordered and done yesterday medication reconciliation has been done. Will discontinue Witt catheter today before she discharged Visit type - Emergency Visit Emergency Visit: Yes ED Registration Date: 03/24/20 Care time: The patient presented to the Emergency Department on the above date and was hospitalized for further evaluation of their emergent condition. - New Patient This patient is new to me today: No - Critical Care Critical Care patient: No - Discharge Referral Referred to [facility] No - Medication Review Med list reviewed for High Risk Meds patients 65 and older: Yes
[2020-04-03] MEDS ORDERED: PT OWN MED DRAWER 7, Y5N ONE (18:57)
[2020-04-03] MEDS: ATORVASTATIN CA 80 MG TABLET (FP) PO SCH (21:51)
[2020-04-03] MEDS: guaiFENesin 200 MG/10 ML 10 ML UNIT-DOSE CUPS PO PRN (21:52)
[2020-04-04] MEDS ORDERED: PIPERACILLIN/TAZOBACTAM 3.375 GM VIAL IVPB ONE ×2 (02:59→08:36)
[2020-04-04] MEDS ORDERED: DEXTROSE 5%-WATER - 50 ML IVPB ONE ×2 (02:59→08:36)
[2020-04-04] MEDS: PIPERACILLIN/TAZOB 3.375 GM 3.375 GM in DEXTROSE 5%-WATER - 50 ML IVPB SCH ×2 (03:15→09:46)
[2020-04-04] MEDS: PANTOPRAZOLE SODIUM 80 MG in SODIUM CHLORIDE 100 ML IVPB SCH ×2 (06:26→17:50)
[2020-04-04] MEDS: LEVOTHYROXINE NA 100 MCG TABLET (FP) PO SCH (06:26)
[2020-04-04] MEDS: ALBUTEROL SO4 2.5/IPRATROPIUM 0.5 INH SOL 3 ML VIAL.NEB. NEB SCH ×3 (07:30→20:00)
[2020-04-04] MEDS ORDERED: predniSONE 20 MG TABLET (UD) ONE ×2 (08:36→21:46)
[2020-04-04] MEDS: predniSONE 5 MG, predniSONE 20 MG PO SCH ×2 (09:45→21:52)
[2020-04-04] MEDS: METOPROLOL TARTRATE 25 MG TABLET (FP) PO SCH (09:46)
--- NOTE | 2020-04-04 10:25 | PN ---
Physical Exam: SUBJECTIVE: Patient seen and examined. No acute events overnight. Pt stated that cough is considerably less compared to when she first arrived. Pt was supposed to be discharged yesterday, however [facility] received call from daughter, who declined to have pt transferred to [facility]. Stated that she wanted to bring pt home. OBJECTIVE: Vital Signs Period Temp Pulse Resp BP Sys/Solorio Pulse Ox Last 24 Hr 97.8 F-98.4 F 80-99 20-20 113-138/52-72 94-95 GENERAL: Awake and alert. Not in acute distress. HEENT: NCAT, EOMI, moist mucus membranes LUNGS: Scattered rhonchi present. HEART: Regular rate and rhythm, S1, S2 present. + Systolic murmur present on L upper sternal border. ABDOMEN: Soft, non-distended, non-tender to palpation. Bowel sounds present in all 4 quadrants. EXTREMITIES: warm, well-perfused. No edema. NEUROLOGICAL: Sensation intact. Strength 5/5 on R upper extremities, 1/5 on L upper extremity. 5/5 on R lower extremity, 1/5 on L lower extremity. SKIN: Warm, dry CBC, BMP 04/02/20 15:32 04/02/20 06:32 Active Medications Acetaminophen (Tylenol -) 750 mg PO Q6H PRN PRN Reason: PAIN LEVEL 1-5 Last Admin: 04/02/20 22:33 Dose: 750 mg Documented by: Albuterol Sulfate (Ventolin Hfa Inhaler -) 1 puff IH Q4H PRN PRN Reason: SHORTNESS OF BREATH Last Admin: 03/28/20 22:16 Dose: 1 puff Documented by: Albuterol/Ipratropium (Duoneb -) 1 amp NEB Q4H PRN PRN Reason: SHORTNESS OF BREATH Albuterol/Ipratropium (Duoneb -) 1 amp NEB RTID [facility] Last Admin: 04/04/20 13:39 Dose: 1 amp Documented by: Amoxicillin/Clavulanate Potassium (Augmentin - 875mg Tablet) 1 tab PO BID@0800,1730 [facility] Last Admin: 04/04/20 17:36 Dose: 1 tab Documented by: Atorvastatin Calcium (Lipitor -) 40 mg PO HS [facility] Last Admin: 04/03/20 21:51 Dose: 40 mg Documented by: Docusate Sodium (Colace -) 100 mg PO DAILY PRN PRN Reason: CONSTIPATION Guaifenesin (Mucinex -) 600 mg PO Q12H PRN PRN Reason: COUGH Last Admin: 03/26/20 00:36 Dose: 600 mg Documented by: Guaifenesin (Robitussin -) 10 ml PO Q4H PRN PRN Reason: COUGH Last Admin: 04/03/20 21:52 Dose: 10 ml Documented by: Levothyroxine Sodium (Synthroid -) 100 mcg PO ACBK [facility] Last Admin: 04/04/20 06:26 Dose: 100 mcg Documented by: Metoprolol Tartrate (Lopressor -) 12.5 mg PO DAILY [facility] Last Admin: 04/04/20 09:46 Dose: 12.5 mg Documented by: Pantoprazole Sodium (Protonix -) 40 mg PO BID [facility] Prednisone 5 mg/ Prednisone 20 (mg) 25 mg PO BID [facility] Last Admin: 04/04/20 09:45 Dose: 25 mg Documented by: ASSESSMENT/PLAN: 84 year old F with PMH degenerative joint disease, HLD, HTN, hypothyroidism, probable interstitial lung disease, who presented with L side weakness and facial droop. Given her history, physical exam, images and significant lab findings, pt admitted for CVA. Pending home oxygen delivery and discharge home. Acute ischemic stroke likely due to Afib - NIHSS 9 on admission. - Aspiration and fall precautions in place - c/w bowel regimen for regular bowel movement to prevent increased ICP - Cardio consult. C/w ASA and statins. Monitor H/H. AC held due to GIB. Leukocytosis - RLL infiltrates likely due to aspiration PNA vs. CAP - Afebrile - D/c Zosyn, start Augmentin BID. - ID consulted. - Consider PEG if continue to aspirate Melena - GI consulted. H/H stable. No gross bleeding noted. - Monitor H/H. D/c protonix drip. Start PO protonix 40mg BID. Urinary retention - Will need d/c john upon discharge. Pericardial effusion -mild to moderate, no evidence of tamponade on echo nor clinically HTN - Monitor hemodynamics - c/w metoprolol 12.5 mg PO HLD -C/w atorvastatin 40 qD. 70% L Common Carotid stenosis - Vascular surgery consult: No indication for surgical intervention at this time as pt is asymptomatic and unless stenosis is progressive and >80% in a good-risk pt. Recommended f/u carotid duplex yearly to determine if lesion is worsening. Pulmonary infiltrates, likely secondary to Aspiration PNA - Pulm consult: Recommended continue antibiotics, inhaled bronchodilators, prednisone. - supplemental O2 to keep SpO2 >90% - aspiration precautions - c/w duonebs, albuterol, duonebs guaifenesin - f/u CXR - Pre and post evaluation for Home O2. Pt qualified for home O2. Will be delivered tomorrow and anticipate discharge tomorrow. Back pain - s/p fall on back - start IV tylenol 750 q6 PRN Hypothyroidism - c/w home dose synthroid FEN - No standing fluids - monitor and replete electrolytes - c/w puree/nectar thick liquids Prophylaxis -DVT: Held due to GIB Dispo: Discharge to home tomorrow. Visit type - Emergency Visit Emergency Visit: Yes ED Registration Date: 03/24/20 Care time: The patient presented to the Emergency Department on the above date and was hospitalized for further evaluation of their emergent condition. - New Patient This patient is new to me today: No - Critical Care Critical Care patient: No - Medication Review Med list reviewed for High Risk Meds patients 65 and older: Yes ATTENDING PHYSICIAN STATEMENT I saw and evaluated the patient. I reviewed the resident's note and discussed the case with the resident. I agree with the resident's findings and plan as documented. SUBJECTIVE: OBJECTIVE: ASSESSMENT AND PLAN:
--- NOTE | 2020-04-04 10:41 | PN ---
Progress Note (short form) - Note Progress Note: Chief Complaint: Denies CP/SOB/palps/dizzy History of Present Illness: Acute CVA with left sided weakness Left carotid stenosis Pericardial effusion PAF Thyroid disorder. Aspiration PNA Social: non smoker Current Medications Generic Name Dose Route Start Last Admin Trade Name Freq PRN Reason Stop Dose Admin Acetaminophen 750 mg 04/02/20 20:56 04/02/20 22:33 Tylenol - PO 750 mg Q6H PRN Administration PAIN LEVEL 1-5 Albuterol Sulfate 1 puff 03/24/20 16:56 03/28/20 22:16 Ventolin Hfa Inhaler - IH 1 puff Q4H PRN Administration SHORTNESS OF BREATH Albuterol/Ipratropium 1 amp 03/27/20 08:59 Duoneb - NEB Q4H PRN SHORTNESS OF BREATH Albuterol/Ipratropium 1 amp 03/27/20 14:00 04/04/20 07:30 Duoneb - NEB 1 amp RTID SHRUTHI Administration Atorvastatin Calcium 40 mg 03/25/20 17:35 04/03/20 21:51 Lipitor - PO 40 mg HS SHRUTHI Administration Docusate Sodium 100 mg 03/24/20 15:09 Colace - PO DAILY PRN CONSTIPATION Guaifenesin 600 mg 03/24/20 16:31 03/26/20 00:36 Mucinex - PO 600 mg Q12H PRN Administration COUGH Guaifenesin 10 ml 03/26/20 01:43 04/03/20 21:52 Robitussin - PO 10 ml Q4H PRN Administration COUGH Piperacillin Sod/Tazobactam 50 mls @ 100 mls/hr 03/30/20 14:00 04/04/20 09:46 Sod 3.375 gm/ Dextrose IVPB 100 mls/hr Q8H-IV SHRUTHI Administration Protocol Pantoprazole Sodium 80 mg/ 100 mls @ 10 mls/hr 04/01/20 17:00 04/04/20 06:26 Sodium Chloride IVPB 04/04/20 16:59 10 mls/hr Q10H SHRUTHI Administration 8 MG/HR Levothyroxine Sodium 100 mcg 04/01/20 18:45 04/04/20 06:26 Synthroid - PO 100 mcg ACBK SHRUTHI Administration Metoprolol Tartrate 12.5 mg 03/31/20 11:30 04/04/20 09:46 Lopressor - PO 12.5 mg DAILY SHRUTHI Administration Prednisone 5 mg/ Prednisone 20 25 mg 04/01/20 22:00 04/04/20 09:45 mg PO 25 mg BID SHRUTHI Administration Vital Signs Period Temp Pulse Resp BP Sys/Solorio Pulse Ox Last 24 Hr 97.8 F-98.4 F 80-99 20-20 113-138/52-72 94-95 Constitutional: Yes: No Distress, Calm Cardiovascular: Yes: Regular Rate and Rhythm Respiratory: Yes: CTA Bilaterally Gastrointestinal: Yes: Soft (nt) Edema: No Neurological: Yes: Alert no jaundice diaphoresis Labs: CBC, BMP 04/02/20 15:32 04/02/20 06:32 - ....Imaging EKG: Image Reviewed tele: sr Assessment/Plan IMP: R sided CVA PAF 70% L carotid stenosis ASP PNA Pericardial effusion HTN HLD Thyroid disorder REC: 1. CVA with PAF noted on tele: -[id number] score elevated, AC is indicated - on eliquis -nl LV function on echo here -ac held due to GIB, hgb drifting down -GI following, on ppi gtt, family deciding on scopes. No cardiac contraindications to egd/foc. 2. 70% LCC stenosis: -evaluated by vascular - surgical intervention not recommended -Cont statin. Monitor LFTs and CPK 3. Asp PNA: -on abx 4. Pericardial effusion: mild to moderate, no evidence of tamponade on echo nor clinically -reduced in size on repeat echo 5. HTN: -stable 6. HLD: -goal LDL 70mg d/l. cont statin 7. Hyperthyroid: -TSH low -Holding Synthroid, as per primary team
--- NOTE | 2020-04-04 12:03 | PN ---
Teaching Attending Note Name of Resident: Fatemeh Jones ATTENDING PHYSICIAN STATEMENT I saw and evaluated the patient. I reviewed the resident's note and discussed the case with the resident. I agree with the resident's findings and plan as documented. SUBJECTIVE: OBJECTIVE: ASSESSMENT AND PLAN: 84yo Female with a PMhx notable for HLD, HTN, lung disease, knee replacement, who presents with Left arm/leg weakness, facial droop, and fall. Admitted for acute CVA # CVA: Likely in setting of Atrial Fibrillation Continue Eliquis/statin Aspiration PNA in setting of interstitial lung disease: Plan to transition to Augmentin, complete a total of 7 days of Abx. Continue Honey Thickened liquids/Puree diet Incentive spectrometry A. Fib with RVR continue AC /beta-gutierrez for rate control Dispo: Plan to discharge home
[2020-04-04] MEDS: AMOX TR/POT CLAV 875MG/125MG TABLETS (FP) PO SCH (17:36)
[2020-04-04] MEDS: ATORVASTATIN CA 80 MG TABLET (FP) PO SCH (21:52)
[2020-04-04] MEDS: PANTOPRAZOLE 40 MG TABLET PO SCH (21:52)
[2020-04-05] MEDS: LEVOTHYROXINE NA 100 MCG TABLET (FP) PO SCH (06:22)
--- NOTE | 2020-04-05 07:43 | PN ---
Progress Note, Physician History of Present Illness: PULMONARY ALERT,COMFORTABLE, SOB IMPROVED - Current Medication List Current Medications: Active Medications Acetaminophen (Tylenol -) 750 mg PO Q6H PRN PRN Reason: PAIN LEVEL 1-5 Last Admin: 04/02/20 22:33 Dose: 750 mg Documented by: Albuterol Sulfate (Ventolin Hfa Inhaler -) 1 puff IH Q4H PRN PRN Reason: SHORTNESS OF BREATH Last Admin: 03/28/20 22:16 Dose: 1 puff Documented by: Albuterol/Ipratropium (Duoneb -) 1 amp NEB Q4H PRN PRN Reason: SHORTNESS OF BREATH Albuterol/Ipratropium (Duoneb -) 1 amp NEB RTID [facility] Last Admin: 04/04/20 20:00 Dose: 1 amp Documented by: Amoxicillin/Clavulanate Potassium (Augmentin - 875mg Tablet) 1 tab PO BID@0800,1730 [facility] Last Admin: 04/04/20 17:36 Dose: 1 tab Documented by: Atorvastatin Calcium (Lipitor -) 40 mg PO HS [facility] Last Admin: 04/04/20 21:52 Dose: 40 mg Documented by: Docusate Sodium (Colace -) 100 mg PO DAILY PRN PRN Reason: CONSTIPATION Guaifenesin (Mucinex -) 600 mg PO Q12H PRN PRN Reason: COUGH Last Admin: 03/26/20 00:36 Dose: 600 mg Documented by: Guaifenesin (Robitussin -) 10 ml PO Q4H PRN PRN Reason: COUGH Last Admin: 04/03/20 21:52 Dose: 10 ml Documented by: Levothyroxine Sodium (Synthroid -) 100 mcg PO ACBK [facility] Last Admin: 04/05/20 06:22 Dose: 100 mcg Documented by: Metoprolol Tartrate (Lopressor -) 12.5 mg PO DAILY [facility] Last Admin: 04/04/20 09:46 Dose: 12.5 mg Documented by: Pantoprazole Sodium (Protonix -) 40 mg PO BID [facility] Last Admin: 04/04/20 21:52 Dose: 40 mg Documented by: Prednisone 5 mg/ Prednisone 20 (mg) 25 mg PO BID [facility] Last Admin: 04/04/20 21:52 Dose: 25 mg Documented by: - Objective Vital Signs: Vital Signs Temperature 98.8 F 04/05/20 05:35 Pulse Rate 86 04/05/20 05:35 Respiratory Rate 20 04/05/20 05:35 Blood Pressure 109/61 04/05/20 05:35 O2 Sat by Pulse Oximetry (%) 96 04/05/20 05:35 Constitutional: Yes: Calm, Thin Eyes: Yes: WNL HENT: Yes: WNL Neck: Yes: WNL Cardiovascular: Yes: Regular Rate and Rhythm, S1, S2 Respiratory: Yes: Rales (BILATERAL CRACKLES) Gastrointestinal: Yes: Normal Bowel Sounds, Soft Extremities: Yes: WNL Edema: No Labs: CBC, BMP Problem List - Problems (1) Pneumonia Code(s): J18.9 - PNEUMONIA, UNSPECIFIED ORGANISM (2) Cerebrovascular accident (CVA) Code(s): I63.9 - CEREBRAL INFARCTION, UNSPECIFIED Qualifiers: CVA mechanism: unspecified Qualified Code(s): I63.9 - Cerebral infarction, unspecified (3) Interstitial lung disease Code(s): J84.9 - INTERSTITIAL PULMONARY DISEASE, UNSPECIFIED (4) HTN (hypertension) Code(s): I10 - ESSENTIAL (PRIMARY) HYPERTENSION (5) HLD (hyperlipidemia) Code(s): E78.5 - HYPERLIPIDEMIA, UNSPECIFIED Assessment/Plan A/P Pneumonia likely Aspiration clinically improved Acute CVA Interstitial Lung Disease HTN Hyperlipidemia + Guaiac stools - antibiotics - prednisone - inhaled bronchodilators - O2 to keep SpO2 >90% - aspiration precautions - DVT prophylaxis DR SULLIVAN
[2020-04-05] MEDS: AMOX TR/POT CLAV 875MG/125MG TABLETS (FP) PO SCH (08:36)
--- NOTE | 2020-04-05 08:47 | DS ---
Physical Exam: SUBJECTIVE: Patient seen and examined. Stated that she feels well today. No acute events overnight. OBJECTIVE: Vital Signs Period Temp Pulse Resp BP Sys/Solorio Pulse Ox Last 24 Hr 97.8 F-98.8 F 66-98 18-20 109-144/60-76 92-96 PHYSICAL EXAM GENERAL: Awake and alert. Not in acute distress. HEENT: NCAT, EOMI, moist mucus membranes LUNGS: Scattered rhonchi present. HEART: Regular rate and rhythm, S1, S2 present. + Systolic murmur present on L upper sternal border. ABDOMEN: Soft, non-distended, non-tender to palpation. Bowel sounds present in all 4 quadrants. EXTREMITIES: warm, well-perfused. No edema. NEUROLOGICAL: Sensation intact. Strength 5/5 on R upper extremities, 1/5 on L upper extremity. 5/5 on R lower extremity, 1/5 on L lower extremity. SKIN: Warm, dry LABS CBC, BMP 04/02/20 15:32 04/02/20 06:32 HOSPITAL COURSE: 84 year old F with PMH DJD, HLD, HTN, hypothyroidism, probable ILD, presented to ED with L side weakness and facial droop. Given her history, physical exam, images and significant lab findings, pt likely has CVA. Admitted to telemetry for further management and evaluation. Patient had an Acute ischemic stroke likely due to Afib with a NIHSS 9 on admission. Patient received ASA 81 qD, atorvastatin 40 qD during her stay. Neuro was consulted and they recommended monitor blood pressure, maintain less than 160/90, continue ASA 81mg. PT as tolerated, likely needs rehabilitation. Aspiration and fall precautions were in place. Patient was initially NPO but then was started on a trial of puree/nectar thick liquids as per [employer] Cardio was consulted. They recommended continue Eliquis 2.5 BID, ASA and statins. Patient had leukocytosis during her stay most likely due to aspiration pneumonia. ID was consulted. Pt given rocephin and trans itioned to zosyn given worsening leukocytosis. WBC improved, and pt was transitioned to augmentin. Pulm was consulted recommended continue antibiotics, inhaled bronchodilators. Started prednisone (50mg equivalent to 40 mg solu- medrol) and supplemental O2 to keep SpO2 >90% Patient also had melena during her stay GI was consulted. Discontinued Eliquis. Pt declined to have any EGD/colonoscopy done to evaluate bleed. Explained benefits and risk of procedure, but pt declined to have it done. Pt is to discontinue AC for now. Patient had a small pericardial effusion during her stay. No evidence of ta mponade on echo nor clinically. Patient was started on Metoprolol 12.5 mg PO during her stay for her HTN. Patient was also found to have 70% of her L common carotid stenosed. Vascular surgery recommended no indication for surgical intervention at this time as pt is asymptomatic and unless stenosis is progressive and >80% in a good-risk pt. Recommended f/u carotid duplex yearly to determine if lesion is worsening. Pt remained in the hospital for 1 additional day due to daughter declining pt to be transferred to SNF due to unfavorable visiting hours. Requested pt to be sent home. Respiratory therapist did pre and post and pt qualified for home oxygen. Pt is currently hemodynamically stable and medically optimized to be discharged home. Date of Admission:03/24/20 Date of Discharge: 04/05/20 Minutes to complete discharge: 36 Discharge Summary Problems reviewed: Yes Reason For Visit: CVA Current Active Problems Anemia (Acute) Cerebrovascular accident (CVA) (Acute) HLD (hyperlipidemia) (Acute) HTN (hypertension) (Acute) Interstitial lung disease (Acute) Left carotid artery stenosis (Acute) Pneumonia (Acute) Condition: Stable - Instructions Diet, Activity, Other Instructions: Your visit: You were admitted to the hospital for a stroke. You had imaging done in your brain and neck, which confirmed your stroke. We also did imaging of your heart, and found some fluid surrounding it. It improved during your hospital course. We also evaluated your impaired swallowing, which had since improved. Due to your impaired swallowing, you developed a pneumonia, which we treated with antibiotics. We treated you with inhalers to improve your cough. You were also treated with medication to thin your blood and you were given physical therapy with improvement of your symptoms. A test was done to show that you require oxygen at home. Please follow up with your rfid manager for further management. You also had trouble with swallowing due to your stroke. Because of this, it is recommended you follow up with your primary care doctor before advancing your diet. Medications changes: -You were started on steroids while you were her and need to continue taking these for 12 more days. The dosing is as follows: Day #1 04/05 you will take 8 pills of 5 mg tablets. Total dose is 40 mg. Day #2 04/06 you will take 7 pills of 5 mg tablets. Total dose is 35 mg. Day #3 04/07 you will take 6 pills of 5 mg tablets. Total dose is 30 mg. Day #4 04/08 you will take 6 pills of 5mg tablets. Total dose is 30 mg. Day #5 04/09 you will take 5 pills of 5 mg tablets. Total dose is 25 mg. Day #6 04/10 you will take 5 pills of 5 mg tablets. Total dose is 25 mg. Day #7 04/11 you will take 4 pills of 5 mg tablets. Total dose is 20 mg. Day #8 04/12 you will take 4 pills of 5 mg tablets. Total dose is 20 mg. Day #9 04/13 you will take 3 pills of 5 mg tablets. Total dose is 15 mg. Day #10 04/14 you will take 3 pills of 5 mg tablets. Total dose is 15 mg. Day #11 04/15 you will take 2 pills of 5 mg tablets. Total dose is 10 mg. Day #12 04/16 you will take 1 pills of 5 mg tablets. Total dose is 5 mg. -Continue to take the antibiotic Augmentin 875/125mg 2 times per day by mouth for the next 5 days. -DISCONTINUE your eliquis 2.5mg two times per day. You were having bleeding and it is dangerous to resume taking this medication while you are bleeding. -Continue to take Lipitor (Atorvastatin) 40mg once daily at bedtime. -Continue to take daily aspirin 81mg. -Continue to take Protonix 40 mg twice a day. -Continue to take all other home medications as prescribed. Follow up: - Please follow-up with your neurologist, Dr. Dia, in 1 week. - Please follow up with your rfid manager Dr. Borja in 1 week. - Please follow up with your field clerk Dr. Rivas in 2 weeks. He will continue to follow the fluid that was found surrounding your heart. He will also monitor your arrhythmias. Please continue to discuss benefits and risks of resuming your blood thinner. -Please follow up with Gastroenterology, Dr. Woods. You will need to discuss further management of your rectal bleeding. - Visit with your Primary Care Provider Dr. Dunn, in 2 weeks. Follow up with your primary care doctor to evaluate the narrowing in your carotid artery due to plaques. You will need to get yearly ultrasounds to monitor it. You will need a repeated modified barium swallow before you advancing your diet. Additional Instructions: -You are being discharged to your home. -We have stopped your blood thinner as you were found to have rectal bleeding, and blood thinners can worsen this bleeding. You were evaluated by a auditing coder who recommended further workup including a colonoscopy to assess where this bleeding was coming from. You have opted out of further workup for your bleeding at this time. We have explained the risks of stopping your blood thinner. Risks include developing clots as well as new strokes, and potentially . -While you are regaining your strength, please be cautious while eating as your swallowing has been impaired. You have done well with swallowing soft foods. Make sure to thoroughly chew your food well so as to avoid choking. -Please return to the Emergency Department if you experience worsening pain, fevers, chills, shortness of breath, or chest pain, or if you experience any worsening, new or concerning symptoms. Referrals: Chris Borja MD [Staff Physician] - 1 Week Teto Dunn MD [Primary Care Provider] - 2 Weeks Hardy Rivas MD [Staff Physician] - 2 Weeks Lavelle Dia MD [Staff Physician] - 1 Week Disposition: VNS/HOME HEALTH CARE - Home Medications Comprehensive Discharge Medication List: Ambulatory Orders Levothyroxine [Synthroid -] 100 mcg PO DAILY 05/07/14 Simvastatin [Zocor -] 40 mg PO HS 05/07/14 Esomeprazole Mag Trihydrate [Nexium] 40 mg PO DAILY 08/01/15 Albuterol 2.5/Ipratropium 0.5 [Duoneb -] 1 neb IH TID PRN 03/25/20 Ibandronate Sodium 150 mg PO MONTHLY 03/25/20 Mirabegron [Myrbetriq] 50 mg PO DAILY 03/25/20 Olmesartan/Hydrochlorothiazide [Olmesartan-Hctz 40-12.5 mg Tab] 1 tablet PO DAILY 03/25/20 Umeclidinium Brm/Vilanterol Tr [Anoro Ellipta 62.5-25 Mcg INH] 1 puff IH DAILY 03/25/20 Aspirin [Ecotrin] 81 mg PO DAILY #30 tablet. 03/30/20 Atorvastatin Ca [Lipitor] 40 mg PO HS #30 tablet 03/30/20 Amoxicillin/Potassium Clav [Augmentin 875-125 Tablet] 1 each PO BID #10 tablet 04/01/20 Prednisone See Taper PO DAILY #54 tablet 04/01/20 This patient is new to me today: No Emergency Visit: Yes ED Registration Date: 03/24/20 Care time: The patient presented to the Emergency Department on the above date and was hospitalized for further evaluation of their emergent condition. Critical Care patient: No - Discharge Referral Referred to [facility] Med P.C.: No ATTENDING PHYSICIAN STATEMENT I saw and evaluated the patient. I reviewed the resident's note and discussed the case with the resident. I agree with the resident's findings and plan as documented. SUBJECTIVE: OBJECTIVE: ASSESSMENT AND PLAN:
[2020-04-05] MEDS: ALBUTEROL SO4 2.5/IPRATROPIUM 0.5 INH SOL 3 ML VIAL.NEB. NEB SCH (09:00)
[2020-04-05] MEDS ORDERED: predniSONE 20 MG TABLET (UD) ONE (09:02)
[2020-04-05] MEDS: METOPROLOL TARTRATE 25 MG TABLET (FP) PO SCH (09:04)
[2020-04-05] MEDS: predniSONE 5 MG, predniSONE 20 MG PO SCH (09:04)
[2020-04-05] MEDS: PANTOPRAZOLE 40 MG TABLET PO SCH (09:04)
--- NOTE | 2020-04-05 11:13 | PN ---
Progress Note, OPERATIONAL INTELLIGENCE OFFICER - Note Progress Note: Selected Entries 03/31/20 03/31/20 04/01/20 15:41 23:59 01:23 Breakfast Lunch 50% Supper 25% Temperature 98.2 F Pulse Rate 91 H Blood Pressure 117/66 04/01/20 04/01/20 04/01/20 05:36 08:41 10:00 Breakfast 25% Lunch Supper Temperature 97.9 F 98.4 F Pulse Rate 98 H 92 H Blood Pressure 132/70 119/71 Laboratory Tests 03/29/20 03/30/20 03/31/20 06:10 06:25 05:35 WBC 9.8 12.0 H 15.2 H 04/01/20 06:56 WBC 15.4 H On puree/nectar/2 shukri/magic cup Aspiration precautions Mouth care TID Up for d/c home Family education regarding diet -RD aware Suggest repeat MBS before diet upgrade as out pt.
--- NOTE | 2020-04-05 12:06 | PN ---
Progress Note (short form) - Note Progress Note: s: no chest pain, palps, dizziness, dyspnea Current Medications Generic Name Dose Route Start Last Admin Trade Name Freq PRN Reason Stop Dose Admin Acetaminophen 750 mg 04/02/20 20:56 04/02/20 22:33 Tylenol - PO 750 mg Q6H PRN Administration PAIN LEVEL 1-5 Albuterol Sulfate 1 puff 03/24/20 16:56 03/28/20 22:16 Ventolin Hfa Inhaler - IH 1 puff Q4H PRN Administration SHORTNESS OF BREATH Albuterol/Ipratropium 1 amp 03/27/20 08:59 Duoneb - NEB Q4H PRN SHORTNESS OF BREATH Albuterol/Ipratropium 1 amp 03/27/20 14:00 04/05/20 09:00 Duoneb - NEB 1 amp RTID SHRUTHI Administration Amoxicillin/Clavulanate Potassium 1 tab 04/04/20 17:30 04/05/20 08:36 Augmentin - 875mg Tablet PO 1 tab BID@0800,1730 SHRUTHI Administration Atorvastatin Calcium 40 mg 03/25/20 17:35 04/04/20 21:52 Lipitor - PO 40 mg HS SHRUTHI Administration Docusate Sodium 100 mg 03/24/20 15:09 Colace - PO DAILY PRN CONSTIPATION Guaifenesin 600 mg 03/24/20 16:31 03/26/20 00:36 Mucinex - PO 600 mg Q12H PRN Administration COUGH Guaifenesin 10 ml 03/26/20 01:43 04/03/20 21:52 Robitussin - PO 10 ml Q4H PRN Administration COUGH Levothyroxine Sodium 100 mcg 04/01/20 18:45 04/05/20 06:22 Synthroid - PO 100 mcg ACBK SHRUTHI Administration Metoprolol Tartrate 12.5 mg 03/31/20 11:30 04/05/20 09:04 Lopressor - PO 12.5 mg DAILY SHRUTHI Administration Pantoprazole Sodium 40 mg 04/04/20 22:00 04/05/20 09:04 Protonix - PO 40 mg BID SHRUTHI Administration Prednisone 5 mg/ Prednisone 20 25 mg 04/01/20 22:00 04/05/20 09:04 mg PO 25 mg BID SHRUTHI Administration Vital Signs Period Temp Pulse Resp BP Sys/Solorio Pulse Ox Last 24 Hr 98.0 F-98.8 F 66-98 20-20 109-121/60-71 92-96 Constitutional: Yes: No Distress, Calm Cardiovascular: Yes: Regular Rate and Rhythm Respiratory: Yes: CTA Bilaterally Gastrointestinal: Yes: Soft (nt) Edema: No Neurological: Yes: Alert no jaundice diaphoresis not agitated tele: sr, brief episodes PAF 140s Assessment/Plan IMP: R sided CVA PAF 70% L carotid stenosis ASP PNA Pericardial effusion HTN HLD Thyroid disorder REC: 1. CVA with PAF noted on tele: -[id number] score elevated, anticoagulation indicated - was on eliquis which was held for anemia -nl LV function on echo here -GI following, on ppi. No cardiac contraindications to egd/foc if needed 2. 70% LCC stenosis: -evaluated by vascular - surgical intervention not recommended -Cont statin. Monitor LFTs and CPK 3. Asp PNA: -on abx 4. Pericardial effusion: mild to moderate, no evidence of tamponade on echo nor clinically -reduced in size on repeat echo 5. HTN: -stable 6. HLD: -goal LDL 70mg d/l. cont statin 7. Hyperthyroid: -TSH low -Holding Synthroid, as per primary team
[2020-04-05 14:59] VITALS: BP 135/65; PULSE 91; TEMP 98.1
--- NOTE | 2020-04-05 17:55 | PN ---
Teaching Attending Note Name of Resident: Cecile Pérez ATTENDING PHYSICIAN STATEMENT I saw and evaluated the patient. I reviewed the resident's note and discussed the case with the resident. I agree with the resident's findings and plan as documented. SUBJECTIVE: Patient is comfortable continues to have weakness of her left side. OBJECTIVE: Vital Signs Temperature 98.1 F 04/05/20 14:00 Pulse Rate 91 H 04/05/20 14:00 Respiratory Rate 20 04/05/20 14:00 Blood Pressure 135/65 04/05/20 14:00 O2 Sat by Pulse Oximetry (%) 98 04/05/20 14:00 PE: per resident's note CBCD WBC 18.0 K/mm3 (4.0-10.0) H 04/02/20 15:32 RBC 3.38 M/mm3 (3.60-5.2) L 04/02/20 15:32 Hgb 8.7 GM/dL (10.7-15.3) L 04/02/20 15:32 Hct 28.0 % (32.4-45.2) L 04/02/20 15:32 MCV 82.8 fl (80-96) 04/02/20 15:32 MCHC 31.1 g/dl (32.0-36.0) L 04/02/20 15:32 RDW 18.5 % (11.6-15.6) H 04/02/20 15:32 Plt Count 465 K/MM3 (134-434) H 04/02/20 15:32 MPV 8.6 fl (7.5-11.1) 04/02/20 15:32 CMP Sodium 142 mmol/L (136-145) 04/02/20 06:32 Potassium 4.6 mmol/L (3.5-5.1) 04/02/20 06:32 Chloride 109 mmol/L (98-107) H 04/02/20 06:32 Carbon Dioxide 28 mmol/L (21-32) 04/02/20 06:32 Anion Gap 5 MMOL/L (8-16) L 04/02/20 06:32 BUN 34.8 mg/dL (7-18) H 04/02/20 06:32 Creatinine 0.8 mg/dL (0.55-1.3) 04/02/20 06:32 Random Glucose 138 mg/dL (74-106) H 04/02/20 06:32 Calcium 8.2 mg/dL (8.5-10.1) L 04/02/20 06:32 Total Bilirubin 0.4 mg/dL (0.2-1) 03/31/20 05:25 AST 13 U/L (15-37) L 03/31/20 05:25 ALT 19 U/L (13-61) 03/31/20 05:25 Alkaline Phosphatase 27 U/L (45-117) L 03/31/20 05:25 Total Protein 5.5 g/dl (6.4-8.2) L 03/31/20 05:25 Albumin 2.4 g/dl (3.4-5.0) L 03/31/20 05:25 CARDIAC ENZYMES Creatine Kinase 30 U/L (26-192) 03/30/20 06:25 Troponin I < 0.02 ng/ml (0.00-0.05) 03/24/20 10:00 Home Medications Medication Instructions Recorded Levothyroxine [Synthroid -] 100 mcg PO DAILY 05/07/14 Albuterol 2.5/Ipratropium 0.5 1 neb IH TID PRN 03/25/20 [Duoneb -] Ibandronate Sodium 150 mg PO MONTHLY 03/25/20 Mirabegron [Myrbetriq] 50 mg PO DAILY 03/25/20 Umeclidinium Brm/Vilanterol Tr 1 puff IH DAILY 03/25/20 [Anoro Ellipta 62.5-25 Mcg INH] Aspirin [Ecotrin] 81 mg PO DAILY #30 tablet. 03/30/20 Atorvastatin Ca [Lipitor] 40 mg PO HS #30 tablet 03/30/20 Amoxicillin/Potassium Clav 1 each PO BID #10 tablet 04/01/20 [Augmentin 875-125 Tablet] Prednisone See Taper PO DAILY #54 tablet 04/01/20 Amox-Tr/K Cl [Augmentin 875-125mg 1 tab PO BID@0800,1730 tablet 04/05/20 Tablet -] Pantoprazole Sodium [Protonix -] 40 mg PO BID tablet.ec 04/05/20 Pantoprazole Sodium [Protonix] 40 mg PO BID #30 tablet. 04/05/20 Microbiology 03/30/20 16:00 Blood - Peripheral Venous Blood Culture - Final NO GROWTH AFTER 5 DAYS INCUBATION 03/30/20 16:00 Blood - Peripheral Venous Blood Culture - Final NO GROWTH AFTER 5 DAYS INCUBATION 03/30/20 10:00 Sputum - Expectorated Gram Stain - Final 03/30/20 10:00 Sputum - Expectorated Sputum Culture - Final Yeast Like Organism 03/30/20 12:20 Urine - Urine - Catheterized Urine Culture - Final NO GROWTH OBTAINED 03/30/20 12:20 Urine For Antigen Detection Legionella Antigen - Final 03/30/20 12:20 Urine For Antigen Detection Streptococcus pneumoniae Antigen (M - Final ASSESSMENT AND PLAN: This patient is an 84yof with Pmhx of DDD, HLD, HTN, hypothyroidism, probable interstitial lung disease, who presented with L side weakness and facial droop. And was found to have acute stroke #Acute ischemic stroke likely due to Afib on aspirin and lipitor continue # RLL infiltrates likely due to aspiration PNA vs. CAP s/p zosyn , going home on Augmentin #Melena: GI consulted. H/H stable. No gross bleeding noted. as per GI TO DC patient home on protonix 40mg BID. #Urinary retention: dc john # Pericardial effusion: mild pericardial effusion on repeat ECHO # HTN: continue metoprolol 12.5 mg PO #HLD continue atorvastatin 40 qD. # 70% L Common Carotid stenosis: Vascular was consulted : No indication for surgical intervention at this time as pt is asymptomatic and unless stenosis is progressive and >80% in a good-risk pt. Recommended f/u carotid duplex yearly to determine if lesion is worsening. #Hypothyroidism continue synthroid DVT Prophylaxis : scds on hold due to GIB dc patient home since the daughter is refusing rehab who is the HCP with [facility] follow with neurologist as an outpatient.
== END 2020-04-05 16:24 | disposition home health service (06) | DRG 64 ==
LOC: JER 09:30 → SUPCPDRO 09:30 → JERBED 12:49 → JICU 21:56 → J4W 03-28 21:33
PROVIDERS: ADMIT Student in an Organized Health Care Education/Training Program; ATTEND Internal Medicine
DX: I63.9 Cerebral infarction, unspecified (principal); J69.0 Pneumonitis due to inhalation of food and vomit; G81.94 Hemiplegia, unspecified affecting left nondominant side; J84.9 Interstitial pulmonary disease, unspecified; I31.3 Pericardial effusion (noninflammatory); K92.1 Melena; R29.810 Facial weakness; R29.709 NIHSS score 9; I48.0 Paroxysmal atrial fibrillation; I65.22 Occlusion and stenosis of left carotid artery; I10 Essential (primary) hypertension; E78.5 Hyperlipidemia, unspecified; R09.02 Hypoxemia; D72.829 Elevated white blood cell count, unspecified; E03.9 Hypothyroidism, unspecified; R33.9 Retention of urine, unspecified; D64.9 Anemia, unspecified
CPT/HCPCS: 36415; 70450-TC; 70496-TC; 70498-TC; 71045-TC-FY; 72125-TC; 74230-TC-FY; 80048; 80053; 80061; 81003; 82272; 82550; 82962; 83721; 83735; 84100; 84439; 84443; 84484; 85025; 85027; 85610; 85651; 85730; 86038; 86850; 86900; 86901; 87040; 87070; 87077; 87086; 87205; 87899; 92611-GN; 93005; 93010; 93306-TC; 93880-TC; 94640; 94761; 97116-GP; 97162-GP; 99291; J0131; J1644; Q9967; U0003